=== PATIENT | male | born 1950 | race Caucasian/White ===

== ENCOUNTER 2018-02-02 05:52 | Day surgery (SDC) | payer MEDICARE, OTHER ==
[~2018-02-02 05:52] MED LIST: ALPRAZolam 0.25 MG TAB PO PRN; ALPRAZolam 0.5 MG TAB PO PRN; ASPIRIN 325 MG TAB PO STA; ATORVASTATIN 80 MG TAB PO STA; NITROGLYCERIN SL TABS 0.4 MG TAB SUBLINGUAL PRN; SODIUM CHLORIDE 0.9% 1,000 ML in EMPTY BAG 1 BAG IV ONE
[2018-02-02 06:40] VITALS: RESP 16
[2018-02-02] MEDS ORDERED: fentaNYL (PF) 50 MCG/ML 2 ML AMP ONE (06:47)
[2018-02-02] MEDS ORDERED: MIDAZOLAM 2 MG/2 ML VIAL ONE (06:47)
[2018-02-02] MEDS ORDERED: SODIUM CHLORIDE 0.9% 1,000 ML IV ONE (06:48)
[2018-02-02] MEDS: INSULIN ASPART 100 UNIT/ML 1 ML 10 ML VIAL SQ SCH ×4 (06:49→17:53)
[2018-02-02] MEDS: BENZOCAINE SPRAY 1 CAN TOPICAL ONE ×3 (06:58→07:17)
[2018-02-02 07:05] LABS: Glucose,Whole Blood 232 mg/dL (75-99)
[2018-02-02] MEDS ORDERED: fentaNYL (PF) 50 MCG/ML 2 ML AMP IV ONE (07:17)
[2018-02-02] MEDS ORDERED: MIDAZOLAM 2 MG/2 ML VIAL IVP ONE ×2 (07:18→07:21)
[2018-02-02] MEDS ORDERED: LIDOCAINE 1% INJ 10MG/ML (20 ML MDV) ONE (07:21)
[2018-02-02] MEDS ORDERED: IV FLUID CONTINUATION 725 ML IV ONE (07:38)
[2018-02-02] MEDS ORDERED: LIDOCAINE 1% INJ 10MG/ML (20 ML MDV) SQ ONE (08:00)
--- NOTE | 2018-02-02 08:13 | ECHOT ---
TRANSESOPHAGEAL ECHOCARDIOGRAM INDICATION: Evaluation of aortic valve. PROCEDURE: After explaining the procedure to the patient, its risks and the complications, blood pressure, heart rate, O2 saturation was monitored. The throat was sprayed with Cetacaine. He received 50 mcg intravenous fentanyl and 3 mg intravenous Versed. The probe was introduced into the esophagus without difficulty. Images were obtained. Following that, the probe was removed. There was no immediate complication. FINDINGS: Left atrial size is mildly dilated. Left ventricular size and systolic function normal. The mitral valve revealed mitral annulus calcification. The aortic valve is a tricuspid valve severely calcified. By planimetry, the valve area is ranging between 0.7 to 0.8 centimeters square. The tricuspid valve is normal. Descending thoracic aorta revealed mild atherosclerotic changes. No pericardial effusion was noted. Contrast bubble study revealed no shunting across the interatrial septum. Doppler pulse wave and color Doppler obtained revealed a mild to moderate mitral with mild tricuspid regurgitation with trace aortic regurgitation. CONCLUSION: 1. Mildly dilated left atrium. 2. Normal left ventricular size and systolic function. 3. Mitral annulus calcification with mild to moderate mitral regurgitation. 4. Severe aortic stenosis with aortic valve area of 0.7 to 0.8 centimeters square. 5. Mild tricuspid regurgitation. 6. No evidence of shunting across the interatrial septum. 7. No pericardial effusion. MMODL / IJN: [id number] /
[2018-02-02 08:24] LABS: O2 Sat Blood Gas 70.5 %
[2018-02-02 08:26] LABS: O2 Sat Blood Gas 68.5 %
[2018-02-02 08:28] LABS: O2 Sat Blood Gas 94.9 %
[2018-02-02] MEDS ORDERED: IOPAMIDOL-370 125ML BTL INJ ONE (08:28)
[2018-02-02] MEDS ORDERED: RX INFO: IV CONTRAST WAS GIVEN 1 EACH MISC MISCELLANE PRN (08:50)
[2018-02-02] MEDS ORDERED: SODIUM CHLORIDE 0.9% 1,000 ML IV SCH (09:00)
[2018-02-02] MEDS ORDERED: METOPROLOL TARTRATE 50 MG TAB PO SCH (09:00)
[2018-02-02] MEDS ORDERED: ASPIRIN 81 MG PO SCH (09:00)
[2018-02-02] MEDS ORDERED: ISOSORBIDE MONONITRATE ER 30 MG TAB.ER.24H PO SCH (09:00)
[2018-02-02] MEDS ORDERED: FAMOTIDINE 20 MG TAB PO SCH (09:00)
--- NOTE | 2018-02-02 09:37 | CC ---
CARDIAC CATHETERIZATION REPORT Mr. Duenas is a 67-year-old male with known history of hypertension, hyperlipidemia, diabetes mellitus, and a prior history of percutaneous revascularization who presented with symptoms of progressive chest discomfort and dyspnea on exertion. He has a known history of aortic stenosis that showed progression of gradient on his transthoracic echocardiogram. In view of that, recommendation was made regarding cardiac catheterization. The procedure, its risks and the complications were discussed with the patient who is in full understanding and agreement. PROCEDURE: Patient was brought to labor relations supervisor in a fasting semi-sedated state after receiving fentanyl and Benadryl and achieving moderate conscious sedated state. Using Xylocaine anesthesia in the Seldinger's technique, 6-Congolese sheath was introduced in the right femoral artery and an 8-Congolese sheath in the right femoral vein. Right heart catheterization performed using [place]-Adalberto catheter multiple pressure samples were obtained. Cardiac output by thermodilution was calculated. Following that selective right and left colon angiography performed 6-Congolese 4 bend right and left Nelson catheter. Multiple views of the coronary artery including hemiaxial views obtained. Following that, catheter and sheaths were removed. Hemostasis was obtained with deployment of an Angio-Seal in the right femoral artery and compression of the right femoral vein. FINDINGS: HEMODYNAMICS: Right atrial saturation 71%. Pulmonary artery saturation 69%. Femoral artery saturation 95%. Cardiac output by thermodilution 4.7 L/minute and by Javed 5.3 L/minute. Aortic valve area was calculated 0.9 centimeter square. Pulmonary artery systolic pressure of 24 with a diastolic of 6 and a mean of 10 mmHg. Pulmonary capillary wedge pressure A-wave of 9, V-wave of 6 with a mean of 6 mmHg. Right ventricular systolic pressure of 26 mmHg with an end-diastolic of 4 mmHg. Right atrium A-wave of 4, V-wave of 3 with a mean of 4 mmHg. The ventricular end-diastolic pressure of 16 to 20 mmHg. The gradient across the aortic valve was close to 40 mmHg. FLUOROSCOPY: There was severe calcification involving the coronary arteries as well as the aortic valve. LEFT MAIN: This is a large-sized vessel trifurcating left circumflex, left anterior descending artery and ramus intermedius. Left main coronary artery has no evidence of high-grade stenosis. LEFT ANTERIOR DESCENDING ARTERY: This is a large-sized vessel reaching to the apex with a wraparound apex segment. The mid segment of the LAD has intimal disease of 40% to 50%. The first diagonal branch, which is a large branch has an eccentric 99% stenosis. The vessel beyond that has no evidence of high-grade stenosis. RAMUS INTERMEDIUS: This is moderate-size vessel. The stented segment is patent and there is no evidence restenoses. The vessel has diffuse intimal disease. LEFT CIRCUMFLEX: This is a nondominant vessel, moderate in caliber giving rise to one obtuse marginal branch. The stented segment in the circumflex is patent. There is mild intimal disease with no evidence of high-grade stenosis. RIGHT CORONARY ARTERY: This is a large dominant vessel bifurcating in PDA and posterolateral segment and branches calcified. The right coronary artery ostium has a 50% to 70% stenosis. The mid segment of the vessel has diffuse intimal disease. The PDA takeoff has a lesion of about 60% to 70%. The rest of the vessel has no high-grade stenosis. LEFT VENTRICULOGRAM: Left ventriculogram was performed in 30-degree MCNALLY view and revealed normal left ventricular size and systolic function. Ejection fraction is 60%. There was no significant mitral regurgitation. CONCLUSION: 1. Calcified coronary artery and calcified aortic valve. 2. Significant stenosis in the first diagonal branch as well as the ostium of the right coronary artery. 3. Severe aortic stenosis. RECOMMENDATION: At this time, I would recommend to proceed with evaluation for possible aortic valve replacement, coronary artery bypass grafting. Those recommendation were discussed with the patient and his family and they are in full understanding and agreement. We will await the input of the surgical team. Duration of procedure 30 minutes. ALESSIO / MAYANKN: [id number] /
--- NOTE | 2018-02-02 11:47 | P.GSCN ---
History of Present Illness Consult date: 02/02/18 Reason for Consult: Aortic stenosis, coronary artery disease, surgical recommendations. Requesting physician: Óscar Staples History of present illness: This is a 67-year-old gentleman who follows with Dr. Padma Meza on an outpatient basis. He has a previous medical history of aortic stenosis, coronary artery disease with stents placement to the RCA, obtuse marginal, and ramus in 2005, hypertension, hyperlipidemia, obesity, prostate cancer status post prostatectomy in 2001, skin cancer 3 years ago, yfc-[id number] diabetes mellitus, and previous tobacco dependence, he quit smoking in 1974. He has been followed by Dr. Staples on an outpatient basis with serial echocardiograms for his aortic stenosis with progression of the gradient across the aortic valve. Recently he has had chest pain and shortness of breath. He was recommended to undergo heart catheterization and transesophageal echocardiogram which were completed this morning. His heart catheterization demonstrated mid LAD with interval disease of 40% to 50%, first diagonal branch with an eccentric 99% stenosis, 50-70% stenosis in the right coronary ostia, PDA with a lesion of 60-70%, patent stent in the ramus and circumflex. Transesophageal echocardiogram demonstrated a tricuspid aortic valve which is severely calcified with a valve area 0.7-0.8 cm by planimetry demonstrating severe aortic stenosis. Due to the above findings Dr. Fountain from cardiothoracic surgery was consulted for surgical recommendations. Review of Systems Review of systems was completed was negative except as noted. - Constitutional Reports fatigue - Cardiovascular Reports as per HPI, Reports chest pain, Reports dyspnea on exertion, Reports shortness of breath Past Medical History Past Medical History: Coronary Artery Disease (CAD), Cancer, Diabetes Mellitus, Hyperlipidemia, Hypertension, Myocardial Infarction (OR) Additional Past Medical History / Comment(s): HX KIDNEY STONES, HX OF PROSTATE AND SKIN CA, aortic stenosis Last Myocardial Infarction Date:: 2005 History of Any Multi-Drug Resistant Organisms: None Reported Past Surgical History: Heart Catheterization With Stent, Hernia Repair, Prostate Surgery Additional Past Surgical History / Comment(s): HEART STENT X5, LITHOTRIPSY Past Anesthesia/Blood Transfusion Reactions: No Reported Reaction Date of Last Stent Placement:: 2005 Past Psychological History: No Psychological Hx Reported Smoking Status: Former smoker Past Alcohol Use History: None Reported Past Drug Use History: None Reported - Past Family History Father Family Medical History: Cancer Additional Family Medical History / Comment(s): COLON, LUNG Sister(s) Family Medical History: Cancer Additional Family Medical History / Comment(s): PANCREAS, COLON, LIVER Brother(s) Family Medical History: Cancer Additional Family Medical History / Comment(s): COLON,LIVER Medications and Allergies Home Medications Medication Instructions Recorded Confirmed Type Aspirin 81 mg PO DAILY 02/11/15 02/02/18 History Atorvastatin [Lipitor] 20 mg PO HS 02/11/15 02/02/18 History Lisinopril [Prinivil] 20 mg PO HS 02/11/15 02/02/18 History Metoprolol Tartrate [Lopressor] 50 mg PO BID 02/11/15 02/02/18 History Niacin 500 mg PO HS 02/11/15 02/02/18 History Nitroglycerin Sl Tabs [Nitrostat] 0.4 mg PO DIRECTED PRN 02/11/15 02/02/18 History metFORMIN HCL 1,000 mg PO BID 02/11/15 02/02/18 History Isosorbide Mononitrate ER [Imdur] 30 mg PO DAILY 01/27/18 02/02/18 History Ranitidine HCl [Zantac] 300 mg PO DAILY 01/27/18 02/02/18 History glipiZIDE [Glucotrol] 5 mg PO AC-BRKFST 01/27/18 02/02/18 History glipiZIDE [Glucotrol] 10 mg PO AC-SUPPER 01/27/18 02/02/18 History Allergies Allergy/AdvReac Type Severity Reaction Status Date / Time No Known Allergies Allergy Verified 01/27/18 13:54 Surgical - Exam Vital Signs Temp Pulse Resp BP Pulse Ox 98.2 F 55 L 16 135/70 98 02/02/18 06:23 02/02/18 06:23 02/02/18 06:23 02/02/18 06:23 02/02/18 06:23 - General well developed, well nourished, no distress, obese - Eyes PERRL, normal ocular movement - ENT no hearing loss - Neck no masses, no bruits, trachea midline - Respiratory Lungs sounds clear bilaterally. Respirations even, nonlabored. Currently on room air with oxygen saturation 94%. No chest wall deformities. - Cardiovascular S1, S2 present. Regular rate and rhythm, sinus rhythm on telemetry. Positive systolic murmur heard. Palpable peripheral pulses bilaterally. No edema present. No calf pain or tenderness noted. No varicosities noted. - Abdomen Obese Abdomen: soft, non tender, bowel sounds, surgical scars - Genitourinary Deferred - Rectum Deferred - Integumentary no rash, no growths - Neurologic normal coordination, normal sensation - Psychiatric oriented to time, oriented to person, oriented to place, speech is normal, memory intact Results - Labs Abnormal Lab Results - Last 24 Hours (Table) 02/02/18 Range/Units 06:35 POC Glucose (mg/dL) 232 H (75-99) mg/dL - Imaging Additional studies: Cardiac catheterization films and transesophageal echocardiogram reviewed with Dr. Fountain and Dr. Staples. Assessment and Plan (1) Severe aortic stenosis Current Visit: Yes Status: Chronic Code(s): I35.0 - NONRHEUMATIC AORTIC ( VALVE) STENOSIS SNOMED Code(s): 65620667 (2) Coronary artery disease Current Visit: Yes Status: Chronic Code(s): I25.10 - ATHSCL HEART DISEASE OF [place] CORONARY ARTERY W/O ANG PCTRS SNOMED Code(s): 29305160 (3) History of heart artery stent Current Visit: Yes Status: Chronic Code(s): Z95.5 - PRESENCE OF CORONARY ANGIOPLASTY IMPLANT AND GRAFT SNOMED Code(s): 662034243 (4) Hypertension Current Visit: Yes Status: Chronic Code(s): I10 - ESSENTIAL (PRIMARY) HYPERTENSION SNOMED Code(s): 61779482 (5) Hyperlipidemia Current Visit: Yes Status: Chronic Code(s): E78.5 - HYPERLIPIDEMIA, UNSPECIFIED SNOMED Code(s): 97793621 (6) Obesity (BMI 30-39.9) Current Visit: Yes Status: Chronic Code(s): E66.9 - OBESITY, UNSPECIFIED SNOMED Code(s): 466433104 (7) History of prostate cancer Current Visit: Yes Status: Acute Code(s): Z85.46 - PERSONAL HISTORY OF MALIGNANT NEOPLASM OF PROSTATE SNOMED Code(s): 537025206 (8) Non-insulin dependent type 2 diabetes mellitus Current Visit: Yes Status: Chronic Code(s): E11.9 - TYPE 2 DIABETES MELLITUS WITHOUT COMPLICATIONS SNOMED Code(s): 58330991 (9) History of kidney stones Current Visit: No Status: Resolved Code(s): Z87.442 - PERSONAL HISTORY OF URINARY CALCULI SNOMED Code(s): 785103206 Plan: The patient was seen and examined on the observation unit with Dr. Fountain. Chart/diagnostics were reviewed. We offered patient the option of surgical aortic valve replacement and coronary artery bypass. Preoperative carotid ultrasound, chest x-ray, vein mapping, and pulmonary function test were ordered. Preoperative teaching was initiated. All questions were answered. Patient is to obtain dental clearance, then follow-up in the office with Dr. Fountain for more details planning and timing of surgery. The patient and his are in agreement with this plan and it was discussed with Dr. Staples. Please continue aspirin, statin, beta lamar. Thank you Dr. Staples for this consult. We look forward to working with you in the care of your patient. Time with Patient: Greater than 30
[2018-02-02 12:03] LABS: Glucose,Whole Blood 230 mg/dL (75-99)
[2018-02-02 15:47] VITALS: BMI 34.7
[2018-02-02 16:06] VITALS: BP 164/75; PULSE 77; TEMP 97.8
--- NOTE | 2018-02-02 17:00 | US ---
EXAMINATION TYPE: US carotid duplex BILAT DATE OF EXAM: 02/02/2018 COMPARISON: NONE CLINICAL HISTORY: 67-year-old male preop open heart. TECHNIQUE: Carotid duplex ultrasound examination. In direct Doppler criteria was utilized. FINDINGS: EXAM MEASUREMENTS: RIGHT: Peak Systolic Velocity (PSV) cm/sec ----- Right CCA: 71.6 ----- Right ICA: 75.5 ----- Right ECA: 79.4 ICA/CCA ratio: 1.1 RIGHT: End Diastole cm/sec ----- Right CCA: 16.8 ----- Right ICA: 20.7 ----- Right ECA: 0 LEFT: Peak Systolic Velocity (PSV) cm/sec ----- Left CCA: 59.9 ----- Left ICA: 80.7 ----- Left ECA: 86.0 ICA/CCA ratio: 1.3 LEFT: End Diastole cm/sec ----- Left CCA: 16.8 ----- Left ICA: 19.4 ----- Left ECA: 0 VERTEBRALS (direction of flow): Right Vertebral: Antegrade Left Vertebral: Antegrade Rhythm: Normal Planting Material Remover notes: Mild atherosclerotic changes bilaterally. Patient has large body habitus with short neck, imaging difficult IMPRESSION: No hemodynamically significant stenosis appreciated in either internal carotid artery. Criteria for Assigning % of Stenosis / Diameter reduction (Estimation based on the indirect measurements of the internal carotid artery velocities (ICA PSV). 1. Normal (no stenosis)=ICA PSV < 125 cm/s: ratio < 2.0: ICA EDV<40 cm/s. 2. Less than 50% stenosis=ICA PSV < 125 cm/s: ratio < 2.0: ICA EDV<40 cm/s. 3. 50 to 69% stenosis=ICA PSV of 125 to 230 cm/s: ration 2.0 ? 4.0: ICA EDV 40-100 cm/s. 4. Greater than 70% stenosis to near occlusion= ICA PSV > 230 cm/s: ratio > 4.0: ICA EDV > 100 cm/s. 5. Near occlusion= ICA PSV velocities may be low or undetectable: variable ratio and ICA EDV. 6. Total occlusion=unable to detect flow.
--- NOTE | 2018-02-02 17:12 | XR ---
EXAMINATION TYPE: XR chest 2V DATE OF EXAM: 02/02/2018 COMPARISON: NONE HISTORY: Preop open heart surgery TECHNIQUE: Frontal and lateral views of the chest are obtained. FINDINGS: Heart and mediastinum are within normal limits. Lungs are clear. Costophrenic angles are c lear. Thoracic aorta is atheromatous. There are chest leads. Bony thorax is intact. IMPRESSION: No active cardiopulmonary disease.
[2018-02-02] MEDS ORDERED: glipiZIDE 10 MG TAB PO SCH (17:30)
[2018-02-02] MEDS ORDERED: NIACIN TR 500 MG CAPSULE.ER PO SCH (21:00)
[2018-02-02] MEDS ORDERED: LISINOPRIL 20 MG TAB PO SCH (21:00)
[2018-02-02] MEDS ORDERED: ATORVASTATIN 20 MG TAB PO SCH (21:00)
[2018-02-03] MEDS ORDERED: glipiZIDE 5 MG TAB PO SCH (07:30)
--- NOTE | 2018-02-07 11:02 | P.VSCSTY ---
Greater Saphenous Vein Mapping This is bilateral lower extremity greater saphenous vein mapping. Date of service 02/02/2018 Vein quality and ultrasound appearance no intraluminal thrombus or wall changes are seen. Vein size groin right 5.3 x 6.1 groin left 6.6 x 9.2 High thigh right 3.5 x 5.0 high thigh left 4.0 x 5.1 Mid thigh right 3.8 x 4.2 mid thigh left 4.1 x 3.9 Above-knee right 3.7 x 5.2 above- knee left 3.7 x 4.0 Below knee right 4.5 x 4.9 below-knee left 3.2 x 4.2 Mid calf right 3.2 x 4.2 mid calf left 3.5 x 3.7 Ankle right 3.8 x 4.0 ankle left 3.7 x 3.6 Impression usable bilateral greater saphenous vein.
== END 2018-02-02 18:12 | disposition home or self-care (01) ==
LOC: CATHCVL 05:52 → 3OBS 08:47 → CATHCVL 18:12
PROVIDERS: ATTEND Internal Medicine Interventional Cardiology
DX: I25.10 Atherosclerotic heart disease of native coronary artery without angina pectoris (principal); I25.84 Coronary atherosclerosis due to calcified coronary lesion; I10 Essential (primary) hypertension; Z87.891 Personal history of nicotine dependence; I08.3 Combined rheumatic disorders of mitral, aortic and tricuspid valves; Z01.810 Encounter for preprocedural cardiovascular examination; I25.2 Old myocardial infarction; E78.2 Mixed hyperlipidemia; E11.9 Type 2 diabetes mellitus without complications; Z79.84 Long term (current) use of oral hypoglycemic drugs; E66.9 Obesity, unspecified; Z68.30 Body mass index [BMI] 30.0-30.9, adult; Z95.5 Presence of coronary angioplasty implant and graft; Z79.02 Long term (current) use of antithrombotics/antiplatelets; Z79.82 Long term (current) use of aspirin; Z79.899 Other long term (current) drug therapy; Z85.46 Personal history of malignant neoplasm of prostate; Z90.79 Acquired absence of other genital organ(s)
CPT/HCPCS: 94150; 93312; 93320; 93325; 93453; 85018; 82810; 71046; 93970; 93880; C1760; C1769 ×3; C1894 ×2; J2250; J2001; J3010; Q9967

== ENCOUNTER 2018-04-04 05:37 | Inpatient (IN) | payer MEDICARE, OTHER ==
[~2018-04-04 05:37] MED LIST changes: +ALBUMIN HUMAN 25% 50 ML IV ONE; +ALBUMIN HUMAN 5% 500 ML IVPB ONE; -ALPRAZolam 0.25 MG TAB PO PRN; -ALPRAZolam 0.5 MG TAB PO PRN; +ASPIRIN 325 MG TAB PO ONE; -ASPIRIN 325 MG TAB PO STA; +ATORVASTATIN 10 MG TAB PO ONE; -ATORVASTATIN 80 MG TAB PO STA; +CALCIUM CHLORIDE 100 MG/ML 10 ML SYRINGE IV ONE; +CHLORHEXIDINE GLUCONATE 15 ML CUP MUCOUS MEM ONE; +CLEVIDIPINE BUTYRATE 25 MG in EMPTY BAG 1 BAG IV ONE; +DEXTROSE 5% IN WATER 1,000 ML with POTASSIUM CHLORIDE 110 MEQ, MAGNESIUM SULFATE 16 MEQ... IV ONE; +DEXTROSE 5% IN WATER 1,000 ML with POTASSIUM CHLORIDE 25 MEQ, SODIUM CHLORIDE 2.5MEQ/ML... IRRIGATION ONE; +HEPARIN SODIUM 1,000 UN/ML (10ML VL) IV ONE; +HEPARIN SODIUM,PORCINE 5,000 UNIT in SODIUM CHLORIDE 0.9% 500 ML IV ONE; +INSULIN REGULAR 100 UNIT in SODIUM CHLORIDE 0.9% 100 ML IV ONE; +LACTATED RINGERS 1,000 ML IV ONE; +MAGNESIUM SULFATE MG 500 MG/ML VIAL IV ONE; +MANNITOL 25% 12.5 GM/50 ML VIAL IV ONE; +METOPROLOL TARTRATE 12.5 MG TAB PO ONE; -NITROGLYCERIN SL TABS 0.4 MG TAB SUBLINGUAL PRN; +NITROGLYCERIN-D5W PMX 25 MG/250 ML BTL IV ONE; +NITROGLYCERIN-D5W PMX 50 MG in DEXTROSE/WATER 1 250ML.BAG IV ONE; +NOREPINEPHRINE 4 MG in SODIUM CHLORIDE 0.9% 250 ML IV ONE; +PAPAVERINE 360 MG in SODIUM CHLORIDE 0.9% 90 ML IV ONE; +PHENYLEPHRINE 40 MG in SODIUM CHLORIDE 0.9% 250 ML IV ONE; +PHENYLEPHRINE-0.9% NACL SYG 1 MG/10 ML SYRINGE IV ONE; +PROPOFOL 1,000 MG/100 ML VIAL IV ONE; +PROTAMINE SULFATE 10 MG/ML 25 ML VIAL IV ONE; +PROTAMINE SULFATE 250 MG in EMPTY BAG 1 BAG IV ONE; +SODIUM BICARB 8.4% 50 ML SYR (1 MEQ/ML) IV ONE; +SODIUM CHLORIDE 0.9% 1,000 ML IV ONE; -SODIUM CHLORIDE 0.9% 1,000 ML in EMPTY BAG 1 BAG IV ONE; +TRANEXAMIC ACID 2,000 MG in SODIUM CHLORIDE 0.9% 180 ML IV ONE; +ceFAZolin 1,000 MG in SODIUM CHLORIDE 0.9% IRRIGATIO 1,000 ML IRRIGATION ONE; +ceFAZolin 2,000 MG in SODIUM CHLORIDE 0.9% 30 ML IVPB ONE
[2018-04-04] MEDS ORDERED: TRANEXAMIC ACID 2,000 MG in SODIUM CHLORIDE 0.9% 180 ML IV ONE (09:45)
[2018-04-04] MEDS ORDERED: INSULIN REGULAR 100 UNIT in SODIUM CHLORIDE 0.9% 100 ML IV ONE (12:00)
[2018-04-04] MEDS ORDERED: METOCLOPRAMIDE 5 MG/ML 2 ML VIAL IVP PRN (16:13)
[2018-04-04] MEDS ORDERED: NOREPINEPHRINE 4 MG in SODIUM CHLORIDE 0.9% 250 ML IV SCH (16:13)
[2018-04-04] MEDS ORDERED: Magnesium Replacement Protocol 1 EACH MISC MISCELLANE PRN (16:13)
[2018-04-04] MEDS ORDERED: MORPHINE SULFATE 2 MG/ML SYRINGE IVP PRN (16:13)
[2018-04-04] MEDS ORDERED: BENZOCAINE/MENTHOL LOZENG 1 EACH LOZENGE MUCOUS MEM PRN (16:13)
[2018-04-04] MEDS ORDERED: IPRATROPIUM-ALBUTEROL 3 ML NEB INHALATION PRN (16:13)
[2018-04-04] MEDS ORDERED: ALBUMIN HUMAN 5% 250 ML in EMPTY BAG 1 BAG IVPB PRN (16:13)
[2018-04-04] MEDS ORDERED: AMIODARONE 450 MG in DEXTROSE 5% IN WATER 250 ML IV PRN ×2 (16:13)
[2018-04-04] MEDS ORDERED: ONDANSETRON 4 MG/2 ML VIAL IVP PRN (16:13)
[2018-04-04] MEDS ORDERED: NITROGLYCERIN-D5W PMX 50 MG in DEXTROSE/WATER 1 250ML.BAG IV SCH (16:13)
[2018-04-04] MEDS ORDERED: DEXTROSE 5% IN WATER 100 ML with AMIODARONE 150 MG IV PRN (16:13)
[2018-04-04] MEDS ORDERED: Phosphorus Replacement Protoco 1 EACH MISC MISCELLANE PRN (16:13)
[2018-04-04] MEDS ORDERED: Potassium Replacement Protocol 1 EACH MISC MISCELLANE PRN (16:13)
[2018-04-04] MEDS ORDERED: CALCIUM CHLORIDE 1,000 MG in SODIUM CHLORIDE 0.9% 100 ML IV PRN (16:13)
--- NOTE | 2018-04-04 16:55 | OP ---
OPERATIVE REPORT DATE OF THE SURGERY: 04/04/2018. SURGEON: Dr. Ethan Fountain. BREWERY WORKER: Horace Bearden Nurse practitioner, and Asad HUDDLESTON. PREOPERATIVE DIAGNOSES: Double-vessel coronary artery disease, severe aortic valve stenosis, preserved systolic function, obesity, hypertension, diabetes, hyperlipidemia, status post remote stenting to circumflex system, chronic Plavix intake. POSTOPERATIVE DIAGNOSIS: Double-vessel coronary artery disease, severe aortic valve stenosis, preserved systolic function, obesity, hypertension, diabetes, hyperlipidemia, status post remote stenting to circumflex system, chronic Plavix intake.. PROCEDURE: 1. Aortic valve replacement using a 23 mm bovine bioprosthesis Inspiris. 2. Triple coronary artery bypass grafting using the left internal mammary artery to the left anterior descending artery, reverse saphenous vein graft from the aorta to the diagonal artery, reverse saphenous vein graft from the aorta to the posterior descending artery. 3. Intraoperative transesophageal echocardiogram and epiaortic scanning. INDICATIONS FOR SURGERY: The patient is a 67-year-old gentleman with the above diagnosis, who was referred for elective aortic valve replacement and coronary artery bypass grafting. The STS risk was discussed with him. He understood and agreed to proceed. PROCEDURE: Patient in supine position, the right internal jugular [place]-Adalberto catheter and right radial arterial line were placed. PA pressure was 50/20 and cardiac index was 2.6. Subsequently, he was brought to the operating room where general endotracheal anesthesia was induced uneventfully. He received 2 g of cefazolin intravenously. A Hernandez catheter was inserted. The chest, abdomen and both lower extremities were prepped and draped using ChloraPrep. Ioban was used to cover the skin. Transesophageal echocardiogram confirmed the preoperative finding of severe trileaflet aortic valve stenosis. It was calcific in nature. There was mild to moderate mitral valve regurgitation. Preserved systolic function. A midline sternotomy was performed and the bone was dense and profusely bleeding. I had to use some bone wax on the manubrial part on both sides at the end of the surgery to control that diffuse oozing. The left hemisternum was elevated and left internal mammary artery was harvested in a somewhat skeletonized fashion. The left pleura was intentionally opened in this process and was drained with a 28-Russian chest tube. I also opened the right pleura at the end of the case and drained it with another 28- Russian chest tube. The mammary artery was double clipped distally and transected, had an excellent pulsatile flow in it and was around 2 mm in diameter. In the same setting, the right greater saphenous vein was harvested endoscopically from groin to above the ankle level. All the branches were tied. The leg incisions were closed over a drain. The vein was prepared and appeared to be of good quality around 4 mm in diameter and thin-walled. Mediastinal fat was transected between 2 ties and epiaortic scanning revealed a protruding atheroma that was at the level of the crossing of the right pulmonary artery below where the proposed site of aortic clamping. The pericardium was opened in an inverted T-fashion and a pericardial cradle was created. Findings included the fatty heart, diffuse calcific coronary artery disease and a small short aorta. After systemic heparinization and placement of respective pledgeted pursestring , aortic cannulation with a 21-Russian soft flow cannula and venous cannulation with a dual stage cannula via the right atrial appendage was performed. Antegrade as well as retrograde cardioplegia catheter were placed. Cardiopulmonary bypass was initiated and patient temperature was allowed to drift down to 34 degrees Celsius. With the heart empty and beating growth at the target and appeared that the diagonal artery, the left anterior descending artery and the posterior descending artery would be the sites of bypass. There was diffuse calcific disease as mentioned above. The aorta was clamped and during clamping myocardial protection was achieved with initial dose of antegrade cold blood cardioplegia with adequate arrest at around 450 mL followed by another dose of around 400 mL of retrograde cold blood cardioplegia. All subsequent doses were given retrograde at 15 minutes intervals. The first part of the surgery was performed. The distal coronary bypass grafting part. The 1st distal anastomosis was between a good segment of vein and a 1.75 mm diagonal artery which had wall disease using Prolene 7-0 in continuous fashion. There was adequate flow in the vein which was cut to length and suspended. The second distal anastomosis was between another segment of vein and the mid aspect of the posterior descending artery, which was relatively healthy, using Prolene 7-0 in continuous fashion. The posterior descending artery was around 1.5 mm in diameter. The vein was cut to length and suspended. The third and last distal anastomosis was between the left internal mammary artery and the mid to distal aspect of the left anterior descending artery which was opened was around 1.75 mm in diameter thickened using Prolene 7-0 in continuous fashion. The mammary pedicle was affixed to the epicardium using 2 Prolene 6-0 suture. Attention was moved at this point at performing the aortic valve replacement part. The aorta was opened in a transverse fashion 1 cm above the sinotubular junction. Exploration revealed severe calcific trileaflet aortic valve stenosis. There was some calcification of the sinuses at the junction mainly anteriorly. The aortic valve leaflets were excised and the anulus debrided to a pliable tissue. Thorough irrigation performed. Both coronary ostia position were normal. I placed a total of 18 pledgeted Tycron 2-0 on the ventricular side all along the perimeter of the anulus. The anulus was sized to a 23 mm bovine Inspiris valve, which was selected. All the sutures were passed symmetrically into the valve cuff which seated nicely supraannularly. All the needles were cut and the suture tied using the cor knot device. Both coronary ostia were clear. Thorough irrigation performed. The aortotomy was closed in 2 layers using Prolene 4-0 with the 1st layer in a horizontal mattress pledgeted at the corner and the 2nd layer in an [id number] technique. At this point, rewarming was started as we punched out 2 buttons of the ascending aorta and the aortic wall was somewhat thickened. The 2 proximal anastomosis of the 2 vein grafts were fashioned using Prolene 6-0 in a continuous fashion. The patient was given lidocaine and magnesium before unclamping the aorta. He slowly regained spontaneous sinus rhythm. After a period of reperfusion, we were able to wean off the bypass without the need of any inotropic or vasopressor support. CO2 was flowing over the field as long as the aorta was opened. De-airing was satisfactory. There was no paravalvular leak. There was mild mitral valve regurgitation. The test dose of full dose protamine was given. Decannulation followed. Two atrial monopolar pacing wires and 1 bipolar ventricular pacing was placed. One geebmc-hhz-Ujefni substernal chest tube was placed. Pericardial fat was approximated over the RV and mediastinal fat was closed over the aorta covering the graft. After ensuring adequate hemostasis and hemodynamic and after correct sponge, instrument, and needle count, the sternum was closed using 5 tloggt-jy-hbexn pioneer cable after interposing fibrillar between the sternal edges. Thorough irrigation with cefazolin followed. The rest of the closure proceeded in layers. Skin glue was applied. The patient was transferred to the ICU in stable condition on low-dose nitroglycerin with a cardiac index of 2.3. PA pressure of 35/20, mean arterial pressure of 75 and normal sinus rhythm. ALESSIO / SUKHJINDER: [id number] / MTDD
[2018-04-04 17:03] LABS: Basophils % (A) 0 %; Eosinophils # (A) 0.1 k/uL (0-0.7); Eosinophils % (A) 1 %; HCT 23.5 % (39.0-53.0); Lymphocytes # (A) 1.1 k/uL (1.0-4.8); Lymphocytes % (A) 12 %; MCHC 34.6 g/dL (31.0-37.0); MCV 83.8 fL (80.0-100.0); Mean Platelet Volume 8.5; Monocytes # (A) 0.7 k/uL (0-1.0); Monocytes % (A) 7 %; Neutrophils # (A) 7.1 k/uL (1.3-7.7); Neutrophils % (A) 79 %; Platelet Count 106 k/uL (150-450)
[2018-04-04 17:13] LABS: HGB 8.1 gm/dL (13.0-17.5)
[2018-04-04 17:14] LABS: INR 1.4 (<1.2); Partial Thromboplastin Time 38.3 sec (22.0-30.0); Prothrombin Time 12.9 sec (9.0-12.0)
[2018-04-04 17:14] LABS: Glucose,Whole Blood 131 mg/dL (75-99)
[2018-04-04 17:15] LABS: Ionized Calcium 4.4 mg/dL (4.5-5.3)
--- NOTE | 2018-04-04 17:18 | XR ---
EXAMINATION TYPE: XR chest 1V portable DATE OF EXAM: 04/04/2018 COMPARISON: NONE HISTORY: Cardiac surgery TECHNIQUE: Single frontal view of the chest is obtained. FINDINGS: Endotracheal tube is 2.5 cm from the robi. There is right jugular catheter with tip in t he main pulmonary artery. There is nasogastric tube in good position. There is no gross heart failure . There is some infiltrate and atelectasis adjacent to the mediastinum on the left side. There is a r ight chest tube. There is a left chest tube. There is no sign of pneumothorax. Thoracic aorta is athe romatous. IMPRESSION: No heart failure. Left upper lobe infiltrate and atelectasis. No pneumothorax.
[2018-04-04 17:22] LABS: ALT 31 U/L (21-72); AST 54 U/L (17-59); Albumin 3.1 g/dL (3.5-5.0); Alkaline Phosphatase <20 U/L (38-126); Anion Gap 6 mmol/L; Blood Urea Nitrogen 7 mg/dL (9-20); Calcium 6.8 mg/dL (8.4-10.2); Carbon Dioxide 25 mmol/L (22-30); Chloride 107 mmol/L (98-107); Glucose 119 mg/dL (74-99); Magnesium 2.3 mg/dL (1.6-2.3); Potassium 4.1 mmol/L (3.5-5.1); Sodium 138 mmol/L (137-145); Total Bilirubin 1.3 mg/dL (0.2-1.3); Total Protein 4.8 g/dL (6.3-8.2)
[2018-04-04 17:23] LABS: ABG Base Excess -2.8 mmol/L; ABG HCO3 23 mmol/L (21-25); ABG Oxygen Saturation 94.7 % (94-97); ABG PCO2 45 mmHg (35-45); ABG PH 7.32 (7.35-7.45); ABG PO2 80 mmHg (83-108); ABG TCO2 25 mmol/L (19-24)
[2018-04-04] MEDS: ceFAZolin IN SWFI 2 GM/20 ML SYRINGE IVP SCH (17:36)
[2018-04-04] MEDS: IPRATROPIUM-ALBUTEROL 3 ML NEB INHALATION SCH ×3 (17:36→20:21)
[2018-04-04] MEDS: ACETAMINOPHEN IV (For NPO) 1,000 MG in EMPTY BAG 1 BAG IVPB SCH ×2 (17:36→23:22)
[2018-04-04] MEDS: LACTATED RINGERS 1,000 ML IV SCH (17:38)
[2018-04-04] MEDS: CLEVIDIPINE BUTYRATE 25 MG in EMPTY BAG 1 BAG IV SCH (17:38)
[2018-04-04 18:01] LABS: Glucose,Whole Blood 180 mg/dL (75-99)
[2018-04-04] MEDS: INSULIN REGULAR 100 UNIT in SODIUM CHLORIDE 0.9% 100 ML IV SCH (18:56)
[2018-04-04 18:57] LABS: Glucose,Whole Blood 198 mg/dL (75-99)
[2018-04-04 19:58] LABS: Glucose,Whole Blood 179 mg/dL (75-99)
[2018-04-04 19:59] LABS: Basophils % (A) 0 %; Eosinophils # (A) 0.1 k/uL (0-0.7); Eosinophils % (A) 0 %; HGB 7.8 gm/dL (13.0-17.5); Lymphocytes # (A) 0.9 k/uL (1.0-4.8); Lymphocytes % (A) 8 %; MCH 28.9 pg (25.0-35.0); MCHC 33.8 g/dL (31.0-37.0); MCV 85.6 fL (80.0-100.0); Mean Platelet Volume 9.3; Monocytes # (A) 0.9 k/uL (0-1.0); Monocytes % (A) 8 %; Neutrophils # (A) 9.4 k/uL (1.3-7.7); Neutrophils % (A) 83 %; Platelet Count 100 k/uL (150-450); RBC 2.69 m/uL (4.30-5.90); RDW 14.1 % (11.5-15.5); WBC 11.4 k/uL (3.8-10.6)
[2018-04-04] MEDS ORDERED: CALCIUM CHLORIDE 1,000 MG in SODIUM CHLORIDE 0.9% 100 ML IVPB STA (20:23)
[2018-04-04] MEDS: PROPOFOL 1,000 MG in EMPTY BAG 1 BAG IV SCH ×2 (20:45→23:13)
[2018-04-04] MEDS: MUPIROCIN 2% OINT 22 GM TUBE NASAL SCH (20:52)
[2018-04-04 21:10] LABS: Glucose,Whole Blood 203 mg/dL (75-99)
[2018-04-04 21:28] LABS: ABG Base Excess -9.1 mmol/L; ABG HCO3 18 mmol/L (21-25); ABG Oxygen Saturation 97.3 % (94-97); ABG PCO2 38 mmHg (35-45); ABG PH 7.28 (7.35-7.45); ABG PO2 96 mmHg (83-108); ABG TCO2 19 mmol/L (19-24)
[2018-04-04] MEDS ORDERED: MUPIROCIN 2% OINT 22 GM TUBE NASAL ONE (21:45)
[2018-04-04 21:57] LABS: Glucose,Whole Blood 210 mg/dL (75-99)
[2018-04-04 22:54] LABS: Glucose,Whole Blood 197 mg/dL (75-99)
[2018-04-04 23:28] LABS: Basophils % (A) 0 %; Eosinophils # (A) 0.1 k/uL (0-0.7); Eosinophils % (A) 1 %; HCT 20.8 % (39.0-53.0); HGB 7.1 gm/dL (13.0-17.5); Lymphocytes # (A) 0.8 k/uL (1.0-4.8); Lymphocytes % (A) 9 %; MCH 29.6 pg (25.0-35.0); MCHC 34.2 g/dL (31.0-37.0); MCV 86.4 fL (80.0-100.0); Mean Platelet Volume 8.6; Monocytes # (A) 0.7 k/uL (0-1.0); Monocytes % (A) 7 %; Neutrophils # (A) 7.7 k/uL (1.3-7.7); Neutrophils % (A) 82 %; RDW 14.4 % (11.5-15.5); WBC 9.4 k/uL (3.8-10.6)
[2018-04-04 23:49] LABS: Platelet Count 94 k/uL (150-450)
[2018-04-04] MEDS ORDERED: METOPROLOL TARTRATE 12.5 MG TAB PO STA (23:54)
[2018-04-04 23:59] LABS: Glucose,Whole Blood 183 mg/dL (75-99)
[2018-04-05] MEDS: HEPARIN SODIUM,PORCINE 5,000 UNIT/ML 1 ML VIAL SQ SCH ×3 (00:03→15:49)
[2018-04-05] MEDS: ceFAZolin IN SWFI 2 GM/20 ML SYRINGE IVP SCH ×2 (00:04→08:05)
[2018-04-05 01:01] LABS: Glucose,Whole Blood 173 mg/dL (75-99)
[2018-04-05 02:04] LABS: Glucose,Whole Blood 186 mg/dL (75-99)
[2018-04-05 02:58] LABS: Glucose,Whole Blood 144 mg/dL (75-99)
[2018-04-05 04:09] LABS: Glucose,Whole Blood 158 mg/dL (75-99)
[2018-04-05 04:24] LABS: Basophils % (A) 0 %; Eosinophils # (A) 0.1 k/uL (0-0.7); Eosinophils % (A) 1 %; Lymphocytes # (A) 1.2 k/uL (1.0-4.8); Lymphocytes % (A) 16 %; MCH 29.1 pg (25.0-35.0); MCHC 34.7 g/dL (31.0-37.0); MCV 83.9 fL (80.0-100.0); Monocytes # (A) 0.6 k/uL (0-1.0); Monocytes % (A) 8 %; Neutrophils # (A) 5.6 k/uL (1.3-7.7); Neutrophils % (A) 74 %; RBC 2.24 m/uL (4.30-5.90); RDW 14.5 % (11.5-15.5); WBC 7.6 k/uL (3.8-10.6)
[2018-04-05 04:35] LABS: INR 1.3 (<1.2); Partial Thromboplastin Time 29.7 sec (22.0-30.0); Prothrombin Time 12.3 sec (9.0-12.0)
[2018-04-05 04:36] LABS: HGB 6.5 gm/dL (13.0-17.5)
[2018-04-05 04:37] LABS: HCT 18.8 % (39.0-53.0); Platelet Count 88 k/uL (150-450)
[2018-04-05 04:46] LABS: Ionized Calcium 4.5 mg/dL (4.5-5.3)
[2018-04-05 04:55] LABS: ALT 37 U/L (21-72); AST 60 U/L (17-59); Alkaline Phosphatase 20 U/L (38-126); Anion Gap 10 mmol/L; Blood Urea Nitrogen 9 mg/dL (9-20); Calcium 7.6 mg/dL (8.4-10.2); Carbon Dioxide 22 mmol/L (22-30); Chloride 104 mmol/L (98-107); Glucose 136 mg/dL (74-99); Potassium 4.6 mmol/L (3.5-5.1); Sodium 136 mmol/L (137-145); Total Bilirubin 0.5 mg/dL (0.2-1.3); Total Protein 4.7 g/dL (6.3-8.2)
[2018-04-05 05:20] LABS: Glucose,Whole Blood 146 mg/dL (75-99)
[2018-04-05] MEDS ORDERED: FUROSEMIDE 10 MG/ML 2 ML VIAL IV ONE ×2 (05:29→10:41)
[2018-04-05] MEDS: ACETAMINOPHEN IV (For NPO) 1,000 MG in EMPTY BAG 1 BAG IVPB SCH ×3 (05:32→17:03)
[2018-04-05 06:04] LABS: Glucose,Whole Blood 146 mg/dL (75-99)
[2018-04-05 07:06] LABS: Glucose,Whole Blood 173 mg/dL (75-99)
[2018-04-05 08:06] LABS: Glucose,Whole Blood 167 mg/dL (75-99)
[2018-04-05] MEDS: PANTOPRAZOLE 40 MG/10 ML VIAL IVP SCH (08:06)
[2018-04-05] MEDS: ATORVASTATIN 40 MG TAB PO SCH (08:06)
[2018-04-05] MEDS: ASPIRIN 81 MG PO SCH (08:06)
[2018-04-05 08:08] LABS: ABG Base Excess -1.1 mmol/L; ABG HCO3 23 mmol/L (21-25); ABG Oxygen Saturation 96.4 % (94-97); ABG PCO2 32 mmHg (35-45); ABG PH 7.46 (7.35-7.45); ABG PO2 73 mmHg (83-108); ABG TCO2 24 mmol/L (19-24)
[2018-04-05] MEDS: IPRATROPIUM-ALBUTEROL 3 ML NEB INHALATION SCH ×4 (08:16→20:58)
[2018-04-05 08:53] LABS: Glucose,Whole Blood 166 mg/dL (75-99)
[2018-04-05] MEDS ORDERED: ASPIRIN 325 MG TAB PO SCH (09:00)
[2018-04-05] MEDS ORDERED: METOPROLOL TARTRATE 12.5 MG TAB PO STA (09:04)
[2018-04-05] MEDS: MUPIROCIN 2% OINT 22 GM TUBE NASAL SCH ×2 (09:07→22:11)
--- NOTE | 2018-04-05 09:12 | P.PN ---
Subjective Progress Note Date: 04/05/18 Principal diagnosis: Double vessel coronary artery disease, severe aortic valve stenosis, preserved systolic function. History of obesity, hypertension, hyperlipidemia on statin therapy, diabetes with preoperative hemoglobin A1c 7.4%, hyperlipidemia, coronary artery disease status post remote stenting to circumflex system, chronic Plavix intake, prostate cancer status post prostatectomy in 2001, skin cancer 3 years ago, previous tobacco dependence with preoperative FEV1 89% of predicted. POD #1 aortic valve replacement using a 23 mm bovine bioprosthesis in spite wrists. Triple coronary artery bypass grafting using the left internal mammary artery to the left anterior descending artery, reverse saphenous vein graft from the aorta to the diagonal artery, reverse saphenous vein graft from the aorta to the posterior descending artery. Intraoperative transesophageal echocardiogram and epi-aortic scanning. Patient is currently laying in bed in the intensive care unit. Remains sedated and intubated. Hemoglobin this morning 6.5, currently receiving 1 unit packed red blood cells. Currently hemodynamically stable. Objective - Vital Signs Vital signs: Vital Signs Temp 99.9 F H 04/05/18 07:10 Pulse 104 H 04/05/18 07:10 Resp 18 04/05/18 07:10 BP 120/56 04/05/18 06:40 Pulse Ox 96 04/05/18 07:10 Intake & Output 04/04/18 04/05/18 04/05/18 18:59 06:59 18:59 Intake Total 271 1915.828 20.537 Output Total 5298 1508 Balance -5027 407.828 20.537 Weight 109.6 kg Intake: IV 271 1847 ACETAMINOPHEN IV (For NPO 100 200 ) 1,000 mg In Empty Bag 1 bag @ 400 mls/hr IVPB Q6HR JOE Rx#:[id number] Albumin Human 5% 250 ml 250 In Empty Bag 1 bag @ 250 mls/hr IVPB Q1HR PRN Rx#: [id number] Calcium Chloride 1,000 mg 200 In Sodium Chloride 0.9% 100 ml @ 100 mls/hr IVPB ONCE STA Rx#:[id number] Lactated Ringers 1,000 ml 100 640 @ 50 mls/hr IV .Q20H JOE Rx#:[id number] ceFAZolin 2,000 mg In 30 Sodium Chloride 0.9% 30 ml @ Per Protocol IVPB ONCE ONE Rx#:[id number] co/ci 50 410 pressure bag 18 117 Intake, IV Titration 68.828 20.537 Amount Insulin Regular 100 unit 48.564 20.537 In Sodium Chloride 0.9% 100 ml @ Per Protocol IV .Q0M JOE Rx#:[id number] Propofol 1,000 mg In 20.264 Empty Bag 1 bag @ Titrate IV .Q0M JOE Rx#: [id number] Blood Product 0 Rc As-1 Unit 0 [id number] Output: Chest Tube Drainage 421 743 Chest Tube Left 115 198 Chest Tube Mediastinal 130 360 Chest Tube Right 176 185 Drainage 45 Right Calf 45 Urine 1877 720 Estimated Blood Loss 3000 Other: Voiding Method Indwelling Catheter Indwelling Catheter ABP, PAP, CO, CI - Last Documented Arterial Blood Pressure 123/57 Pulmonary Artery Pressure 27/17 Cardiac Output 6 Cardiac Index 208 - Constitutional General appearance: Present: cooperative, no acute distress, obese - Respiratory Details: Lungs sounds diminished bilaterally. Respirations even, nonlabored on mechanical ventilation. Current settings assist control mode, FiO2 50%, tidal volume 550, respiratory rate 16, PEEP 5. ABGs this morning 7.45/32/73/22/-1.1 on 50% FiO2. Mediastinal chest tube to continuous wall suction, 210 mL serosanguineous drainage overnight, 500 mL since surgery. Left pleural chest tube to continuous wall suction, 90 mL serosanguineous drainage overnight, 350 mL since surgery. Right pleural chest tube to continuous wall suction, 45 mL serosanguineous drainage overnight, 300 mL since surgery. No air leaks present. - Cardiovascular Details: S1, S2 present. Tachycardic but regular rate and rhythm, sinus tach on telemetry. Sternum stable. A/V epicardial pacemaker wires present, connected to generator, VVI mode with a backup rate 50 bpm. Palpable peripheral pulses bilaterally. No edema present. No calf pain or tenderness noted. Right internal jugular [place]/Cordis, right radial arterial line present. Last CO/CI 6.0/2.8 on no inotropes. Heart hugger, antiembolism stockings, SCDs present. - Gastrointestinal Gastrointestinal Comment(s): Abdomen soft, nontender, nondistended. Hypoactive bowel sounds present 4 quadrants. OG tube present to low intermittent suction. - Genitourinary Genitourinary Comment(s): Hernandez present draining clear, yellow urine. Output 45-60 mL/h overnight. - Integumentary Integumentary Comment(s): Skin is warm and dry with evidence of good perfusion. Anterior chest incision well approximated and covered with dry intact dressing. Right lower extremity EVH site well approximated, 45 mL serosanguineous drainage overnight. - Neurologic Neurologic: Present: CNII-XII intact - Psychiatric Psychiatric Comment(s): Sedated on mechanical ventilation with propofol. Patient does wake up and follows all commands. - Allied health notes Allied health notes reviewed: nursing - Labs CBC & Chem 7: 04/05/18 04:10 04/05/18 04:10 Labs: Abnormal Lab Results - Last 24 Hours (Table) 03/28/18 04/04/18 04/04/18 Range/Units 09:10 16:53 16:55 WBC (3.8-10.6) k/uL RBC 2.80 L (4.30-5.90) m/uL Hgb 8.1 L D (13.0-17.5) gm/dL Hct 23.5 L (39.0-53.0) % Plt Count 106 L (150-450) k/uL Neutrophils # (1.3-7.7) k/uL Lymphocytes # (1.0-4.8) k/uL PT (9.0-12.0) sec INR (<1.2) APTT (22.0-30.0) sec ABG pH (7.35-7.45) ABG pO2 (83-108) mmHg ABG HCO3 (21-25) mmol/L ABG Total CO2 (19-24) mmol/L ABG O2 Saturation (94-97) % Sodium (137-145) mmol/L BUN (9-20) mg/dL Creatinine (0.66-1.25) mg/dL Glucose (74-99) mg/dL POC Glucose (mg/dL) 131 H (75-99) mg/dL Calcium (8.4-10.2) mg/dL Ionized Calcium [place] (4.5-5.3) mg/dL AST (17-59) U/L Alkaline Phosphatase (38-126) U/L Total Protein (6.3-8.2) g/dL Albumin (3.5-5.0) g/dL Crossmatch See Detail 04/04/18 04/04/18 04/04/18 Range/Units 16:55 16:55 17:22 WBC (3.8-10.6) k/uL RBC (4.30-5.90) m/uL Hgb (13.0-17.5) gm/dL Hct (39.0-53.0) % Plt Count (150-450) k/uL Neutrophils # (1.3-7.7) k/uL Lymphocytes # (1.0-4.8) k/uL PT 12.9 H (9.0-12.0) sec INR 1.4 H (<1.2) APTT 38.3 H (22.0-30.0) sec ABG pH 7.32 L (7.35-7.45) ABG pO2 80 L (83-108) mmHg ABG HCO3 (21-25) mmol/L ABG Total CO2 25 H (19-24) mmol/L ABG O2 Saturation (94-97) % Sodium (137-145) mmol/L BUN 7 L (9-20) mg/dL Creatinine 0.58 L (0.66-1.25) mg/dL Glucose 119 H (74-99) mg/dL POC Glucose (mg/dL) (75-99) mg/dL Calcium 6.8 L (8.4-10.2) mg/dL Ionized Calcium [place] 4.4 L (4.5-5.3) mg/dL AST (17-59) U/L Alkaline Phosphatase <20 L (38-126) U/L Total Protein 4.8 L (6.3-8.2) g/dL Albumin 3.1 L (3.5-5.0) g/dL Crossmatch 04/04/18 04/04/18 04/04/18 Range/Units 17:51 18:55 19:50 WBC 11.4 H (3.8-10.6) k/uL RBC 2.69 L (4.30-5.90) m/uL Hgb 7.8 L (13.0-17.5) gm/dL Hct 23.0 L (39.0-53.0) % Plt Count 100 L (150-450) k/uL Neutrophils # 9.4 H (1.3-7.7) k/uL Lymphocytes # 0.9 L (1.0-4.8) k/uL PT (9.0-12.0) sec INR (<1.2) APTT (22.0-30.0) sec ABG pH (7.35-7.45) ABG pO2 (83-108) mmHg ABG HCO3 (21-25) mmol/L ABG Total CO2 (19-24) mmol/L ABG O2 Saturation (94-97) % Sodium (137-145) mmol/L BUN (9-20) mg/dL Creatinine (0.66-1.25) mg/dL Glucose (74-99) mg/dL POC Glucose (mg/dL) 180 H 198 H (75-99) mg/dL Calcium (8.4-10.2) mg/dL Ionized Calcium [place] (4.5-5.3) mg/dL AST (17-59) U/L Alkaline Phosphatase (38-126) U/L Total Protein (6.3-8.2) g/dL Albumin (3.5-5.0) g/dL Crossmatch 04/04/18 04/04/18 04/04/18 Range/Units 19:50 19:57 20:40 WBC (3.8-10.6) k/uL RBC 2.40 L (4.30-5.90) m/uL Hgb 7.1 L (13.0-17.5) gm/dL Hct 20.8 L (39.0-53.0) % Plt Count 94 L (150-450) k/uL Neutrophils # (1.3-7.7) k/uL Lymphocytes # 0.8 L (1.0-4.8) k/uL PT (9.0-12.0) sec INR (<1.2) APTT (22.0-30.0) sec ABG pH (7.35-7.45) ABG pO2 (83-108) mmHg ABG HCO3 (21-25) mmol/L ABG Total CO2 (19-24) mmol/L ABG O2 Saturation (94-97) % Sodium (137-145) mmol/L BUN (9-20) mg/dL Creatinine (0.66-1.25) mg/dL Glucose (74-99) mg/dL POC Glucose (mg/dL) 179 H (75-99) mg/dL Calcium (8.4-10.2) mg/dL Ionized Calcium [place] 4.3 L (4.5-5.3) mg/dL AST (17-59) U/L Alkaline Phosphatase (38-126) U/L Total Protein (6.3-8.2) g/dL Albumin (3.5-5.0) g/dL Crossmatch 04/04/18 04/04/18 04/04/18 Range/Units 21:00 21:26 21:56 WBC (3.8-10.6) k/uL RBC (4.30-5.90) m/uL Hgb (13.0-17.5) gm/dL Hct (39.0-53.0) % Plt Count (150-450) k/uL Neutrophils # (1.3-7.7) k/uL Lymphocytes # (1.0-4.8) k/uL PT (9.0-12.0) sec INR (<1.2) APTT (22.0-30.0) sec ABG pH 7.28 L (7.35-7.45) ABG pO2 (83-108) mmHg ABG HCO3 18 L (21-25) mmol/L ABG Total CO2 (19-24) mmol/L ABG O2 Saturation 97.3 H (94-97) % Sodium (137-145) mmol/L BUN (9-20) mg/dL Creatinine (0.66-1.25) mg/dL Glucose (74-99) mg/dL POC Glucose (mg/dL) 203 H 210 H (75-99) mg/dL Calcium (8.4-10.2) mg/dL Ionized Calcium [place] (4.5-5.3) mg/dL AST (17-59) U/L Alkaline Phosphatase (38-126) U/L Total Protein (6.3-8.2) g/dL Albumin (3.5-5.0) g/dL Crossmatch 04/04/18 04/04/18 04/05/18 Range/Units 22:52 23:58 01:00 WBC (3.8-10.6) k/uL RBC (4.30-5.90) m/uL Hgb (13.0-17.5) gm/dL Hct (39.0-53.0) % Plt Count (150-450) k/uL Neutrophils # (1.3-7.7) k/uL Lymphocytes # (1.0-4.8) k/uL PT (9.0-12.0) sec INR (<1.2) APTT (22.0-30.0) sec ABG pH (7.35-7.45) ABG pO2 (83-108) mmHg ABG HCO3 (21-25) mmol/L ABG Total CO2 (19-24) mmol/L ABG O2 Saturation (94-97) % Sodium (137-145) mmol/L BUN (9-20) mg/dL Creatinine (0.66-1.25) mg/dL Glucose (74-99) mg/dL POC Glucose (mg/dL) 197 H 183 H 173 H (75-99) mg/dL Calcium (8.4-10.2) mg/dL Ionized Calcium [place] (4.5-5.3) mg/dL AST (17-59) U/L Alkaline Phosphatase (38-126) U/L Total Protein (6.3-8.2) g/dL Albumin (3.5-5.0) g/dL Crossmatch 04/05/18 04/05/18 04/05/18 Range/Units 02:02 02:57 04:08 WBC (3.8-10.6) k/uL RBC (4.30-5.90) m/uL Hgb (13.0-17.5) gm/dL Hct (39.0-53.0) % Plt Count (150-450) k/uL Neutrophils # (1.3-7.7) k/uL Lymphocytes # (1.0-4.8) k/uL PT (9.0-12.0) sec INR (<1.2) APTT (22.0-30.0) sec ABG pH (7.35-7.45) ABG pO2 (83-108) mmHg ABG HCO3 (21-25) mmol/L ABG Total CO2 (19-24) mmol/L ABG O2 Saturation (94-97) % Sodium (137-145) mmol/L BUN (9-20) mg/dL Creatinine (0.66-1.25) mg/dL Glucose (74-99) mg/dL POC Glucose (mg/dL) 186 H 144 H 158 H (75-99) mg/dL Calcium (8.4-10.2) mg/dL Ionized Calcium [place] (4.5-5.3) mg/dL AST (17-59) U/L Alkaline Phosphatase (38-126) U/L Total Protein (6.3-8.2) g/dL Albumin (3.5-5.0) g/dL Crossmatch 04/05/18 04/05/18 04/05/18 Range/Units 04:10 04:10 04:10 WBC (3.8-10.6) k/uL RBC 2.24 L (4.30-5.90) m/uL Hgb 6.5 L* (13.0-17.5) gm/dL Hct 18.8 L* (39.0-53.0) % Plt Count 88 L (150-450) k/uL Neutrophils # (1.3-7.7) k/uL Lymphocytes # (1.0-4.8) k/uL PT 12.3 H (9.0-12.0) sec INR 1.3 H (<1.2) APTT (22.0-30.0) sec ABG pH (7.35-7.45) ABG pO2 (83-108) mmHg ABG HCO3 (21-25) mmol/L ABG Total CO2 (19-24) mmol/L ABG O2 Saturation (94-97) % Sodium 136 L (137-145) mmol/L BUN (9-20) mg/dL Creatinine 0.63 L (0.66-1.25) mg/dL Glucose 136 H (74-99) mg/dL POC Glucose (mg/dL) (75-99) mg/dL Calcium 7.6 L (8.4-10.2) mg/dL Ionized Calcium [place] (4.5-5.3) mg/dL AST 60 H (17-59) U/L Alkaline Phosphatase 20 L (38-126) U/L Total Protein 4.7 L (6.3-8.2) g/dL Albumin 3.0 L (3.5-5.0) g/dL Crossmatch 04/05/18 04/05/18 04/05/18 Range/Units 05:19 06:03 07:04 WBC (3.8-10.6) k/uL RBC (4.30-5.90) m/uL Hgb (13.0-17.5) gm/dL Hct (39.0-53.0) % Plt Count (150-450) k/uL Neutrophils # (1.3-7.7) k/uL Lymphocytes # (1.0-4.8) k/uL PT (9.0-12.0) sec INR (<1.2) APTT (22.0-30.0) sec ABG pH (7.35-7.45) ABG pO2 (83-108) mmHg ABG HCO3 (21-25) mmol/L ABG Total CO2 (19-24) mmol/L ABG O2 Saturation (94-97) % Sodium (137-145) mmol/L BUN (9-20) mg/dL Creatinine (0.66-1.25) mg/dL Glucose (74-99) mg/dL POC Glucose (mg/dL) 146 H 146 H 173 H (75-99) mg/dL Calcium (8.4-10.2) mg/dL Ionized Calcium [place] (4.5-5.3) mg/dL AST (17-59) U/L Alkaline Phosphatase (38-126) U/L Total Protein (6.3-8.2) g/dL Albumin (3.5-5.0) g/dL Crossmatch 04/05/18 Range/Units 08:04 WBC (3.8-10.6) k/uL RBC (4.30-5.90) m/uL Hgb (13.0-17.5) gm/dL Hct (39.0-53.0) % Plt Count (150-450) k/uL Neutrophils # (1.3-7.7) k/uL Lymphocytes # (1.0-4.8) k/uL PT (9.0-12.0) sec INR (<1.2) APTT (22.0-30.0) sec ABG pH (7.35-7.45) ABG pO2 (83-108) mmHg ABG HCO3 (21-25) mmol/L ABG Total CO2 (19-24) mmol/L ABG O2 Saturation (94-97) % Sodium (137-145) mmol/L BUN (9-20) mg/dL Creatinine (0.66-1.25) mg/dL Glucose (74-99) mg/dL POC Glucose (mg/dL) 167 H (75-99) mg/dL Calcium (8.4-10.2) mg/dL Ionized Calcium [place] (4.5-5.3) mg/dL AST (17-59) U/L Alkaline Phosphatase (38-126) U/L Total Protein (6.3-8.2) g/dL Albumin (3.5-5.0) g/dL Crossmatch - Imaging and Cardiology Chest x-ray: report reviewed, image reviewed Assessment and Plan (1) History of prostate cancer Current Visit: No Status: Resolved Code(s): Z85.46 - PERSONAL HISTORY OF MALIGNANT NEOPLASM OF PROSTATE SNOMED Code(s): 089356621 (2) Coronary artery disease Current Visit: Yes Status: Chronic Code(s): I25.10 - ATHSCL HEART DISEASE OF [place] CORONARY ARTERY W/O ANG PCTRS SNOMED Code(s): 28997841 (3) History of heart artery stent Current Visit: Yes Status: Chronic Code(s): Z95.5 - PRESENCE OF CORONARY ANGIOPLASTY IMPLANT AND GRAFT SNOMED Code(s): 525922843 (4) Hyperlipidemia Current Visit: Yes Status: Chronic Code(s): E78.5 - HYPERLIPIDEMIA, UNSPECIFIED SNOMED Code(s): 42289185 (5) Hypertension Current Visit: Yes Status: Chronic Code(s): I10 - ESSENTIAL (PRIMARY) HYPERTENSION SNOMED Code(s): 97446524 (6) Non-insulin dependent type 2 diabetes mellitus Current Visit: Yes Status: Chronic Code(s): E11.9 - TYPE 2 DIABETES MELLITUS WITHOUT COMPLICATIONS SNOMED Code(s): 32910566 (7) Obesity (BMI 30-39.9) Current Visit: Yes Status: Chronic Code(s): E66.9 - OBESITY, UNSPECIFIED SNOMED Code(s): 396650585 (8) Severe aortic stenosis Current Visit: Yes Status: Chronic Code(s): I35.0 - NONRHEUMATIC AORTIC ( VALVE) STENOSIS SNOMED Code(s): 29840539 Plan: 1. Continue aspirin, statin, Plavix, beta lamar. Will increase beta lamar therapy as tolerated. Discontinue nitro drip. 2. Wean from mechanical ventilation as tolerated. Dr. Urbina for ventilator management. Once extubated, encourage incentive spirometry use 10 times every hour. 3. Once extubated, increase activity as tolerated. PT/OT/cardiac rehab following. 4. Transfuse 1 unit packed red blood cells followed by 20 mg IV Lasix. 5. Bronchodilators per pulmonology. 6. Will monitor daily labs and x-rays. 7. GI prophylaxis with Protonix. DVT prophylaxis with subcu heparin, SCDs. 8. Pain management with current medication regimen. 9. Insulin management per primary care service. 10. Discontinue [place] after extubation. Connect Cordis to continue CVP monitoring. 11. More recommendations to follow. Time with Patient: Greater than 30
[2018-04-05 09:40] LABS: ABG Base Excess -2.2 mmol/L; ABG HCO3 22 mmol/L (21-25); ABG Oxygen Saturation 87.4 % (94-97); ABG PCO2 32 mmHg (35-45); ABG PH 7.45 (7.35-7.45); ABG TCO2 23 mmol/L (19-24)
[2018-04-05 09:52] LABS: ABG PO2 50 mmHg (83-108)
[2018-04-05 09:58] LABS: Glucose,Whole Blood 186 mg/dL (75-99)
--- NOTE | 2018-04-05 09:58 | XR ---
EXAMINATION TYPE: XR chest 1V portable DATE OF EXAM: 04/05/2018 COMPARISON: Prior chest x-ray 04/04/2018 HISTORY: Status post cardiac surgery, intubated TECHNIQUE: Single frontal view of the chest is obtained. FINDINGS: Patient is post median sternotomy and there are overlying cardiac leads, patient is rotate d. Endotracheal tube, NG tube, left chest tube, right chest tube, right jugular central venous sheath and coaxial [place]-Adalberto catheter and central venous sheath, median sternal drain are overlying appropr iate positions in the frontal view. Small right apical pneumothorax is present, no sizable left pneum othorax. Patchy basilar density present on the left. The heart remains enlarged. Patient is status po st aortic valve replacement. IMPRESSION: Left lower lobe atelectasis, there may be small effusion. Postop changes as described.
[2018-04-05] MEDS: CLEVIDIPINE BUTYRATE 25 MG in EMPTY BAG 1 BAG IV SCH ×4 (10:00→22:10)
[2018-04-05] MEDS: PROPOFOL 1,000 MG in EMPTY BAG 1 BAG IV SCH ×4 (10:30→22:53)
[2018-04-05] MEDS ORDERED: METOPROLOL TARTRATE 25 MG TAB PO STA (10:41)
[2018-04-05 10:52] LABS: Glucose,Whole Blood 169 mg/dL (75-99)
--- NOTE | 2018-04-05 11:05 | XR ---
EXAMINATION TYPE: XR chest 1V portable DATE OF EXAM: 04/05/2018 COMPARISON: 04/05/2018 INDICATION: Short of breath TECHNIQUE: Single frontal view of the chest is obtained. FINDINGS: The heart size is enlarged. The pulmonary vasculature is normal. Suspicious infiltrates are not identified. Some mild atelectasis may be present at the left base. Sternotomy wires are present from the patient's CABG. An endotracheal tube is present with the tip above the robi. Nasogastric tube transverses the thora x the tip in the left upper quadrant of the abdomen. Left-sided chest tube is present. No pneumothora x is evident. Right-sided chest tube is present. No right pneumothorax is evident. Mediastinal tube i s in the midline. [place]-Adalberto catheter is present with the tip in the main pulmonary artery region. Examination appears stable from comparison. IMPRESSION: 1. Multiple lines and catheters discussed above. 2. Suggestion of mild basilar atelectasis. 3. Continued follow-up is recommended
[2018-04-05 11:59] LABS: Glucose,Whole Blood 150 mg/dL (75-99)
[2018-04-05] MEDS ORDERED: CALCIUM CHLORIDE 1,000 MG in SODIUM CHLORIDE 0.9% 100 ML IVPB STA (12:06)
--- NOTE | 2018-04-05 12:33 | P.PN ---
Subjective Patient is still intubated. He failed the weaning process. PO2 low Pulse rate in the 90s, blood pressure 132/65 mmHg Breath sounds are reduced bilaterally but equal line heart sounds are soft Extremities warm Impression Status post aVR and coronary grafting still intubated Suggest continue ICU care or/postop care Continue atorvastatin Patient received IV Lasix Objective - Vital Signs Vital signs: Vital Signs Temp 99.9 F H 04/05/18 07:10 Pulse 102 H 04/05/18 12:00 Resp 16 04/05/18 12:00 BP 120/56 04/05/18 06:40 Pulse Ox 100 04/05/18 12:00 Intake & Output 04/04/18 04/05/18 04/05/18 18:59 06:59 18:59 Intake Total 271 1915.828 395.537 Output Total 5298 1508 525 Balance -5027 407.828 -129.463 Weight 109.6 kg Intake: IV 271 1847 375 ACETAMINOPHEN IV (For NPO 100 200 ) 1,000 mg In Empty Bag 1 bag @ 400 mls/hr IVPB Q6HR JOE Rx#:[id number] Albumin Human 5% 250 ml 250 In Empty Bag 1 bag @ 250 mls/hr IVPB Q1HR PRN Rx#: [id number] Calcium Chloride 1,000 mg 200 In Sodium Chloride 0.9% 100 ml @ 100 mls/hr IVPB ONCE STA Rx#:[id number] Lactated Ringers 1,000 ml 100 640 250 @ 20 mls/hr IV .Q24H JOE Rx#:[id number] ceFAZolin 2,000 mg In 30 Sodium Chloride 0.9% 30 ml @ Per Protocol IVPB ONCE ONE Rx#:[id number] co/ci 50 410 80 pressure bag 18 117 45 Intake, IV Titration 68.828 20.537 Amount Insulin Regular 100 unit 48.564 20.537 In Sodium Chloride 0.9% 100 ml @ Per Protocol IV .Q0M JOE Rx#:[id number] Propofol 1,000 mg In 20.264 Empty Bag 1 bag @ Titrate IV .Q0M [facility], [facility]–1983 Rx#: [id number] Blood Product 0 Rc As-1 Unit 0 [id number] Output: Chest Tube Drainage 421 743 90 Chest Tube Left 115 198 0 Chest Tube Mediastinal 130 360 80 Chest Tube Right 176 185 10 Drainage 45 35 Right Calf 45 35 Urine 1877 720 400 Estimated Blood Loss 3000 Other: Voiding Method Indwelling Catheter Indwelling Catheter Indwelling Catheter ABP, PAP, CO, CI - Last Documented Arterial Blood Pressure 132/65 Pulmonary Artery Pressure 26/17 Cardiac Output 7 Cardiac Index 3.3 - Labs CBC & Chem 7: 04/05/18 04:10 04/05/18 04:10 Labs: Abnormal Lab Results - Last 24 Hours (Table) 03/28/18 04/04/18 04/04/18 Range/Units 09:10 16:53 16:55 WBC (3.8-10.6) k/uL RBC 2.80 L (4.30-5.90) m/uL Hgb 8.1 L D (13.0-17.5) gm/dL Hct 23.5 L (39.0-53.0) % Plt Count 106 L (150-450) k/uL Neutrophils # (1.3-7.7) k/uL Lymphocytes # (1.0-4.8) k/uL PT (9.0-12.0) sec INR (<1.2) APTT (22.0-30.0) sec ABG pH (7.35-7.45) ABG pCO2 (35-45) mmHg ABG pO2 (83-108) mmHg ABG HCO3 (21-25) mmol/L ABG Total CO2 (19-24) mmol/L ABG O2 Saturation (94-97) % Sodium (137-145) mmol/L BUN (9-20) mg/dL Creatinine (0.66-1.25) mg/dL Glucose (74-99) mg/dL POC Glucose (mg/dL) 131 H (75-99) mg/dL Calcium (8.4-10.2) mg/dL Ionized Calcium [place] (4.5-5.3) mg/dL AST (17-59) U/L Alkaline Phosphatase (38-126) U/L Total Protein (6.3-8.2) g/dL Albumin (3.5-5.0) g/dL Crossmatch See Detail 04/04/18 04/04/18 04/04/18 Range/Units 16:55 16:55 17:22 WBC (3.8-10.6) k/uL RBC (4.30-5.90) m/uL Hgb (13.0-17.5) gm/dL Hct (39.0-53.0) % Plt Count (150-450) k/uL Neutrophils # (1.3-7.7) k/uL Lymphocytes # (1.0-4.8) k/uL PT 12.9 H (9.0-12.0) sec INR 1.4 H (<1.2) APTT 38.3 H (22.0-30.0) sec ABG pH 7.32 L (7.35-7.45) ABG pCO2 (35-45) mmHg ABG pO2 80 L (83-108) mmHg ABG HCO3 (21-25) mmol/L ABG Total CO2 25 H (19-24) mmol/L ABG O2 Saturation (94-97) % Sodium (137-145) mmol/L BUN 7 L (9-20) mg/dL Creatinine 0.58 L (0.66-1.25) mg/dL Glucose 119 H (74-99) mg/dL POC Glucose (mg/dL) (75-99) mg/dL Calcium 6.8 L (8.4-10.2) mg/dL Ionized Calcium [place] 4.4 L (4.5-5.3) mg/dL AST (17-59) U/L Alkaline Phosphatase <20 L (38-126) U/L Total Protein 4.8 L (6.3-8.2) g/dL Albumin 3.1 L (3.5-5.0) g/dL Crossmatch 04/04/18 04/04/18 04/04/18 Range/Units 17:51 18:55 19:50 WBC 11.4 H (3.8-10.6) k/uL RBC 2.69 L (4.30-5.90) m/uL Hgb 7.8 L (13.0-17.5) gm/dL Hct 23.0 L (39.0-53.0) % Plt Count 100 L (150-450) k/uL Neutrophils # 9.4 H (1.3-7.7) k/uL Lymphocytes # 0.9 L (1.0-4.8) k/uL PT (9.0-12.0) sec INR (<1.2) APTT (22.0-30.0) sec ABG pH (7.35-7.45) ABG pCO2 (35-45) mmHg ABG pO2 (83-108) mmHg ABG HCO3 (21-25) mmol/L ABG Total CO2 (19-24) mmol/L ABG O2 Saturation (94-97) % Sodium (137-145) mmol/L BUN (9-20) mg/dL Creatinine (0.66-1.25) mg/dL Glucose (74-99) mg/dL POC Glucose (mg/dL) 180 H 198 H (75-99) mg/dL Calcium (8.4-10.2) mg/dL Ionized Calcium [place] (4.5-5.3) mg/dL AST (17-59) U/L Alkaline Phosphatase (38-126) U/L Total Protein (6.3-8.2) g/dL Albumin (3.5-5.0) g/dL Crossmatch 04/04/18 04/04/18 04/04/18 Range/Units 19:50 19:57 20:40 WBC (3.8-10.6) k/uL RBC 2.40 L (4.30-5.90) m/uL Hgb 7.1 L (13.0-17.5) gm/dL Hct 20.8 L (39.0-53.0) % Plt Count 94 L (150-450) k/uL Neutrophils # (1.3-7.7) k/uL Lymphocytes # 0.8 L (1.0-4.8) k/uL PT (9.0-12.0) sec INR (<1.2) APTT (22.0-30.0) sec ABG pH (7.35-7.45) ABG pCO2 (35-45) mmHg ABG pO2 (83-108) mmHg ABG HCO3 (21-25) mmol/L ABG Total CO2 (19-24) mmol/L ABG O2 Saturation (94-97) % Sodium (137-145) mmol/L BUN (9-20) mg/dL Creatinine (0.66-1.25) mg/dL Glucose (74-99) mg/dL POC Glucose (mg/dL) 179 H (75-99) mg/dL Calcium (8.4-10.2) mg/dL Ionized Calcium [place] 4.3 L (4.5-5.3) mg/dL AST (17-59) U/L Alkaline Phosphatase (38-126) U/L Total Protein (6.3-8.2) g/dL Albumin (3.5-5.0) g/dL Crossmatch 04/04/18 04/04/18 04/04/18 Range/Units 21:00 21:26 21:56 WBC (3.8-10.6) k/uL RBC (4.30-5.90) m/uL Hgb (13.0-17.5) gm/dL Hct (39.0-53.0) % Plt Count (150-450) k/uL Neutrophils # (1.3-7.7) k/uL Lymphocytes # (1.0-4.8) k/uL PT (9.0-12.0) sec INR (<1.2) APTT (22.0-30.0) sec ABG pH 7.28 L (7.35-7.45) ABG pCO2 (35-45) mmHg ABG pO2 (83-108) mmHg ABG HCO3 18 L (21-25) mmol/L ABG Total CO2 (19-24) mmol/L ABG O2 Saturation 97.3 H (94-97) % Sodium (137-145) mmol/L BUN (9-20) mg/dL Creatinine (0.66-1.25) mg/dL Glucose (74-99) mg/dL POC Glucose (mg/dL) 203 H 210 H (75-99) mg/dL Calcium (8.4-10.2) mg/dL Ionized Calcium [place] (4.5-5.3) mg/dL AST (17-59) U/L Alkaline Phosphatase (38-126) U/L Total Protein (6.3-8.2) g/dL Albumin (3.5-5.0) g/dL Crossmatch 04/04/18 04/04/18 04/05/18 Range/Units 22:52 23:58 01:00 WBC (3.8-10.6) k/uL RBC (4.30-5.90) m/uL Hgb (13.0-17.5) gm/dL Hct (39.0-53.0) % Plt Count (150-450) k/uL Neutrophils # (1.3-7.7) k/uL Lymphocytes # (1.0-4.8) k/uL PT (9.0-12.0) sec INR (<1.2) APTT (22.0-30.0) sec ABG pH (7.35-7.45) ABG pCO2 (35-45) mmHg ABG pO2 (83-108) mmHg ABG HCO3 (21-25) mmol/L ABG Total CO2 (19-24) mmol/L ABG O2 Saturation (94-97) % Sodium (137-145) mmol/L BUN (9-20) mg/dL Creatinine (0.66-1.25) mg/dL Glucose (74-99) mg/dL POC Glucose (mg/dL) 197 H 183 H 173 H (75-99) mg/dL Calcium (8.4-10.2) mg/dL Ionized Calcium [place] (4.5-5.3) mg/dL AST (17-59) U/L Alkaline Phosphatase (38-126) U/L Total Protein (6.3-8.2) g/dL Albumin (3.5-5.0) g/dL Crossmatch 04/05/18 04/05/18 04/05/18 Range/Units 02:02 02:57 04:08 WBC (3.8-10.6) k/uL RBC (4.30-5.90) m/uL Hgb (13.0-17.5) gm/dL Hct (39.0-53.0) % Plt Count (150-450) k/uL Neutrophils # (1.3-7.7) k/uL Lymphocytes # (1.0-4.8) k/uL PT (9.0-12.0) sec INR (<1.2) APTT (22.0-30.0) sec ABG pH (7.35-7.45) ABG pCO2 (35-45) mmHg ABG pO2 (83-108) mmHg ABG HCO3 (21-25) mmol/L ABG Total CO2 (19-24) mmol/L ABG O2 Saturation (94-97) % Sodium (137-145) mmol/L BUN (9-20) mg/dL Creatinine (0.66-1.25) mg/dL Glucose (74-99) mg/dL POC Glucose (mg/dL) 186 H 144 H 158 H (75-99) mg/dL Calcium (8.4-10.2) mg/dL Ionized Calcium [place] (4.5-5.3) mg/dL AST (17-59) U/L Alkaline Phosphatase (38-126) U/L Total Protein (6.3-8.2) g/dL Albumin (3.5-5.0) g/dL Crossmatch 04/05/18 04/05/18 04/05/18 Range/Units 04:10 04:10 04:10 WBC (3.8-10.6) k/uL RBC 2.24 L (4.30-5.90) m/uL Hgb 6.5 L* (13.0-17.5) gm/dL Hct 18.8 L* (39.0-53.0) % Plt Count 88 L (150-450) k/uL Neutrophils # (1.3-7.7) k/uL Lymphocytes # (1.0-4.8) k/uL PT 12.3 H (9.0-12.0) sec INR 1.3 H (<1.2) APTT (22.0-30.0) sec ABG pH (7.35-7.45) ABG pCO2 (35-45) mmHg ABG pO2 (83-108) mmHg ABG HCO3 (21-25) mmol/L ABG Total CO2 (19-24) mmol/L ABG O2 Saturation (94-97) % Sodium 136 L (137-145) mmol/L BUN (9-20) mg/dL Creatinine 0.63 L (0.66-1.25) mg/dL Glucose 136 H (74-99) mg/dL POC Glucose (mg/dL) (75-99) mg/dL Calcium 7.6 L (8.4-10.2) mg/dL Ionized Calcium [place] (4.5-5.3) mg/dL AST 60 H (17-59) U/L Alkaline Phosphatase 20 L (38-126) U/L Total Protein 4.7 L (6.3-8.2) g/dL Albumin 3.0 L (3.5-5.0) g/dL Crossmatch 04/05/18 04/05/18 04/05/18 Range/Units 05:19 06:03 07:04 WBC (3.8-10.6) k/uL RBC (4.30-5.90) m/uL Hgb (13.0-17.5) gm/dL Hct (39.0-53.0) % Plt Count (150-450) k/uL Neutrophils # (1.3-7.7) k/uL Lymphocytes # (1.0-4.8) k/uL PT (9.0-12.0) sec INR (<1.2) APTT (22.0-30.0) sec ABG pH (7.35-7.45) ABG pCO2 (35-45) mmHg ABG pO2 (83-108) mmHg ABG HCO3 (21-25) mmol/L ABG Total CO2 (19-24) mmol/L ABG O2 Saturation (94-97) % Sodium (137-145) mmol/L BUN (9-20) mg/dL Creatinine (0.66-1.25) mg/dL Glucose (74-99) mg/dL POC Glucose (mg/dL) 146 H 146 H 173 H (75-99) mg/dL Calcium (8.4-10.2) mg/dL Ionized Calcium [place] (4.5-5.3) mg/dL AST (17-59) U/L Alkaline Phosphatase (38-126) U/L Total Protein (6.3-8.2) g/dL Albumin (3.5-5.0) g/dL Crossmatch 04/05/18 04/05/18 04/05/18 Range/Units 08:04 08:05 08:51 WBC (3.8-10.6) k/uL RBC (4.30-5.90) m/uL Hgb (13.0-17.5) gm/dL Hct (39.0-53.0) % Plt Count (150-450) k/uL Neutrophils # (1.3-7.7) k/uL Lymphocytes # (1.0-4.8) k/uL PT (9.0-12.0) sec INR (<1.2) APTT (22.0-30.0) sec ABG pH 7.46 H (7.35-7.45) ABG pCO2 32 L (35-45) mmHg ABG pO2 73 L (83-108) mmHg ABG HCO3 (21-25) mmol/L ABG Total CO2 (19-24) mmol/L ABG O2 Saturation (94-97) % Sodium (137-145) mmol/L BUN (9-20) mg/dL Creatinine (0.66-1.25) mg/dL Glucose (74-99) mg/dL POC Glucose (mg/dL) 167 H 166 H (75-99) mg/dL Calcium (8.4-10.2) mg/dL Ionized Calcium [place] (4.5-5.3) mg/dL AST (17-59) U/L Alkaline Phosphatase (38-126) U/L Total Protein (6.3-8.2) g/dL Albumin (3.5-5.0) g/dL Crossmatch 04/05/18 04/05/18 04/05/18 Range/Units 09:37 09:57 10:49 WBC (3.8-10.6) k/uL RBC (4.30-5.90) m/uL Hgb (13.0-17.5) gm/dL Hct (39.0-53.0) % Plt Count (150-450) k/uL Neutrophils # (1.3-7.7) k/uL Lymphocytes # (1.0-4.8) k/uL PT (9.0-12.0) sec INR (<1.2) APTT (22.0-30.0) sec ABG pH (7.35-7.45) ABG pCO2 32 L (35-45) mmHg ABG pO2 50 L* (83-108) mmHg ABG HCO3 (21-25) mmol/L ABG Total CO2 (19-24) mmol/L ABG O2 Saturation 87.4 L (94-97) % Sodium (137-145) mmol/L BUN (9-20) mg/dL Creatinine (0.66-1.25) mg/dL Glucose (74-99) mg/dL POC Glucose (mg/dL) 186 H 169 H (75-99) mg/dL Calcium (8.4-10.2) mg/dL Ionized Calcium [place] (4.5-5.3) mg/dL AST (17-59) U/L Alkaline Phosphatase (38-126) U/L Total Protein (6.3-8.2) g/dL Albumin (3.5-5.0) g/dL Crossmatch 04/05/18 Range/Units 11:55 WBC (3.8-10.6) k/uL RBC (4.30-5.90) m/uL Hgb (13.0-17.5) gm/dL Hct (39.0-53.0) % Plt Count (150-450) k/uL Neutrophils # (1.3-7.7) k/uL Lymphocytes # (1.0-4.8) k/uL PT (9.0-12.0) sec INR (<1.2) APTT (22.0-30.0) sec ABG pH (7.35-7.45) ABG pCO2 (35-45) mmHg ABG pO2 (83-108) mmHg ABG HCO3 (21-25) mmol/L ABG Total CO2 (19-24) mmol/L ABG O2 Saturation (94-97) % Sodium (137-145) mmol/L BUN (9-20) mg/dL Creatinine (0.66-1.25) mg/dL Glucose (74-99) mg/dL POC Glucose (mg/dL) 150 H (75-99) mg/dL Calcium (8.4-10.2) mg/dL Ionized Calcium [place] (4.5-5.3) mg/dL AST (17-59) U/L Alkaline Phosphatase (38-126) U/L Total Protein (6.3-8.2) g/dL Albumin (3.5-5.0) g/dL Crossmatch
--- NOTE | 2018-04-05 12:54 | P.CNPUL ---
History of Present Illness Consult date: 04/05/18 Requesting physician: Ethan Fountain Reason for consult: other (Status post CABG and aortic valve replacement.) Chief complaint: Status post CABG and aortic valve replacement History of present illness: This is a 67-year-old white male, see him today on consultation, patient is postoperative day #1, aortic valve replacement using a 23 mm bovine bioprosthesis, triple coronary artery bypass grafting using AKHTAR to LAD, reverse saphenous vein graft from aorta to the diagonal artery and reverse saphenous vein graft from aorta to posterior descending. Postoperatively, patient was on mechanical ventilation, and I was asked to see him on consultation. 3 hours after his surgery, patient failed the weaning trial, he was noted to have relative hypoxemia, and low pH consistent with metabolic acidosis. Hence a shunt was kept on mechanical ventilation, and early this morning another attempt was made, patient failed mostly because of his low pO2 around 50 on pressure support of 8 and CPAP. Hence the patient was placed back on mechanical ventilation again with assist control mode, tidal volume of 600, assist control rate of 16, and FiO2 up to 80% with PEEP of 8. Repeat ABG is pending. Chest x-ray showed mild interstitial edema. Patient was given Lasix. Patient had a low hemoglobin earlier today of 6.5, he has received a unit of packed RBCs early this morning. Review of Systems ROS unobtainable: due to endotracheal tube Past Medical History Past Medical History: Coronary Artery Disease (CAD), Cancer, Diabetes Mellitus, Hyperlipidemia, Hypertension, Myocardial Infarction (NE) Additional Past Medical History / Comment(s): HX KIDNEY STONES, HX OF PROSTATE AND SKIN CA, had chemo prior to prostatectomy 2000,aortic stenosis Last Myocardial Infarction Date:: 2005 History of Any Multi-Drug Resistant Organisms: None Reported Past Surgical History: Heart Catheterization With Stent, Hernia Repair, Prostate Surgery Additional Past Surgical History / Comment(s): HEART STENT X5, LITHOTRIPSY and sx for kidney stone retrieval Past Anesthesia/Blood Transfusion Reactions: No Reported Reaction Date of Last Stent Placement:: 2005 Smoking Status: Former smoker - Past Family History Father Family Medical History: Cancer Additional Family Medical History / Comment(s): COLON, LUNG Sister(s) Family Medical History: Cancer Additional Family Medical History / Comment(s): PANCREAS, COLON, LIVER Brother(s) Family Medical History: Cancer Additional Family Medical History / Comment(s): COLON,LIVER Medications and Allergies Home Medications Medication Instructions Recorded Confirmed Type Aspirin 81 mg PO DAILY 02/11/15 04/04/18 History Atorvastatin [Lipitor] 20 mg PO HS 02/11/15 04/04/18 History Lisinopril [Prinivil] 20 mg PO HS 02/11/15 04/04/18 History Metoprolol Tartrate [Lopressor] 50 mg PO BID 02/11/15 04/04/18 History Nitroglycerin Sl Tabs [Nitrostat] 0.4 mg PO Q5M PRN 02/11/15 04/04/18 History metFORMIN HCL 1,000 mg PO BID 02/11/15 04/04/18 History Isosorbide Mononitrate ER [Imdur] 30 mg PO QAM 01/27/18 04/04/18 History glipiZIDE [Glucotrol] 10 mg PO BID 01/27/18 04/04/18 History Clopidogrel [Plavix] 75 mg PO DAILY 03/13/18 04/04/18 History Allergies Allergy/AdvReac Type Severity Reaction Status Date / Time No Known Allergies Allergy Verified 04/04/18 16:37 Physical Exam Vitals: Vital Signs Temp Pulse Resp BP Pulse Ox 04/05/18 12:00 102 H 16 100 04/05/18 11:43 97 04/05/18 11:30 97 16 98 04/05/18 11:18 98 04/05/18 11:00 103 H 20 93 L 04/05/18 10:30 109 H 24 92 L 04/05/18 10:00 117 H 26 H 89 L 04/05/18 09:30 115 H 29 H 91 L 04/05/18 09:00 103 H 21 93 L 04/05/18 08:36 103 H 04/05/18 08:30 101 H 16 96 04/05/18 08:21 105 H 04/05/18 08:00 101 H 20 97 04/05/18 07:30 105 H 16 96 04/05/18 07:10 99.9 F H 104 H 18 96 04/05/18 07:00 108 H 20 96 04/05/18 06:45 110 H 19 96 04/05/18 06:40 99.9 F H 111 H 21 120/56 96 09/19/18 06:30 99.9 F H 109 H 20 108/53 96 0919/18 06:20 99.9 F H 107 H 18 95 091918 06:10 103 H 21 96 18 06:00 104 H 19 96 0919/18 05:45 105 H 21 96 19/18 05:30 105 H 23 98 0919/18 05:15 104 H 21 98 0918 05:00 110 H 19 96 18 04:45 94 20 97 0918 04:30 108 H 18 97 18 04:15 108 H 20 97 18 04:00 107 H 21 98 18 03:45 105 H 17 98 18 03:30 106 H 20 97 18 03:15 110 H 18 97 18 03:00 110 H 20 97 18 02:45 112 H 22 98 18 02:30 112 H 19 97 18 02:15 110 H 21 98 18 02:00 108 H 23 97 18 01:45 111 H 18 97 18 01:30 111 H 19 97 18 01:15 113 H 21 98 18 01:00 112 H 20 97 18 00:45 113 H 21 98 18 00:30 114 H 18 97 18 00:15 115 H 22 98 18 00:00 115 H 22 98 18 23:45 114 H 21 98 18 23:30 114 H 21 98 18 23:15 117 H 17 99 18 23:02 116 H 19 100 18/18 23:00 116 H 20 99 1818 22:45 115 H 20 99 18 22:30 118 H 19 99 18 22:15 118 H 20 98 1818 22:00 114 H 23 96 18 21:45 106 H 26 H 97 18/18 21:30 115 H 28 H 97 18 21:15 114 H 26 H 96 18 21:00 103 H 26 H 97 04/04/18 20:45 103 H 21 98 04/04/18 20:30 101 H 20 98 04/04/18 20:23 100 22 04/04/18 20:15 102 H 21 99 04/04/18 20:14 103 H 25 H 04/04/18 20:00 103 H 21 99 04/04/18 19:45 103 H 21 98 04/04/18 19:30 102 H 23 96 04/04/18 19:15 106 H 21 97 04/04/18 19:00 110 H 25 H 94 L 04/04/18 18:45 114 H 19 95 04/04/18 18:30 112 H 18 95 04/04/18 18:15 110 H 19 95 04/04/18 18:00 107 H 19 95 04/04/18 17:45 110 H 20 95 04/04/18 17:30 107 H 20 97 04/04/18 17:15 105 H 19 99 04/04/18 17:00 97 15 100 04/04/18 16:45 98 15 100 04/04/18 16:13 98 Intake and Output 04/04/18 04/05/18 04/05/18 22:59 06:59 14:59 Intake Total 0991.535 6334.770 395.537 Output Total 5951 855 525 Balance -4874.942 252.770 -129.463 Intake: IV 1054 1061 375 ACETAMINOPHEN IV (For NPO 100 200 ) 1,000 mg In Empty Bag 1 bag @ 400 mls/hr IVPB Q6HR JOE Rx#:[id number] Albumin Human 5% 250 ml 250 In Empty Bag 1 bag @ 250 mls/hr IVPB Q1HR PRN Rx#: [id number] Calcium Chloride 1,000 mg 200 In Sodium Chloride 0.9% 100 ml @ 100 mls/hr IVPB ONCE STA Rx#:[id number] Lactated Ringers 1,000 ml 290 450 250 @ 20 mls/hr IV .Q24H JOE Rx#:[id number] ceFAZolin 2,000 mg In 30 Sodium Chloride 0.9% 30 ml @ Per Protocol IVPB ONCE ONE Rx#:[id number] co/ci 160 300 80 pressure bag 54 81 45 Intake, IV Titration 22.058 46.770 20.537 Amount Insulin Regular 100 unit 21.298 27.266 20.537 In Sodium Chloride 0.9% 100 ml @ Per Protocol IV .Q0M JOE Rx#:[id number] Propofol 1,000 mg In 0.76 19.504 Empty Bag 1 bag @ Titrate IV .Q0M [facility] Rx#: [id number] Blood Product 0 Rc As-1 Unit 0 [id number] Output: Chest Tube Drainage 809 355 90 Chest Tube Left 223 90 0 Chest Tube Mediastinal 270 220 80 Chest Tube Right 316 45 10 Drainage 45 35 Right Calf 45 35 Urine 2142 455 400 Estimated Blood Loss 3000 Other: Voiding Method Indwelling Catheter Indwelling Catheter Indwelling Catheter Weight 109.6 kg ABP, PAP, CO, CI - Last 8 Hours Arterial Blood Pressure 132/65 Arterial Blood Pressure 115/56 Arterial Blood Pressure 111/53 Arterial Blood Pressure 122/47 Arterial Blood Pressure 148/48 Arterial Blood Pressure 138/59 Arterial Blood Pressure 136/60 Arterial Blood Pressure 136/62 Arterial Blood Pressure 138/62 Arterial Blood Pressure 123/58 Arterial Blood Pressure 123/57 Arterial Blood Pressure 128/58 Arterial Blood Pressure 115/55 Arterial Blood Pressure 108/51 Arterial Blood Pressure 111/50 Arterial Blood Pressure 113/50 Arterial Blood Pressure 114/51 Arterial Blood Pressure 113/52 Arterial Blood Pressure 106/53 Arterial Blood Pressure 96/52 Arterial Blood Pressure 119/58 Arterial Blood Pressure 64/29 Pulmonary Artery Pressure 26/17 Pulmonary Artery Pressure 25/15 Pulmonary Artery Pressure 25/15 Pulmonary Artery Pressure 26/15 Pulmonary Artery Pressure 27/17 Pulmonary Artery Pressure 28/16 Pulmonary Artery Pressure 26/15 Pulmonary Artery Pressure 26/15 Pulmonary Artery Pressure 29/17 Pulmonary Artery Pressure 28/17 Pulmonary Artery Pressure 27/17 Pulmonary Artery Pressure 28/17 Pulmonary Artery Pressure 25/15 Pulmonary Artery Pressure 25/15 Pulmonary Artery Pressure 25/15 Pulmonary Artery Pressure 28/18 Cardiac Output 7 Cardiac Output 7 Cardiac Output 7 Cardiac Output 7 Cardiac Output 6.7 Cardiac Output 6.7 Cardiac Output 6.7 Cardiac Output 6.7 Cardiac Output 6.7 Cardiac Output 6.7 Cardiac Output 6 Cardiac Output 6 Cardiac Output 6.1 Cardiac Output 6.1 Cardiac Output 6.1 Cardiac Output 5.1 Cardiac Index 3.3 Cardiac Index 3.2 Cardiac Index 208 Cardiac Index 2.9 Cardiac Index 2.4 Physical Exam: Revealed a 67-year-old white male, obese, on mechanical ventilation, endotracheal tube and orogastric tube are intact. Head: Atraumatic, normocephalic. HEENT: Short obese neck is noted. [Neck is supple.] [No neck masses.] [No thyromegaly.] [No JVD.] Moist mucous membranes, no icterus. Right internal jugular cordis is noted. Chest: [Managed breath sounds and crackles at the bases.] [Chest tube to continuous wall suction, 350 ML's since surgery, right pleural chest tube to continuous wall suction 300 ML's since surgery and no air leaks. Cardiac Exam: [Normal S1 and S2, no S3 gallop, no murmur.] AV epicardial pacemaker wire is noted. Connected to generator VVI mode. Backup rate of 50 bpm. Abdomen: [Obese, Soft, nontender, no megaly, no rebound, no guarding, normal bowel sounds.] Extremities: [No clubbing, 1+ bipedal edema, no cyanosis.] Neurological Exam: Arousable, follows instructions, seems to be appropriate while off propofol. Lymphatics: No lymphadenopathy. I creatinine: Could not be assessed. Results - Laboratory Findings CBC and BMP: 04/05/18 04:10 04/05/18 04:10 ABG ABG pH 7.45 (7.35-7.45) 04/05/18 09:37 ABG pCO2 32 mmHg (35-45) L 04/05/18 09:37 ABG pO2 50 mmHg (83-108) L* 04/05/18 09:37 ABG O2 Saturation 87.4 % (94-97) L 04/05/18 09:37 PT/INR, D-dimer PT 12.3 sec (9.0-12.0) H 04/05/18 04:10 INR 1.3 (<1.2) H 04/05/18 04:10 Abnormal lab findings: Abnormal Labs 03/28/18 04/04/18 04/04/18 09:10 16:53 16:55 WBC RBC 2.80 L Hgb 8.1 L D Hct 23.5 L Plt Count 106 L Neutrophils # Lymphocytes # PT INR APTT ABG pH ABG pCO2 ABG pO2 ABG HCO3 ABG Total CO2 ABG O2 Saturation Sodium BUN Creatinine Glucose POC Glucose (mg/dL) 131 H Calcium Ionized Calcium [place] AST Alkaline Phosphatase Total Protein Albumin Crossmatch See Detail 04/04/18 04/04/18 04/04/18 16:55 16:55 17:22 WBC RBC Hgb Hct Plt Count Neutrophils # Lymphocytes # PT 12.9 H INR 1.4 H APTT 38.3 H ABG pH 7.32 L ABG pCO2 ABG pO2 80 L ABG HCO3 ABG Total CO2 25 H ABG O2 Saturation Sodium BUN 7 L Creatinine 0.58 L Glucose 119 H POC Glucose (mg/dL) Calcium 6.8 L Ionized Calcium [place] 4.4 L AST Alkaline Phosphatase <20 L Total Protein 4.8 L Albumin 3.1 L Crossmatch 04/04/18 04/04/18 04/04/18 17:51 18:55 19:50 WBC 11.4 H RBC 2.69 L Hgb 7.8 L Hct 23.0 L Plt Count 100 L Neutrophils # 9.4 H Lymphocytes # 0.9 L PT INR APTT ABG pH ABG pCO2 ABG pO2 ABG HCO3 ABG Total CO2 ABG O2 Saturation Sodium BUN Creatinine Glucose POC Glucose (mg/dL) 180 H 198 H Calcium Ionized Calcium [place] AST Alkaline Phosphatase Total Protein Albumin Crossmatch 04/04/18 04/04/18 04/04/18 19:50 19:57 20:40 WBC RBC 2.40 L Hgb 7.1 L Hct 20.8 L Plt Count 94 L Neutrophils # Lymphocytes # 0.8 L PT INR APTT ABG pH ABG pCO2 ABG pO2 ABG HCO3 ABG Total CO2 ABG O2 Saturation Sodium BUN Creatinine Glucose POC Glucose (mg/dL) 179 H Calcium Ionized Calcium [place] 4.3 L AST Alkaline Phosphatase Total Protein Albumin Crossmatch 04/04/18 04/04/18 04/04/18 21:00 21:26 21:56 WBC RBC Hgb Hct Plt Count Neutrophils # Lymphocytes # PT INR APTT ABG pH 7.28 L ABG pCO2 ABG pO2 ABG HCO3 18 L ABG Total CO2 ABG O2 Saturation 97.3 H Sodium BUN Creatinine Glucose POC Glucose (mg/dL) 203 H 210 H Calcium Ionized Calcium [place] AST Alkaline Phosphatase Total Protein Albumin Crossmatch 04/04/18 04/04/18 04/05/18 22:52 23:58 01:00 WBC RBC Hgb Hct Plt Count Neutrophils # Lymphocytes # PT INR APTT ABG pH ABG pCO2 ABG pO2 ABG HCO3 ABG Total CO2 ABG O2 Saturation Sodium BUN Creatinine Glucose POC Glucose (mg/dL) 197 H 183 H 173 H Calcium Ionized Calcium [place] AST Alkaline Phosphatase Total Protein Albumin Crossmatch 04/05/18 04/05/18 04/05/18 02:02 02:57 04:08 WBC RBC Hgb Hct Plt Count Neutrophils # Lymphocytes # PT INR APTT ABG pH ABG pCO2 ABG pO2 ABG HCO3 ABG Total CO2 ABG O2 Saturation Sodium BUN Creatinine Glucose POC Glucose (mg/dL) 186 H 144 H 158 H Calcium Ionized Calcium [place] AST Alkaline Phosphatase Total Protein Albumin Crossmatch 04/05/18 04/05/18 04/05/18 04:10 04:10 04:10 WBC RBC 2.24 L Hgb 6.5 L* Hct 18.8 L* Plt Count 88 L Neutrophils # Lymphocytes # PT 12.3 H INR 1.3 H APTT ABG pH ABG pCO2 ABG pO2 ABG HCO3 ABG Total CO2 ABG O2 Saturation Sodium 136 L BUN Creatinine 0.63 L Glucose 136 H POC Glucose (mg/dL) Calcium 7.6 L Ionized Calcium [place] AST 60 H Alkaline Phosphatase 20 L Total Protein 4.7 L Albumin 3.0 L Crossmatch 04/05/18 04/05/18 04/05/18 05:19 06:03 07:04 WBC RBC Hgb Hct Plt Count Neutrophils # Lymphocytes # PT INR APTT ABG pH ABG pCO2 ABG pO2 ABG HCO3 ABG Total CO2 ABG O2 Saturation Sodium BUN Creatinine Glucose POC Glucose (mg/dL) 146 H 146 H 173 H Calcium Ionized Calcium [place] AST Alkaline Phosphatase Total Protein Albumin Crossmatch 04/05/18 04/05/18 04/05/18 08:04 08:05 08:51 WBC RBC Hgb Hct Plt Count Neutrophils # Lymphocytes # PT INR APTT ABG pH 7.46 H ABG pCO2 32 L ABG pO2 73 L ABG HCO3 ABG Total CO2 ABG O2 Saturation Sodium BUN Creatinine Glucose POC Glucose (mg/dL) 167 H 166 H Calcium Ionized Calcium [place] AST Alkaline Phosphatase Total Protein Albumin Crossmatch 04/05/18 04/05/18 04/05/18 09:37 09:57 10:49 WBC RBC Hgb Hct Plt Count Neutrophils # Lymphocytes # PT INR APTT ABG pH ABG pCO2 32 L ABG pO2 50 L* ABG HCO3 ABG Total CO2 ABG O2 Saturation 87.4 L Sodium BUN Creatinine Glucose POC Glucose (mg/dL) 186 H 169 H Calcium Ionized Calcium [place] AST Alkaline Phosphatase Total Protein Albumin Crossmatch 04/05/18 11:55 WBC RBC Hgb Hct Plt Count Neutrophils # Lymphocytes # PT INR APTT ABG pH ABG pCO2 ABG pO2 ABG HCO3 ABG Total CO2 ABG O2 Saturation Sodium BUN Creatinine Glucose POC Glucose (mg/dL) 150 H Calcium Ionized Calcium [place] AST Alkaline Phosphatase Total Protein Albumin Crossmatch - Diagnostic Findings Chest x-ray: image reviewed (Chest x-ray is suggestive of mild basilar atelectasis, mostly at the left base. minimal interstitial changes noted bilaterally.) Assessment and Plan Assessment: Impression: 1 status post CABG and aortic valve replacement, postoperative day #1. 2 postoperative hypoxic respiratory failure, unexpected, likely secondary to mild interstitial edema, possibility of TRALI, is in the differential, could not be entirely ruled out at this point. Preop PFT was relatively normal. There was no evidence of obstructive or restrictive lung disease on preoperative spirometry. 3 multiple comorbidities including type 2 diabetes, hypertension, previous NE, hyperlipidemia and morbid obesity. Recommendation: Continue on mechanical ventilation, gentle diuresis, may consider a trial of steroids, definitely not ready for weaning at this point. Failed weaning trial twice already since his surgery. Discussed his condition with the surgeon on the case, we will continue to follow. Continue the meantime GI and DVT prophylaxis, continue hemodynamic and the nutritional support. Will follow. Critical care time is over 30 minutes. Time with Patient: Greater than 30
[2018-04-05 13:21] LABS: Glucose,Whole Blood 131 mg/dL (75-99)
--- NOTE | 2018-04-05 13:54 | P.CONS ---
History of Present Illness - Reason for Consult Consult date: 04/05/18 Diabetes Requesting physician: Ethan Fountain - Chief Complaint chest pain - History of Present Illness Patient is a 67-year-old male past medical history of hypertension, coronary artery disease status post stent 5, severe aortic stenosis, dyslipidemia, and diabetes mellitus type 2 controlled on oral medications with preoperative hemoglobin A1c of 7.4 who presented for triple-vessel coronary artery bypass grafting and aortic valve replacement. Patient underwent procedure on 04/04 without any immediate postoperative complications. He remained intubated through the morning of 04/05. Patient seen and examined at bedside. He remains intubated. He is awake and following commands. He expresses that he has chest pain and feels uncomfortable. All information obtained from patient's bedside nurse, and thorough medical record review including preoperative testing completed in January 2018. Review of Systems unable to obtain secondary to intubation ROS unobtainable: due to endotracheal tube Past Medical History Past Medical History: Coronary Artery Disease (CAD), Cancer, Diabetes Mellitus, Hyperlipidemia, Hypertension, Myocardial Infarction (DE) Additional Past Medical History / Comment(s): HX KIDNEY STONES, HX OF PROSTATE AND SKIN CA, had chemo prior to prostatectomy 2000,aortic stenosis Last Myocardial Infarction Date:: 2005 History of Any Multi-Drug Resistant Organisms: None Reported Past Surgical History: Heart Catheterization With Stent, Hernia Repair, Prostate Surgery Additional Past Surgical History / Comment(s): HEART STENT X5, LITHOTRIPSY and sx for kidney stone retrieval Past Anesthesia/Blood Transfusion Reactions: No Reported Reaction Date of Last Stent Placement:: 2005 Smoking Status: Former smoker - Past Family History Father Family Medical History: Cancer Additional Family Medical History / Comment(s): COLON, LUNG Sister(s) Family Medical History: Cancer Additional Family Medical History / Comment(s): PANCREAS, COLON, LIVER Brother(s) Family Medical History: Cancer Additional Family Medical History / Comment(s): COLON,LIVER Medications and Allergies Home Medications Medication Instructions Recorded Confirmed Type Aspirin 81 mg PO DAILY 02/11/15 04/04/18 History Atorvastatin [Lipitor] 20 mg PO HS 02/11/15 04/04/18 History Lisinopril [Prinivil] 20 mg PO HS 02/11/15 04/04/18 History Metoprolol Tartrate [Lopressor] 50 mg PO BID 02/11/15 04/04/18 History Nitroglycerin Sl Tabs [Nitrostat] 0.4 mg PO Q5M PRN 02/11/15 04/04/18 History metFORMIN HCL 1,000 mg PO BID 02/11/15 04/04/18 History Isosorbide Mononitrate ER [Imdur] 30 mg PO QAM 01/27/18 04/04/18 History glipiZIDE [Glucotrol] 10 mg PO BID 01/27/18 04/04/18 History Clopidogrel [Plavix] 75 mg PO DAILY 03/13/18 04/04/18 History Allergies Allergy/AdvReac Type Severity Reaction Status Date / Time No Known Allergies Allergy Verified 04/04/18 16:37 Physical Exam Osteopathic Statement: *. No significant issues noted on an osteopathic structural exam other than those noted in the History and Physical/Consult. Vitals: Vital Signs Temp Pulse Resp BP Pulse Ox 04/05/18 12:00 102 H 16 100 04/05/18 11:43 97 04/05/18 11:30 97 16 98 04/05/18 11:18 98 04/05/18 11:00 103 H 20 93 L 04/05/18 10:30 109 H 24 92 L 04/05/18 10:00 117 H 26 H 89 L 04/05/18 09:30 115 H 29 H 91 L 04/05/18 09:00 103 H 21 93 L 04/05/18 08:36 103 H 04/05/18 08:30 101 H 16 96 04/05/18 08:21 105 H 04/05/18 08:00 101 H 20 97 04/05/18 07:30 105 H 16 96 04/05/18 07:10 99.9 F H 104 H 18 96 04/05/18 07:00 108 H 20 96 04/05/18 06:45 110 H 19 96 04/05/18 06:40 99.9 F H 111 H 21 120/56 96 04/05/18 06:30 99.9 F H 109 H 20 108/53 96 04/05/18 06:20 99.9 F H 107 H 18 95 04/05/18 06:10 103 H 21 96 04/05/18 06:00 104 H 19 96 04/05/18 05:45 105 H 21 96 09/19/18 05:30 105 H 23 98 09/19/18 05:15 104 H 21 98 09/19/18 05:00 110 H 19 96 0919/18 04:45 94 20 97 0919/18 04:30 108 H 18 97 0919/18 04:15 108 H 20 97 0919/18 04:00 107 H 21 98 09/19/18 03:45 105 H 17 98 0919/18 03:30 106 H 20 97 0919/18 03:15 110 H 18 97 0919/18 03:00 110 H 20 97 0919/18 02:45 112 H 22 98 0919/18 02:30 112 H 19 97 0919/18 02:15 110 H 21 98 0918 02:00 108 H 23 97 18 01:45 111 H 18 97 1918 01:30 111 H 19 97 1918 01:15 113 H 21 98 1918 01:00 112 H 20 97 1918 00:45 113 H 21 98 091918 00:30 114 H 18 97 091918 00:15 115 H 22 98 0919/18 00:00 115 H 22 98 18/18 23:45 114 H 21 98 18/18 23:30 114 H 21 98 1818 23:15 117 H 17 99 04/04/18 23:02 116 H 19 100 1818 23:00 116 H 20 99 18/18 22:45 115 H 20 99 1818 22:30 118 H 19 99 1818 22:15 118 H 20 98 0918/18 22:00 114 H 23 96 18/18 21:45 106 H 26 H 97 0918/18 21:30 115 H 28 H 97 18/18 21:15 114 H 26 H 96 18/18 21:00 103 H 26 H 97 18/18 20:45 103 H 21 98 0918/18 20:30 101 H 20 98 0918/18 20:23 100 22 0918/18 20:15 102 H 21 99 0918/18 20:14 103 H 25 H 0918/18 20:00 103 H 21 99 0918/18 19:45 103 H 21 98 04/04/18 19:30 102 H 23 96 04/04/18 19:15 106 H 21 97 04/04/18 19:00 110 H 25 H 94 L 04/04/18 18:45 114 H 19 95 04/04/18 18:30 112 H 18 95 04/04/18 18:15 110 H 19 95 04/04/18 18:00 107 H 19 95 04/04/18 17:45 110 H 20 95 04/04/18 17:30 107 H 20 97 04/04/18 17:15 105 H 19 99 04/04/18 17:00 97 15 100 04/04/18 16:45 98 15 100 04/04/18 16:13 98 Intake and Output 04/04/18 04/05/18 04/05/18 22:59 06:59 14:59 Intake Total 5596.277 7290.770 395.537 Output Total 5951 855 525 Balance -4874.942 252.770 -129.463 Intake: IV 1054 1061 375 ACETAMINOPHEN IV (For NPO 100 200 ) 1,000 mg In Empty Bag 1 bag @ 400 mls/hr IVPB Q6HR [facility] Rx#:[id number] Albumin Human 5% 250 ml 250 In Empty Bag 1 bag @ 250 mls/hr IVPB Q1HR PRN Rx#: [id number] Calcium Chloride 1,000 mg 200 In Sodium Chloride 0.9% 100 ml @ 100 mls/hr IVPB ONCE STA Rx#:[id number] Lactated Ringers 1,000 ml 290 450 250 @ 20 mls/hr IV .Q24H [facility] Rx#:[id number] ceFAZolin 2,000 mg In 30 Sodium Chloride 0.9% 30 ml @ Per Protocol IVPB ONCE ONE Rx#:[id number] co/ci 160 300 80 pressure bag 54 81 45 Intake, IV Titration 22.058 46.770 20.537 Amount Insulin Regular 100 unit 21.298 27.266 20.537 In Sodium Chloride 0.9% 100 ml @ Per Protocol IV .Q0M [facility] Rx#:[id number] Propofol 1,000 mg In 0.76 19.504 Empty Bag 1 bag @ Titrate IV .Q0M [facility] Rx#: [id number] Blood Product 0 Rc As-1 Unit 0 [id number] Output: Chest Tube Drainage 809 355 90 Chest Tube Left 223 90 0 Chest Tube Mediastinal 270 220 80 Chest Tube Right 316 45 10 Drainage 45 35 Right Calf 45 35 Urine 2142 455 400 Estimated Blood Loss 3000 Other: Voiding Method Indwelling Catheter Indwelling Catheter Indwelling Catheter Weight 109.6 kg ABP, PAP, CO, CI - Last 8 Hours Arterial Blood Pressure 132/65 Arterial Blood Pressure 115/56 Arterial Blood Pressure 111/53 Arterial Blood Pressure 122/47 Arterial Blood Pressure 148/48 Arterial Blood Pressure 138/59 Arterial Blood Pressure 136/60 Arterial Blood Pressure 136/62 Arterial Blood Pressure 138/62 Arterial Blood Pressure 123/58 Arterial Blood Pressure 123/57 Arterial Blood Pressure 128/58 Arterial Blood Pressure 115/55 Arterial Blood Pressure 108/51 Arterial Blood Pressure 111/50 Arterial Blood Pressure 113/50 Arterial Blood Pressure 114/51 Arterial Blood Pressure 113/52 Arterial Blood Pressure 106/53 Arterial Blood Pressure 96/52 Pulmonary Artery Pressure 26/17 Pulmonary Artery Pressure 25/15 Pulmonary Artery Pressure 25/15 Pulmonary Artery Pressure 26/15 Pulmonary Artery Pressure 27/17 Pulmonary Artery Pressure 28/16 Pulmonary Artery Pressure 26/15 Pulmonary Artery Pressure 26/15 Pulmonary Artery Pressure 29/17 Pulmonary Artery Pressure 28/17 Pulmonary Artery Pressure 27/17 Pulmonary Artery Pressure 28/17 Pulmonary Artery Pressure 25/15 Pulmonary Artery Pressure 25/15 Pulmonary Artery Pressure 25/15 Cardiac Output 7 Cardiac Output 7 Cardiac Output 7 Cardiac Output 7 Cardiac Output 6.7 Cardiac Output 6.7 Cardiac Output 6.7 Cardiac Output 6.7 Cardiac Output 6.7 Cardiac Output 6.7 Cardiac Output 6 Cardiac Output 6 Cardiac Output 6.1 Cardiac Output 6.1 Cardiac Output 6.1 Cardiac Index 3.3 Cardiac Index 3.2 Cardiac Index 208 Cardiac Index 2.9 General: Moderate distress secondary to pain, appears at stated age, obese Derm: no unusual rashes/lesions no unusual ecchymoses, warm, dry, Right LE with dressing in place. Head: atraumatic, normocephalic, symmetric Eyes: EOMI, no lid lag, anicteric sclera ENT: Nose and ears atraumatic, Trachea midline Neck: No thyromegaly, no cervical lymphadenopathy, trachea midline, supple Mouth: no lip lesion, mucus membranes moist Cardiovascular: S1S2 reg, no murmur, positive radial pulse bilateral, no edema, capillary refill less than 2 seconds, chest tube and medistinal chest tube in place Lungs: course bs b/l, no rhonchi, no rales , no accessory muscle use Abdominal: soft, nontender to palpation, no guarding, no appreciable organomegaly, normal bowel sounds Ext: no gross muscle atrophy, muscle strength 5 out of 5 in all 4 extremities grossly, no contractures, Neuro: CN II-XI grossly intact, light touch intact all 4 extremities, finger to nose within normal limits, Psych: Alert, oriented, appropriate affect Results CBC & Chem 7: 04/05/18 04:10 04/05/18 04:10 Labs: Abnormal Lab Results - Last 24 Hours (Table) 03/28/18 04/04/18 04/04/18 Range/Units 09:10 16:53 16:55 WBC (3.8-10.6) k/uL RBC 2.80 L (4.30-5.90) m/uL Hgb 8.1 L D (13.0-17.5) gm/dL Hct 23.5 L (39.0-53.0) % Plt Count 106 L (150-450) k/uL Neutrophils # (1.3-7.7) k/uL Lymphocytes # (1.0-4.8) k/uL PT (9.0-12.0) sec INR (<1.2) APTT (22.0-30.0) sec ABG pH (7.35-7.45) ABG pCO2 (35-45) mmHg ABG pO2 (83-108) mmHg ABG HCO3 (21-25) mmol/L ABG Total CO2 (19-24) mmol/L ABG O2 Saturation (94-97) % Sodium (137-145) mmol/L BUN (9-20) mg/dL Creatinine (0.66-1.25) mg/dL Glucose (74-99) mg/dL POC Glucose (mg/dL) 131 H (75-99) mg/dL Calcium (8.4-10.2) mg/dL Ionized Calcium [place] (4.5-5.3) mg/dL AST (17-59) U/L Alkaline Phosphatase (38-126) U/L Total Protein (6.3-8.2) g/dL Albumin (3.5-5.0) g/dL Crossmatch See Detail 04/04/18 04/04/18 04/04/18 Range/Units 16:55 16:55 17:22 WBC (3.8-10.6) k/uL RBC (4.30-5.90) m/uL Hgb (13.0-17.5) gm/dL Hct (39.0-53.0) % Plt Count (150-450) k/uL Neutrophils # (1.3-7.7) k/uL Lymphocytes # (1.0-4.8) k/uL PT 12.9 H (9.0-12.0) sec INR 1.4 H (<1.2) APTT 38.3 H (22.0-30.0) sec ABG pH 7.32 L (7.35-7.45) ABG pCO2 (35-45) mmHg ABG pO2 80 L (83-108) mmHg ABG HCO3 (21-25) mmol/L ABG Total CO2 25 H (19-24) mmol/L ABG O2 Saturation (94-97) % Sodium (137-145) mmol/L BUN 7 L (9-20) mg/dL Creatinine 0.58 L (0.66-1.25) mg/dL Glucose 119 H (74-99) mg/dL POC Glucose (mg/dL) (75-99) mg/dL Calcium 6.8 L (8.4-10.2) mg/dL Ionized Calcium [place] 4.4 L (4.5-5.3) mg/dL AST (17-59) U/L Alkaline Phosphatase <20 L (38-126) U/L Total Protein 4.8 L (6.3-8.2) g/dL Albumin 3.1 L (3.5-5.0) g/dL Crossmatch 04/04/18 04/04/18 04/04/18 Range/Units 17:51 18:55 19:50 WBC 11.4 H (3.8-10.6) k/uL RBC 2.69 L (4.30-5.90) m/uL Hgb 7.8 L (13.0-17.5) gm/dL Hct 23.0 L (39.0-53.0) % Plt Count 100 L (150-450) k/uL Neutrophils # 9.4 H (1.3-7.7) k/uL Lymphocytes # 0.9 L (1.0-4.8) k/uL PT (9.0-12.0) sec INR (<1.2) APTT (22.0-30.0) sec ABG pH (7.35-7.45) ABG pCO2 (35-45) mmHg ABG pO2 (83-108) mmHg ABG HCO3 (21-25) mmol/L ABG Total CO2 (19-24) mmol/L ABG O2 Saturation (94-97) % Sodium (137-145) mmol/L BUN (9-20) mg/dL Creatinine (0.66-1.25) mg/dL Glucose (74-99) mg/dL POC Glucose (mg/dL) 180 H 198 H (75-99) mg/dL Calcium (8.4-10.2) mg/dL Ionized Calcium [place] (4.5-5.3) mg/dL AST (17-59) U/L Alkaline Phosphatase (38-126) U/L Total Protein (6.3-8.2) g/dL Albumin (3.5-5.0) g/dL Crossmatch 04/04/18 04/04/18 04/04/18 Range/Units 19:50 19:57 20:40 WBC (3.8-10.6) k/uL RBC 2.40 L (4.30-5.90) m/uL Hgb 7.1 L (13.0-17.5) gm/dL Hct 20.8 L (39.0-53.0) % Plt Count 94 L (150-450) k/uL Neutrophils # (1.3-7.7) k/uL Lymphocytes # 0.8 L (1.0-4.8) k/uL PT (9.0-12.0) sec INR (<1.2) APTT (22.0-30.0) sec ABG pH (7.35-7.45) ABG pCO2 (35-45) mmHg ABG pO2 (83-108) mmHg ABG HCO3 (21-25) mmol/L ABG Total CO2 (19-24) mmol/L ABG O2 Saturation (94-97) % Sodium (137-145) mmol/L BUN (9-20) mg/dL Creatinine (0.66-1.25) mg/dL Glucose (74-99) mg/dL POC Glucose (mg/dL) 179 H (75-99) mg/dL Calcium (8.4-10.2) mg/dL Ionized Calcium [place] 4.3 L (4.5-5.3) mg/dL AST (17-59) U/L Alkaline Phosphatase (38-126) U/L Total Protein (6.3-8.2) g/dL Albumin (3.5-5.0) g/dL Crossmatch 04/04/18 04/04/18 04/04/18 Range/Units 21:00 21:26 21:56 WBC (3.8-10.6) k/uL RBC (4.30-5.90) m/uL Hgb (13.0-17.5) gm/dL Hct (39.0-53.0) % Plt Count (150-450) k/uL Neutrophils # (1.3-7.7) k/uL Lymphocytes # (1.0-4.8) k/uL PT (9.0-12.0) sec INR (<1.2) APTT (22.0-30.0) sec ABG pH 7.28 L (7.35-7.45) ABG pCO2 (35-45) mmHg ABG pO2 (83-108) mmHg ABG HCO3 18 L (21-25) mmol/L ABG Total CO2 (19-24) mmol/L ABG O2 Saturation 97.3 H (94-97) % Sodium (137-145) mmol/L BUN (9-20) mg/dL Creatinine (0.66-1.25) mg/dL Glucose (74-99) mg/dL POC Glucose (mg/dL) 203 H 210 H (75-99) mg/dL Calcium (8.4-10.2) mg/dL Ionized Calcium [place] (4.5-5.3) mg/dL AST (17-59) U/L Alkaline Phosphatase (38-126) U/L Total Protein (6.3-8.2) g/dL Albumin (3.5-5.0) g/dL Crossmatch 04/04/18 04/04/18 04/05/18 Range/Units 22:52 23:58 01:00 WBC (3.8-10.6) k/uL RBC (4.30-5.90) m/uL Hgb (13.0-17.5) gm/dL Hct (39.0-53.0) % Plt Count (150-450) k/uL Neutrophils # (1.3-7.7) k/uL Lymphocytes # (1.0-4.8) k/uL PT (9.0-12.0) sec INR (<1.2) APTT (22.0-30.0) sec ABG pH (7.35-7.45) ABG pCO2 (35-45) mmHg ABG pO2 (83-108) mmHg ABG HCO3 (21-25) mmol/L ABG Total CO2 (19-24) mmol/L ABG O2 Saturation (94-97) % Sodium (137-145) mmol/L BUN (9-20) mg/dL Creatinine (0.66-1.25) mg/dL Glucose (74-99) mg/dL POC Glucose (mg/dL) 197 H 183 H 173 H (75-99) mg/dL Calcium (8.4-10.2) mg/dL Ionized Calcium [place] (4.5-5.3) mg/dL AST (17-59) U/L Alkaline Phosphatase (38-126) U/L Total Protein (6.3-8.2) g/dL Albumin (3.5-5.0) g/dL Crossmatch 04/05/18 04/05/18 04/05/18 Range/Units 02:02 02:57 04:08 WBC (3.8-10.6) k/uL RBC (4.30-5.90) m/uL Hgb (13.0-17.5) gm/dL Hct (39.0-53.0) % Plt Count (150-450) k/uL Neutrophils # (1.3-7.7) k/uL Lymphocytes # (1.0-4.8) k/uL PT (9.0-12.0) sec INR (<1.2) APTT (22.0-30.0) sec ABG pH (7.35-7.45) ABG pCO2 (35-45) mmHg ABG pO2 (83-108) mmHg ABG HCO3 (21-25) mmol/L ABG Total CO2 (19-24) mmol/L ABG O2 Saturation (94-97) % Sodium (137-145) mmol/L BUN (9-20) mg/dL Creatinine (0.66-1.25) mg/dL Glucose (74-99) mg/dL POC Glucose (mg/dL) 186 H 144 H 158 H (75-99) mg/dL Calcium (8.4-10.2) mg/dL Ionized Calcium [place] (4.5-5.3) mg/dL AST (17-59) U/L Alkaline Phosphatase (38-126) U/L Total Protein (6.3-8.2) g/dL Albumin (3.5-5.0) g/dL Crossmatch 04/05/18 04/05/18 04/05/18 Range/Units 04:10 04:10 04:10 WBC (3.8-10.6) k/uL RBC 2.24 L (4.30-5.90) m/uL Hgb 6.5 L* (13.0-17.5) gm/dL Hct 18.8 L* (39.0-53.0) % Plt Count 88 L (150-450) k/uL Neutrophils # (1.3-7.7) k/uL Lymphocytes # (1.0-4.8) k/uL PT 12.3 H (9.0-12.0) sec INR 1.3 H (<1.2) APTT (22.0-30.0) sec ABG pH (7.35-7.45) ABG pCO2 (35-45) mmHg ABG pO2 (83-108) mmHg ABG HCO3 (21-25) mmol/L ABG Total CO2 (19-24) mmol/L ABG O2 Saturation (94-97) % Sodium 136 L (137-145) mmol/L BUN (9-20) mg/dL Creatinine 0.63 L (0.66-1.25) mg/dL Glucose 136 H (74-99) mg/dL POC Glucose (mg/dL) (75-99) mg/dL Calcium 7.6 L (8.4-10.2) mg/dL Ionized Calcium [place] (4.5-5.3) mg/dL AST 60 H (17-59) U/L Alkaline Phosphatase 20 L (38-126) U/L Total Protein 4.7 L (6.3-8.2) g/dL Albumin 3.0 L (3.5-5.0) g/dL Crossmatch 04/05/18 04/05/18 04/05/18 Range/Units 05:19 06:03 07:04 WBC (3.8-10.6) k/uL RBC (4.30-5.90) m/uL Hgb (13.0-17.5) gm/dL Hct (39.0-53.0) % Plt Count (150-450) k/uL Neutrophils # (1.3-7.7) k/uL Lymphocytes # (1.0-4.8) k/uL PT (9.0-12.0) sec INR (<1.2) APTT (22.0-30.0) sec ABG pH (7.35-7.45) ABG pCO2 (35-45) mmHg ABG pO2 (83-108) mmHg ABG HCO3 (21-25) mmol/L ABG Total CO2 (19-24) mmol/L ABG O2 Saturation (94-97) % Sodium (137-145) mmol/L BUN (9-20) mg/dL Creatinine (0.66-1.25) mg/dL Glucose (74-99) mg/dL POC Glucose (mg/dL) 146 H 146 H 173 H (75-99) mg/dL Calcium (8.4-10.2) mg/dL Ionized Calcium [place] (4.5-5.3) mg/dL AST (17-59) U/L Alkaline Phosphatase (38-126) U/L Total Protein (6.3-8.2) g/dL Albumin (3.5-5.0) g/dL Crossmatch 04/05/18 04/05/18 04/05/18 Range/Units 08:04 08:05 08:51 WBC (3.8-10.6) k/uL RBC (4.30-5.90) m/uL Hgb (13.0-17.5) gm/dL Hct (39.0-53.0) % Plt Count (150-450) k/uL Neutrophils # (1.3-7.7) k/uL Lymphocytes # (1.0-4.8) k/uL PT (9.0-12.0) sec INR (<1.2) APTT (22.0-30.0) sec ABG pH 7.46 H (7.35-7.45) ABG pCO2 32 L (35-45) mmHg ABG pO2 73 L (83-108) mmHg ABG HCO3 (21-25) mmol/L ABG Total CO2 (19-24) mmol/L ABG O2 Saturation (94-97) % Sodium (137-145) mmol/L BUN (9-20) mg/dL Creatinine (0.66-1.25) mg/dL Glucose (74-99) mg/dL POC Glucose (mg/dL) 167 H 166 H (75-99) mg/dL Calcium (8.4-10.2) mg/dL Ionized Calcium [place] (4.5-5.3) mg/dL AST (17-59) U/L Alkaline Phosphatase (38-126) U/L Total Protein (6.3-8.2) g/dL Albumin (3.5-5.0) g/dL Crossmatch 04/05/18 04/05/18 04/05/18 Range/Units 09:37 09:57 10:49 WBC (3.8-10.6) k/uL RBC (4.30-5.90) m/uL Hgb (13.0-17.5) gm/dL Hct (39.0-53.0) % Plt Count (150-450) k/uL Neutrophils # (1.3-7.7) k/uL Lymphocytes # (1.0-4.8) k/uL PT (9.0-12.0) sec INR (<1.2) APTT (22.0-30.0) sec ABG pH (7.35-7.45) ABG pCO2 32 L (35-45) mmHg ABG pO2 50 L* (83-108) mmHg ABG HCO3 (21-25) mmol/L ABG Total CO2 (19-24) mmol/L ABG O2 Saturation 87.4 L (94-97) % Sodium (137-145) mmol/L BUN (9-20) mg/dL Creatinine (0.66-1.25) mg/dL Glucose (74-99) mg/dL POC Glucose (mg/dL) 186 H 169 H (75-99) mg/dL Calcium (8.4-10.2) mg/dL Ionized Calcium [place] (4.5-5.3) mg/dL AST (17-59) U/L Alkaline Phosphatase (38-126) U/L Total Protein (6.3-8.2) g/dL Albumin (3.5-5.0) g/dL Crossmatch 04/05/18 Range/Units 11:55 WBC (3.8-10.6) k/uL RBC (4.30-5.90) m/uL Hgb (13.0-17.5) gm/dL Hct (39.0-53.0) % Plt Count (150-450) k/uL Neutrophils # (1.3-7.7) k/uL Lymphocytes # (1.0-4.8) k/uL PT (9.0-12.0) sec INR (<1.2) APTT (22.0-30.0) sec ABG pH (7.35-7.45) ABG pCO2 (35-45) mmHg ABG pO2 (83-108) mmHg ABG HCO3 (21-25) mmol/L ABG Total CO2 (19-24) mmol/L ABG O2 Saturation (94-97) % Sodium (137-145) mmol/L BUN (9-20) mg/dL Creatinine (0.66-1.25) mg/dL Glucose (74-99) mg/dL POC Glucose (mg/dL) 150 H (75-99) mg/dL Calcium (8.4-10.2) mg/dL Ionized Calcium [place] (4.5-5.3) mg/dL AST (17-59) U/L Alkaline Phosphatase (38-126) U/L Total Protein (6.3-8.2) g/dL Albumin (3.5-5.0) g/dL Crossmatch Chest x-ray: report reviewed, image reviewed Assessment and Plan Assessment: Coronary artery disease with severe aortic stenosis - Status post triple bypass with aortic valve replacement -Management per primary team Diabetes mellitus type 2 [id number] -Preop A1c 7.4 -Hold metformin and glipizide -On insulin drip, plan to transition to sliding scale insulin in a.m. if able to be extubated Acute blood loss anemia with thrombocytopenia, anticipated outcome of surgery -1 unit of packed red blood cells -Repeat CBC in a.m. Morbid obesity with BMI 37.8 -Outpatient structured weight loss Hypertension -controlled -Metoprolol per cardiothoracic Dyslipidemia -Lipitor Thank you for allowing us to participate in the care of this patient. Do not hesitate to contact us with questions. Someone can be reached from the [facility] hospitalist group at all hours of the day at [phone], for in daytime hours from 7 AM to 7 PM patient is on the blue team [phone].
[2018-04-05 14:02] LABS: Glucose,Whole Blood 129 mg/dL (75-99)
[2018-04-05 15:21] LABS: Glucose,Whole Blood 132 mg/dL (75-99)
[2018-04-05] MEDS: CLOPIDOGREL 75 MG TAB PO SCH (15:41)
[2018-04-05] MEDS: LACTATED RINGERS 1,000 ML IV SCH (15:49)
[2018-04-05] MEDS ORDERED: METOPROLOL TARTRATE 12.5 MG TAB PO SCH (15:51)
[2018-04-05] MEDS ORDERED: HYDROcodone/APAP 5-325MG 1 EACH TAB PO PRN (15:51)
[2018-04-05] MEDS ORDERED: BISACODYL 10 MG SUPP RECTAL PRN (15:52)
[2018-04-05] MEDS ORDERED: MAGNESIUM HYDROXIDE 2,400 MG/10 ML CUP PO PRN (15:52)
[2018-04-05] MEDS: methylPREDNISolone SOD SUCCI 40 MG/ML 1 ML VIAL IV SCH (15:53)
[2018-04-05 16:11] LABS: Glucose,Whole Blood 137 mg/dL (75-99)
[2018-04-05] MEDS: INSULIN REGULAR 100 UNIT in SODIUM CHLORIDE 0.9% 100 ML IV SCH (16:28)
[2018-04-05 17:13] LABS: Glucose,Whole Blood 145 mg/dL (75-99)
[2018-04-05 17:56] LABS: Glucose,Whole Blood 153 mg/dL (75-99)
[2018-04-05 19:09] LABS: Glucose,Whole Blood 156 mg/dL (75-99)
[2018-04-05] MEDS ORDERED: METOPROLOL TARTRATE 25 MG TAB PO SCH (21:00)
[2018-04-05 21:11] LABS: Glucose,Whole Blood 156 mg/dL (75-99)
[2018-04-05] MEDS: SENNOSIDES-DOCUSATE SODIUM 1 EACH TAB PO SCH (22:11)
[2018-04-05] MEDS: METOPROLOL TARTRATE 50 MG TAB PO SCH (22:11)
[2018-04-05 22:23] LABS: Glucose,Whole Blood 159 mg/dL (75-99)
[2018-04-05 23:01] LABS: Glucose,Whole Blood 152 mg/dL (75-99)
[2018-04-06] MEDS: CLEVIDIPINE BUTYRATE 25 MG in EMPTY BAG 1 BAG IV SCH ×3 (00:21→07:50)
[2018-04-06] MEDS: HEPARIN SODIUM,PORCINE 5,000 UNIT/ML 1 ML VIAL SQ SCH ×3 (00:21→16:33)
[2018-04-06] MEDS: methylPREDNISolone SOD SUCCI 40 MG/ML 1 ML VIAL IV SCH ×3 (00:21→16:33)
[2018-04-06 00:28] LABS: Glucose,Whole Blood 151 mg/dL (75-99)
[2018-04-06 01:27] LABS: Glucose,Whole Blood 39 mg/dL (75-99)
[2018-04-06 01:27] LABS: Glucose,Whole Blood 149 mg/dL (75-99)
[2018-04-06] MEDS: PROPOFOL 1,000 MG in EMPTY BAG 1 BAG IV SCH ×7 (02:31→23:09)
[2018-04-06 03:09] LABS: Glucose,Whole Blood 129 mg/dL (75-99)
[2018-04-06] MEDS: INSULIN REGULAR 100 UNIT in SODIUM CHLORIDE 0.9% 100 ML IV SCH ×3 (03:09→23:06)
[2018-04-06 04:07] LABS: Glucose,Whole Blood 158 mg/dL (75-99)
[2018-04-06 05:01] LABS: Glucose,Whole Blood 144 mg/dL (75-99)
[2018-04-06 05:30] LABS: Basophils % (A) 0 %; Eosinophils # (A) 0.1 k/uL (0-0.7); Eosinophils % (A) 1 %; HCT 20.9 % (39.0-53.0); HGB 7.7 gm/dL (13.0-17.5); Lymphocytes # (A) 1.5 k/uL (1.0-4.8); Lymphocytes % (A) 11 %; MCH 31.4 pg (25.0-35.0); MCHC 37.1 g/dL (31.0-37.0); MCV 84.5 fL (80.0-100.0); Mean Platelet Volume 8.5; Monocytes # (A) 0.6 k/uL (0-1.0); Monocytes % (A) 4 %; Neutrophils # (A) 11.6 k/uL (1.3-7.7); Neutrophils % (A) 84 %; Poikilocytosis Slight; RBC 2.47 m/uL (4.30-5.90); RDW 14.8 % (11.5-15.5); WBC 13.9 k/uL (3.8-10.6)
[2018-04-06 05:33] LABS: Platelet Count 90 k/uL (150-450)
[2018-04-06 06:13] LABS: Glucose,Whole Blood 136 mg/dL (75-99)
[2018-04-06 06:14] LABS: Ionized Calcium 4.9 mg/dL (4.5-5.3)
[2018-04-06 06:23] LABS: Albumin 2.8 g/dL (3.5-5.0); Anion Gap 8 mmol/L; Calcium 8.2 mg/dL (8.4-10.2); Carbon Dioxide 24 mmol/L (22-30); Chloride 105 mmol/L (98-107); Glucose 130 mg/dL (74-99); Sodium 137 mmol/L (137-145); Total Bilirubin 0.8 mg/dL (0.2-1.3)
[2018-04-06 06:29] LABS: Blood Urea Nitrogen 10 mg/dL (9-20); Phosphorus 1.9 mg/dL (2.5-4.5); Potassium 4.2 mmol/L (3.5-5.1)
[2018-04-06 06:30] LABS: ALT 42 U/L (21-72); AST 63 U/L (17-59); Alkaline Phosphatase 31 U/L (38-126); Magnesium 2.1 mg/dL (1.6-2.3)
[2018-04-06 06:59] LABS: Glucose,Whole Blood 130 mg/dL (75-99)
[2018-04-06 07:28] LABS: ABG Base Excess 3.1 mmol/L; ABG HCO3 26 mmol/L (21-25); ABG Oxygen Saturation 95.4 % (94-97); ABG PCO2 35 mmHg (35-45); ABG PH 7.49 (7.35-7.45); ABG PO2 70 mmHg (83-108); ABG TCO2 28 mmol/L (19-24)
[2018-04-06] MEDS: IPRATROPIUM-ALBUTEROL 3 ML NEB INHALATION SCH ×4 (07:49→20:18)
[2018-04-06] MEDS: SODIUM PHOSPHATE 10 MMOL in SODIUM CHLORIDE 0.9% 250 ML IVPB SCH ×2 (08:01→10:09)
[2018-04-06 08:02] LABS: Glucose,Whole Blood 120 mg/dL (75-99)
[2018-04-06 08:02] LABS: Glucose,Whole Blood 116 mg/dL (75-99)
--- NOTE | 2018-04-06 08:16 | P.PN ---
Subjective Progress Note Date: 04/06/18 Principal diagnosis: Double vessel coronary artery disease, severe aortic valve stenosis, preserved systolic function. History of obesity, hypertension, hyperlipidemia on statin therapy, diabetes with preoperative hemoglobin A1c 7.4%, hyperlipidemia, coronary artery disease status post remote stenting to circumflex system, chronic Plavix intake, prostate cancer status post prostatectomy in 2001, skin cancer 3 years ago, previous tobacco dependence with preoperative FEV1 89% of predicted. POD #2 aortic valve replacement using a 23 mm bovine bioprosthesis in spite wrists. Triple coronary artery bypass grafting using the left internal mammary artery to the left anterior descending artery, reverse saphenous vein graft from the aorta to the diagonal artery, reverse saphenous vein graft from the aorta to the posterior descending artery. Intraoperative transesophageal echocardiogram and epi-aortic scanning. Acute hypoxic respiratory failure, prolonged mechanical ventilation, an unexpected outcome. Acute blood loss anemia, an expected outcome related to hemodilution and bypass pump. Patient is currently laying in bed in the intensive care unit. Remains sedated and intubated. Weaning trial attempted yesterday with decrease in pO2 to 50 mmHg, patient placed back on sedation and full vent support. IV steroids initiated per pulmonology. Patient's hemoglobin this morning 7.7 after transfusion of 1 unit of packed cells yesterday. Remains heavily sedated with propofol secondary to increased agitation and dyssynchrony with the vent. Objective - Vital Signs Vital signs: Vital Signs Temp 99.9 F H 04/05/18 08:00 Pulse 87 04/06/18 07:50 Resp 19 04/06/18 07:50 BP 138/62 04/05/18 08:00 Pulse Ox 93 L 04/06/18 07:00 Intake & Output 04/05/18 04/06/18 04/06/18 18:59 06:59 18:59 Intake Total 7466.358 1224.969 43 Output Total 1335 1742 95 Balance 2.952 -358.031 -52 Weight 110.9 kg Intake: IV 839 649 43 Calcium Chloride 1,000 mg 100 In Sodium Chloride 0.9% 100 ml @ 100 mls/hr IVPB ONCE STA Rx#:[id number] Lactated Ringers 1,000 ml 520 480 40 @ 20 mls/hr IV .Q24H [facility] Rx#:[id number] co/ci 120 80 pressure bag 99 89 3 Intake, IV Titration 188.952 694.969 Amount Clevidipine Butyrate 25 46.133 171.734 mg In Empty Bag 1 bag @ 1 MG/HR 2 mls/hr IV .Q24H [facility] Rx#:[id number] Insulin Regular 100 unit 52.436 151.297 In Sodium Chloride 0.9% 100 ml @ Per Protocol IV .Q0M [facility] Rx#:[id number] Propofol 1,000 mg In 90.383 371.938 Empty Bag 1 bag @ Titrate IV .Q0M [facility] Rx#: [id number] Blood Product 310 Rc As-1 Unit 310 [id number] Other 40 Output: Chest Tube Drainage 150 100 Chest Tube Left 20 50 Chest Tube Mediastinal 120 40 Chest Tube Right 10 10 Gastric Drainage 400 Drainage 35 40 Right Calf 35 40 Urine 1150 1012 95 Oral Regurgitation 190 Other: Voiding Method Indwelling Catheter Indwelling Catheter ABP, PAP, CO, CI - Last Documented Arterial Blood Pressure 144/59 Pulmonary Artery Pressure 33/15 Cardiac Output 8.7 Cardiac Index 4.1 - Constitutional General appearance: Present: no acute distress, obese - Respiratory Details: Lungs sounds diminished bilaterally. Respirations even, nonlabored on mechanical ventilation. Current settings assist control mode, FiO2 70%, tidal volume 600, respiratory rate 16, PEEP 8. ABGs this morning 7.49/35/70/26/3.1 on 70% FiO2. Mediastinal chest tube to continuous wall suction, 10 mL serosanguineous drainage overnight, 200 mL in the last 24 hours. Left pleural chest tube to continuous wall suction, 30 mL serosanguineous drainage overnight , 70 mL in the last 24 hours. Right pleural chest tube to continuous wall suction, 10 mL serosanguineous drainage overnight, 50 mL the last 24 hours. No air leaks present. - Cardiovascular Details: S1, S2 present. Regular rate and rhythm, sinus rhythm on telemetry. Sternum stable. A/V epicardial pacemaker wires present, connected to generator, VVI mode with a backup rate 50 bpm. Palpable peripheral pulses bilaterally. No edema present. No calf pain or tenderness noted. Right internal jugular Matheson/ Cordis, right radial arterial line present. Last CO/CI 9.2/4.3 on no inotropes. Heart hugger, antiembolism stockings, SCDs present. - Gastrointestinal Gastrointestinal Comment(s): Abdomen soft, nontender, nondistended. Hypoactive bowel sounds present 4 quadrants. OG tube present to low intermittent suction, 400 mL output overnight. - Genitourinary Genitourinary Comment(s): Hernandez present draining clear, yellow urine. Output 35-195 mL/h overnight, 775 mL last 8 hours. - Integumentary Integumentary Comment(s): Skin is warm and dry with evidence of good perfusion. Anterior chest incision well approximated and covered with dry intact dressing. Right lower extremity EVH site well approximated, 40 mL serosanguineous drainage overnight. - Neurologic Neurologic: Present: CNII-XII intact - Psychiatric Psychiatric Comment(s): Sedated with propofol mechanical ventilation. Patient does wake up and follows commands but does panic off sedation. - Allied health notes Allied health notes reviewed: nursing - Labs CBC & Chem 7: 04/06/18 05:00 04/06/18 05:00 Labs: Abnormal Lab Results - Last 24 Hours (Table) 03/28/18 04/05/18 04/05/18 Range/Units 09:10 08:04 08:05 WBC (3.8-10.6) k/uL RBC (4.30-5.90) m/uL Hgb (13.0-17.5) gm/dL Hct (39.0-53.0) % MCHC (31.0-37.0) g/dL Plt Count (150-450) k/uL Neutrophils # (1.3-7.7) k/uL ABG pH 7.46 H (7.35-7.45) ABG pCO2 32 L (35-45) mmHg ABG pO2 73 L (83-108) mmHg ABG HCO3 (21-25) mmol/L ABG Total CO2 (19-24) mmol/L ABG O2 Saturation (94-97) % Creatinine (0.66-1.25) mg/dL Glucose (74-99) mg/dL POC Glucose (mg/dL) 167 H (75-99) mg/dL Calcium (8.4-10.2) mg/dL Phosphorus (2.5-4.5) mg/dL AST (17-59) U/L Alkaline Phosphatase (38-126) U/L Total Protein (6.3-8.2) g/dL Albumin (3.5-5.0) g/dL Crossmatch See Detail 04/05/18 04/05/18 04/05/18 Range/Units 08:51 09:37 09:57 WBC (3.8-10.6) k/uL RBC (4.30-5.90) m/uL Hgb (13.0-17.5) gm/dL Hct (39.0-53.0) % MCHC (31.0-37.0) g/dL Plt Count (150-450) k/uL Neutrophils # (1.3-7.7) k/uL ABG pH (7.35-7.45) ABG pCO2 32 L (35-45) mmHg ABG pO2 50 L* (83-108) mmHg ABG HCO3 (21-25) mmol/L ABG Total CO2 (19-24) mmol/L ABG O2 Saturation 87.4 L (94-97) % Creatinine (0.66-1.25) mg/dL Glucose (74-99) mg/dL POC Glucose (mg/dL) 166 H 186 H (75-99) mg/dL Calcium (8.4-10.2) mg/dL Phosphorus (2.5-4.5) mg/dL AST (17-59) U/L Alkaline Phosphatase (38-126) U/L Total Protein (6.3-8.2) g/dL Albumin (3.5-5.0) g/dL Crossmatch 04/05/18 04/05/18 04/05/18 Range/Units 10:49 11:55 13:20 WBC (3.8-10.6) k/uL RBC (4.30-5.90) m/uL Hgb (13.0-17.5) gm/dL Hct (39.0-53.0) % MCHC (31.0-37.0) g/dL Plt Count (150-450) k/uL Neutrophils # (1.3-7.7) k/uL ABG pH (7.35-7.45) ABG pCO2 (35-45) mmHg ABG pO2 (83-108) mmHg ABG HCO3 (21-25) mmol/L ABG Total CO2 (19-24) mmol/L ABG O2 Saturation (94-97) % Creatinine (0.66-1.25) mg/dL Glucose (74-99) mg/dL POC Glucose (mg/dL) 169 H 150 H 131 H (75-99) mg/dL Calcium (8.4-10.2) mg/dL Phosphorus (2.5-4.5) mg/dL AST (17-59) U/L Alkaline Phosphatase (38-126) U/L Total Protein (6.3-8.2) g/dL Albumin (3.5-5.0) g/dL Crossmatch 04/05/18 04/05/18 04/05/18 Range/Units 14:01 15:18 16:10 WBC (3.8-10.6) k/uL RBC (4.30-5.90) m/uL Hgb (13.0-17.5) gm/dL Hct (39.0-53.0) % MCHC (31.0-37.0) g/dL Plt Count (150-450) k/uL Neutrophils # (1.3-7.7) k/uL ABG pH (7.35-7.45) ABG pCO2 (35-45) mmHg ABG pO2 (83-108) mmHg ABG HCO3 (21-25) mmol/L ABG Total CO2 (19-24) mmol/L ABG O2 Saturation (94-97) % Creatinine (0.66-1.25) mg/dL Glucose (74-99) mg/dL POC Glucose (mg/dL) 129 H 132 H 137 H (75-99) mg/dL Calcium (8.4-10.2) mg/dL Phosphorus (2.5-4.5) mg/dL AST (17-59) U/L Alkaline Phosphatase (38-126) U/L Total Protein (6.3-8.2) g/dL Albumin (3.5-5.0) g/dL Crossmatch 04/05/18 04/05/18 04/05/18 Range/Units 17:07 17:53 19:07 WBC (3.8-10.6) k/uL RBC (4.30-5.90) m/uL Hgb (13.0-17.5) gm/dL Hct (39.0-53.0) % MCHC (31.0-37.0) g/dL Plt Count (150-450) k/uL Neutrophils # (1.3-7.7) k/uL ABG pH (7.35-7.45) ABG pCO2 (35-45) mmHg ABG pO2 (83-108) mmHg ABG HCO3 (21-25) mmol/L ABG Total CO2 (19-24) mmol/L ABG O2 Saturation (94-97) % Creatinine (0.66-1.25) mg/dL Glucose (74-99) mg/dL POC Glucose (mg/dL) 145 H 153 H 156 H (75-99) mg/dL Calcium (8.4-10.2) mg/dL Phosphorus (2.5-4.5) mg/dL AST (17-59) U/L Alkaline Phosphatase (38-126) U/L Total Protein (6.3-8.2) g/dL Albumin (3.5-5.0) g/dL Crossmatch 04/05/18 04/05/18 04/05/18 Range/Units 21:10 22:22 22:59 WBC (3.8-10.6) k/uL RBC (4.30-5.90) m/uL Hgb (13.0-17.5) gm/dL Hct (39.0-53.0) % MCHC (31.0-37.0) g/dL Plt Count (150-450) k/uL Neutrophils # (1.3-7.7) k/uL ABG pH (7.35-7.45) ABG pCO2 (35-45) mmHg ABG pO2 (83-108) mmHg ABG HCO3 (21-25) mmol/L ABG Total CO2 (19-24) mmol/L ABG O2 Saturation (94-97) % Creatinine (0.66-1.25) mg/dL Glucose (74-99) mg/dL POC Glucose (mg/dL) 156 H 159 H 152 H (75-99) mg/dL Calcium (8.4-10.2) mg/dL Phosphorus (2.5-4.5) mg/dL AST (17-59) U/L Alkaline Phosphatase (38-126) U/L Total Protein (6.3-8.2) g/dL Albumin (3.5-5.0) g/dL Crossmatch 04/06/18 04/06/18 04/06/18 Range/Units 00:25 01:22 01:24 WBC (3.8-10.6) k/uL RBC (4.30-5.90) m/uL Hgb (13.0-17.5) gm/dL Hct (39.0-53.0) % MCHC (31.0-37.0) g/dL Plt Count (150-450) k/uL Neutrophils # (1.3-7.7) k/uL ABG pH (7.35-7.45) ABG pCO2 (35-45) mmHg ABG pO2 (83-108) mmHg ABG HCO3 (21-25) mmol/L ABG Total CO2 (19-24) mmol/L ABG O2 Saturation (94-97) % Creatinine (0.66-1.25) mg/dL Glucose (74-99) mg/dL POC Glucose (mg/dL) 151 H 39 L 149 H (75-99) mg/dL Calcium (8.4-10.2) mg/dL Phosphorus (2.5-4.5) mg/dL AST (17-59) U/L Alkaline Phosphatase (38-126) U/L Total Protein (6.3-8.2) g/dL Albumin (3.5-5.0) g/dL Crossmatch 04/06/18 04/06/18 04/06/18 Range/Units 03:07 04:05 04:58 WBC (3.8-10.6) k/uL RBC (4.30-5.90) m/uL Hgb (13.0-17.5) gm/dL Hct (39.0-53.0) % MCHC (31.0-37.0) g/dL Plt Count (150-450) k/uL Neutrophils # (1.3-7.7) k/uL ABG pH (7.35-7.45) ABG pCO2 (35-45) mmHg ABG pO2 (83-108) mmHg ABG HCO3 (21-25) mmol/L ABG Total CO2 (19-24) mmol/L ABG O2 Saturation (94-97) % Creatinine (0.66-1.25) mg/dL Glucose (74-99) mg/dL POC Glucose (mg/dL) 129 H 158 H 144 H (75-99) mg/dL Calcium (8.4-10.2) mg/dL Phosphorus (2.5-4.5) mg/dL AST (17-59) U/L Alkaline Phosphatase (38-126) U/L Total Protein (6.3-8.2) g/dL Albumin (3.5-5.0) g/dL Crossmatch 04/06/18 04/06/18 04/06/18 Range/Units 05:00 05:00 06:12 WBC 13.9 H (3.8-10.6) k/uL RBC 2.47 L (4.30-5.90) m/uL Hgb 7.7 L (13.0-17.5) gm/dL Hct 20.9 L (39.0-53.0) % MCHC 37.1 H (31.0-37.0) g/dL Plt Count 90 L (150-450) k/uL Neutrophils # 11.6 H (1.3-7.7) k/uL ABG pH (7.35-7.45) ABG pCO2 (35-45) mmHg ABG pO2 (83-108) mmHg ABG HCO3 (21-25) mmol/L ABG Total CO2 (19-24) mmol/L ABG O2 Saturation (94-97) % Creatinine 0.59 L (0.66-1.25) mg/dL Glucose 130 H (74-99) mg/dL POC Glucose (mg/dL) 136 H (75-99) mg/dL Calcium 8.2 L (8.4-10.2) mg/dL Phosphorus 1.9 L (2.5-4.5) mg/dL AST 63 H (17-59) U/L Alkaline Phosphatase 31 L (38-126) U/L Total Protein 5.0 L (6.3-8.2) g/dL Albumin 2.8 L (3.5-5.0) g/dL Crossmatch 04/06/18 04/06/18 04/06/18 Range/Units 06:58 07:20 07:59 WBC (3.8-10.6) k/uL RBC (4.30-5.90) m/uL Hgb (13.0-17.5) gm/dL Hct (39.0-53.0) % MCHC (31.0-37.0) g/dL Plt Count (150-450) k/uL Neutrophils # (1.3-7.7) k/uL ABG pH 7.49 H (7.35-7.45) ABG pCO2 (35-45) mmHg ABG pO2 70 L (83-108) mmHg ABG HCO3 26 H (21-25) mmol/L ABG Total CO2 28 H (19-24) mmol/L ABG O2 Saturation (94-97) % Creatinine (0.66-1.25) mg/dL Glucose (74-99) mg/dL POC Glucose (mg/dL) 130 H 116 H (75-99) mg/dL Calcium (8.4-10.2) mg/dL Phosphorus (2.5-4.5) mg/dL AST (17-59) U/L Alkaline Phosphatase (38-126) U/L Total Protein (6.3-8.2) g/dL Albumin (3.5-5.0) g/dL Crossmatch 04/06/18 Range/Units 08:01 WBC (3.8-10.6) k/uL RBC (4.30-5.90) m/uL Hgb (13.0-17.5) gm/dL Hct (39.0-53.0) % MCHC (31.0-37.0) g/dL Plt Count (150-450) k/uL Neutrophils # (1.3-7.7) k/uL ABG pH (7.35-7.45) ABG pCO2 (35-45) mmHg ABG pO2 (83-108) mmHg ABG HCO3 (21-25) mmol/L ABG Total CO2 (19-24) mmol/L ABG O2 Saturation (94-97) % Creatinine (0.66-1.25) mg/dL Glucose (74-99) mg/dL POC Glucose (mg/dL) 120 H (75-99) mg/dL Calcium (8.4-10.2) mg/dL Phosphorus (2.5-4.5) mg/dL AST (17-59) U/L Alkaline Phosphatase (38-126) U/L Total Protein (6.3-8.2) g/dL Albumin (3.5-5.0) g/dL Crossmatch - Imaging and Cardiology Chest x-ray: image reviewed Assessment and Plan (1) History of prostate cancer Current Visit: No Status: Resolved Code(s): Z85.46 - PERSONAL HISTORY OF MALIGNANT NEOPLASM OF PROSTATE SNOMED Code(s): 212079897 (2) Coronary artery disease Current Visit: Yes Status: Chronic Code(s): I25.10 - ATHSCL HEART DISEASE OF [place] CORONARY ARTERY W/O ANG PCTRS SNOMED Code(s): 87305935 (3) History of heart artery stent Current Visit: Yes Status: Chronic Code(s): Z95.5 - PRESENCE OF CORONARY ANGIOPLASTY IMPLANT AND GRAFT SNOMED Code(s): 949778163 (4) Hyperlipidemia Current Visit: Yes Status: Chronic Code(s): E78.5 - HYPERLIPIDEMIA, UNSPECIFIED SNOMED Code(s): 98833416 (5) Hypertension Current Visit: Yes Status: Chronic Code(s): I10 - ESSENTIAL (PRIMARY) HYPERTENSION SNOMED Code(s): 59087234 (6) Non-insulin dependent type 2 diabetes mellitus Current Visit: Yes Status: Chronic Code(s): E11.9 - TYPE 2 DIABETES MELLITUS WITHOUT COMPLICATIONS SNOMED Code(s): 63692109 (7) Obesity (BMI 30-39.9) Current Visit: Yes Status: Chronic Code(s): E66.9 - OBESITY, UNSPECIFIED SNOMED Code(s): 750260578 (8) Severe aortic stenosis Current Visit: Yes Status: Chronic Code(s): I35.0 - NONRHEUMATIC AORTIC ( VALVE) STENOSIS SNOMED Code(s): 04009782 Plan: 1. Continue aspirin, statin, Plavix, beta lamar. Will increase beta lamar therapy as tolerated. Will add ELIANA-I. Wean cleveprex. 2. Wean from mechanical ventilation as tolerated. Dr. Urbina for ventilator management. Once extubated, encourage incentive spirometry use 10 times every hour. 3. Once extubated, increase activity as tolerated. PT/OT/cardiac rehab following. 4. Will give 40 mg IV Lasix today. 5. Bronchodilators, steroids per pulmonology. 6. Will monitor daily labs and x-rays. No further transfusions at this point. 7. GI prophylaxis with Protonix. DVT prophylaxis with subcu heparin, SCDs. 8. Pain management with current medication regimen. 9. Insulin management per primary care service. 10. Discontinue Matheson after extubation. Connect Cordis to continue CVP monitoring. 11. Will discontinue mediastinal and right pleural chest tubes. 12. If no plans for extubation will start tube feeding for nutrition. 13. More recommendations to follow. Time with Patient: Greater than 30
[2018-04-06] MEDS: ASPIRIN 81 MG PO SCH (08:17)
[2018-04-06] MEDS: ATORVASTATIN 40 MG TAB PO SCH (08:17)
[2018-04-06] MEDS: CLOPIDOGREL 75 MG TAB PO SCH (08:17)
[2018-04-06] MEDS: METOPROLOL TARTRATE 50 MG TAB PO SCH ×2 (08:17→23:10)
[2018-04-06] MEDS: PANTOPRAZOLE 40 MG/10 ML VIAL IVP SCH (08:17)
[2018-04-06] MEDS ORDERED: FUROSEMIDE 10 MG/ML 4 ML VIAL IV STA (08:17)
[2018-04-06] MEDS: MUPIROCIN 2% OINT 22 GM TUBE NASAL SCH ×2 (08:18→23:11)
--- NOTE | 2018-04-06 08:34 | XR ---
EXAMINATION TYPE: XR chest 1V portable DATE OF EXAM: 04/06/2018 COMPARISON: 04/05/2018 HISTORY: SOB, Follow Up FINDINGS: Indwelling tubes and catheters are unchanged. No change in bibasilar opacities. Stable appearance of the cardio-mediastinal structures at this time. IMPRESSION: 1. Stable portable chest. Clinical correlation and follow up until resolution is recommended.
[2018-04-06 10:12] LABS: Glucose,Whole Blood 132 mg/dL (75-99)
[2018-04-06] MEDS ORDERED: RX INFO: IV CONTRAST WAS GIVEN 1 EACH MISC MISCELLANE PRN (10:32)
[2018-04-06 11:15] LABS: Glucose,Whole Blood 118 mg/dL (75-99)
[2018-04-06] MEDS: LACTATED RINGERS 1,000 ML IV SCH (11:41)
[2018-04-06] MEDS: LISINOPRIL 10 MG TAB PO SCH (11:43)
[2018-04-06 12:13] LABS: Glucose,Whole Blood 110 mg/dL (75-99)
--- NOTE | 2018-04-06 13:13 | CT ---
EXAMINATION TYPE: CT angio chest DATE OF EXAM: 04/06/2018 COMPARISON: None HISTORY: Post op hypoxia. CT DLP: 534.6 mGycm CONTRAST: CT chest with contrast and 3D reconstruction with MIP imaging is performed with IV Contrast, patient injected with 100 mL of Isovue 370. Contrast-enhanced CT of the chest was performed through the course of the pulmonary arteries with princess g and mediastinal window settings submitted. 3D reconstruction with MIP imaging was also performed. PULMONARY ARTERIES: The pulmonary arteries and their major tributaries are patent. I do not see honey dence for sizable filling defect to suggest pulmonary embolic process. LUNGS: Basilar atelectasis and pleural effusions noted. Underlying infiltrate difficult to exclude. MEDIASTINUM: Thoracic aorta is of normal caliber,however, evaluation is limited given timing of the contrast bolus. If there is concern for thoracic aortic pathology consider KARRIE. Correlate clinicall y . The heart is enlarged. No evidence for mediastinal mass. No mediastinal lymph nodes greater anuradha n 1cm. HILAR STRUCTURES: No evidence for mass. No hilar lymph nodes greater than 1 cm. UPPER ABDOMEN: No significant abnormality is seen. NG tube is seen coursing into the stomach. Endotracheal tube is appropriately positioned. IMPRESSION: 1. No evidence for Pulmonary embolism at this time.
[2018-04-06 14:01] LABS: Glucose,Whole Blood 110 mg/dL (75-99)
--- NOTE | 2018-04-06 14:25 | P.PN ---
Subjective Progress Note Date: 04/06/18 Principal diagnosis: Status post CABG and aortic valve replacement, postoperative day #2 This is a 67-year-old white male, see him today on consultation, patient is postoperative day #1, aortic valve replacement using a 23 mm bovine bioprosthesis, triple coronary artery bypass grafting using AKHTAR to LAD, reverse saphenous vein graft from aorta to the diagonal artery and reverse saphenous vein graft from aorta to posterior descending. Postoperatively, patient was on mechanical ventilation, and I was asked to see him on consultation. 3 hours after his surgery, patient failed the weaning trial, he was noted to have relative hypoxemia, and low pH consistent with metabolic acidosis. Hence a shunt was kept on mechanical ventilation, and early this morning another attempt was made, patient failed mostly because of his low pO2 around 50 on pressure support of 8 and CPAP. Hence the patient was placed back on mechanical ventilation again with assist control mode, tidal volume of 600, assist control rate of 16, and FiO2 up to 80% with PEEP of 8. Repeat ABG is pending. Chest x-ray showed mild interstitial edema. Patient was given Lasix. Patient had a low hemoglobin earlier today of 6.5, he has received a unit of packed RBCs early this morning. Reevaluated today on 04/06/2018, his postoperative day #2, aortic valve replacement and triple coronary artery bypass grafting. Patient developed significant drop in his pO2 yesterday on CPAP, and his pO2 was 50 on the blood gases this was on FiO2 of 50%. Hence I felt that the patient could not be weaned and extubated. Placed back on assist control mode of mechanical ventilation, placed back on a PEEP of 8 and today he is on a PEEP of 10. Continues to have significant desaturations and a CT of the chest was done today , there was no evidence of pulmonary embolism but there was definitely significant bibasilar atelectasis. Hence I increased his PEEP up to 10, and the patient remains marginal his ABG still reflecting a pO2 of 70 on 70%, hence I felt not quite ready for weaning today. Again the CT of the chest was done to rule out pulmonary embolism and it was negative. The chest x-ray clearly shows atelectasis, but do not explain the profound hypoxemia noted on the ABG. Patient is on propofol, and on a lower dose of propofol he seems to be very appropriate, follows simple instructions. ABG this morning showed pO2 of 70 pCO2 of 35 pH of 7.49. WBC count is 13.9 hemoglobin is 7.7. is at bedside , and she was updated on his condition. Objective - Vital Signs Vital signs: Vital Signs Temp 99.9 F H 04/06/18 13:00 Pulse 84 04/06/18 14:00 Resp 16 04/06/18 14:00 BP 138/62 04/05/18 08:00 Pulse Ox 96 04/06/18 14:00 Intake & Output 04/05/18 04/06/18 04/06/18 18:59 06:59 18:59 Intake Total 1117.495 9504.969 1019.874 Output Total 1335 1742 1645 Balance 2.952 -358.031 -625.126 Weight 110.9 kg 110.9 kg Intake: IV 839 649 339 Calcium Chloride 1,000 mg 100 In Sodium Chloride 0.9% 100 ml @ 100 mls/hr IVPB ONCE [facility] Rx#:[id number] Lactated Ringers 1,000 ml 520 480 280 @ 20 mls/hr IV .Q24H [facility] Rx#:[id number] co/ci 120 80 20 pressure bag 99 89 39 Intake, IV Titration 188.952 694.969 590.874 Amount Clevidipine Butyrate 25 46.133 171.734 79.667 mg In Empty Bag 1 bag @ 1 MG/HR 2 mls/hr IV .Q24H [facility] Rx#:[id number] Insulin Regular 100 unit 52.436 151.297 61.207 In Sodium Chloride 0.9% 100 ml @ Per Protocol IV .Q0M [facility] Rx#:[id number] Propofol 1,000 mg In 90.383 371.938 200.000 Empty Bag 1 bag @ Titrate IV .Q0M [facility] Rx#: [id number] Sodium Phosphate 10 mmol 250 In Sodium Chloride 0.9% 250 ml @ 125 mls/hr IVPB Q2H [facility] Rx#:[id number] Tube Feeding 90 Blood Product 310 Rc As-1 Unit 310 [id number] Other 40 Output: Chest Tube Drainage 150 100 70 Chest Tube Left 20 50 30 Chest Tube Mediastinal 120 40 10 Chest Tube Right 10 10 30 Gastric Drainage 400 Drainage 35 40 0 Right Calf 35 40 0 Urine 1150 1012 1575 Oral Regurgitation 190 Other: Voiding Method Indwelling Catheter Indwelling Catheter Indwelling Catheter ABP, PAP, CO, CI - Last Documented Arterial Blood Pressure 124/51 Pulmonary Artery Pressure 37/20 Cardiac Output 9.2 Cardiac Index 4.3 - Exam Physical Exam: 67-year-old white male on mechanical ventilation. In no distress. Head: Relatively unremarkable. HEENT:[Neck is supple.] [No neck masses.] [No thyromegaly.] [No JVD.] PERRLA, EOMI, moist mucous membranes, right jugular cordis remains in place. Chest: [Diminished breath sounds at the bases, no crackles or rhonchi or wheezes ] Cardiac Exam: [Normal S1 and S2, no S3 gallop, no murmur.] Abdomen: [Soft, nontender, no megaly, no rebound, no guarding, normal bowel sounds.] Extremities: [1+ bipedal edema, no cyanosis. Neurological Exam: Sedated, on propofol, but follows instructions appropriately. Lymphatics: No lymph nodes were palpable. - Labs CBC & Chem 7: 04/06/18 05:00 04/06/18 05:00 Labs: Abnormal Lab Results - Last 24 Hours (Table) 03/28/18 04/05/18 04/05/18 Range/Units 09:10 15:18 16:10 WBC (3.8-10.6) k/uL RBC (4.30-5.90) m/uL Hgb (13.0-17.5) gm/dL Hct (39.0-53.0) % MCHC (31.0-37.0) g/dL Plt Count (150-450) k/uL Neutrophils # (1.3-7.7) k/uL ABG pH (7.35-7.45) ABG pO2 (83-108) mmHg ABG HCO3 (21-25) mmol/L ABG Total CO2 (19-24) mmol/L Creatinine (0.66-1.25) mg/dL Glucose (74-99) mg/dL POC Glucose (mg/dL) 132 H 137 H (75-99) mg/dL Calcium (8.4-10.2) mg/dL Phosphorus (2.5-4.5) mg/dL AST (17-59) U/L Alkaline Phosphatase (38-126) U/L Total Protein (6.3-8.2) g/dL Albumin (3.5-5.0) g/dL Crossmatch See Detail 04/05/18 04/05/18 04/05/18 Range/Units 17:07 17:53 19:07 WBC (3.8-10.6) k/uL RBC (4.30-5.90) m/uL Hgb (13.0-17.5) gm/dL Hct (39.0-53.0) % MCHC (31.0-37.0) g/dL Plt Count (150-450) k/uL Neutrophils # (1.3-7.7) k/uL ABG pH (7.35-7.45) ABG pO2 (83-108) mmHg ABG HCO3 (21-25) mmol/L ABG Total CO2 (19-24) mmol/L Creatinine (0.66-1.25) mg/dL Glucose (74-99) mg/dL POC Glucose (mg/dL) 145 H 153 H 156 H (75-99) mg/dL Calcium (8.4-10.2) mg/dL Phosphorus (2.5-4.5) mg/dL AST (17-59) U/L Alkaline Phosphatase (38-126) U/L Total Protein (6.3-8.2) g/dL Albumin (3.5-5.0) g/dL Crossmatch 04/05/18 04/05/18 04/05/18 Range/Units 21:10 22:22 22:59 WBC (3.8-10.6) k/uL RBC (4.30-5.90) m/uL Hgb (13.0-17.5) gm/dL Hct (39.0-53.0) % MCHC (31.0-37.0) g/dL Plt Count (150-450) k/uL Neutrophils # (1.3-7.7) k/uL ABG pH (7.35-7.45) ABG pO2 (83-108) mmHg ABG HCO3 (21-25) mmol/L ABG Total CO2 (19-24) mmol/L Creatinine (0.66-1.25) mg/dL Glucose (74-99) mg/dL POC Glucose (mg/dL) 156 H 159 H 152 H (75-99) mg/dL Calcium (8.4-10.2) mg/dL Phosphorus (2.5-4.5) mg/dL AST (17-59) U/L Alkaline Phosphatase (38-126) U/L Total Protein (6.3-8.2) g/dL Albumin (3.5-5.0) g/dL Crossmatch 04/06/18 04/06/18 04/06/18 Range/Units 00:25 01:22 01:24 WBC (3.8-10.6) k/uL RBC (4.30-5.90) m/uL Hgb (13.0-17.5) gm/dL Hct (39.0-53.0) % MCHC (31.0-37.0) g/dL Plt Count (150-450) k/uL Neutrophils # (1.3-7.7) k/uL ABG pH (7.35-7.45) ABG pO2 (83-108) mmHg ABG HCO3 (21-25) mmol/L ABG Total CO2 (19-24) mmol/L Creatinine (0.66-1.25) mg/dL Glucose (74-99) mg/dL POC Glucose (mg/dL) 151 H 39 L 149 H (75-99) mg/dL Calcium (8.4-10.2) mg/dL Phosphorus (2.5-4.5) mg/dL AST (17-59) U/L Alkaline Phosphatase (38-126) U/L Total Protein (6.3-8.2) g/dL Albumin (3.5-5.0) g/dL Crossmatch 04/06/18 04/06/18 04/06/18 Range/Units 03:07 04:05 04:58 WBC (3.8-10.6) k/uL RBC (4.30-5.90) m/uL Hgb (13.0-17.5) gm/dL Hct (39.0-53.0) % MCHC (31.0-37.0) g/dL Plt Count (150-450) k/uL Neutrophils # (1.3-7.7) k/uL ABG pH (7.35-7.45) ABG pO2 (83-108) mmHg ABG HCO3 (21-25) mmol/L ABG Total CO2 (19-24) mmol/L Creatinine (0.66-1.25) mg/dL Glucose (74-99) mg/dL POC Glucose (mg/dL) 129 H 158 H 144 H (75-99) mg/dL Calcium (8.4-10.2) mg/dL Phosphorus (2.5-4.5) mg/dL AST (17-59) U/L Alkaline Phosphatase (38-126) U/L Total Protein (6.3-8.2) g/dL Albumin (3.5-5.0) g/dL Crossmatch 04/06/18 04/06/18 04/06/18 Range/Units 05:00 05:00 06:12 WBC 13.9 H (3.8-10.6) k/uL RBC 2.47 L (4.30-5.90) m/uL Hgb 7.7 L (13.0-17.5) gm/dL Hct 20.9 L (39.0-53.0) % MCHC 37.1 H (31.0-37.0) g/dL Plt Count 90 L (150-450) k/uL Neutrophils # 11.6 H (1.3-7.7) k/uL ABG pH (7.35-7.45) ABG pO2 (83-108) mmHg ABG HCO3 (21-25) mmol/L ABG Total CO2 (19-24) mmol/L Creatinine 0.59 L (0.66-1.25) mg/dL Glucose 130 H (74-99) mg/dL POC Glucose (mg/dL) 136 H (75-99) mg/dL Calcium 8.2 L (8.4-10.2) mg/dL Phosphorus 1.9 L (2.5-4.5) mg/dL AST 63 H (17-59) U/L Alkaline Phosphatase 31 L (38-126) U/L Total Protein 5.0 L (6.3-8.2) g/dL Albumin 2.8 L (3.5-5.0) g/dL Crossmatch 04/06/18 04/06/18 04/06/18 Range/Units 06:58 07:20 07:59 WBC (3.8-10.6) k/uL RBC (4.30-5.90) m/uL Hgb (13.0-17.5) gm/dL Hct (39.0-53.0) % MCHC (31.0-37.0) g/dL Plt Count (150-450) k/uL Neutrophils # (1.3-7.7) k/uL ABG pH 7.49 H (7.35-7.45) ABG pO2 70 L (83-108) mmHg ABG HCO3 26 H (21-25) mmol/L ABG Total CO2 28 H (19-24) mmol/L Creatinine (0.66-1.25) mg/dL Glucose (74-99) mg/dL POC Glucose (mg/dL) 130 H 116 H (75-99) mg/dL Calcium (8.4-10.2) mg/dL Phosphorus (2.5-4.5) mg/dL AST (17-59) U/L Alkaline Phosphatase (38-126) U/L Total Protein (6.3-8.2) g/dL Albumin (3.5-5.0) g/dL Crossmatch 04/06/18 04/06/18 04/06/18 Range/Units 08:01 10:08 11:13 WBC (3.8-10.6) k/uL RBC (4.30-5.90) m/uL Hgb (13.0-17.5) gm/dL Hct (39.0-53.0) % MCHC (31.0-37.0) g/dL Plt Count (150-450) k/uL Neutrophils # (1.3-7.7) k/uL ABG pH (7.35-7.45) ABG pO2 (83-108) mmHg ABG HCO3 (21-25) mmol/L ABG Total CO2 (19-24) mmol/L Creatinine (0.66-1.25) mg/dL Glucose (74-99) mg/dL POC Glucose (mg/dL) 120 H 132 H 118 H (75-99) mg/dL Calcium (8.4-10.2) mg/dL Phosphorus (2.5-4.5) mg/dL AST (17-59) U/L Alkaline Phosphatase (38-126) U/L Total Protein (6.3-8.2) g/dL Albumin (3.5-5.0) g/dL Crossmatch 04/06/18 04/06/18 Range/Units 12:10 13:59 WBC (3.8-10.6) k/uL RBC (4.30-5.90) m/uL Hgb (13.0-17.5) gm/dL Hct (39.0-53.0) % MCHC (31.0-37.0) g/dL Plt Count (150-450) k/uL Neutrophils # (1.3-7.7) k/uL ABG pH (7.35-7.45) ABG pO2 (83-108) mmHg ABG HCO3 (21-25) mmol/L ABG Total CO2 (19-24) mmol/L Creatinine (0.66-1.25) mg/dL Glucose (74-99) mg/dL POC Glucose (mg/dL) 110 H 110 H (75-99) mg/dL Calcium (8.4-10.2) mg/dL Phosphorus (2.5-4.5) mg/dL AST (17-59) U/L Alkaline Phosphatase (38-126) U/L Total Protein (6.3-8.2) g/dL Albumin (3.5-5.0) g/dL Crossmatch Assessment and Plan Assessment: Impression: Postoperative day #2, status post CABG and aortic valve replacement Postoperative hypoxic respiratory failure mostly secondary to atelectasis, possibility of TRALI is considered, but felt to be less likely. Negative CT angiogram of the chest noted today. Multiple comorbidities including morbid obesity previous CA hypertension type 2 diabetes. Recommendation: Will continue mechanical ventilation, increase PEEP to 10, decrease FiO2 to 50%, continue to monitor closely in the ICU, discussed his condition with all different physicians on the case, and with his family at bedside. Arrange for CT licha Godwin of the chest which came back negative, and that is reassuring, continue GI and DVT prophylaxis, continue hemodynamic and nutritional support. Critical care time is 40 minutes. Time with Patient: Greater than 30
[2018-04-06 14:49] LABS: Glucose,Whole Blood 116 mg/dL (75-99)
[2018-04-06 16:32] LABS: Glucose,Whole Blood 166 mg/dL (75-99)
--- NOTE | 2018-04-06 16:45 | P.PN ---
Subjective Progress Note Date: 04/06/18 (delayed charting patient seen at 0800) Principal diagnosis: chest pain Patient is a 67-year-old male past medical history of hypertension, coronary artery disease status post stent 5, severe aortic stenosis, dyslipidemia, and diabetes mellitus type 2 controlled on oral medications with preoperative hemoglobin A1c of 7.4 who presented for triple-vessel coronary artery bypass grafting and aortic valve replacement. Patient underwent procedure on 04/04 without any immediate postoperative complications. He developed anemia postop and required an additional unit of pRBC. He had prolonged mechanical ventilation and was vented through the morning of 04/06/18. Patient required increased FiO2 overnight. Patient seen and examined at bedside. Still vented. Shakes head no to pain/ difficulty breathing. Nursing at bedside no acute events. Objective - Vital Signs Vital signs: Vital Signs Temp 99.9 F H 04/06/18 13:00 Pulse 84 04/06/18 14:00 Resp 16 04/06/18 14:00 BP 138/62 04/05/18 08:00 Pulse Ox 96 04/06/18 14:00 Intake & Output 04/05/18 04/06/18 04/06/18 18:59 06:59 18:59 Intake Total 1625.675 6688.969 1139.998 Output Total 1335 1742 1645 Balance 2.952 -358.031 -505.002 Weight 110.9 kg 110.9 kg Intake: IV 839 649 339 Calcium Chloride 1,000 mg 100 In Sodium Chloride 0.9% 100 ml @ 100 mls/hr IVPB ONCE STA Rx#:[id number] Lactated Ringers 1,000 ml 520 480 280 @ 20 mls/hr IV .Q24H [facility] Rx#:[id number] co/ci 120 80 20 pressure bag 99 89 39 Intake, IV Titration 188.952 694.969 710.998 Amount Clevidipine Butyrate 25 46.133 171.734 79.667 mg In Empty Bag 1 bag @ 1 MG/HR 2 mls/hr IV .Q24H [facility] Rx#:[id number] Insulin Regular 100 unit 52.436 151.297 81.331 In Sodium Chloride 0.9% 100 ml @ Per Protocol IV .Q0M [facility] Rx#:[id number] Propofol 1,000 mg In 90.383 371.938 300.000 Empty Bag 1 bag @ Titrate IV .Q0M [facility] Rx#: [id number] Sodium Phosphate 10 mmol 250 In Sodium Chloride 0.9% 250 ml @ 125 mls/hr IVPB Q2H [facility] Rx#:[id number] Tube Feeding 90 Blood Product 310 Rc As-1 Unit 310 [id number] Other 40 Output: Chest Tube Drainage 150 100 70 Chest Tube Left 20 50 30 Chest Tube Mediastinal 120 40 10 Chest Tube Right 10 10 30 Gastric Drainage 400 Drainage 35 40 0 Right Calf 35 40 0 Urine 1150 1012 1575 Oral Regurgitation 190 Other: Voiding Method Indwelling Catheter Indwelling Catheter Indwelling Catheter ABP, PAP, CO, CI - Last Documented Arterial Blood Pressure 124/51 Pulmonary Artery Pressure 37/20 Cardiac Output 9.2 Cardiac Index 4.3 - Exam General: non toxic, mild distress, appears at stated age, obese Derm: warm, dry Head: atraumatic, normocephalic, symmetric Eyes: EOMI, no lid lag, anicteric sclera Mouth: no lip lesion, ET tube in place Cardiovascular: S1S2 reg, no murmur, positive posterior tibial pulse bilateral, mediastinal tube and chest tubes in place Lungs: Coarse breath sounds bilateral, no rhonchi, no rales , no accessory muscle use, on vent Abdominal: soft, nontender to palpation, no guarding, no appreciable organomegaly Ext: no gross muscle atrophy, anasarca, no contractures Neuro: CN II-XI grossly intact, no focal neuro deficits Psych: Alert, oriented, anxious but appropriate - Labs CBC & Chem 7: 04/06/18 05:00 04/06/18 05:00 Labs: Abnormal Lab Results - Last 24 Hours (Table) 03/28/18 04/05/18 04/05/18 Range/Units 09:10 17:07 17:53 WBC (3.8-10.6) k/uL RBC (4.30-5.90) m/uL Hgb (13.0-17.5) gm/dL Hct (39.0-53.0) % MCHC (31.0-37.0) g/dL Plt Count (150-450) k/uL Neutrophils # (1.3-7.7) k/uL ABG pH (7.35-7.45) ABG pO2 (83-108) mmHg ABG HCO3 (21-25) mmol/L ABG Total CO2 (19-24) mmol/L Creatinine (0.66-1.25) mg/dL Glucose (74-99) mg/dL POC Glucose (mg/dL) 145 H 153 H (75-99) mg/dL Calcium (8.4-10.2) mg/dL Phosphorus (2.5-4.5) mg/dL AST (17-59) U/L Alkaline Phosphatase (38-126) U/L Total Protein (6.3-8.2) g/dL Albumin (3.5-5.0) g/dL Crossmatch See Detail 04/05/18 04/05/18 04/05/18 Range/Units 19:07 21:10 22:22 WBC (3.8-10.6) k/uL RBC (4.30-5.90) m/uL Hgb (13.0-17.5) gm/dL Hct (39.0-53.0) % MCHC (31.0-37.0) g/dL Plt Count (150-450) k/uL Neutrophils # (1.3-7.7) k/uL ABG pH (7.35-7.45) ABG pO2 (83-108) mmHg ABG HCO3 (21-25) mmol/L ABG Total CO2 (19-24) mmol/L Creatinine (0.66-1.25) mg/dL Glucose (74-99) mg/dL POC Glucose (mg/dL) 156 H 156 H 159 H (75-99) mg/dL Calcium (8.4-10.2) mg/dL Phosphorus (2.5-4.5) mg/dL AST (17-59) U/L Alkaline Phosphatase (38-126) U/L Total Protein (6.3-8.2) g/dL Albumin (3.5-5.0) g/dL Crossmatch 04/05/18 04/06/18 04/06/18 Range/Units 22:59 00:25 01:22 WBC (3.8-10.6) k/uL RBC (4.30-5.90) m/uL Hgb (13.0-17.5) gm/dL Hct (39.0-53.0) % MCHC (31.0-37.0) g/dL Plt Count (150-450) k/uL Neutrophils # (1.3-7.7) k/uL ABG pH (7.35-7.45) ABG pO2 (83-108) mmHg ABG HCO3 (21-25) mmol/L ABG Total CO2 (19-24) mmol/L Creatinine (0.66-1.25) mg/dL Glucose (74-99) mg/dL POC Glucose (mg/dL) 152 H 151 H 39 L (75-99) mg/dL Calcium (8.4-10.2) mg/dL Phosphorus (2.5-4.5) mg/dL AST (17-59) U/L Alkaline Phosphatase (38-126) U/L Total Protein (6.3-8.2) g/dL Albumin (3.5-5.0) g/dL Crossmatch 04/06/18 04/06/18 04/06/18 Range/Units 01:24 03:07 04:05 WBC (3.8-10.6) k/uL RBC (4.30-5.90) m/uL Hgb (13.0-17.5) gm/dL Hct (39.0-53.0) % MCHC (31.0-37.0) g/dL Plt Count (150-450) k/uL Neutrophils # (1.3-7.7) k/uL ABG pH (7.35-7.45) ABG pO2 (83-108) mmHg ABG HCO3 (21-25) mmol/L ABG Total CO2 (19-24) mmol/L Creatinine (0.66-1.25) mg/dL Glucose (74-99) mg/dL POC Glucose (mg/dL) 149 H 129 H 158 H (75-99) mg/dL Calcium (8.4-10.2) mg/dL Phosphorus (2.5-4.5) mg/dL AST (17-59) U/L Alkaline Phosphatase (38-126) U/L Total Protein (6.3-8.2) g/dL Albumin (3.5-5.0) g/dL Crossmatch 04/06/18 04/06/18 04/06/18 Range/Units 04:58 05:00 05:00 WBC 13.9 H (3.8-10.6) k/uL RBC 2.47 L (4.30-5.90) m/uL Hgb 7.7 L (13.0-17.5) gm/dL Hct 20.9 L (39.0-53.0) % MCHC 37.1 H (31.0-37.0) g/dL Plt Count 90 L (150-450) k/uL Neutrophils # 11.6 H (1.3-7.7) k/uL ABG pH (7.35-7.45) ABG pO2 (83-108) mmHg ABG HCO3 (21-25) mmol/L ABG Total CO2 (19-24) mmol/L Creatinine 0.59 L (0.66-1.25) mg/dL Glucose 130 H (74-99) mg/dL POC Glucose (mg/dL) 144 H (75-99) mg/dL Calcium 8.2 L (8.4-10.2) mg/dL Phosphorus 1.9 L (2.5-4.5) mg/dL AST 63 H (17-59) U/L Alkaline Phosphatase 31 L (38-126) U/L Total Protein 5.0 L (6.3-8.2) g/dL Albumin 2.8 L (3.5-5.0) g/dL Crossmatch 04/06/18 04/06/18 04/06/18 Range/Units 06:12 06:58 07:20 WBC (3.8-10.6) k/uL RBC (4.30-5.90) m/uL Hgb (13.0-17.5) gm/dL Hct (39.0-53.0) % MCHC (31.0-37.0) g/dL Plt Count (150-450) k/uL Neutrophils # (1.3-7.7) k/uL ABG pH 7.49 H (7.35-7.45) ABG pO2 70 L (83-108) mmHg ABG HCO3 26 H (21-25) mmol/L ABG Total CO2 28 H (19-24) mmol/L Creatinine (0.66-1.25) mg/dL Glucose (74-99) mg/dL POC Glucose (mg/dL) 136 H 130 H (75-99) mg/dL Calcium (8.4-10.2) mg/dL Phosphorus (2.5-4.5) mg/dL AST (17-59) U/L Alkaline Phosphatase (38-126) U/L Total Protein (6.3-8.2) g/dL Albumin (3.5-5.0) g/dL Crossmatch 04/06/18 04/06/18 04/06/18 Range/Units 07:59 08:01 10:08 WBC (3.8-10.6) k/uL RBC (4.30-5.90) m/uL Hgb (13.0-17.5) gm/dL Hct (39.0-53.0) % MCHC (31.0-37.0) g/dL Plt Count (150-450) k/uL Neutrophils # (1.3-7.7) k/uL ABG pH (7.35-7.45) ABG pO2 (83-108) mmHg ABG HCO3 (21-25) mmol/L ABG Total CO2 (19-24) mmol/L Creatinine (0.66-1.25) mg/dL Glucose (74-99) mg/dL POC Glucose (mg/dL) 116 H 120 H 132 H (75-99) mg/dL Calcium (8.4-10.2) mg/dL Phosphorus (2.5-4.5) mg/dL AST (17-59) U/L Alkaline Phosphatase (38-126) U/L Total Protein (6.3-8.2) g/dL Albumin (3.5-5.0) g/dL Crossmatch 04/06/18 04/06/18 04/06/18 Range/Units 11:13 12:10 13:59 WBC (3.8-10.6) k/uL RBC (4.30-5.90) m/uL Hgb (13.0-17.5) gm/dL Hct (39.0-53.0) % MCHC (31.0-37.0) g/dL Plt Count (150-450) k/uL Neutrophils # (1.3-7.7) k/uL ABG pH (7.35-7.45) ABG pO2 (83-108) mmHg ABG HCO3 (21-25) mmol/L ABG Total CO2 (19-24) mmol/L Creatinine (0.66-1.25) mg/dL Glucose (74-99) mg/dL POC Glucose (mg/dL) 118 H 110 H 110 H (75-99) mg/dL Calcium (8.4-10.2) mg/dL Phosphorus (2.5-4.5) mg/dL AST (17-59) U/L Alkaline Phosphatase (38-126) U/L Total Protein (6.3-8.2) g/dL Albumin (3.5-5.0) g/dL Crossmatch 04/06/18 Range/Units 14:46 WBC (3.8-10.6) k/uL RBC (4.30-5.90) m/uL Hgb (13.0-17.5) gm/dL Hct (39.0-53.0) % MCHC (31.0-37.0) g/dL Plt Count (150-450) k/uL Neutrophils # (1.3-7.7) k/uL ABG pH (7.35-7.45) ABG pO2 (83-108) mmHg ABG HCO3 (21-25) mmol/L ABG Total CO2 (19-24) mmol/L Creatinine (0.66-1.25) mg/dL Glucose (74-99) mg/dL POC Glucose (mg/dL) 116 H (75-99) mg/dL Calcium (8.4-10.2) mg/dL Phosphorus (2.5-4.5) mg/dL AST (17-59) U/L Alkaline Phosphatase (38-126) U/L Total Protein (6.3-8.2) g/dL Albumin (3.5-5.0) g/dL Crossmatch Assessment and Plan Assessment: Coronary artery disease with severe aortic stenosis - Status post triple bypass with aortic valve replacement -Management per primary team Acute hypoxic respiratory failure -Management per pulmonary team -Lasix ordered -On Solu-Medrol -CTA negative for PE Diabetes mellitus type 2 [id number] -Preop A1c 7.4 -Hold metformin and glipizide -On insulin drip, plan to transition to sliding scale insulin once extubated Acute blood loss anemia with thrombocytopenia, anticipated outcome of surgery - status post one unit of packed red blood cells 04/05 -Repeat CBC in a.m. Obesity with BMI 37.8 -Outpatient structured weight loss Hypertension -controlled -Metoprolol per cardiothoracic Dyslipidemia -Lipitor Hypophosphatemia -Replace per protocol -Repeat in a.m. DVT prophylaxis: Heparin Discussed with: Patient, nursing, Trini [employer] A total of 35 minutes was spent on the care of this complex patient more than 50 % of the time was spent in counseling and care coordination.
[2018-04-06 17:14] LABS: Glucose,Whole Blood 140 mg/dL (75-99)
[2018-04-06 18:08] LABS: Glucose,Whole Blood 135 mg/dL (75-99)
[2018-04-06 19:05] LABS: Glucose,Whole Blood 117 mg/dL (75-99)
[2018-04-06 19:56] LABS: Glucose,Whole Blood 132 mg/dL (75-99)
[2018-04-06 21:14] LABS: Glucose,Whole Blood 127 mg/dL (75-99)
[2018-04-06 22:22] LABS: Glucose,Whole Blood 123 mg/dL (75-99)
[2018-04-06 23:09] LABS: Glucose,Whole Blood 134 mg/dL (75-99)
[2018-04-06] MEDS: SENNOSIDES-DOCUSATE SODIUM 1 EACH TAB PO SCH (23:10)
[2018-04-07 00:10] LABS: Glucose,Whole Blood 116 mg/dL (75-99)
[2018-04-07] MEDS: HEPARIN SODIUM,PORCINE 5,000 UNIT/ML 1 ML VIAL SQ SCH ×2 (00:21→08:02)
[2018-04-07] MEDS: methylPREDNISolone SOD SUCCI 40 MG/ML 1 ML VIAL IV SCH ×3 (00:21→16:38)
[2018-04-07 01:03] LABS: Glucose,Whole Blood 107 mg/dL (75-99)
[2018-04-07 02:06] LABS: Glucose,Whole Blood 135 mg/dL (75-99)
[2018-04-07 03:03] LABS: Glucose,Whole Blood 142 mg/dL (75-99)
[2018-04-07 04:05] LABS: Glucose,Whole Blood 147 mg/dL (75-99)
[2018-04-07] MEDS: PROPOFOL 1,000 MG in EMPTY BAG 1 BAG IV SCH (04:19)
[2018-04-07 04:25] LABS: Basophils % (A) 0 %; Eosinophils # (A) 0.1 k/uL (0-0.7); Eosinophils % (A) 1 %; Lymphocytes % (A) 12 %; MCH 29.3 pg (25.0-35.0); MCHC 34.2 g/dL (31.0-37.0); MCV 85.8 fL (80.0-100.0); Mean Platelet Volume 8.8; Monocytes # (A) 0.4 k/uL (0-1.0); Monocytes % (A) 5 %; Neutrophils # (A) 7.1 k/uL (1.3-7.7); Neutrophils % (A) 81 %; Poikilocytosis Slight; RBC 2.04 m/uL (4.30-5.90); RDW 15.3 % (11.5-15.5); WBC 8.7 k/uL (3.8-10.6)
[2018-04-07 04:37] LABS: ALT 38 U/L (21-72); AST 52 U/L (17-59); Albumin 2.6 g/dL (3.5-5.0); Alkaline Phosphatase 25 U/L (38-126); Anion Gap 5 mmol/L; Blood Urea Nitrogen 22 mg/dL (9-20); Calcium 8.1 mg/dL (8.4-10.2); Carbon Dioxide 27 mmol/L (22-30); Chloride 105 mmol/L (98-107); Glucose 120 mg/dL (74-99); Magnesium 2.4 mg/dL (1.6-2.3); Sodium 137 mmol/L (137-145); Total Bilirubin 0.6 mg/dL (0.2-1.3); Total Protein 4.8 g/dL (6.3-8.2)
[2018-04-07 04:43] LABS: HCT 17.5 % (39.0-53.0); Platelet Count 63 k/uL (150-450)
[2018-04-07 05:15] LABS: Glucose,Whole Blood 116 mg/dL (75-99)
[2018-04-07 06:12] LABS: Glucose,Whole Blood 129 mg/dL (75-99)
[2018-04-07 07:55] LABS: Glucose,Whole Blood 102 mg/dL (75-99)
--- NOTE | 2018-04-07 07:58 | XR ---
EXAMINATION TYPE: XR chest 1V portable DATE OF EXAM: 04/07/2018 COMPARISON: Prior chest x-ray 04/06/2018 HISTORY: Intubated TECHNIQUE: Single frontal view of the chest is obtained. FINDINGS: Endotracheal tube and NG tube, right jugular central venous sheath and coaxial [place]to c atheter are overlying appropriate positions. Patient is post median sternotomy and rotated. Left ches t tube shows a similar appearance. There are overlying cardiac leads. No sizable pneumothorax or pleu ral effusion is evident. Heart size felt to be stable and may be accentuated appearance due to rotati on, there is cardiomegaly. Right-sided chest tube has been removed. Bandlike area of increased attenu ation in the left upper lobe is again noted. Patchy retrocardiac density persists. Perihilar patchy d ensity also present in the right lower lobe. IMPRESSION: Interval right-sided chest tube removal. Bilateral atelectasis.
[2018-04-07] MEDS: ATORVASTATIN 40 MG TAB PO SCH (08:01)
[2018-04-07] MEDS: METOPROLOL TARTRATE 50 MG TAB PO SCH ×2 (08:01→21:36)
[2018-04-07] MEDS: PANTOPRAZOLE 40 MG/10 ML VIAL IVP SCH (08:01)
[2018-04-07] MEDS: ASPIRIN 81 MG PO SCH (08:01)
[2018-04-07] MEDS: MUPIROCIN 2% OINT 22 GM TUBE NASAL SCH ×2 (08:02→21:36)
[2018-04-07] MEDS: HYDROcodone/APAP 5-325MG 1 EACH TAB PO PRN ×2 (08:13→21:35)
[2018-04-07 08:29] LABS: ABG Base Excess 3.7 mmol/L; ABG HCO3 27 mmol/L (21-25); ABG Oxygen Saturation 98.7 % (94-97); ABG PCO2 36 mmHg (35-45); ABG PH 7.49 (7.35-7.45); ABG PO2 98 mmHg (83-108); ABG TCO2 28 mmol/L (19-24)
[2018-04-07] MEDS: IPRATROPIUM-ALBUTEROL 3 ML NEB INHALATION SCH ×4 (08:32→20:22)
[2018-04-07 08:56] LABS: Glucose,Whole Blood 202 mg/dL (75-99)
[2018-04-07] MEDS: INSULIN REGULAR 100 UNIT in SODIUM CHLORIDE 0.9% 100 ML IV SCH ×2 (08:56→20:45)
[2018-04-07] MEDS ORDERED: DEXMEDETOMIDINE/0.9% NACL(PMX) 400 MCG in EMPTY BAG 1 BAG IV SCH (09:15)
--- NOTE | 2018-04-07 10:00 | P.PN ---
Subjective Progress Note Date: 04/07/18 Principal diagnosis: Double vessel coronary artery disease, severe aortic valve stenosis, preserved systolic function. History of obesity, hypertension, hyperlipidemia on statin therapy, diabetes with preoperative hemoglobin A1c 7.4%, hyperlipidemia, coronary artery disease status post remote stenting to circumflex system, chronic Plavix intake, prostate cancer status post prostatectomy in 2001, skin cancer 3 years ago, previous tobacco dependence with preoperative FEV1 89% of predicted. POD #3 aortic valve replacement using a 23 mm bovine bioprosthesis in spite wrists. Triple coronary artery bypass grafting using the left internal mammary artery to the left anterior descending artery, reverse saphenous vein graft from the aorta to the diagonal artery, reverse saphenous vein graft from the aorta to the posterior descending artery. Intraoperative transesophageal echocardiogram and epi-aortic scanning. Acute hypoxic respiratory failure, prolonged mechanical ventilation, an unexpected outcome. Acute blood loss anemia, an expected outcome related to hemodilution and bypass pump. Patient is currently laying in bed in the intensive care unit. Remains sedated and intubated. ABG is better with PEEP at 10. Patient's hemoglobin this morning 6.0, platelet count 63. Right and mediastinal chest tubes were discontinued yesterday. Tube feeding was initiated. Objective - Vital Signs Vital signs: Vital Signs Temp 98.6 F 04/07/18 08:00 Pulse 62 04/07/18 08:50 Resp 16 04/07/18 08:30 BP 138/62 04/05/18 08:00 Pulse Ox 98 04/07/18 08:30 Intake & Output 04/06/18 04/07/18 04/07/18 18:59 06:59 18:59 Intake Total 6334.316 4422.714 118.703 Output Total 2009 726 175 Balance -646.104 691.714 -56.297 Weight 110.9 kg 109.9 kg Intake: IV 463 349 49 Lactated Ringers 1,000 ml 360 240 40 @ 20 mls/hr IV .Q24H [facility] Rx#:[id number] co/ci 40 70 pressure bag 63 39 9 Intake, IV Titration 720.896 398.714 29.703 Amount Clevidipine Butyrate 25 79.667 mg In Empty Bag 1 bag @ 1 MG/HR 2 mls/hr IV .Q24H [facility] Rx#:[id number] Insulin Regular 100 unit 91.229 122.866 29.703 In Sodium Chloride 0.9% 100 ml @ Per Protocol IV .Q0M [facility] Rx#:[id number] Propofol 1,000 mg In 300.000 275.848 Empty Bag 1 bag @ Titrate IV .Q0M [facility] Rx#: [id number] Sodium Phosphate 10 mmol 250 In Sodium Chloride 0.9% 250 ml @ 125 mls/hr IVPB Q2H [facility] Rx#:[id number] Tube Feeding 150 520 40 Other 30 150 Output: Chest Tube Drainage 120 40 30 Chest Tube Left 80 40 30 Chest Tube Mediastinal 10 Chest Tube Right 30 Drainage 20 0 20 Right Calf 20 0 20 Urine 1870 686 125 Other: Voiding Method Indwelling Catheter Indwelling Catheter Indwelling Catheter ABP, PAP, CO, CI - Last Documented Arterial Blood Pressure 119/45 Pulmonary Artery Pressure 34/16 Cardiac Output 6.6 Cardiac Index 3.1 - Constitutional General appearance: Present: cooperative, no acute distress, obese - Respiratory Details: Lungs sounds diminished bilaterally. Respirations even, nonlabored on mechanical ventilation. Current settings assist control mode, FiO2 50%, tidal volume 600, respiratory rate 16, PEEP 10. ABGs this morning 7.49/36/98/27/3.7 on 50% FiO2. 9.0 ET tube present, 23 at the lip. Left pleural chest tube to continuous wall suction, 40 mL serosanguineous drainage overnight, 150 mL in the last 24 hours. No air leaks present. - Cardiovascular Details: S1, S2 present. Regular rate and rhythm, sinus rhythm on telemetry. Sternum stable. A/V epicardial pacemaker wires present, connected to generator, VVI mode with a backup rate 50 bpm. Palpable peripheral pulses bilaterally. Trace generalized edema present. No calf pain or tenderness noted. Right internal jugular [place]/Cordis, right radial arterial line present. Last CO/CI 7.1/3.3 on no inotropes. Heart hugger, antiembolism stockings, SCDs present. - Gastrointestinal Gastrointestinal Comment(s): Abdomen soft, nontender, nondistended. Active bowel sounds present 4 quadrants. OG tube present, tube feeding infusing at 40 mL per hour which is goal, minimal residual per nursing. - Genitourinary Genitourinary Comment(s): Hernandez present draining clear, yellow urine. Output average 35 mL/h overnight. - Integumentary Integumentary Comment(s): Skin is warm and dry with evidence of good perfusion. Anterior chest incision well approximated and covered with dry intact dressing. Right lower extremity EVH site well approximated, minimal serosanguineous drainage overnight. - Neurologic Neurologic: Present: CNII-XII intact - Musculoskeletal Musculoskeletal: Present: strength equal bilaterally - Psychiatric Psychiatric Comment(s): Sedated on mechanical ventilation, does open eyes and follows commands. - Allied health notes Allied health notes reviewed: nursing - Labs CBC & Chem 7: 04/07/18 04:12 04/07/18 04:12 Labs: Abnormal Lab Results - Last 24 Hours (Table) 04/06/18 04/06/18 04/06/18 Range/Units 10:08 11:13 12:10 RBC (4.30-5.90) m/uL Hgb (13.0-17.5) gm/dL Hct (39.0-53.0) % Plt Count (150-450) k/uL ABG pH (7.35-7.45) ABG HCO3 (21-25) mmol/L ABG Total CO2 (19-24) mmol/L ABG O2 Saturation (94-97) % BUN (9-20) mg/dL Creatinine (0.66-1.25) mg/dL Glucose (74-99) mg/dL POC Glucose (mg/dL) 132 H 118 H 110 H (75-99) mg/dL Calcium (8.4-10.2) mg/dL Magnesium (1.6-2.3) mg/dL Alkaline Phosphatase (38-126) U/L Total Protein (6.3-8.2) g/dL Albumin (3.5-5.0) g/dL Crossmatch 04/06/18 04/06/18 04/06/18 Range/Units 13:59 14:46 16:29 RBC (4.30-5.90) m/uL Hgb (13.0-17.5) gm/dL Hct (39.0-53.0) % Plt Count (150-450) k/uL ABG pH (7.35-7.45) ABG HCO3 (21-25) mmol/L ABG Total CO2 (19-24) mmol/L ABG O2 Saturation (94-97) % BUN (9-20) mg/dL Creatinine (0.66-1.25) mg/dL Glucose (74-99) mg/dL POC Glucose (mg/dL) 110 H 116 H 166 H (75-99) mg/dL Calcium (8.4-10.2) mg/dL Magnesium (1.6-2.3) mg/dL Alkaline Phosphatase (38-126) U/L Total Protein (6.3-8.2) g/dL Albumin (3.5-5.0) g/dL Crossmatch 04/06/18 04/06/18 04/06/18 Range/Units 17:12 18:05 19:01 RBC (4.30-5.90) m/uL Hgb (13.0-17.5) gm/dL Hct (39.0-53.0) % Plt Count (150-450) k/uL ABG pH (7.35-7.45) ABG HCO3 (21-25) mmol/L ABG Total CO2 (19-24) mmol/L ABG O2 Saturation (94-97) % BUN (9-20) mg/dL Creatinine (0.66-1.25) mg/dL Glucose (74-99) mg/dL POC Glucose (mg/dL) 140 H 135 H 117 H (75-99) mg/dL Calcium (8.4-10.2) mg/dL Magnesium (1.6-2.3) mg/dL Alkaline Phosphatase (38-126) U/L Total Protein (6.3-8.2) g/dL Albumin (3.5-5.0) g/dL Crossmatch 04/06/18 04/06/18 04/06/18 Range/Units 19:54 21:13 22:20 RBC (4.30-5.90) m/uL Hgb (13.0-17.5) gm/dL Hct (39.0-53.0) % Plt Count (150-450) k/uL ABG pH (7.35-7.45) ABG HCO3 (21-25) mmol/L ABG Total CO2 (19-24) mmol/L ABG O2 Saturation (94-97) % BUN (9-20) mg/dL Creatinine (0.66-1.25) mg/dL Glucose (74-99) mg/dL POC Glucose (mg/dL) 132 H 127 H 123 H (75-99) mg/dL Calcium (8.4-10.2) mg/dL Magnesium (1.6-2.3) mg/dL Alkaline Phosphatase (38-126) U/L Total Protein (6.3-8.2) g/dL Albumin (3.5-5.0) g/dL Crossmatch 04/06/18 04/07/18 04/07/18 Range/Units 23:04 00:07 01:01 RBC (4.30-5.90) m/uL Hgb (13.0-17.5) gm/dL Hct (39.0-53.0) % Plt Count (150-450) k/uL ABG pH (7.35-7.45) ABG HCO3 (21-25) mmol/L ABG Total CO2 (19-24) mmol/L ABG O2 Saturation (94-97) % BUN (9-20) mg/dL Creatinine (0.66-1.25) mg/dL Glucose (74-99) mg/dL POC Glucose (mg/dL) 134 H 116 H 107 H (75-99) mg/dL Calcium (8.4-10.2) mg/dL Magnesium (1.6-2.3) mg/dL Alkaline Phosphatase (38-126) U/L Total Protein (6.3-8.2) g/dL Albumin (3.5-5.0) g/dL Crossmatch 04/07/18 04/07/18 04/07/18 Range/Units 01:57 03:00 04:03 RBC (4.30-5.90) m/uL Hgb (13.0-17.5) gm/dL Hct (39.0-53.0) % Plt Count (150-450) k/uL ABG pH (7.35-7.45) ABG HCO3 (21-25) mmol/L ABG Total CO2 (19-24) mmol/L ABG O2 Saturation (94-97) % BUN (9-20) mg/dL Creatinine (0.66-1.25) mg/dL Glucose (74-99) mg/dL POC Glucose (mg/dL) 135 H 142 H 147 H (75-99) mg/dL Calcium (8.4-10.2) mg/dL Magnesium (1.6-2.3) mg/dL Alkaline Phosphatase (38-126) U/L Total Protein (6.3-8.2) g/dL Albumin (3.5-5.0) g/dL Crossmatch 04/07/18 04/07/18 04/07/18 Range/Units 04:12 04:12 05:14 RBC 2.04 L (4.30-5.90) m/uL Hgb 6.0 L* D (13.0-17.5) gm/dL Hct 17.5 L* (39.0-53.0) % Plt Count 63 L (150-450) k/uL ABG pH (7.35-7.45) ABG HCO3 (21-25) mmol/L ABG Total CO2 (19-24) mmol/L ABG O2 Saturation (94-97) % BUN 22 H (9-20) mg/dL Creatinine 0.65 L (0.66-1.25) mg/dL Glucose 120 H (74-99) mg/dL POC Glucose (mg/dL) 116 H (75-99) mg/dL Calcium 8.1 L (8.4-10.2) mg/dL Magnesium 2.4 H (1.6-2.3) mg/dL Alkaline Phosphatase 25 L (38-126) U/L Total Protein 4.8 L (6.3-8.2) g/dL Albumin 2.6 L (3.5-5.0) g/dL Crossmatch 04/07/18 04/07/18 04/07/18 Range/Units 06:11 07:25 07:53 RBC (4.30-5.90) m/uL Hgb (13.0-17.5) gm/dL Hct (39.0-53.0) % Plt Count (150-450) k/uL ABG pH (7.35-7.45) ABG HCO3 (21-25) mmol/L ABG Total CO2 (19-24) mmol/L ABG O2 Saturation (94-97) % BUN (9-20) mg/dL Creatinine (0.66-1.25) mg/dL Glucose (74-99) mg/dL POC Glucose (mg/dL) 129 H 102 H (75-99) mg/dL Calcium (8.4-10.2) mg/dL Magnesium (1.6-2.3) mg/dL Alkaline Phosphatase (38-126) U/L Total Protein (6.3-8.2) g/dL Albumin (3.5-5.0) g/dL Crossmatch See Detail 04/07/18 04/07/18 Range/Units 08:24 08:54 RBC (4.30-5.90) m/uL Hgb (13.0-17.5) gm/dL Hct (39.0-53.0) % Plt Count (150-450) k/uL ABG pH 7.49 H (7.35-7.45) ABG HCO3 27 H (21-25) mmol/L ABG Total CO2 28 H (19-24) mmol/L ABG O2 Saturation 98.7 H (94-97) % BUN (9-20) mg/dL Creatinine (0.66-1.25) mg/dL Glucose (74-99) mg/dL POC Glucose (mg/dL) 202 H (75-99) mg/dL Calcium (8.4-10.2) mg/dL Magnesium (1.6-2.3) mg/dL Alkaline Phosphatase (38-126) U/L Total Protein (6.3-8.2) g/dL Albumin (3.5-5.0) g/dL Crossmatch - Imaging and Cardiology Chest x-ray: report reviewed, image reviewed Assessment and Plan (1) History of prostate cancer Current Visit: No Status: Resolved Code(s): Z85.46 - PERSONAL HISTORY OF MALIGNANT NEOPLASM OF PROSTATE SNOMED Code(s): 877070261 (2) Coronary artery disease Current Visit: Yes Status: Chronic Code(s): I25.10 - ATHSCL HEART DISEASE OF [place] CORONARY ARTERY W/O ANG PCTRS SNOMED Code(s): 57970377 (3) History of heart artery stent Current Visit: Yes Status: Chronic Code(s): Z95.5 - PRESENCE OF CORONARY ANGIOPLASTY IMPLANT AND GRAFT SNOMED Code(s): 438938953 (4) Hyperlipidemia Current Visit: Yes Status: Chronic Code(s): E78.5 - HYPERLIPIDEMIA, UNSPECIFIED SNOMED Code(s): 09937279 (5) Hypertension Current Visit: Yes Status: Chronic Code(s): I10 - ESSENTIAL (PRIMARY) HYPERTENSION SNOMED Code(s): 01495497 (6) Non-insulin dependent type 2 diabetes mellitus Current Visit: Yes Status: Chronic Code(s): E11.9 - TYPE 2 DIABETES MELLITUS WITHOUT COMPLICATIONS SNOMED Code(s): 15202964 (7) Obesity (BMI 30-39.9) Current Visit: Yes Status: Chronic Code(s): E66.9 - OBESITY, UNSPECIFIED SNOMED Code(s): 259514197 (8) Severe aortic stenosis Current Visit: Yes Status: Chronic Code(s): I35.0 - NONRHEUMATIC AORTIC ( VALVE) STENOSIS SNOMED Code(s): 99569580 Plan: 1. Continue low-dose aspirin, statin, Plavix, ELIANA inhibitor, beta lamar. Will increase beta lamar therapy as tolerated. 2. Wean from mechanical ventilation as tolerated. Dr. Urbina for ventilator management. Once extubated, encourage incentive spirometry use 10 times every hour. Weaning trial to be attempted today. 3. Once extubated, increase activity as tolerated. PT/OT/cardiac rehab following. 4. Bronchodilators, steroids per pulmonology. 5. Will monitor daily labs and x-rays. Will transfuse 1 unit packed red blood cells today. 6. Subcu heparin discontinued, Arixtra started. HIT panel sent. 7. GI prophylaxis with Protonix. DVT prophylaxis with Arixtra, SCDs. 8. Pain management with current medication regimen. 9. Insulin management per primary care service. 10. Discontinue [place]. Connect Cordis to continue CVP monitoring. 11. Will discontinue left pleural chest tubes. 12. More recommendations to follow. Time with Patient: Greater than 30
[2018-04-07] MEDS ORDERED: BENZOCAINE SPRAY 1 CAN MUCOUS MEM PRN (10:05)
[2018-04-07 10:10] LABS: Glucose,Whole Blood 178 mg/dL (75-99)
[2018-04-07] MEDS: CLOPIDOGREL 75 MG TAB PO SCH (10:11)
[2018-04-07 10:27] LABS: ABG Base Excess 2.6 mmol/L; ABG HCO3 26 mmol/L (21-25); ABG Oxygen Saturation 98.5 % (94-97); ABG PCO2 34 mmHg (35-45); ABG PH 7.49 (7.35-7.45); ABG PO2 96 mmHg (83-108); ABG TCO2 27 mmol/L (19-24)
[2018-04-07 11:02] LABS: Glucose,Whole Blood 147 mg/dL (75-99)
[2018-04-07] MEDS ORDERED: ARTIFICIAL TEARS-HYPROMELLOSE DROPS 15 ML BTL BOTH EYES PRN (11:10)
[2018-04-07 12:09] LABS: Glucose,Whole Blood 104 mg/dL (75-99)
[2018-04-07] MEDS: FONDAPARINUX 2.5 MG/0.5 ML SYRINGE SQ SCH (13:08)
[2018-04-07] MEDS: LACTATED RINGERS 1,000 ML IV SCH (13:08)
[2018-04-07 13:09] LABS: Glucose,Whole Blood 89 mg/dL (75-99)
--- NOTE | 2018-04-07 13:09 | P.PN ---
Subjective Progress Note Date: 04/07/18 Principal diagnosis: Status post CABG and aortic valve replacement, postoperative day #3 This is a 67-year-old white male, see him today on consultation, patient is postoperative day #1, aortic valve replacement using a 23 mm bovine bioprosthesis, triple coronary artery bypass grafting using AKHTAR to LAD, reverse saphenous vein graft from aorta to the diagonal artery and reverse saphenous vein graft from aorta to posterior descending. Postoperatively, patient was on mechanical ventilation, and I was asked to see him on consultation. 3 hours after his surgery, patient failed the weaning trial, he was noted to have relative hypoxemia, and low pH consistent with metabolic acidosis. Hence a shunt was kept on mechanical ventilation, and early this morning another attempt was made, patient failed mostly because of his low pO2 around 50 on pressure support of 8 and CPAP. Hence the patient was placed back on mechanical ventilation again with assist control mode, tidal volume of 600, assist control rate of 16, and FiO2 up to 80% with PEEP of 8. Repeat ABG is pending. Chest x-ray showed mild interstitial edema. Patient was given Lasix. Patient had a low hemoglobin earlier today of 6.5, he has received a unit of packed RBCs early this morning. Reevaluated today on 04/06/2018, his postoperative day #2, aortic valve replacement and triple coronary artery bypass grafting. Patient developed significant drop in his pO2 yesterday on CPAP, and his pO2 was 50 on the blood gases this was on FiO2 of 50%. Hence I felt that the patient could not be weaned and extubated. Placed back on assist control mode of mechanical ventilation, placed back on a PEEP of 8 and today he is on a PEEP of 10. Continues to have significant desaturations and a CT of the chest was done today , there was no evidence of pulmonary embolism but there was definitely significant bibasilar atelectasis. Hence I increased his PEEP up to 10, and the patient remains marginal his ABG still reflecting a pO2 of 70 on 70%, hence I felt not quite ready for weaning today. Again the CT of the chest was done to rule out pulmonary embolism and it was negative. The chest x-ray clearly shows atelectasis, but do not explain the profound hypoxemia noted on the ABG. Patient is on propofol, and on a lower dose of propofol he seems to be very appropriate, follows simple instructions. ABG this morning showed pO2 of 70 pCO2 of 35 pH of 7.49. WBC count is 13.9 hemoglobin is 7.7. is at bedside , and she was updated on his condition. Reevaluated today on 04/07/2018, postoperative day #3, status post aortic valve replacement and triple coronary artery disease bypass surgery. Patient remains on mechanical ventilation, his ventilator settings were reviewed, patient was noted to have decent ABG, and he was all along on a PEEP of 10, FiO2 of 50%, ABG showed a pO2 of 96 pCO2 of 34 pH of 7.49. Patient was awakened , propofol was discontinued, patient was closely monitored, placed on pressure support and CPAP, kept him on a PEEP of 6. Pressure support was 8, patient did quite well, follow-up ABG was excellent. Hence proceeded to extubating the patient. I was at bedside all along during the whole process. Chest x-ray was reviewed all labs were reviewed, hemoglobin is 6.0, receiving another unit of packed RBCs today. His metabolic profile was noted to be normal, renal profile is normal. Objective - Vital Signs Vital signs: Vital Signs Temp 98.8 F 04/07/18 10:00 Pulse 67 04/07/18 11:40 Resp 18 04/07/18 11:40 BP 138/62 04/05/18 08:00 Pulse Ox 97 04/07/18 11:40 Intake & Output 04/06/18 04/07/18 04/07/18 18:59 06:59 18:59 Intake Total 7015.792 7591.714 368.095 Output Total 2009 726 290 Balance -646.104 691.714 78.095 Weight 110.9 kg 109.9 kg 109.9 kg Intake: IV 463 349 144 Lactated Ringers 1,000 ml 360 240 100 @ 20 mls/hr IV .Q24H [facility] Rx#:[id number] co/ci 40 70 20 pressure bag 63 39 24 Intake, IV Titration 720.896 398.714 74.095 Amount Clevidipine Butyrate 25 79.667 mg In Empty Bag 1 bag @ 1 MG/HR 2 mls/hr IV .Q24H [facility] Rx#:[id number] Dexmedetomidine/0.9% NaCl 12.680 (Pmx) 400 mcg In Empty Bag 1 bag @ Titrate IV . Q0M [facility] Rx#:[id number] Insulin Regular 100 unit 91.229 122.866 61.415 In Sodium Chloride 0.9% 100 ml @ Per Protocol IV .Q0M [facility] Rx#:[id number] Propofol 1,000 mg In 300.000 275.848 Empty Bag 1 bag @ Titrate IV .Q0M [facility] Rx#: [id number] Sodium Phosphate 10 mmol 250 In Sodium Chloride 0.9% 250 ml @ 125 mls/hr IVPB Q2H [facility] Rx#:[id number] Tube Feeding 150 520 120 Blood Product 0 Rc As-1 Unit 0 [id number] Other 30 150 30 Output: Chest Tube Drainage 120 40 40 Chest Tube Left 80 40 40 Chest Tube Mediastinal 10 Chest Tube Right 30 Drainage 20 0 20 Right Calf 20 0 20 Urine 1870 686 230 Other: Voiding Method Indwelling Catheter Indwelling Catheter Indwelling Catheter ABP, PAP, CO, CI - Last Documented Arterial Blood Pressure 122/56 Pulmonary Artery Pressure 38/19 Cardiac Output 6.6 Cardiac Index 3.1 - Exam Physical Exam: 67-year-old white male on mechanical ventilation. Arousable while on propofol, followed all simple instructions off propofol. Head: Atraumatic, normocephalic HEENT:[ Large obese neck, Neck is supple.] [No neck masses.] [No thyromegaly.] [ No JVD.] right jugular cordis remains in place. Chest: [Equal breath sound bilaterally, no rhonchi and no wheezes. Symmetrical chest expansion. No chest wall tenderness Cardiac Exam: [Distant S1 and S2, no S3 gallop, no murmur.] Abdomen: [Obese, Soft, nontender, no megaly, no rebound, no guarding, ] Extremities: [1+ bipedal edema, no cyanosis. No clubbing. Neurological Exam: No gross focal neurologic deficit seems to be alert oriented 3 and followed simple instructions while off propofol. Lymphatics: No lymph nodes were palpable. - Labs CBC & Chem 7: 04/07/18 04:12 04/07/18 04:12 Labs: Abnormal Lab Results - Last 24 Hours (Table) 04/06/18 04/06/18 04/06/18 Range/Units 13:59 14:46 16:29 RBC (4.30-5.90) m/uL Hgb (13.0-17.5) gm/dL Hct (39.0-53.0) % Plt Count (150-450) k/uL ABG pH (7.35-7.45) ABG pCO2 (35-45) mmHg ABG HCO3 (21-25) mmol/L ABG Total CO2 (19-24) mmol/L ABG O2 Saturation (94-97) % BUN (9-20) mg/dL Creatinine (0.66-1.25) mg/dL Glucose (74-99) mg/dL POC Glucose (mg/dL) 110 H 116 H 166 H (75-99) mg/dL Calcium (8.4-10.2) mg/dL Magnesium (1.6-2.3) mg/dL Alkaline Phosphatase (38-126) U/L Total Protein (6.3-8.2) g/dL Albumin (3.5-5.0) g/dL Crossmatch 04/06/18 04/06/18 04/06/18 Range/Units 17:12 18:05 19:01 RBC (4.30-5.90) m/uL Hgb (13.0-17.5) gm/dL Hct (39.0-53.0) % Plt Count (150-450) k/uL ABG pH (7.35-7.45) ABG pCO2 (35-45) mmHg ABG HCO3 (21-25) mmol/L ABG Total CO2 (19-24) mmol/L ABG O2 Saturation (94-97) % BUN (9-20) mg/dL Creatinine (0.66-1.25) mg/dL Glucose (74-99) mg/dL POC Glucose (mg/dL) 140 H 135 H 117 H (75-99) mg/dL Calcium (8.4-10.2) mg/dL Magnesium (1.6-2.3) mg/dL Alkaline Phosphatase (38-126) U/L Total Protein (6.3-8.2) g/dL Albumin (3.5-5.0) g/dL Crossmatch 04/06/18 04/06/18 04/06/18 Range/Units 19:54 21:13 22:20 RBC (4.30-5.90) m/uL Hgb (13.0-17.5) gm/dL Hct (39.0-53.0) % Plt Count (150-450) k/uL ABG pH (7.35-7.45) ABG pCO2 (35-45) mmHg ABG HCO3 (21-25) mmol/L ABG Total CO2 (19-24) mmol/L ABG O2 Saturation (94-97) % BUN (9-20) mg/dL Creatinine (0.66-1.25) mg/dL Glucose (74-99) mg/dL POC Glucose (mg/dL) 132 H 127 H 123 H (75-99) mg/dL Calcium (8.4-10.2) mg/dL Magnesium (1.6-2.3) mg/dL Alkaline Phosphatase (38-126) U/L Total Protein (6.3-8.2) g/dL Albumin (3.5-5.0) g/dL Crossmatch 04/06/18 04/07/18 04/07/18 Range/Units 23:04 00:07 01:01 RBC (4.30-5.90) m/uL Hgb (13.0-17.5) gm/dL Hct (39.0-53.0) % Plt Count (150-450) k/uL ABG pH (7.35-7.45) ABG pCO2 (35-45) mmHg ABG HCO3 (21-25) mmol/L ABG Total CO2 (19-24) mmol/L ABG O2 Saturation (94-97) % BUN (9-20) mg/dL Creatinine (0.66-1.25) mg/dL Glucose (74-99) mg/dL POC Glucose (mg/dL) 134 H 116 H 107 H (75-99) mg/dL Calcium (8.4-10.2) mg/dL Magnesium (1.6-2.3) mg/dL Alkaline Phosphatase (38-126) U/L Total Protein (6.3-8.2) g/dL Albumin (3.5-5.0) g/dL Crossmatch 04/07/18 04/07/18 04/07/18 Range/Units 01:57 03:00 04:03 RBC (4.30-5.90) m/uL Hgb (13.0-17.5) gm/dL Hct (39.0-53.0) % Plt Count (150-450) k/uL ABG pH (7.35-7.45) ABG pCO2 (35-45) mmHg ABG HCO3 (21-25) mmol/L ABG Total CO2 (19-24) mmol/L ABG O2 Saturation (94-97) % BUN (9-20) mg/dL Creatinine (0.66-1.25) mg/dL Glucose (74-99) mg/dL POC Glucose (mg/dL) 135 H 142 H 147 H (75-99) mg/dL Calcium (8.4-10.2) mg/dL Magnesium (1.6-2.3) mg/dL Alkaline Phosphatase (38-126) U/L Total Protein (6.3-8.2) g/dL Albumin (3.5-5.0) g/dL Crossmatch 04/07/18 04/07/18 04/07/18 Range/Units 04:12 04:12 05:14 RBC 2.04 L (4.30-5.90) m/uL Hgb 6.0 L* D (13.0-17.5) gm/dL Hct 17.5 L* (39.0-53.0) % Plt Count 63 L (150-450) k/uL ABG pH (7.35-7.45) ABG pCO2 (35-45) mmHg ABG HCO3 (21-25) mmol/L ABG Total CO2 (19-24) mmol/L ABG O2 Saturation (94-97) % BUN 22 H (9-20) mg/dL Creatinine 0.65 L (0.66-1.25) mg/dL Glucose 120 H (74-99) mg/dL POC Glucose (mg/dL) 116 H (75-99) mg/dL Calcium 8.1 L (8.4-10.2) mg/dL Magnesium 2.4 H (1.6-2.3) mg/dL Alkaline Phosphatase 25 L (38-126) U/L Total Protein 4.8 L (6.3-8.2) g/dL Albumin 2.6 L (3.5-5.0) g/dL Crossmatch 04/07/18 04/07/18 04/07/18 Range/Units 06:11 07:25 07:53 RBC (4.30-5.90) m/uL Hgb (13.0-17.5) gm/dL Hct (39.0-53.0) % Plt Count (150-450) k/uL ABG pH (7.35-7.45) ABG pCO2 (35-45) mmHg ABG HCO3 (21-25) mmol/L ABG Total CO2 (19-24) mmol/L ABG O2 Saturation (94-97) % BUN (9-20) mg/dL Creatinine (0.66-1.25) mg/dL Glucose (74-99) mg/dL POC Glucose (mg/dL) 129 H 102 H (75-99) mg/dL Calcium (8.4-10.2) mg/dL Magnesium (1.6-2.3) mg/dL Alkaline Phosphatase (38-126) U/L Total Protein (6.3-8.2) g/dL Albumin (3.5-5.0) g/dL Crossmatch See Detail 04/07/18 04/07/18 04/07/18 Range/Units 08:24 08:54 10:08 RBC (4.30-5.90) m/uL Hgb (13.0-17.5) gm/dL Hct (39.0-53.0) % Plt Count (150-450) k/uL ABG pH 7.49 H (7.35-7.45) ABG pCO2 (35-45) mmHg ABG HCO3 27 H (21-25) mmol/L ABG Total CO2 28 H (19-24) mmol/L ABG O2 Saturation 98.7 H (94-97) % BUN (9-20) mg/dL Creatinine (0.66-1.25) mg/dL Glucose (74-99) mg/dL POC Glucose (mg/dL) 202 H 178 H (75-99) mg/dL Calcium (8.4-10.2) mg/dL Magnesium (1.6-2.3) mg/dL Alkaline Phosphatase (38-126) U/L Total Protein (6.3-8.2) g/dL Albumin (3.5-5.0) g/dL Crossmatch 04/07/18 04/07/18 04/07/18 Range/Units 10:25 11:00 12:08 RBC (4.30-5.90) m/uL Hgb (13.0-17.5) gm/dL Hct (39.0-53.0) % Plt Count (150-450) k/uL ABG pH 7.49 H (7.35-7.45) ABG pCO2 34 L (35-45) mmHg ABG HCO3 26 H (21-25) mmol/L ABG Total CO2 27 H (19-24) mmol/L ABG O2 Saturation 98.5 H (94-97) % BUN (9-20) mg/dL Creatinine (0.66-1.25) mg/dL Glucose (74-99) mg/dL POC Glucose (mg/dL) 147 H 104 H (75-99) mg/dL Calcium (8.4-10.2) mg/dL Magnesium (1.6-2.3) mg/dL Alkaline Phosphatase (38-126) U/L Total Protein (6.3-8.2) g/dL Albumin (3.5-5.0) g/dL Crossmatch Assessment and Plan Assessment: Impression: Postoperative day #3, status post aortic valve replacement and CABG. Postoperative hypoxic respiratory failure mostly secondary to atelectasis, Negative CT angiogram of the chest yesterday. No evidence of pulmonary embolism. Multiple comorbidities including morbid obesity previous ME hypertension type 2 diabetes. Recommendation: Continue present supportive care measures, patient was taken off propofol, given a trial of pressure support and CPAP while I am at bedside, his pressure support used was 8. He was noted to have good tidal volumes, good respiratory rate, no desaturation during the process, ABG on that mode of mechanical ventilation was excellent, hence I proceeded to extubating the patient, discussed his condition with at bedside. Patient was extubated to BiPAP, and his BiPAP settings will be 12 and 4 at 50% FiO2. Prognosis remains guarded, we will encourage incentive spirometry, early ambulation, deep coughing and deep breathing. Continue bronchodilators. Critical care time is 35 minutes. Time with Patient: Greater than 30
[2018-04-07] MEDS: LISINOPRIL 10 MG TAB PO SCH (13:16)
--- NOTE | 2018-04-07 13:37 | PN ---
PROGRESS NOTE This patient is status post aortic valve replacement, coronary artery bypass surgery. The patient was extubated this morning. He is comfortable. Denies any chest pain. Denies any shortness of breath. The patient is afebrile and blood pressure is 138/62 mmHg. First and second heart sounds are heard. Lungs examination revealed bilateral diminished air entry. Blood gases shows a pH of 7.49, pCO2 of 39. The patient's hemoglobin is 6.0, creatinine is 0.65. ASSESSMENT AND PLAN: Status post aortic valve replacement. Patient is extubated and no acute respiratory distress is noted. Continue the current medications. MMODL / IJN: [id number] /
[2018-04-07] MEDS ORDERED: LISINOPRIL 10 MG TAB PO ONE (13:45)
[2018-04-07 14:05] LABS: Glucose,Whole Blood 139 mg/dL (75-99)
[2018-04-07 16:01] LABS: Glucose,Whole Blood 86 mg/dL (75-99)
[2018-04-07 16:37] LABS: MCHC 33.9 g/dL (31.0-37.0); MCV 85.6 fL (80.0-100.0); Mean Platelet Volume 10.7; Poikilocytosis Slight; RBC 2.57 m/uL (4.30-5.90); RDW 15.4 % (11.5-15.5); WBC 14.1 k/uL (3.8-10.6)
[2018-04-07 16:41] LABS: HGB 7.5 gm/dL (13.0-17.5); Platelet Count 84 k/uL (150-450)
[2018-04-07 18:19] LABS: Glucose,Whole Blood 237 mg/dL (75-99)
--- NOTE | 2018-04-07 18:48 | P.PN ---
Subjective Progress Note Date: 04/07/18 (delayed charting patient seen at 0900) Principal diagnosis: chest pain Patient is a 67-year-old male past medical history of hypertension, coronary artery disease status post stent 5, severe aortic stenosis, dyslipidemia, and diabetes mellitus type 2 controlled on oral medications with preoperative hemoglobin A1c of 7.4 who presented for triple-vessel coronary artery bypass grafting and aortic valve replacement. Patient underwent procedure on 04/04 without any immediate postoperative complications. He developed anemia postop and required an additional unit of pRBC. He had prolonged mechanical ventilation and was vented through the morning of 04/06/18. Patient required increased FiO2 overnight. His platelets have continued to decrease, heparin is no hold and HIT AB ordered. Patient seen and examined at bedside. Still on vent. No acute events overnight. Still on insulin gtt. Patinet indicated no chest pain, uncomfotable form ET tube. Objective - Vital Signs Vital signs: Vital Signs Temp 98.4 F 04/07/18 16:00 Pulse 101 H 04/07/18 18:00 Resp 25 H 04/07/18 18:00 BP 138/62 04/05/18 08:00 Pulse Ox 91 L 04/07/18 18:00 Intake & Output 04/06/18 04/07/18 04/07/18 18:59 06:59 18:59 Intake Total 4397.494 5849.714 973.951 Output Total 2009 726 750 Balance -646.104 691.714 223.951 Weight 110.9 kg 109.9 kg 109.9 kg Intake: IV 463 349 305 Lactated Ringers 1,000 ml 360 240 240 @ 20 mls/hr IV .Q24H [facility] Rx#:[id number] co/ci 40 70 20 pressure bag 63 39 45 Intake, IV Titration 720.896 398.714 108.951 Amount Clevidipine Butyrate 25 79.667 mg In Empty Bag 1 bag @ 1 MG/HR 2 mls/hr IV .Q24H [facility] Rx#:[id number] Dexmedetomidine/0.9% NaCl 12.680 (Pmx) 400 mcg In Empty Bag 1 bag @ Titrate IV . Q0M [facility] Rx#:[id number] Insulin Regular 100 unit 91.229 122.866 96.271 In Sodium Chloride 0.9% 100 ml @ Per Protocol IV .Q0M [facility] Rx#:[id number] Propofol 1,000 mg In 300.000 275.848 Empty Bag 1 bag @ Titrate IV .Q0M [facility] Rx#: [id number] Sodium Phosphate 10 mmol 250 In Sodium Chloride 0.9% 250 ml @ 125 mls/hr IVPB Q2H [facility] Rx#:[id number] Oral 100 Tube Feeding 150 520 120 Blood Product 310 Rc As-1 Unit 310 [id number] Other 30 150 30 Output: Chest Tube Drainage 120 40 60 Chest Tube Left 80 40 60 Chest Tube Mediastinal 10 Chest Tube Right 30 Drainage 20 0 35 Right Calf 20 0 35 Urine 1870 686 655 Other: Voiding Method Indwelling Catheter Indwelling Catheter Indwelling Catheter ABP, PAP, CO, CI - Last Documented Arterial Blood Pressure 116/57 Pulmonary Artery Pressure 38/19 Cardiac Output 6.6 Cardiac Index 3.1 - Exam General: non toxic, no distress distress, appears at stated age, obese Derm: warm, dry Head: atraumatic, normocephalic, symmetric Eyes: EOMI, no lid lag, anicteric sclera Mouth: no lip lesion, ET tube in place Cardiovascular: S1S2 reg, no murmur, positive posterior tibial pulse bilateral, left chest tube in place Lungs: Coarse breath sounds bilateral, no rhonchi, no rales , no accessory muscle use, on vent Abdominal: soft, nontender to palpation, no guarding, no appreciable organomegaly Ext: no gross muscle atrophy, 2+ edema, no contractures Neuro: CN II-XI grossly intact, no focal neuro deficits Psych: Alert, oriented, anxious but appropriate - Labs CBC & Chem 7: 04/07/18 16:30 04/07/18 04:12 Labs: Abnormal Lab Results - Last 24 Hours (Table) 04/06/18 04/06/18 04/06/18 Range/Units 19:01 19:54 21:13 WBC (3.8-10.6) k/uL RBC (4.30-5.90) m/uL Hgb (13.0-17.5) gm/dL Hct (39.0-53.0) % Plt Count (150-450) k/uL ABG pH (7.35-7.45) ABG pCO2 (35-45) mmHg ABG HCO3 (21-25) mmol/L ABG Total CO2 (19-24) mmol/L ABG O2 Saturation (94-97) % BUN (9-20) mg/dL Creatinine (0.66-1.25) mg/dL Glucose (74-99) mg/dL POC Glucose (mg/dL) 117 H 132 H 127 H (75-99) mg/dL Calcium (8.4-10.2) mg/dL Magnesium (1.6-2.3) mg/dL Alkaline Phosphatase (38-126) U/L Total Protein (6.3-8.2) g/dL Albumin (3.5-5.0) g/dL Crossmatch 04/06/18 04/06/18 04/07/18 Range/Units 22:20 23:04 00:07 WBC (3.8-10.6) k/uL RBC (4.30-5.90) m/uL Hgb (13.0-17.5) gm/dL Hct (39.0-53.0) % Plt Count (150-450) k/uL ABG pH (7.35-7.45) ABG pCO2 (35-45) mmHg ABG HCO3 (21-25) mmol/L ABG Total CO2 (19-24) mmol/L ABG O2 Saturation (94-97) % BUN (9-20) mg/dL Creatinine (0.66-1.25) mg/dL Glucose (74-99) mg/dL POC Glucose (mg/dL) 123 H 134 H 116 H (75-99) mg/dL Calcium (8.4-10.2) mg/dL Magnesium (1.6-2.3) mg/dL Alkaline Phosphatase (38-126) U/L Total Protein (6.3-8.2) g/dL Albumin (3.5-5.0) g/dL Crossmatch 04/07/18 04/07/18 04/07/18 Range/Units 01:01 01:57 03:00 WBC (3.8-10.6) k/uL RBC (4.30-5.90) m/uL Hgb (13.0-17.5) gm/dL Hct (39.0-53.0) % Plt Count (150-450) k/uL ABG pH (7.35-7.45) ABG pCO2 (35-45) mmHg ABG HCO3 (21-25) mmol/L ABG Total CO2 (19-24) mmol/L ABG O2 Saturation (94-97) % BUN (9-20) mg/dL Creatinine (0.66-1.25) mg/dL Glucose (74-99) mg/dL POC Glucose (mg/dL) 107 H 135 H 142 H (75-99) mg/dL Calcium (8.4-10.2) mg/dL Magnesium (1.6-2.3) mg/dL Alkaline Phosphatase (38-126) U/L Total Protein (6.3-8.2) g/dL Albumin (3.5-5.0) g/dL Crossmatch 04/07/18 04/07/18 04/07/18 Range/Units 04:03 04:12 04:12 WBC (3.8-10.6) k/uL RBC 2.04 L (4.30-5.90) m/uL Hgb 6.0 L* D (13.0-17.5) gm/dL Hct 17.5 L* (39.0-53.0) % Plt Count 63 L (150-450) k/uL ABG pH (7.35-7.45) ABG pCO2 (35-45) mmHg ABG HCO3 (21-25) mmol/L ABG Total CO2 (19-24) mmol/L ABG O2 Saturation (94-97) % BUN 22 H (9-20) mg/dL Creatinine 0.65 L (0.66-1.25) mg/dL Glucose 120 H (74-99) mg/dL POC Glucose (mg/dL) 147 H (75-99) mg/dL Calcium 8.1 L (8.4-10.2) mg/dL Magnesium 2.4 H (1.6-2.3) mg/dL Alkaline Phosphatase 25 L (38-126) U/L Total Protein 4.8 L (6.3-8.2) g/dL Albumin 2.6 L (3.5-5.0) g/dL Crossmatch 04/07/18 04/07/18 04/07/18 Range/Units 05:14 06:11 07:25 WBC (3.8-10.6) k/uL RBC (4.30-5.90) m/uL Hgb (13.0-17.5) gm/dL Hct (39.0-53.0) % Plt Count (150-450) k/uL ABG pH (7.35-7.45) ABG pCO2 (35-45) mmHg ABG HCO3 (21-25) mmol/L ABG Total CO2 (19-24) mmol/L ABG O2 Saturation (94-97) % BUN (9-20) mg/dL Creatinine (0.66-1.25) mg/dL Glucose (74-99) mg/dL POC Glucose (mg/dL) 116 H 129 H (75-99) mg/dL Calcium (8.4-10.2) mg/dL Magnesium (1.6-2.3) mg/dL Alkaline Phosphatase (38-126) U/L Total Protein (6.3-8.2) g/dL Albumin (3.5-5.0) g/dL Crossmatch See Detail 04/07/18 04/07/18 04/07/18 Range/Units 07:53 08:24 08:54 WBC (3.8-10.6) k/uL RBC (4.30-5.90) m/uL Hgb (13.0-17.5) gm/dL Hct (39.0-53.0) % Plt Count (150-450) k/uL ABG pH 7.49 H (7.35-7.45) ABG pCO2 (35-45) mmHg ABG HCO3 27 H (21-25) mmol/L ABG Total CO2 28 H (19-24) mmol/L ABG O2 Saturation 98.7 H (94-97) % BUN (9-20) mg/dL Creatinine (0.66-1.25) mg/dL Glucose (74-99) mg/dL POC Glucose (mg/dL) 102 H 202 H (75-99) mg/dL Calcium (8.4-10.2) mg/dL Magnesium (1.6-2.3) mg/dL Alkaline Phosphatase (38-126) U/L Total Protein (6.3-8.2) g/dL Albumin (3.5-5.0) g/dL Crossmatch 04/07/18 04/07/18 04/07/18 Range/Units 10:08 10:25 11:00 WBC (3.8-10.6) k/uL RBC (4.30-5.90) m/uL Hgb (13.0-17.5) gm/dL Hct (39.0-53.0) % Plt Count (150-450) k/uL ABG pH 7.49 H (7.35-7.45) ABG pCO2 34 L (35-45) mmHg ABG HCO3 26 H (21-25) mmol/L ABG Total CO2 27 H (19-24) mmol/L ABG O2 Saturation 98.5 H (94-97) % BUN (9-20) mg/dL Creatinine (0.66-1.25) mg/dL Glucose (74-99) mg/dL POC Glucose (mg/dL) 178 H 147 H (75-99) mg/dL Calcium (8.4-10.2) mg/dL Magnesium (1.6-2.3) mg/dL Alkaline Phosphatase (38-126) U/L Total Protein (6.3-8.2) g/dL Albumin (3.5-5.0) g/dL Crossmatch 04/07/18 04/07/18 04/07/18 Range/Units 12:08 14:03 16:30 WBC 14.1 H (3.8-10.6) k/uL RBC 2.57 L (4.30-5.90) m/uL Hgb 7.5 L D (13.0-17.5) gm/dL Hct 22.0 L (39.0-53.0) % Plt Count 84 L (150-450) k/uL ABG pH (7.35-7.45) ABG pCO2 (35-45) mmHg ABG HCO3 (21-25) mmol/L ABG Total CO2 (19-24) mmol/L ABG O2 Saturation (94-97) % BUN (9-20) mg/dL Creatinine (0.66-1.25) mg/dL Glucose (74-99) mg/dL POC Glucose (mg/dL) 104 H 139 H (75-99) mg/dL Calcium (8.4-10.2) mg/dL Magnesium (1.6-2.3) mg/dL Alkaline Phosphatase (38-126) U/L Total Protein (6.3-8.2) g/dL Albumin (3.5-5.0) g/dL Crossmatch 04/07/18 Range/Units 18:17 WBC (3.8-10.6) k/uL RBC (4.30-5.90) m/uL Hgb (13.0-17.5) gm/dL Hct (39.0-53.0) % Plt Count (150-450) k/uL ABG pH (7.35-7.45) ABG pCO2 (35-45) mmHg ABG HCO3 (21-25) mmol/L ABG Total CO2 (19-24) mmol/L ABG O2 Saturation (94-97) % BUN (9-20) mg/dL Creatinine (0.66-1.25) mg/dL Glucose (74-99) mg/dL POC Glucose (mg/dL) 237 H (75-99) mg/dL Calcium (8.4-10.2) mg/dL Magnesium (1.6-2.3) mg/dL Alkaline Phosphatase (38-126) U/L Total Protein (6.3-8.2) g/dL Albumin (3.5-5.0) g/dL Crossmatch Assessment and Plan Assessment: Acute blood loss anemia with thrombocytopenia, anticipated outcome of surgery - status post one unit of packed red blood cells 04/05, another ordered today - platelts fell by over 1/2, D/W Trini Marinelli NP will off heparin, arixtra, HIT panel. -Repeat CBC in a.m. Acute hypoxic respiratory failure -Management per pulmonary team -Lasix given 04/06 -On Solu-Medrol -CTA negative for PE Diabetes mellitus type 2 [id number] -Preop A1c 7.4 -Hold metformin and glipizide -On insulin drip, plan to transition to sliding scale insulin once extubated Coronary artery disease with severe aortic stenosis - Status post triple bypass with aortic valve replacement -Management per primary team - left CT in place Obesity with BMI 37.8 -Outpatient structured weight loss Hypertension -controlled -Metoprolol per cardiothoracic Dyslipidemia -Lipitor Hypophosphatemia -Replace per protocol -Repeat in a.m. DVT prophylaxis: Arixtra Discussed with: Patient, nursing, Trini bridges DIETITIAN CONSULTANT A total of 35 minutes was spent on the care of this complex patient more than 50 % of the time was spent in counseling and care coordination.
[2018-04-07 19:09] LABS: Glucose,Whole Blood 261 mg/dL (75-99)
[2018-04-07 20:08] LABS: Glucose,Whole Blood 155 mg/dL (75-99)
[2018-04-07] MEDS: SENNOSIDES-DOCUSATE SODIUM 1 EACH TAB PO SCH (21:12)
[2018-04-07 22:08] LABS: Glucose,Whole Blood 72 mg/dL (75-99)
[2018-04-07 22:55] LABS: Glucose,Whole Blood 100 mg/dL (75-99)
[2018-04-07 23:59] LABS: Glucose,Whole Blood 148 mg/dL (75-99)
[2018-04-08] MEDS: methylPREDNISolone SOD SUCCI 40 MG/ML 1 ML VIAL IV SCH ×2 (00:06→08:18)
[2018-04-08 01:10] LABS: Glucose,Whole Blood 122 mg/dL (75-99)
[2018-04-08 02:23] LABS: Glucose,Whole Blood 77 mg/dL (75-99)
[2018-04-08 04:12] LABS: Glucose,Whole Blood 148 mg/dL (75-99)
[2018-04-08 04:29] LABS: Basophils % (A) 0 %; Eosinophils % (A) 0 %; HCT 22.4 % (39.0-53.0); HGB 7.3 gm/dL (13.0-17.5); Hypochromasia Slight; Lymphocytes # (A) 1.9 k/uL (1.0-4.8); Lymphocytes % (A) 13 %; MCH 29.2 pg (25.0-35.0); MCHC 32.6 g/dL (31.0-37.0); MCV 89.4 fL (80.0-100.0); Mean Platelet Volume 9.1; Monocytes # (A) 1.2 k/uL (0-1.0); Monocytes % (A) 8 %; Neutrophils # (A) 11.4 k/uL (1.3-7.7); Neutrophils % (A) 77 %; Platelet Count 109 k/uL (150-450); Poikilocytosis Slight; RBC 2.51 m/uL (4.30-5.90); RDW 15.9 % (11.5-15.5); WBC 14.9 k/uL (3.8-10.6)
[2018-04-08 04:44] LABS: ALT 46 U/L (21-72); AST 39 U/L (17-59); Albumin 2.9 g/dL (3.5-5.0); Alkaline Phosphatase 51 U/L (38-126); Anion Gap 7 mmol/L; Blood Urea Nitrogen 28 mg/dL (9-20); Calcium 8.3 mg/dL (8.4-10.2); Carbon Dioxide 25 mmol/L (22-30); Chloride 106 mmol/L (98-107); Glucose 145 mg/dL (74-99); Magnesium 2.4 mg/dL (1.6-2.3); Phosphorus 3.2 mg/dL (2.5-4.5); Potassium 4.4 mmol/L (3.5-5.1); Sodium 138 mmol/L (137-145); Total Bilirubin 0.7 mg/dL (0.2-1.3); Total Protein 5.2 g/dL (6.3-8.2)
[2018-04-08 05:12] LABS: Glucose,Whole Blood 128 mg/dL (75-99)
[2018-04-08 06:04] LABS: Glucose,Whole Blood 97 mg/dL (75-99)
[2018-04-08 06:54] LABS: Glucose,Whole Blood 121 mg/dL (75-99)
--- NOTE | 2018-04-08 06:55 | XR ---
EXAMINATION TYPE: XR chest 1V portable DATE OF EXAM: 04/08/2018 HISTORY: Tube placement. REFERENCE: Previous study dated 04/07/2018. FINDINGS: There has been a midline sternotomy. The patient has been extubated. The patient's NG tube is been removed. Galt-Adalberto catheter has been re moved. A right internal jugular sheath remains in place. The patient's left pleural drain has been re moved. The heart is enlarged. There is minimal left basilar airspace disease. There is a small left effusion . IMPRESSION: 1. MILD LEFT BASILAR AIRSPACE DISEASE. 2. SMALL LEFT EFFUSION.
[2018-04-08] MEDS: IPRATROPIUM-ALBUTEROL 3 ML NEB INHALATION SCH ×4 (07:15→20:20)
[2018-04-08 08:12] LABS: Glucose,Whole Blood 214 mg/dL (75-99)
[2018-04-08] MEDS: CLOPIDOGREL 75 MG TAB PO SCH (08:18)
[2018-04-08] MEDS: FONDAPARINUX 2.5 MG/0.5 ML SYRINGE SQ SCH (08:19)
[2018-04-08] MEDS: METOPROLOL TARTRATE 50 MG TAB PO SCH ×2 (08:19→20:28)
[2018-04-08] MEDS: ATORVASTATIN 40 MG TAB PO SCH (08:19)
[2018-04-08] MEDS: PANTOPRAZOLE 40 MG TABLET PO SCH (08:19)
[2018-04-08] MEDS: ASPIRIN 81 MG PO SCH (08:19)
[2018-04-08] MEDS: INSULIN DETEMIR 100 UNIT/ML 10 ML VIAL SQ SCH (08:48)
[2018-04-08 09:00] LABS: Glucose,Whole Blood 227 mg/dL (75-99)
--- NOTE | 2018-04-08 11:01 | P.PN ---
Subjective Progress Note Date: 04/08/18 Principal diagnosis: Double vessel coronary artery disease, severe aortic valve stenosis, preserved systolic function. History of obesity, hypertension, hyperlipidemia on Lipitor at home, diabetes with preoperative hemoglobin A1c 7.4%, coronary artery disease status post history of remote stenting to circumflex system, chronic Plavix intake, prostate cancer status post prostatectomy in 2001, skin cancer 3 years ago, previous tobacco dependence with preoperative FEV1 89% of predicted. POD #4 aortic valve replacement using a 23 mm bovine bioprosthesis in spite wrists. Triple coronary artery bypass grafting using the left internal mammary artery to the left anterior descending coronary artery, a reverse greater saphenous vein graft from the aorta to the diagonal coronary artery, a reverse greater saphenous vein graft from the aorta to the posterior descending coronary artery. Intraoperative transesophageal echocardiogram and epi-aortic scanning. Acute hypoxic respiratory failure, prolonged mechanical ventilation, an unexpected outcome. Acute blood loss anemia, an expected outcome of surgery related to hemodilution and bypass pump. The patient is currently sitting up to the bedside chair. He is in no acute distress. Currently rates his pain on the pain scale 2 out of 10. Denies any complaints of shortness of breath. He is alert and oriented 3. He is achieving 3599-8117 mL on his incentive spirometry. Currently on 3 L nasal cannula with oxygen saturations 95%. Objective - Vital Signs Vital signs: Vital Signs Temp 98.5 F 04/08/18 08:00 Pulse 92 04/08/18 09:00 Resp 17 04/08/18 09:00 BP 138/62 04/05/18 08:00 Pulse Ox 95 04/08/18 09:00 Intake & Output 04/07/18 04/08/18 04/08/18 18:59 06:59 18:59 Intake Total 973.951 399.874 46 Output Total 750 860 105 Balance 223.951 -460.126 -59 Weight 109.9 kg 107.6 kg Intake: IV 305 299 46 Lactated Ringers 1,000 ml 240 260 40 @ 20 mls/hr IV .Q24H [facility] Rx#:[id number] co/ci 20 pressure bag 45 39 6 Intake, IV Titration 108.951 100.874 0 Amount Dexmedetomidine/0.9% NaCl 12.680 (Pmx) 400 mcg In Empty Bag 1 bag @ Titrate IV . Q0M [facility] Rx#:[id number] Insulin Regular 100 unit 96.271 100.874 0 In Sodium Chloride 0.9% 100 ml @ Per Protocol IV .Q0M [facility] Rx#:[id number] Oral 100 Tube Feeding 120 Blood Product 310 Rc As-1 Unit 310 [id number] Other 30 Output: Chest Tube Drainage 60 Chest Tube Left 60 Drainage 35 Right Calf 35 Urine 655 860 105 Other: Voiding Method Indwelling Catheter Indwelling Catheter Indwelling Catheter ABP, PAP, CO, CI - Last Documented Arterial Blood Pressure 162/56 Pulmonary Artery Pressure 38/19 Cardiac Output 6.6 Cardiac Index 3.1 - Constitutional General appearance: Present: cooperative, no acute distress, obese - Respiratory Details: Lungs sounds essentially clear throughout, diminished to his bilateral bases. Respirations are symmetrical and nonlabored. Oxygen saturation is 95% on 3 L nasal cannula. He is achieving 5967-7748 mL on his incentive spirometry. - Cardiovascular Details: Regular rhythm and rate. S1-S2 present, negative for S3, gallop or murmur. Sternum is stable. Bedside telemetry showing normal sinus rhythm heart rate 75. Atrial and ventricular epicardial pacemaker wires in place and grounded. Knee-high PAMELA hose and sequential compression devices in place to his bilateral lower extremities. Right IJ cordis in place with continuous CVP monitoring. Current CVP pressures 6 mmHg. Right radial arterial line in place and functioning. No edema present. - Gastrointestinal Gastrointestinal Comment(s): Abdomen is soft, nontender and nondistended. Active bowel sounds all 4 abdominal quadrants. Tolerating oral intake. Passing flatus. - Genitourinary Genitourinary Comment(s): Hernandez catheter for accurate I&O. Draining clear yellow urine. 385 mL output in the last 8 hours. - Integumentary Integumentary Comment(s): Skin is warm and dry. No clubbing or cyanosis present. Midline sternal incision clean and dry and approximated. No drainage or redness present. Right lower extremity EVH site clean and dry and approximated. No drainage or redness present. - Neurologic Neurologic Comment(s): No focal deficits. Neurologic: Present: CNII-XII intact - Musculoskeletal Musculoskeletal: Present: gait normal, generalized weakness, strength equal bilaterally - Psychiatric Psychiatric: Present: A&O x's 3, appropriate affect, intact judgment & insight - Allied health notes Allied health notes reviewed: nursing - Labs CBC & Chem 7: 04/08/18 04:20 04/08/18 04:20 Labs: Abnormal Lab Results - Last 24 Hours (Table) 04/07/18 04/07/18 04/07/18 Range/Units 07:25 11:00 12:08 WBC (3.8-10.6) k/uL RBC (4.30-5.90) m/uL Hgb (13.0-17.5) gm/dL Hct (39.0-53.0) % RDW (11.5-15.5) % Plt Count (150-450) k/uL Neutrophils # (1.3-7.7) k/uL Monocytes # (0-1.0) k/uL BUN (9-20) mg/dL Glucose (74-99) mg/dL POC Glucose (mg/dL) 147 H 104 H (75-99) mg/dL Calcium (8.4-10.2) mg/dL Magnesium (1.6-2.3) mg/dL Total Protein (6.3-8.2) g/dL Albumin (3.5-5.0) g/dL Crossmatch See Detail 04/07/18 04/07/18 04/07/18 Range/Units 14:03 16:30 18:17 WBC 14.1 H (3.8-10.6) k/uL RBC 2.57 L (4.30-5.90) m/uL Hgb 7.5 L D (13.0-17.5) gm/dL Hct 22.0 L (39.0-53.0) % RDW (11.5-15.5) % Plt Count 84 L (150-450) k/uL Neutrophils # (1.3-7.7) k/uL Monocytes # (0-1.0) k/uL BUN (9-20) mg/dL Glucose (74-99) mg/dL POC Glucose (mg/dL) 139 H 237 H (75-99) mg/dL Calcium (8.4-10.2) mg/dL Magnesium (1.6-2.3) mg/dL Total Protein (6.3-8.2) g/dL Albumin (3.5-5.0) g/dL Crossmatch 04/07/18 04/07/18 04/07/18 Range/Units 19:08 20:07 22:06 WBC (3.8-10.6) k/uL RBC (4.30-5.90) m/uL Hgb (13.0-17.5) gm/dL Hct (39.0-53.0) % RDW (11.5-15.5) % Plt Count (150-450) k/uL Neutrophils # (1.3-7.7) k/uL Monocytes # (0-1.0) k/uL BUN (9-20) mg/dL Glucose (74-99) mg/dL POC Glucose (mg/dL) 261 H 155 H 72 L (75-99) mg/dL Calcium (8.4-10.2) mg/dL Magnesium (1.6-2.3) mg/dL Total Protein (6.3-8.2) g/dL Albumin (3.5-5.0) g/dL Crossmatch 04/07/18 04/07/18 04/08/18 Range/Units 22:54 23:57 01:08 WBC (3.8-10.6) k/uL RBC (4.30-5.90) m/uL Hgb (13.0-17.5) gm/dL Hct (39.0-53.0) % RDW (11.5-15.5) % Plt Count (150-450) k/uL Neutrophils # (1.3-7.7) k/uL Monocytes # (0-1.0) k/uL BUN (9-20) mg/dL Glucose (74-99) mg/dL POC Glucose (mg/dL) 100 H 148 H 122 H (75-99) mg/dL Calcium (8.4-10.2) mg/dL Magnesium (1.6-2.3) mg/dL Total Protein (6.3-8.2) g/dL Albumin (3.5-5.0) g/dL Crossmatch 04/08/18 04/08/18 04/08/18 Range/Units 04:10 04:20 04:20 WBC 14.9 H (3.8-10.6) k/uL RBC 2.51 L (4.30-5.90) m/uL Hgb 7.3 L (13.0-17.5) gm/dL Hct 22.4 L (39.0-53.0) % RDW 15.9 H (11.5-15.5) % Plt Count 109 L (150-450) k/uL Neutrophils # 11.4 H (1.3-7.7) k/uL Monocytes # 1.2 H (0-1.0) k/uL BUN 28 H (9-20) mg/dL Glucose 145 H (74-99) mg/dL POC Glucose (mg/dL) 148 H (75-99) mg/dL Calcium 8.3 L (8.4-10.2) mg/dL Magnesium 2.4 H (1.6-2.3) mg/dL Total Protein 5.2 L (6.3-8.2) g/dL Albumin 2.9 L (3.5-5.0) g/dL Crossmatch 04/08/18 04/08/18 04/08/18 Range/Units 05:10 06:53 08:11 WBC (3.8-10.6) k/uL RBC (4.30-5.90) m/uL Hgb (13.0-17.5) gm/dL Hct (39.0-53.0) % RDW (11.5-15.5) % Plt Count (150-450) k/uL Neutrophils # (1.3-7.7) k/uL Monocytes # (0-1.0) k/uL BUN (9-20) mg/dL Glucose (74-99) mg/dL POC Glucose (mg/dL) 128 H 121 H 214 H (75-99) mg/dL Calcium (8.4-10.2) mg/dL Magnesium (1.6-2.3) mg/dL Total Protein (6.3-8.2) g/dL Albumin (3.5-5.0) g/dL Crossmatch 04/08/18 Range/Units 08:59 WBC (3.8-10.6) k/uL RBC (4.30-5.90) m/uL Hgb (13.0-17.5) gm/dL Hct (39.0-53.0) % RDW (11.5-15.5) % Plt Count (150-450) k/uL Neutrophils # (1.3-7.7) k/uL Monocytes # (0-1.0) k/uL BUN (9-20) mg/dL Glucose (74-99) mg/dL POC Glucose (mg/dL) 227 H (75-99) mg/dL Calcium (8.4-10.2) mg/dL Magnesium (1.6-2.3) mg/dL Total Protein (6.3-8.2) g/dL Albumin (3.5-5.0) g/dL Crossmatch - Imaging and Cardiology Chest x-ray: report reviewed, image reviewed Assessment and Plan (1) Coronary artery disease Current Visit: Yes Status: Chronic Code(s): I25.10 - ATHSCL HEART DISEASE OF [place] CORONARY ARTERY W/O ANG PCTRS SNOMED Code(s): 55928738 (2) History of heart artery stent Current Visit: Yes Status: Chronic Code(s): Z95.5 - PRESENCE OF CORONARY ANGIOPLASTY IMPLANT AND GRAFT SNOMED Code(s): 416254509 (3) Hyperlipidemia Current Visit: Yes Status: Chronic Code(s): E78.5 - HYPERLIPIDEMIA, UNSPECIFIED SNOMED Code(s): 47508188 (4) Hypertension Current Visit: Yes Status: Chronic Code(s): I10 - ESSENTIAL (PRIMARY) HYPERTENSION SNOMED Code(s): 03672952 (5) Non-insulin dependent type 2 diabetes mellitus Current Visit: Yes Status: Chronic Code(s): E11.9 - TYPE 2 DIABETES MELLITUS WITHOUT COMPLICATIONS SNOMED Code(s): 48356006 (6) Obesity (BMI 30-39.9) Current Visit: Yes Status: Chronic Code(s): E66.9 - OBESITY, UNSPECIFIED SNOMED Code(s): 182052721 (7) Severe aortic stenosis Current Visit: Yes Status: Chronic Code(s): I35.0 - NONRHEUMATIC AORTIC ( VALVE) STENOSIS SNOMED Code(s): 25674997 (8) History of prostate cancer Current Visit: No Status: Resolved Code(s): Z85.46 - PERSONAL HISTORY OF MALIGNANT NEOPLASM OF PROSTATE SNOMED Code(s): 235548005 Plan: 1. Continue low-dose aspirin, statin, Plavix, ELIANA inhibitor and beta lamar. Will increase beta lamar therapy as tolerated. 2. Wean wean oxygen as tolerated. Encourage use of his incentive spirometry every hour while awake. 3. Increase activity as tolerated. PT/OT/cardiac rehab following. 4. Bronchodilators, steroids per pulmonology. 5. Will monitor daily labs and x-rays. 6. Continue Arixtra subcu. HIT panel results pending. 7. GI prophylaxis with Protonix. DVT prophylaxis with Arixtra, SCDs. 8. Pain management with current medication regimen. 9. Insulin management per primary care service. 10. Discontinue Cordis and right radial arterial line. 11. Discontinue Hernandez catheter. 12. Increase lisinopril to 20 mg by mouth daily at noon. 13. We will transfer the patient to [address] [place] [address] when there is a bed available. 14. Discharge planning in place. 15. More recommendations to follow based on patient's clinical course. Time with Patient: Greater than 30
--- NOTE | 2018-04-08 11:30 | P.PN ---
Subjective Progress Note Date: 04/08/18 This 67-year-old gentleman is status post bypass surgery and also aortic valve replacement with tissue valve. Patient is feeling much better. His is sitting up in the chair. Doesn't appear to be in acute distress. Maintaining sinus rhythm. Patient is being transferred to telemetry unit. Objective - Vital Signs Vital signs: Vital Signs Temp 98.5 F 04/08/18 08:00 Pulse 92 04/08/18 09:00 Resp 17 04/08/18 09:00 BP 138/62 04/05/18 08:00 Pulse Ox 95 04/08/18 09:00 Intake & Output 04/07/18 04/08/18 04/08/18 18:59 06:59 18:59 Intake Total 973.951 399.874 46 Output Total 750 860 105 Balance 223.951 -460.126 -59 Weight 109.9 kg 107.6 kg Intake: IV 305 299 46 Lactated Ringers 1,000 ml 240 260 40 @ 20 mls/hr IV .Q24H JOE Rx#:[id number] co/ci 20 pressure bag 45 39 6 Intake, IV Titration 108.951 100.874 0 Amount Dexmedetomidine/0.9% NaCl 12.680 (Pmx) 400 mcg In Empty Bag 1 bag @ Titrate IV . Q0M JOE Rx#:[id number] Insulin Regular 100 unit 96.271 100.874 0 In Sodium Chloride 0.9% 100 ml @ Per Protocol IV .Q0M JOE Rx#:[id number] Oral 100 Tube Feeding 120 Blood Product 310 Rc As-1 Unit 310 [id number] Other 30 Output: Chest Tube Drainage 60 Chest Tube Left 60 Drainage 35 Right Calf 35 Urine 655 860 105 Other: Voiding Method Indwelling Catheter Indwelling Catheter Indwelling Catheter ABP, PAP, CO, CI - Last Documented Arterial Blood Pressure 162/56 Pulmonary Artery Pressure 38/19 Cardiac Output 6.6 Cardiac Index 3.1 - Exam GENERAL EXAM: Patient is alert and oriented and doesn't appear to be in any acute distress HEENT: Normocephalic. Normal reaction of pupils, equal size, normal range of extraocular motion. NECK: No masses, no nuchal rigidity. CHEST: No chest wall deformity. LUNGS: Equal air entry with no crackles or wheeze. HEART: S1 and S2 normal with no audible mumurs or gallops. Regular rhythm ABDOMEN: No hepatosplenomegaly, normal bowel sounds, no guarding or rigidity. SKIN: No rashes CENTRAL NERVOUS SYSTEM: No focal deficits. EXTREMITIES: No cyanosis, clubbing or edema. - Labs CBC & Chem 7: 04/08/18 04:20 04/08/18 04:20 Labs: Abnormal Lab Results - Last 24 Hours (Table) 04/07/18 04/07/18 04/07/18 Range/Units 07:25 12:08 14:03 WBC (3.8-10.6) k/uL RBC (4.30-5.90) m/uL Hgb (13.0-17.5) gm/dL Hct (39.0-53.0) % RDW (11.5-15.5) % Plt Count (150-450) k/uL Neutrophils # (1.3-7.7) k/uL Monocytes # (0-1.0) k/uL BUN (9-20) mg/dL Glucose (74-99) mg/dL POC Glucose (mg/dL) 104 H 139 H (75-99) mg/dL Calcium (8.4-10.2) mg/dL Magnesium (1.6-2.3) mg/dL Total Protein (6.3-8.2) g/dL Albumin (3.5-5.0) g/dL Crossmatch See Detail 04/07/18 04/07/18 04/07/18 Range/Units 16:30 18:17 19:08 WBC 14.1 H (3.8-10.6) k/uL RBC 2.57 L (4.30-5.90) m/uL Hgb 7.5 L D (13.0-17.5) gm/dL Hct 22.0 L (39.0-53.0) % RDW (11.5-15.5) % Plt Count 84 L (150-450) k/uL Neutrophils # (1.3-7.7) k/uL Monocytes # (0-1.0) k/uL BUN (9-20) mg/dL Glucose (74-99) mg/dL POC Glucose (mg/dL) 237 H 261 H (75-99) mg/dL Calcium (8.4-10.2) mg/dL Magnesium (1.6-2.3) mg/dL Total Protein (6.3-8.2) g/dL Albumin (3.5-5.0) g/dL Crossmatch 04/07/18 04/07/18 04/07/18 Range/Units 20:07 22:06 22:54 WBC (3.8-10.6) k/uL RBC (4.30-5.90) m/uL Hgb (13.0-17.5) gm/dL Hct (39.0-53.0) % RDW (11.5-15.5) % Plt Count (150-450) k/uL Neutrophils # (1.3-7.7) k/uL Monocytes # (0-1.0) k/uL BUN (9-20) mg/dL Glucose (74-99) mg/dL POC Glucose (mg/dL) 155 H 72 L 100 H (75-99) mg/dL Calcium (8.4-10.2) mg/dL Magnesium (1.6-2.3) mg/dL Total Protein (6.3-8.2) g/dL Albumin (3.5-5.0) g/dL Crossmatch 04/07/18 04/08/18 04/08/18 Range/Units 23:57 01:08 04:10 WBC (3.8-10.6) k/uL RBC (4.30-5.90) m/uL Hgb (13.0-17.5) gm/dL Hct (39.0-53.0) % RDW (11.5-15.5) % Plt Count (150-450) k/uL Neutrophils # (1.3-7.7) k/uL Monocytes # (0-1.0) k/uL BUN (9-20) mg/dL Glucose (74-99) mg/dL POC Glucose (mg/dL) 148 H 122 H 148 H (75-99) mg/dL Calcium (8.4-10.2) mg/dL Magnesium (1.6-2.3) mg/dL Total Protein (6.3-8.2) g/dL Albumin (3.5-5.0) g/dL Crossmatch 04/08/18 04/08/18 04/08/18 Range/Units 04:20 04:20 05:10 WBC 14.9 H (3.8-10.6) k/uL RBC 2.51 L (4.30-5.90) m/uL Hgb 7.3 L (13.0-17.5) gm/dL Hct 22.4 L (39.0-53.0) % RDW 15.9 H (11.5-15.5) % Plt Count 109 L (150-450) k/uL Neutrophils # 11.4 H (1.3-7.7) k/uL Monocytes # 1.2 H (0-1.0) k/uL BUN 28 H (9-20) mg/dL Glucose 145 H (74-99) mg/dL POC Glucose (mg/dL) 128 H (75-99) mg/dL Calcium 8.3 L (8.4-10.2) mg/dL Magnesium 2.4 H (1.6-2.3) mg/dL Total Protein 5.2 L (6.3-8.2) g/dL Albumin 2.9 L (3.5-5.0) g/dL Crossmatch 04/08/18 04/08/18 04/08/18 Range/Units 06:53 08:11 08:59 WBC (3.8-10.6) k/uL RBC (4.30-5.90) m/uL Hgb (13.0-17.5) gm/dL Hct (39.0-53.0) % RDW (11.5-15.5) % Plt Count (150-450) k/uL Neutrophils # (1.3-7.7) k/uL Monocytes # (0-1.0) k/uL BUN (9-20) mg/dL Glucose (74-99) mg/dL POC Glucose (mg/dL) 121 H 214 H 227 H (75-99) mg/dL Calcium (8.4-10.2) mg/dL Magnesium (1.6-2.3) mg/dL Total Protein (6.3-8.2) g/dL Albumin (3.5-5.0) g/dL Crossmatch Assessment and Plan (1) Coronary artery disease Current Visit: Yes Status: Chronic Code(s): I25.10 - ATHSCL HEART DISEASE OF [place] CORONARY ARTERY W/O ANG PCTRS SNOMED Code(s): 82682600 (2) History of heart artery stent Current Visit: Yes Status: Chronic Code(s): Z95.5 - PRESENCE OF CORONARY ANGIOPLASTY IMPLANT AND GRAFT SNOMED Code(s): 453603523 (3) Hyperlipidemia Current Visit: Yes Status: Chronic Code(s): E78.5 - HYPERLIPIDEMIA, UNSPECIFIED SNOMED Code(s): 48045963 (4) Hypertension Current Visit: Yes Status: Chronic Code(s): I10 - ESSENTIAL (PRIMARY) HYPERTENSION SNOMED Code(s): 79018769 (5) Non-insulin dependent type 2 diabetes mellitus Current Visit: Yes Status: Chronic Code(s): E11.9 - TYPE 2 DIABETES MELLITUS WITHOUT COMPLICATIONS SNOMED Code(s): 18595511 Plan: Patient is clinically stable. Progressing fairly well. Being transferred to telemetry unit
--- NOTE | 2018-04-08 11:51 | P.PN ---
Subjective Progress Note Date: 04/08/18 Principal diagnosis: Status post CABG and aortic valve replacement, postoperative day #4 This is a 67-year-old white male, see him today on consultation, patient is postoperative day #1, aortic valve replacement using a 23 mm bovine bioprosthesis, triple coronary artery bypass grafting using AKHTAR to LAD, reverse saphenous vein graft from aorta to the diagonal artery and reverse saphenous vein graft from aorta to posterior descending. Postoperatively, patient was on mechanical ventilation, and I was asked to see him on consultation. 3 hours after his surgery, patient failed the weaning trial, he was noted to have relative hypoxemia, and low pH consistent with metabolic acidosis. Hence a shunt was kept on mechanical ventilation, and early this morning another attempt was made, patient failed mostly because of his low pO2 around 50 on pressure support of 8 and CPAP. Hence the patient was placed back on mechanical ventilation again with assist control mode, tidal volume of 600, assist control rate of 16, and FiO2 up to 80% with PEEP of 8. Repeat ABG is pending. Chest x-ray showed mild interstitial edema. Patient was given Lasix. Patient had a low hemoglobin earlier today of 6.5, he has received a unit of packed RBCs early this morning. Reevaluated today on 04/06/2018, his postoperative day #2, aortic valve replacement and triple coronary artery bypass grafting. Patient developed significant drop in his pO2 yesterday on CPAP, and his pO2 was 50 on the blood gases this was on FiO2 of 50%. Hence I felt that the patient could not be weaned and extubated. Placed back on assist control mode of mechanical ventilation, placed back on a PEEP of 8 and today he is on a PEEP of 10. Continues to have significant desaturations and a CT of the chest was done today , there was no evidence of pulmonary embolism but there was definitely significant bibasilar atelectasis. Hence I increased his PEEP up to 10, and the patient remains marginal his ABG still reflecting a pO2 of 70 on 70%, hence I felt not quite ready for weaning today. Again the CT of the chest was done to rule out pulmonary embolism and it was negative. The chest x-ray clearly shows atelectasis, but do not explain the profound hypoxemia noted on the ABG. Patient is on propofol, and on a lower dose of propofol he seems to be very appropriate, follows simple instructions. ABG this morning showed pO2 of 70 pCO2 of 35 pH of 7.49. WBC count is 13.9 hemoglobin is 7.7. is at bedside , and she was updated on his condition. Reevaluated today on 04/07/2018, postoperative day #3, status post aortic valve replacement and triple coronary artery disease bypass surgery. Patient remains on mechanical ventilation, his ventilator settings were reviewed, patient was noted to have decent ABG, and he was all along on a PEEP of 10, FiO2 of 50%, ABG showed a pO2 of 96 pCO2 of 34 pH of 7.49. Patient was awakened , propofol was discontinued, patient was closely monitored, placed on pressure support and CPAP, kept him on a PEEP of 6. Pressure support was 8, patient did quite well, follow-up ABG was excellent. Hence proceeded to extubating the patient. I was at bedside all along during the whole process. Chest x-ray was reviewed all labs were reviewed, hemoglobin is 6.0, receiving another unit of packed RBCs today. His metabolic profile was noted to be normal, renal profile is normal. Reevaluated today on 04/08/2018, patient is status post aortic valve replacement and triple coronary artery disease bypass surgery, postoperative day #4. Patient was extubated yesterday uneventfully, however considering his overall condition, I had to extubate him to BiPAP initially, and now he is on few liters nasal cannula. Patient did not use BiPAP in the last 24 hours, he seems to be very comfortable, and in no form of distress. Chest x-ray showed minimal left basilar atelectasis, and small tiny left pleural effusion. Clinically the patient is doing great, no cough no wheezing no shortness of breath. And we are considering transferring him from the ICU to a monitor bed on selective today. Objective - Vital Signs Vital signs: Vital Signs Temp 98.5 F 04/08/18 08:00 Pulse 92 04/08/18 09:00 Resp 17 04/08/18 09:00 BP 138/62 04/05/18 08:00 Pulse Ox 95 04/08/18 09:00 Intake & Output 04/07/18 04/08/18 04/08/18 18:59 06:59 18:59 Intake Total 973.951 399.874 46 Output Total 750 860 105 Balance 223.951 -460.126 -59 Weight 109.9 kg 107.6 kg Intake: IV 305 299 46 Lactated Ringers 1,000 ml 240 260 40 @ 20 mls/hr IV .Q24H [facility]E Rx#:[id number] co/ci 20 pressure bag 45 39 6 Intake, IV Titration 108.951 100.874 0 Amount Dexmedetomidine/0.9% NaCl 12.680 (Pmx) 400 mcg In Empty Bag 1 bag @ Titrate IV . Q0M JOE Rx#:[id number] Insulin Regular 100 unit 96.271 100.874 0 In Sodium Chloride 0.9% 100 ml @ Per Protocol IV .Q0M JOE Rx#:[id number] Oral 100 Tube Feeding 120 Blood Product 310 Rc As-1 Unit 310 [id number] Other 30 Output: Chest Tube Drainage 60 Chest Tube Left 60 Drainage 35 Right Calf 35 Urine 655 860 105 Other: Voiding Method Indwelling Catheter Indwelling Catheter Indwelling Catheter ABP, PAP, CO, CI - Last Documented Arterial Blood Pressure 162/56 Pulmonary Artery Pressure 38/19 Cardiac Output 6.6 Cardiac Index 3.1 - Exam Physical Exam: 67-year-old white male on 3 L nasal cannula, in no distress. Head: Atraumatic, normocephalic HEENT:[ Large obese neck, Neck is supple.] [No neck masses.] [No thyromegaly.] [ No JVD.] right jugular cordis remains in place. Chest: [Equal breath sound bilaterally, no rhonchi and no wheezes. Symmetrical chest expansion. No chest wall tenderness. Doing excellent with incentive spirometry over 1700. Cardiac Exam:Regular rhythm and rate. S1-S2 present, negative for S3, gallop or murmur. Sternum is stable. Bedside telemetry showing normal sinus rhythm heart rate 75. Atrial and ventricular epicardial pacemaker wires in place and grounded. Knee-high Regular rhythm and rate. S1-S2 present, negative for S3, gallop or murmur. Sternum is stable. Bedside telemetry showing normal sinus rhythm heart rate 75. Atrial and ventricular epicardial pacemaker wires in place and grounded. Knee-high PAMELA hose and sequential compression devices in place to his bilateral lower extremities. Right IJ cordis in place with continuous CVP monitoring. Current CVP pressures 6 mmHg. Right radial arterial line in place and functioning. No edema present. . Right IJ cordis in place with continuous CVP monitoring. Current CVP pressures 6 mmHg. Right radial arterial line in place and functioning. No edema present. Abdomen: [Obese, Soft, nontender, no megaly, no rebound, no guarding, ] Extremities: [1+ bipedal edema, no cyanosis. No clubbing. Neurological Exam: No gross focal neurologic alert oriented 3. Lymphatics: No lymph nodes were palpable. Psychiatric: Normal mood affect and mental status examination. - Labs CBC & Chem 7: 04/08/18 04:20 04/08/18 04:20 Labs: Abnormal Lab Results - Last 24 Hours (Table) 04/07/18 04/07/18 04/07/18 Range/Units 07:25 12:08 14:03 WBC (3.8-10.6) k/uL RBC (4.30-5.90) m/uL Hgb (13.0-17.5) gm/dL Hct (39.0-53.0) % RDW (11.5-15.5) % Plt Count (150-450) k/uL Neutrophils # (1.3-7.7) k/uL Monocytes # (0-1.0) k/uL BUN (9-20) mg/dL Glucose (74-99) mg/dL POC Glucose (mg/dL) 104 H 139 H (75-99) mg/dL Calcium (8.4-10.2) mg/dL Magnesium (1.6-2.3) mg/dL Total Protein (6.3-8.2) g/dL Albumin (3.5-5.0) g/dL Crossmatch See Detail 04/07/18 04/07/18 04/07/18 Range/Units 16:30 18:17 19:08 WBC 14.1 H (3.8-10.6) k/uL RBC 2.57 L (4.30-5.90) m/uL Hgb 7.5 L D (13.0-17.5) gm/dL Hct 22.0 L (39.0-53.0) % RDW (11.5-15.5) % Plt Count 84 L (150-450) k/uL Neutrophils # (1.3-7.7) k/uL Monocytes # (0-1.0) k/uL BUN (9-20) mg/dL Glucose (74-99) mg/dL POC Glucose (mg/dL) 237 H 261 H (75-99) mg/dL Calcium (8.4-10.2) mg/dL Magnesium (1.6-2.3) mg/dL Total Protein (6.3-8.2) g/dL Albumin (3.5-5.0) g/dL Crossmatch 04/07/18 04/07/18 04/07/18 Range/Units 20:07 22:06 22:54 WBC (3.8-10.6) k/uL RBC (4.30-5.90) m/uL Hgb (13.0-17.5) gm/dL Hct (39.0-53.0) % RDW (11.5-15.5) % Plt Count (150-450) k/uL Neutrophils # (1.3-7.7) k/uL Monocytes # (0-1.0) k/uL BUN (9-20) mg/dL Glucose (74-99) mg/dL POC Glucose (mg/dL) 155 H 72 L 100 H (75-99) mg/dL Calcium (8.4-10.2) mg/dL Magnesium (1.6-2.3) mg/dL Total Protein (6.3-8.2) g/dL Albumin (3.5-5.0) g/dL Crossmatch 04/07/18 04/08/18 04/08/18 Range/Units 23:57 01:08 04:10 WBC (3.8-10.6) k/uL RBC (4.30-5.90) m/uL Hgb (13.0-17.5) gm/dL Hct (39.0-53.0) % RDW (11.5-15.5) % Plt Count (150-450) k/uL Neutrophils # (1.3-7.7) k/uL Monocytes # (0-1.0) k/uL BUN (9-20) mg/dL Glucose (74-99) mg/dL POC Glucose (mg/dL) 148 H 122 H 148 H (75-99) mg/dL Calcium (8.4-10.2) mg/dL Magnesium (1.6-2.3) mg/dL Total Protein (6.3-8.2) g/dL Albumin (3.5-5.0) g/dL Crossmatch 04/08/18 04/08/18 04/08/18 Range/Units 04:20 04:20 05:10 WBC 14.9 H (3.8-10.6) k/uL RBC 2.51 L (4.30-5.90) m/uL Hgb 7.3 L (13.0-17.5) gm/dL Hct 22.4 L (39.0-53.0) % RDW 15.9 H (11.5-15.5) % Plt Count 109 L (150-450) k/uL Neutrophils # 11.4 H (1.3-7.7) k/uL Monocytes # 1.2 H (0-1.0) k/uL BUN 28 H (9-20) mg/dL Glucose 145 H (74-99) mg/dL POC Glucose (mg/dL) 128 H (75-99) mg/dL Calcium 8.3 L (8.4-10.2) mg/dL Magnesium 2.4 H (1.6-2.3) mg/dL Total Protein 5.2 L (6.3-8.2) g/dL Albumin 2.9 L (3.5-5.0) g/dL Crossmatch 04/08/18 04/08/18 04/08/18 Range/Units 06:53 08:11 08:59 WBC (3.8-10.6) k/uL RBC (4.30-5.90) m/uL Hgb (13.0-17.5) gm/dL Hct (39.0-53.0) % RDW (11.5-15.5) % Plt Count (150-450) k/uL Neutrophils # (1.3-7.7) k/uL Monocytes # (0-1.0) k/uL BUN (9-20) mg/dL Glucose (74-99) mg/dL POC Glucose (mg/dL) 121 H 214 H 227 H (75-99) mg/dL Calcium (8.4-10.2) mg/dL Magnesium (1.6-2.3) mg/dL Total Protein (6.3-8.2) g/dL Albumin (3.5-5.0) g/dL Crossmatch Assessment and Plan Assessment: Impression: Postoperative day #4, status post aortic valve replacement and CABG. Postoperative hypoxic respiratory failure mostly secondary to atelectasis, unexpected. Negative CT angiogram of the chest yesterday. No evidence of pulmonary embolism. Multiple comorbidities including morbid obesity previous ME hypertension type 2 diabetes. Recommendation: Patient was extubated on 04/07/2018, his post extubation course has been uneventful, we'll continue nasal cannula at 3 L, continue incentive spirometry, likely transfer out of the ICU today. Time with Patient: Less than 30
[2018-04-08 12:26] LABS: Glucose,Whole Blood 190 mg/dL (75-99)
[2018-04-08] MEDS: methylPREDNISolone 4 MG TAB TAPER PO SCH (13:10)
[2018-04-08] MEDS: INSULIN ASPART 100 UNIT/ML 1 ML 10 ML VIAL SQ SCH ×3 (13:13→21:28)
[2018-04-08] MEDS: LISINOPRIL 20 MG TAB PO SCH (13:14)
--- NOTE | 2018-04-08 14:21 | P.PN ---
Subjective Progress Note Date: 04/08/18 Principal diagnosis: chest pain Patient is a 67-year-old male past medical history of hypertension, coronary artery disease status post stent 5, severe aortic stenosis, dyslipidemia, and diabetes mellitus type 2 controlled on oral medications with preoperative hemoglobin A1c of 7.4 who presented for triple-vessel coronary artery bypass grafting and aortic valve replacement. Patient underwent procedure on 04/04 without any immediate postoperative complications. He developed anemia postop and required an additional unit of pRBC. He had prolonged mechanical ventilation and was vented through the morning of 04/06/18. Patient required increased FiO2 overnight. His platelets have continued to decrease, heparin is no hold and HIT AB ordered. Successfully extubated on 04/07 Patient seen and examined at bedside. Sitting up in chair. Chest pain well controlled, no nausea, no SOB, feeling fatigued. Objective - Vital Signs Vital signs: Vital Signs Temp 98.2 F 04/08/18 12:00 Pulse 77 04/08/18 13:00 Resp 24 04/08/18 13:00 BP 129/63 04/08/18 13:00 Pulse Ox 95 04/08/18 13:00 Intake & Output 04/07/18 04/08/18 04/08/18 18:59 06:59 18:59 Intake Total 973.951 399.874 46 Output Total 750 860 205 Balance 223.951 -460.126 -159 Weight 109.9 kg 107.6 kg Intake: IV 305 299 46 Lactated Ringers 1,000 ml 240 260 40 @ 20 mls/hr IV .Q24H JOE Rx#:[id number] co/ci 20 pressure bag 45 39 6 Intake, IV Titration 108.951 100.874 0 Amount Dexmedetomidine/0.9% NaCl 12.680 (Pmx) 400 mcg In Empty Bag 1 bag @ Titrate IV . Q0M JOE Rx#:[id number] Insulin Regular 100 unit 96.271 100.874 0 In Sodium Chloride 0.9% 100 ml @ Per Protocol IV .Q0M JOE Rx#:[id number] Oral 100 Tube Feeding 120 Blood Product 310 Rc As-1 Unit 310 [id number] Other 30 Output: Chest Tube Drainage 60 Chest Tube Left 60 Drainage 35 Right Calf 35 Urine 655 860 205 Other: Voiding Method Indwelling Catheter Indwelling Catheter Indwelling Catheter ABP, PAP, CO, CI - Last Documented Arterial Blood Pressure 162/56 Pulmonary Artery Pressure 38/19 Cardiac Output 6.6 Cardiac Index 3.1 - Exam General: non toxic, no distress distress, appears at stated age, obese Derm: warm, dry Head: atraumatic, normocephalic, symmetric Eyes: EOMI, no lid lag, anicteric sclera Mouth: no lip lesion, mucus membranes moist. Cardiovascular: S1S2 reg, no murmur, positive posterior tibial pulse bilateral, left chest tube in place Lungs: Decreased breath sounds bilateral, no rhonchi, no rales , no accessory muscle use, on vent Abdominal: soft, nontender to palpation, no guarding, no appreciable organomegaly Ext: no gross muscle atrophy, 2+ edema, no contractures Neuro: CN II-XI grossly intact, no focal neuro deficits Psych: Alert, oriented, anxious but appropriate - Labs CBC & Chem 7: 04/08/18 04:20 04/08/18 04:20 Labs: Abnormal Lab Results - Last 24 Hours (Table) 04/07/18 04/07/18 04/07/18 Range/Units 14:03 16:30 18:17 WBC 14.1 H (3.8-10.6) k/uL RBC 2.57 L (4.30-5.90) m/uL Hgb 7.5 L D (13.0-17.5) gm/dL Hct 22.0 L (39.0-53.0) % RDW (11.5-15.5) % Plt Count 84 L (150-450) k/uL Neutrophils # (1.3-7.7) k/uL Monocytes # (0-1.0) k/uL BUN (9-20) mg/dL Glucose (74-99) mg/dL POC Glucose (mg/dL) 139 H 237 H (75-99) mg/dL Calcium (8.4-10.2) mg/dL Magnesium (1.6-2.3) mg/dL Total Protein (6.3-8.2) g/dL Albumin (3.5-5.0) g/dL 04/07/18 04/07/18 04/07/18 Range/Units 19:08 20:07 22:06 WBC (3.8-10.6) k/uL RBC (4.30-5.90) m/uL Hgb (13.0-17.5) gm/dL Hct (39.0-53.0) % RDW (11.5-15.5) % Plt Count (150-450) k/uL Neutrophils # (1.3-7.7) k/uL Monocytes # (0-1.0) k/uL BUN (9-20) mg/dL Glucose (74-99) mg/dL POC Glucose (mg/dL) 261 H 155 H 72 L (75-99) mg/dL Calcium (8.4-10.2) mg/dL Magnesium (1.6-2.3) mg/dL Total Protein (6.3-8.2) g/dL Albumin (3.5-5.0) g/dL 04/07/18 04/07/18 04/08/18 Range/Units 22:54 23:57 01:08 WBC (3.8-10.6) k/uL RBC (4.30-5.90) m/uL Hgb (13.0-17.5) gm/dL Hct (39.0-53.0) % RDW (11.5-15.5) % Plt Count (150-450) k/uL Neutrophils # (1.3-7.7) k/uL Monocytes # (0-1.0) k/uL BUN (9-20) mg/dL Glucose (74-99) mg/dL POC Glucose (mg/dL) 100 H 148 H 122 H (75-99) mg/dL Calcium (8.4-10.2) mg/dL Magnesium (1.6-2.3) mg/dL Total Protein (6.3-8.2) g/dL Albumin (3.5-5.0) g/dL 04/08/18 04/08/18 04/08/18 Range/Units 04:10 04:20 04:20 WBC 14.9 H (3.8-10.6) k/uL RBC 2.51 L (4.30-5.90) m/uL Hgb 7.3 L (13.0-17.5) gm/dL Hct 22.4 L (39.0-53.0) % RDW 15.9 H (11.5-15.5) % Plt Count 109 L (150-450) k/uL Neutrophils # 11.4 H (1.3-7.7) k/uL Monocytes # 1.2 H (0-1.0) k/uL BUN 28 H (9-20) mg/dL Glucose 145 H (74-99) mg/dL POC Glucose (mg/dL) 148 H (75-99) mg/dL Calcium 8.3 L (8.4-10.2) mg/dL Magnesium 2.4 H (1.6-2.3) mg/dL Total Protein 5.2 L (6.3-8.2) g/dL Albumin 2.9 L (3.5-5.0) g/dL 04/08/18 04/08/18 04/08/18 Range/Units 05:10 06:53 08:11 WBC (3.8-10.6) k/uL RBC (4.30-5.90) m/uL Hgb (13.0-17.5) gm/dL Hct (39.0-53.0) % RDW (11.5-15.5) % Plt Count (150-450) k/uL Neutrophils # (1.3-7.7) k/uL Monocytes # (0-1.0) k/uL BUN (9-20) mg/dL Glucose (74-99) mg/dL POC Glucose (mg/dL) 128 H 121 H 214 H (75-99) mg/dL Calcium (8.4-10.2) mg/dL Magnesium (1.6-2.3) mg/dL Total Protein (6.3-8.2) g/dL Albumin (3.5-5.0) g/dL 04/08/18 04/08/18 Range/Units 08:59 12:24 WBC (3.8-10.6) k/uL RBC (4.30-5.90) m/uL Hgb (13.0-17.5) gm/dL Hct (39.0-53.0) % RDW (11.5-15.5) % Plt Count (150-450) k/uL Neutrophils # (1.3-7.7) k/uL Monocytes # (0-1.0) k/uL BUN (9-20) mg/dL Glucose (74-99) mg/dL POC Glucose (mg/dL) 227 H 190 H (75-99) mg/dL Calcium (8.4-10.2) mg/dL Magnesium (1.6-2.3) mg/dL Total Protein (6.3-8.2) g/dL Albumin (3.5-5.0) g/dL Assessment and Plan Assessment: Acute blood loss anemia with thrombocytopenia, anticipated outcome of surgery - status post one unit of packed red blood cells 04/05 and one 04/07 - min Shetty ab - Repeat CBC in a.m. Diabetes mellitus type 2 [id number] -Preop A1c 7.4 -Hold metformin and glipizide - Patient with several low blood sugars throughout the night. We'll transition off of insulin drip. Levemir 20 units now and then sliding scale. -Will check 2 hour postprandial and determine need for fixed dose in addition to sliding scale. Obesity with BMI 37.8 -Outpatient structured weight loss Coronary artery disease with severe aortic stenosis - Status post triple bypass with aortic valve replacement -Management per primary team - left CT in place Hypertension -controlled -Metoprolol per cardiothoracic Dyslipidemia -Lipitor Hypophosphatemia -Replace per protocol -Repeat in a.m. Acute hypoxic respiratory failure, improved DVT prophylaxis: Sena Discussed with: Patient, nursing, Trini bridges [employer] A total of 35 minutes was spent on the care of this complex patient more than 50 % of the time was spent in counseling and care coordination.
[2018-04-08 14:57] LABS: Glucose,Whole Blood 262 mg/dL (75-99)
[2018-04-08 16:49] LABS: Glucose,Whole Blood 265 mg/dL (75-99)
[2018-04-08 18:25] LABS: Glucose,Whole Blood 242 mg/dL (75-99)
[2018-04-08] MEDS ORDERED: INSULIN ASPART 100 UNIT/ML 1 ML 10 ML VIAL SQ ONE (18:25)
[2018-04-08] MEDS ORDERED: diphenhydrAMINE 50 MG/ML 1 ML VIAL IVP STA (18:34)
[2018-04-08] MEDS ORDERED: methylPREDNISolone SOD SUCCI 125 MG/2 ML VIAL IV STA (18:35)
--- NOTE | 2018-04-08 19:01 | XR ---
EXAMINATION TYPE: XR chest 1V portable DATE OF EXAM: 04/08/2018 CLINICAL HISTORY: Difficulty breathing progress study. TECHNIQUE: Single AP portable upright view of the chest is obtained. COMPARISON: Chest x-ray from one day earlier FINDINGS: Interval removal of a right IJ central line. Small left pleural effusion is suspected. No pneumothorax. No focal consolidation. Postsurgical gonzáles es of the mediastinum are stable. Osseous structures remain intact. IMPRESSION: 1. Persistent small left pleural effusion. 2. No significant interval findings.
[2018-04-08] MEDS ORDERED: FAMOTIDINE 20 MG/2 ML VIAL IV STA (19:02)
[2018-04-08] MEDS: HYDROcodone/APAP 5-325MG 1 EACH TAB PO PRN (19:49)
[2018-04-08] MEDS: SENNOSIDES-DOCUSATE SODIUM 1 EACH TAB PO SCH (20:25)
[2018-04-08 20:33] LABS: Glucose,Whole Blood 197 mg/dL (75-99)
[2018-04-08] MEDS ORDERED: MORPHINE SULFATE 4 MG/ML SYRINGE IVP STA (20:51)
[2018-04-09 02:08] LABS: Glucose,Whole Blood 211 mg/dL (75-99)
[2018-04-09] MEDS: INSULIN ASPART 100 UNIT/ML 1 ML 10 ML VIAL SQ SCH ×8 (02:11→21:03)
[2018-04-09 06:19] LABS: Glucose,Whole Blood 167 mg/dL (75-99)
--- NOTE | 2018-04-09 06:46 | XR ---
EXAMINATION TYPE: XR chest 2V DATE OF EXAM: 04/09/2018 HISTORY: Postoperative cardiac surgery. REFERENCE: Previous study dated 04/08/2018. FINDINGS: There has been a midline sternotomy. The heart is enlarged. There is improved aeration at the left lung base. I suspect a small left effus ion. IMPRESSION: 1. CARDIOMEGALY. 2. SMALL LEFT EFFUSION.
[2018-04-09] MEDS: PANTOPRAZOLE 40 MG TABLET PO SCH (06:48)
[2018-04-09 07:21] LABS: ALT 54 U/L (21-72); AST 47 U/L (17-59); Albumin 3.4 g/dL (3.5-5.0); Alkaline Phosphatase 55 U/L (38-126); Anion Gap 10 mmol/L; Blood Urea Nitrogen 26 mg/dL (9-20); Calcium 8.6 mg/dL (8.4-10.2); Carbon Dioxide 26 mmol/L (22-30); Chloride 105 mmol/L (98-107); Glucose 140 mg/dL (74-99); Magnesium 2.5 mg/dL (1.6-2.3); Potassium 4.8 mmol/L (3.5-5.1); Sodium 141 mmol/L (137-145); Total Bilirubin 0.9 mg/dL (0.2-1.3)
[2018-04-09 07:23] LABS: Basophils % (A) 0 %; Eosinophils # (A) 0.1 k/uL (0-0.7); Eosinophils % (A) 1 %; HCT 23.4 % (39.0-53.0); HGB 7.7 gm/dL (13.0-17.5); Hypochromasia Slight; Lymphocytes # (A) 1.8 k/uL (1.0-4.8); Lymphocytes % (A) 15 %; MCH 29.3 pg (25.0-35.0); MCV 88.6 fL (80.0-100.0); Mean Platelet Volume 7.8; Monocytes # (A) 0.9 k/uL (0-1.0); Monocytes % (A) 7 %; Neutrophils # (A) 8.9 k/uL (1.3-7.7); Neutrophils % (A) 75 %; Poikilocytosis Slight; RBC 2.64 m/uL (4.30-5.90); RDW 15.8 % (11.5-15.5); WBC 11.9 k/uL (3.8-10.6)
[2018-04-09 07:24] LABS: Platelet Count 179 k/uL (150-450)
[2018-04-09] MEDS: IPRATROPIUM-ALBUTEROL 3 ML NEB INHALATION SCH ×4 (07:44→19:50)
[2018-04-09] MEDS: METOPROLOL TARTRATE 50 MG TAB PO SCH ×2 (07:45→21:03)
[2018-04-09] MEDS: CLOPIDOGREL 75 MG TAB PO SCH (07:45)
[2018-04-09] MEDS: ATORVASTATIN 40 MG TAB PO SCH (07:46)
[2018-04-09] MEDS: ASPIRIN 81 MG PO SCH (07:46)
[2018-04-09] MEDS: FONDAPARINUX 2.5 MG/0.5 ML SYRINGE SQ SCH (07:46)
[2018-04-09] MEDS: methylPREDNISolone 4 MG TAB TAPER PO SCH (07:47)
[2018-04-09] MEDS: INSULIN DETEMIR 100 UNIT/ML 10 ML VIAL SQ SCH (07:52)
[2018-04-09] MEDS ORDERED: POLYETHYLENE GLYCOL 3350 17 GM POWD.PACK PO STA (09:47)
--- NOTE | 2018-04-09 10:27 | P.PN ---
Subjective Progress Note Date: 04/09/18 This 67-year-old gentleman is status post bypass surgery and also aortic valve replacement with tissue valve. Patient is feeling much better. His is sitting up in the chair. Doesn't appear to be in acute distress. Maintaining sinus rhythm. Patient is being transferred to telemetry unit. 04/09/2018. The patient is seen and evaluated on the telemetry unit. He remains in normal sinus mechanism. Denies any chest discomfort, shortness of breath or palpitations. He is hemodynamically stable and afebrile. Hemoglobin is stable at 77 this morning. Objective - Vital Signs Vital signs: Vital Signs Temp 96.2 F L 04/09/18 07:57 Pulse 81 04/09/18 07:58 Resp 20 04/09/18 07:57 BP 124/60 04/09/18 07:57 Pulse Ox 98 04/09/18 07:57 Intake & Output 04/08/18 04/09/18 04/09/18 18:59 06:59 18:59 Intake Total 46 150 Output Total 205 Balance -159 150 Weight 107.5 kg Intake: IV 46 Lactated Ringers 1,000 ml 40 @ 20 mls/hr IV .Q24H JOE Rx#:[id number] pressure bag 6 Intake, IV Titration 0 Amount Insulin Regular 100 unit 0 In Sodium Chloride 0.9% 100 ml @ Per Protocol IV .Q0M JOE Rx#:[id number] Oral 150 Output: Urine 205 Other: Voiding Method Indwelling Catheter Urinal # Voids 1 ABP, PAP, CO, CI - Last Documented Arterial Blood Pressure 162/56 Pulmonary Artery Pressure 38/19 Cardiac Output 6.6 Cardiac Index 3.1 - Exam GENERAL EXAM: Patient is alert and oriented and doesn't appear to be in any acute distress HEENT: Normocephalic. Normal reaction of pupils, equal size, normal range of extraocular motion. NECK: No masses, no nuchal rigidity. CHEST: No chest wall deformity. LUNGS: Equal air entry with no crackles or wheeze. HEART: S1 and S2 normal with no audible mumurs or gallops. Regular rhythm ABDOMEN: No hepatosplenomegaly, normal bowel sounds, no guarding or rigidity. SKIN: No rashes CENTRAL NERVOUS SYSTEM: No focal deficits. EXTREMITIES: No cyanosis, clubbing or edema. - Labs CBC & Chem 7: 04/09/18 05:54 04/09/18 05:54 Labs: Abnormal Lab Results - Last 24 Hours (Table) 04/08/18 04/08/18 04/08/18 Range/Units 12:24 14:54 16:30 WBC (3.8-10.6) k/uL RBC (4.30-5.90) m/uL Hgb (13.0-17.5) gm/dL Hct (39.0-53.0) % RDW (11.5-15.5) % Neutrophils # (1.3-7.7) k/uL BUN (9-20) mg/dL Glucose (74-99) mg/dL POC Glucose (mg/dL) 190 H 262 H 265 H (75-99) mg/dL Magnesium (1.6-2.3) mg/dL Total Protein (6.3-8.2) g/dL Albumin (3.5-5.0) g/dL 04/08/18 04/08/18 04/09/18 Range/Units 18:21 20:32 01:53 WBC (3.8-10.6) k/uL RBC (4.30-5.90) m/uL Hgb (13.0-17.5) gm/dL Hct (39.0-53.0) % RDW (11.5-15.5) % Neutrophils # (1.3-7.7) k/uL BUN (9-20) mg/dL Glucose (74-99) mg/dL POC Glucose (mg/dL) 242 H 197 H 211 H (75-99) mg/dL Magnesium (1.6-2.3) mg/dL Total Protein (6.3-8.2) g/dL Albumin (3.5-5.0) g/dL 04/09/18 04/09/18 04/09/18 Range/Units 05:54 05:54 06:18 WBC 11.9 H (3.8-10.6) k/uL RBC 2.64 L (4.30-5.90) m/uL Hgb 7.7 L (13.0-17.5) gm/dL Hct 23.4 L (39.0-53.0) % RDW 15.8 H (11.5-15.5) % Neutrophils # 8.9 H (1.3-7.7) k/uL BUN 26 H (9-20) mg/dL Glucose 140 H (74-99) mg/dL POC Glucose (mg/dL) 167 H (75-99) mg/dL Magnesium 2.5 H (1.6-2.3) mg/dL Total Protein 6.0 L (6.3-8.2) g/dL Albumin 3.4 L (3.5-5.0) g/dL Assessment and Plan Assessment: CAD with severe ALS, status post CABG 3 with aortic valve replacement Hyperlipidemia Hypertension Hyperlipidemia Diabetes type 2 Acute blood loss anemia Plan: Continue with current medication regimen. No changes today. The patient is progressing well. Continue with telemetry monitoring. Strict I&O and daily weights. We will continue to follow him closely.
--- NOTE | 2018-04-09 10:45 | P.PN ---
Subjective Progress Note Date: 04/09/18 Principal diagnosis: Double vessel coronary artery disease, severe aortic valve stenosis, preserved systolic function. History of obesity, hypertension, hyperlipidemia on Lipitor at home, diabetes with preoperative hemoglobin A1c 7.4%, coronary artery disease status post history of remote stenting to circumflex system, chronic Plavix intake, prostate cancer status post prostatectomy in 2001, skin cancer 3 years ago, previous tobacco dependence with preoperative FEV1 89% of predicted. POD #5 aortic valve replacement using a 23 mm bovine bioprosthesis in spite wrists. Triple coronary artery bypass grafting using the left internal mammary artery to the left anterior descending coronary artery, a reverse greater saphenous vein graft from the aorta to the diagonal coronary artery, a reverse greater saphenous vein graft from the aorta to the posterior descending coronary artery. Intraoperative transesophageal echocardiogram and epi-aortic scanning. Acute hypoxic respiratory failure, prolonged mechanical ventilation, an unexpected outcome. Acute blood loss anemia, an expected outcome of surgery related to hemodilution and bypass pump. The patient is currently sitting up to the bedside chair. He is in no acute distress. He was transferred to [address] [place] [address] yesterday at 1450 p.m. Denies any complaints of pain or shortness of breath. He is alert and oriented 3. He is achieving 2000 mL on his incentive spirometry. Currently on 3 L nasal cannula with oxygen saturations 96%. Objective - Vital Signs Vital signs: Vital Signs Temp 96.2 F L 04/09/18 07:57 Pulse 81 04/09/18 07:58 Resp 20 04/09/18 07:57 BP 124/60 04/09/18 07:57 Pulse Ox 98 04/09/18 07:57 Intake & Output 04/08/18 04/09/18 04/09/18 18:59 06:59 18:59 Intake Total 46 150 Output Total 205 Balance -159 150 Weight 107.5 kg Intake: IV 46 Lactated Ringers 1,000 ml 40 @ 20 mls/hr IV .Q24H JOE Rx#:[id number] pressure bag 6 Intake, IV Titration 0 Amount Insulin Regular 100 unit 0 In Sodium Chloride 0.9% 100 ml @ Per Protocol IV .Q0M JOE Rx#:[id number] Oral 150 Output: Urine 205 Other: Voiding Method Indwelling Catheter Urinal # Voids 1 ABP, PAP, CO, CI - Last Documented Arterial Blood Pressure 162/56 Pulmonary Artery Pressure 38/19 Cardiac Output 6.6 Cardiac Index 3.1 - Constitutional General appearance: Present: cooperative, morbidly obese, no acute distress - Respiratory Details: Lungs sounds essentially clear throughout, diminished to his bilateral bases. Respirations are symmetrical and nonlabored. Oxygen saturation are 96% on 3 L nasal cannula. He is achieving 2000 mL on his incentive spirometry. - Cardiovascular Details: Regular rhythm and rate. S1 and S2 present, negative for S3, gallop or murmur. Sternum is stable. Remote telemetry showing normal sinus rhythm heart rate 83. Atrial and ventricular epicardial pacemaker wires in place and rounded. Knee-high PAMELA hose and sequential compression devices are in place to his bilateral lower extremities. No edema present. - Gastrointestinal Gastrointestinal Comment(s): Abdomen is soft, nontender and nondistended. Active bowel sounds all 4 abdominal quadrants. Tolerating oral intake. Passing flatus. No bowel movement since surgery. - Genitourinary Genitourinary Comment(s): Voiding clear yellow urine. - Integumentary Integumentary Comment(s): Skin is warm and dry. No clubbing or cyanosis present. Midline sternal incision clean dry and approximated. No drainage or redness present. Right lower extremity EVH site clean dry and approximated. No drainage or redness present. Right thigh ecchymosis soft palpate, and nontender. No rash or abnormal pigmentation present. - Neurologic Neurologic Comment(s): No focal deficits. Neurologic: Present: CNII-XII intact - Musculoskeletal Musculoskeletal: Present: gait normal, strength equal bilaterally - Psychiatric Psychiatric: Present: A&O x's 3, appropriate affect, intact judgment & insight - Allied health notes Allied health notes reviewed: nursing - Labs CBC & Chem 7: 04/09/18 05:54 04/09/18 05:54 Labs: Abnormal Lab Results - Last 24 Hours (Table) 04/08/18 04/08/18 04/08/18 Range/Units 12:24 14:54 16:30 WBC (3.8-10.6) k/uL RBC (4.30-5.90) m/uL Hgb (13.0-17.5) gm/dL Hct (39.0-53.0) % RDW (11.5-15.5) % Neutrophils # (1.3-7.7) k/uL BUN (9-20) mg/dL Glucose (74-99) mg/dL POC Glucose (mg/dL) 190 H 262 H 265 H (75-99) mg/dL Magnesium (1.6-2.3) mg/dL Total Protein (6.3-8.2) g/dL Albumin (3.5-5.0) g/dL 04/08/18 04/08/18 04/09/18 Range/Units 18:21 20:32 01:53 WBC (3.8-10.6) k/uL RBC (4.30-5.90) m/uL Hgb (13.0-17.5) gm/dL Hct (39.0-53.0) % RDW (11.5-15.5) % Neutrophils # (1.3-7.7) k/uL BUN (9-20) mg/dL Glucose (74-99) mg/dL POC Glucose (mg/dL) 242 H 197 H 211 H (75-99) mg/dL Magnesium (1.6-2.3) mg/dL Total Protein (6.3-8.2) g/dL Albumin (3.5-5.0) g/dL 04/09/18 04/09/18 04/09/18 Range/Units 05:54 05:54 06:18 WBC 11.9 H (3.8-10.6) k/uL RBC 2.64 L (4.30-5.90) m/uL Hgb 7.7 L (13.0-17.5) gm/dL Hct 23.4 L (39.0-53.0) % RDW 15.8 H (11.5-15.5) % Neutrophils # 8.9 H (1.3-7.7) k/uL BUN 26 H (9-20) mg/dL Glucose 140 H (74-99) mg/dL POC Glucose (mg/dL) 167 H (75-99) mg/dL Magnesium 2.5 H (1.6-2.3) mg/dL Total Protein 6.0 L (6.3-8.2) g/dL Albumin 3.4 L (3.5-5.0) g/dL - Imaging and Cardiology Chest x-ray: report reviewed, image reviewed Assessment and Plan (1) Coronary artery disease Current Visit: Yes Status: Chronic Code(s): I25.10 - ATHSCL HEART DISEASE OF [place] CORONARY ARTERY W/O ANG PCTRS SNOMED Code(s): 73660000 (2) History of heart artery stent Current Visit: Yes Status: Chronic Code(s): Z95.5 - PRESENCE OF CORONARY ANGIOPLASTY IMPLANT AND GRAFT SNOMED Code(s): 485992103 (3) Hyperlipidemia Current Visit: Yes Status: Chronic Code(s): E78.5 - HYPERLIPIDEMIA, UNSPECIFIED SNOMED Code(s): 01235481 (4) Hypertension Current Visit: Yes Status: Chronic Code(s): I10 - ESSENTIAL (PRIMARY) HYPERTENSION SNOMED Code(s): 06493008 (5) Non-insulin dependent type 2 diabetes mellitus Current Visit: Yes Status: Chronic Code(s): E11.9 - TYPE 2 DIABETES MELLITUS WITHOUT COMPLICATIONS SNOMED Code(s): 55468877 (6) Obesity (BMI 30-39.9) Current Visit: Yes Status: Chronic Code(s): E66.9 - OBESITY, UNSPECIFIED SNOMED Code(s): 640464789 (7) Severe aortic stenosis Current Visit: Yes Status: Chronic Code(s): I35.0 - NONRHEUMATIC AORTIC ( VALVE) STENOSIS SNOMED Code(s): 08335191 (8) History of prostate cancer Current Visit: No Status: Resolved Code(s): Z85.46 - PERSONAL HISTORY OF MALIGNANT NEOPLASM OF PROSTATE SNOMED Code(s): 165967547 Plan: 1. Continue low-dose aspirin, statin, Plavix, ELIANA inhibitor and beta lamar. Will increase beta lamar therapy as tolerated. 2. Wean wean oxygen as tolerated. Encourage use of his incentive spirometry every hour while awake. 3. Increase activity as tolerated. PT/OT/cardiac rehab following. 4. Bronchodilators, steroids per pulmonology. 5. Will monitor daily labs and x-rays. 6. Continue Arixtra subcu. HIT panel results pending. 7. GI prophylaxis with Protonix. DVT prophylaxis with Arixtra, SCDs. 8. Pain management with current medication regimen. 9. Insulin management per primary care service. 10. Discharge planning in place. 11. More recommendations to follow based on patient's clinical course. Time with Patient: Greater than 30
--- NOTE | 2018-04-09 11:13 | P.PN ---
Subjective Progress Note Date: 04/09/18 Principal diagnosis: Status post CABG and aortic valve replacement, postoperative day #5 This is a 67-year-old white male, see him today on consultation, patient is postoperative day #1, aortic valve replacement using a 23 mm bovine bioprosthesis, triple coronary artery bypass grafting using AKHTAR to LAD, reverse saphenous vein graft from aorta to the diagonal artery and reverse saphenous vein graft from aorta to posterior descending. Postoperatively, patient was on mechanical ventilation, and I was asked to see him on consultation. 3 hours after his surgery, patient failed the weaning trial, he was noted to have relative hypoxemia, and low pH consistent with metabolic acidosis. Hence a shunt was kept on mechanical ventilation, and early this morning another attempt was made, patient failed mostly because of his low pO2 around 50 on pressure support of 8 and CPAP. Hence the patient was placed back on mechanical ventilation again with assist control mode, tidal volume of 600, assist control rate of 16, and FiO2 up to 80% with PEEP of 8. Repeat ABG is pending. Chest x-ray showed mild interstitial edema. Patient was given Lasix. Patient had a low hemoglobin earlier today of 6.5, he has received a unit of packed RBCs early this morning. Reevaluated today on 04/06/2018, his postoperative day #2, aortic valve replacement and triple coronary artery bypass grafting. Patient developed significant drop in his pO2 yesterday on CPAP, and his pO2 was 50 on the blood gases this was on FiO2 of 50%. Hence I felt that the patient could not be weaned and extubated. Placed back on assist control mode of mechanical ventilation, placed back on a PEEP of 8 and today he is on a PEEP of 10. Continues to have significant desaturations and a CT of the chest was done today , there was no evidence of pulmonary embolism but there was definitely significant bibasilar atelectasis. Hence I increased his PEEP up to 10, and the patient remains marginal his ABG still reflecting a pO2 of 70 on 70%, hence I felt not quite ready for weaning today. Again the CT of the chest was done to rule out pulmonary embolism and it was negative. The chest x-ray clearly shows atelectasis, but do not explain the profound hypoxemia noted on the ABG. Patient is on propofol, and on a lower dose of propofol he seems to be very appropriate, follows simple instructions. ABG this morning showed pO2 of 70 pCO2 of 35 pH of 7.49. WBC count is 13.9 hemoglobin is 7.7. is at bedside , and she was updated on his condition. Reevaluated today on 04/07/2018, postoperative day #3, status post aortic valve replacement and triple coronary artery disease bypass surgery. Patient remains on mechanical ventilation, his ventilator settings were reviewed, patient was noted to have decent ABG, and he was all along on a PEEP of 10, FiO2 of 50%, ABG showed a pO2 of 96 pCO2 of 34 pH of 7.49. Patient was awakened , propofol was discontinued, patient was closely monitored, placed on pressure support and CPAP, kept him on a PEEP of 6. Pressure support was 8, patient did quite well, follow-up ABG was excellent. Hence proceeded to extubating the patient. I was at bedside all along during the whole process. Chest x-ray was reviewed all labs were reviewed, hemoglobin is 6.0, receiving another unit of packed RBCs today. His metabolic profile was noted to be normal, renal profile is normal. Reevaluated today on 04/08/2018, patient is status post aortic valve replacement and triple coronary artery disease bypass surgery, postoperative day #4. Patient was extubated yesterday uneventfully, however considering his overall condition, I had to extubate him to BiPAP initially, and now he is on few liters nasal cannula. Patient did not use BiPAP in the last 24 hours, he seems to be very comfortable, and in no form of distress. Chest x-ray showed minimal left basilar atelectasis, and small tiny left pleural effusion. Clinically the patient is doing great, no cough no wheezing no shortness of breath. And we are considering transferring him from the ICU to a monitor bed on selective today. Seen today on 04/09/2018, patient is postoperative day #5. Patient is on selective, monitor bed, doing well, presently on few liters nasal cannula. Has BiPAP at bedside, but he is not using it. Chest x-ray showed minimal atelectasis, and small tiny left pleural effusion, expected. Labs were reviewed relatively normal basic metabolic profile is normal CBC hemoglobin is 7.7 Objective - Vital Signs Vital signs: Vital Signs Temp 96.2 F L 04/09/18 07:57 Pulse 81 04/09/18 07:58 Resp 20 04/09/18 07:57 BP 124/60 04/09/18 07:57 Pulse Ox 98 04/09/18 07:57 Intake & Output 04/08/18 04/09/18 04/09/18 18:59 06:59 18:59 Intake Total 46 150 Output Total 205 Balance -159 150 Weight 107.5 kg Intake: IV 46 Lactated Ringers 1,000 ml 40 @ 20 mls/hr IV .Q24H JOE Rx#:[id number] pressure bag 6 Intake, IV Titration 0 Amount Insulin Regular 100 unit 0 In Sodium Chloride 0.9% 100 ml @ Per Protocol IV .Q0M JOE Rx#:[id number] Oral 150 Output: Urine 205 Other: Voiding Method Indwelling Catheter Urinal # Voids 1 ABP, PAP, CO, CI - Last Documented Arterial Blood Pressure 162/56 Pulmonary Artery Pressure 38/19 Cardiac Output 6.6 Cardiac Index 3.1 - Exam Physical Exam: 67-year-old in no distress, on few liters nasal cannula. Head: Unremarkable. HEENT:[ Large obese neck, Neck is supple.] No thyromegaly, no JVD.] Chest: [Good breath sound bilaterally no crackles or rhonchi or wheezes. Cardiac Exam:Regular rhythm and rate. S1-S2 present, negative for S3, gallop or murmur. Sternum is stable. Bedside telemetry showing normal sinus rhythm heart rate 75. Atrial and ventricular epicardial pacemaker wires in place and grounded. Knee-high Regular rhythm and rate. S1-S2 present, negative for S3, gallop or murmur. Sternum is stable. Abdomen: [Obese, Soft, nontender, no megaly, no rebound, no guarding, ] Extremities: [Trace of bipedal edema, no cyanosis. Neurological Exam: No focal deficit, intact. Lymphatics: No lymph nodes were palpable. Psychiatric: Unremarkable. Normal mental status - Labs CBC & Chem 7: 04/09/18 05:54 04/09/18 05:54 Labs: Abnormal Lab Results - Last 24 Hours (Table) 04/08/18 04/08/18 04/08/18 Range/Units 12:24 14:54 16:30 WBC (3.8-10.6) k/uL RBC (4.30-5.90) m/uL Hgb (13.0-17.5) gm/dL Hct (39.0-53.0) % RDW (11.5-15.5) % Neutrophils # (1.3-7.7) k/uL BUN (9-20) mg/dL Glucose (74-99) mg/dL POC Glucose (mg/dL) 190 H 262 H 265 H (75-99) mg/dL Magnesium (1.6-2.3) mg/dL Total Protein (6.3-8.2) g/dL Albumin (3.5-5.0) g/dL 04/08/18 04/08/18 04/09/18 Range/Units 18:21 20:32 01:53 WBC (3.8-10.6) k/uL RBC (4.30-5.90) m/uL Hgb (13.0-17.5) gm/dL Hct (39.0-53.0) % RDW (11.5-15.5) % Neutrophils # (1.3-7.7) k/uL BUN (9-20) mg/dL Glucose (74-99) mg/dL POC Glucose (mg/dL) 242 H 197 H 211 H (75-99) mg/dL Magnesium (1.6-2.3) mg/dL Total Protein (6.3-8.2) g/dL Albumin (3.5-5.0) g/dL 04/09/18 04/09/18 04/09/18 Range/Units 05:54 05:54 06:18 WBC 11.9 H (3.8-10.6) k/uL RBC 2.64 L (4.30-5.90) m/uL Hgb 7.7 L (13.0-17.5) gm/dL Hct 23.4 L (39.0-53.0) % RDW 15.8 H (11.5-15.5) % Neutrophils # 8.9 H (1.3-7.7) k/uL BUN 26 H (9-20) mg/dL Glucose 140 H (74-99) mg/dL POC Glucose (mg/dL) 167 H (75-99) mg/dL Magnesium 2.5 H (1.6-2.3) mg/dL Total Protein 6.0 L (6.3-8.2) g/dL Albumin 3.4 L (3.5-5.0) g/dL Assessment and Plan Assessment: Impression: Postoperative day #5, status post aortic valve replacement and CABG. Postoperative hypoxic respiratory failure requiring an extra day of mechanical ventilation, mostly secondary to postoperative atelectasis, unexpected Multiple comorbidities including morbid obesity previous [place] hypertension type 2 diabetes. Recommendation: Patient was extubated on 04/07/2018, continues to tolerate extubation, presently on a monitor bed on , chest x-ray was reviewed labs were reviewed, patient is doing well with incentive spirometry, he is ambulating, probable discharge planning in the next 24-48 hours. Time with Patient: Less than 30
[2018-04-09 11:55] LABS: Glucose,Whole Blood 185 mg/dL (75-99)
[2018-04-09] MEDS: FUROSEMIDE 10 MG/ML 4 ML VIAL IV SCH (12:01)
[2018-04-09] MEDS: LISINOPRIL 20 MG TAB PO SCH (12:01)
--- NOTE | 2018-04-09 13:08 | P.PN ---
Subjective Progress Note Date: 04/09/18 (Delayed charting patient seen at 0830) Principal diagnosis: chest pain Patient is a 67-year-old male past medical history of hypertension, coronary artery disease status post stent 5, severe aortic stenosis, dyslipidemia, and diabetes mellitus type 2 controlled on oral medications with preoperative hemoglobin A1c of 7.4 who presented for triple-vessel coronary artery bypass grafting and aortic valve replacement. Patient underwent procedure on 04/04 without any immediate postoperative complications. He developed anemia postop and required an additional unit of pRBC. He had prolonged mechanical ventilation and was vented through the morning of 04/06/18. Patient required increased FiO2 overnight. His platelets have continued to decrease, heparin is no hold and HIT AB ordered. Successfully extubated on . Alllergic rxn on 04/08 given solumedrol, benadryl, and pepcid. Patient seen and examined at bedside. Sitting up in chair. Doing well today. No SOB, pain controlled, no nausea, no BM still. Objective - Vital Signs Vital signs: Vital Signs Temp 96.4 F L 04/09/18 12:00 Pulse 76 04/09/18 12:00 Resp 20 04/09/18 12:00 BP 132/64 04/09/18 12:00 Pulse Ox 95 04/09/18 12:00 Intake & Output 04/08/18 04/09/18 04/09/18 18:59 06:59 18:59 Intake Total 46 150 Output Total 205 Balance -159 150 Weight 107.5 kg 107.5 kg Intake: IV 46 Lactated Ringers 1,000 ml 40 @ 20 mls/hr IV .Q24H JOE Rx#:[id number] pressure bag 6 Intake, IV Titration 0 Amount Insulin Regular 100 unit 0 In Sodium Chloride 0.9% 100 ml @ Per Protocol IV .Q0M JOE Rx#:[id number] Oral 150 Output: Urine 205 Other: Voiding Method Indwelling Catheter Urinal # Voids 1 ABP, PAP, CO, CI - Last Documented Arterial Blood Pressure 162/56 Pulmonary Artery Pressure 38/19 Cardiac Output 6.6 Cardiac Index 3.1 - Exam General: non toxic, no distress distress, appears at stated age, obese Derm: warm, dry Head: atraumatic, normocephalic, symmetric Eyes: EOMI, no lid lag, anicteric sclera Mouth: no lip lesion, mucus membranes moist. Cardiovascular: S1S2 reg, no murmur, positive posterior tibial pulse bilateral Lungs:CTA bilateral, no rhonchi, no rales , no accessory muscle use, on vent Abdominal: soft, nontender to palpation, no guarding, no appreciable organomegaly Ext: no gross muscle atrophy, 1+ edema, no contractures Neuro: CN II-XI grossly intact, no focal neuro deficits Psych: Alert, oriented, anxious but appropriate - Labs CBC & Chem 7: 04/09/18 05:54 04/09/18 05:54 Labs: Abnormal Lab Results - Last 24 Hours (Table) 04/08/18 04/08/18 04/08/18 Range/Units 14:54 16:30 18:21 WBC (3.8-10.6) k/uL RBC (4.30-5.90) m/uL Hgb (13.0-17.5) gm/dL Hct (39.0-53.0) % RDW (11.5-15.5) % Neutrophils # (1.3-7.7) k/uL BUN (9-20) mg/dL Glucose (74-99) mg/dL POC Glucose (mg/dL) 262 H 265 H 242 H (75-99) mg/dL Magnesium (1.6-2.3) mg/dL Total Protein (6.3-8.2) g/dL Albumin (3.5-5.0) g/dL 04/08/18 04/09/18 04/09/18 Range/Units 20:32 01:53 05:54 WBC 11.9 H (3.8-10.6) k/uL RBC 2.64 L (4.30-5.90) m/uL Hgb 7.7 L (13.0-17.5) gm/dL Hct 23.4 L (39.0-53.0) % RDW 15.8 H (11.5-15.5) % Neutrophils # 8.9 H (1.3-7.7) k/uL BUN (9-20) mg/dL Glucose (74-99) mg/dL POC Glucose (mg/dL) 197 H 211 H (75-99) mg/dL Magnesium (1.6-2.3) mg/dL Total Protein (6.3-8.2) g/dL Albumin (3.5-5.0) g/dL 04/09/18 04/09/18 04/09/18 Range/Units 05:54 06:18 11:49 WBC (3.8-10.6) k/uL RBC (4.30-5.90) m/uL Hgb (13.0-17.5) gm/dL Hct (39.0-53.0) % RDW (11.5-15.5) % Neutrophils # (1.3-7.7) k/uL BUN 26 H (9-20) mg/dL Glucose 140 H (74-99) mg/dL POC Glucose (mg/dL) 167 H 185 H (75-99) mg/dL Magnesium 2.5 H (1.6-2.3) mg/dL Total Protein 6.0 L (6.3-8.2) g/dL Albumin 3.4 L (3.5-5.0) g/dL Assessment and Plan Assessment: Acute blood loss anemia anticipated outcome of surgery - status post one unit of packed red blood cells 04/05 and one 04/07 - improving start oal iron therapy X 30 days - Repeat CBC in a.m. Diabetes mellitus type 2 [id number] -Preop A1c 7.4, may need insulin for home if requirements due not decrease, anticipate decrease with transition to oral steroids. -Hold metformin and glipizide - Levemir 20 units, sliding scale + fixed dose - consult DM educator Obesity with BMI 37.8 -Outpatient structured weight loss Coronary artery disease with severe aortic stenosis - Status post triple bypass with aortic valve replacement -Management per primary team Hypertension -controlled -Metoprolol per cardiothoracic Dyslipidemia -Lipitor Hypophosphatemia, resolved Acute hypoxic respiratory failure, improved thrombocytopenia, resolved DVT prophylaxis: [place] Discussed with: Patient, nursing A total of 35 minutes was spent on the care of this complex patient more than 50 % of the time was spent in counseling and care coordination.
[2018-04-09 16:57] LABS: Glucose,Whole Blood 205 mg/dL (75-99)
[2018-04-09] MEDS ORDERED: INSULIN ASPART 100 UNIT/ML 1 ML 10 ML VIAL SQ ONE (17:01)
[2018-04-09] MEDS: FERROUS SULFATE 325 MG TAB PO SCH (17:08)
[2018-04-09 21:00] VITALS: RESP 20
[2018-04-09] MEDS: SENNOSIDES-DOCUSATE SODIUM 1 EACH TAB PO SCH (21:03)
[2018-04-09 21:06] LABS: Glucose,Whole Blood 187 mg/dL (75-99)
[2018-04-10 04:01] LABS: Glucose,Whole Blood 92 mg/dL (75-99)
[2018-04-10] MEDS: INSULIN ASPART 100 UNIT/ML 1 ML 10 ML VIAL SQ SCH ×4 (04:07→12:35)
[2018-04-10 06:25] LABS: Glucose,Whole Blood 105 mg/dL (75-99)
[2018-04-10 06:30] LABS: Anisocytosis Slight; Basophils # (A) 0.1 k/uL (0-0.2); Basophils % (A) 1 %; Eosinophils # (A) 0.2 k/uL (0-0.7); Eosinophils % (A) 1 %; HGB 7.6 gm/dL (13.0-17.5); Hypochromasia Slight; Lymphocytes # (A) 3.7 k/uL (1.0-4.8); Lymphocytes % (A) 23 %; MCH 29.3 pg (25.0-35.0); MCHC 33.2 g/dL (31.0-37.0); MCV 88.1 fL (80.0-100.0); Mean Platelet Volume 7.9; Monocytes # (A) 1.5 k/uL (0-1.0); Monocytes % (A) 9 %; Neutrophils # (A) 10.2 k/uL (1.3-7.7); Neutrophils % (A) 63 %; Platelet Count 193 k/uL (150-450); Poikilocytosis Slight; RBC 2.61 m/uL (4.30-5.90); WBC 16.2 k/uL (3.8-10.6)
[2018-04-10] MEDS: FERROUS SULFATE 325 MG TAB PO SCH (06:57)
[2018-04-10] MEDS: PANTOPRAZOLE 40 MG TABLET PO SCH (06:57)
[2018-04-10] MEDS: IPRATROPIUM-ALBUTEROL 3 ML NEB INHALATION SCH ×2 (07:55→14:10)
--- NOTE | 2018-04-10 08:08 | P.PN ---
Subjective Progress Note Date: 04/10/18 Principal diagnosis: chest pain Patient is a 67-year-old male past medical history of hypertension, coronary artery disease status post stent 5, severe aortic stenosis, dyslipidemia, and diabetes mellitus type 2 controlled on oral medications with preoperative hemoglobin A1c of 7.4 who presented for triple-vessel coronary artery bypass grafting and aortic valve replacement. Patient underwent procedure on 04/04 without any immediate postoperative complications. He developed anemia postop and required an additional unit of pRBC. He had prolonged mechanical ventilation and was vented through the morning of 04/06/18. Patient required increased FiO2 overnight. His platelets have continued to decrease, heparin is no hold and HIT AB ordered. Successfully extubated on . Alllergic rxn on 04/08 given solumedrol, benadryl, and pepcid. Has been requiring inslunin for blood sugar control. Patient seen and examined at bedside. No chest pain, shortness, nausea, or vomiting. Had a bowel movement yesterday. A long discussion about his sugars. He has required insulin here in the hospital however he is nervous and adverse to taking it at home. We will restart him on his home medications. He will check his blood sugars 3 times daily for the next [address] Meza's if they are maintained greater than 200. Objective - Vital Signs Vital signs: Vital Signs Temp 97.9 F 04/10/18 00:00 Pulse 80 04/10/18 04:00 Resp 20 04/10/18 04:00 BP 115/56 04/10/18 04:00 Pulse Ox 96 04/10/18 04:00 Intake & Output 04/09/18 04/10/18 04/10/18 18:59 06:59 18:59 Intake Total 550 480 Output Total 800 Balance 550 -320 Weight 107.5 kg 107.1 kg Intake: Oral 550 480 Output: Urine 800 Other: Voiding Method Urinal # Voids 1 1 ABP, PAP, CO, CI - Last Documented Arterial Blood Pressure 162/56 Pulmonary Artery Pressure 38/19 Cardiac Output 6.6 Cardiac Index 3.1 - Exam General: non toxic, no distress distress, appears at stated age, obese Derm: warm, dry Head: atraumatic, normocephalic, symmetric Eyes: EOMI, no lid lag, anicteric sclera Mouth: no lip lesion, mucus membranes moist. Cardiovascular: S1S2 reg, no murmur, positive posterior tibial pulse bilateral Lungs:CTA bilateral, no rhonchi, no rales , no accessory muscle use, on vent Abdominal: soft, nontender to palpation, no guarding, no appreciable organomegaly Ext: no gross muscle atrophy, trace edema, no contractures Neuro: CN II-XI grossly intact, no focal neuro deficits Psych: Alert, oriented, anxious but appropriate - Labs CBC & Chem 7: 04/10/18 05:46 04/10/18 05:46 Labs: Abnormal Lab Results - Last 24 Hours (Table) 04/07/18 04/09/18 04/09/18 Range/Units 07:25 11:49 16:46 WBC (3.8-10.6) k/uL RBC (4.30-5.90) m/uL Hgb (13.0-17.5) gm/dL Hct (39.0-53.0) % RDW (11.5-15.5) % Neutrophils # (1.3-7.7) k/uL Monocytes # (0-1.0) k/uL POC Glucose (mg/dL) 185 H 205 H (75-99) mg/dL Crossmatch See Detail 04/09/18 04/10/18 04/10/18 Range/Units 20:46 05:46 06:05 WBC 16.2 H (3.8-10.6) k/uL RBC 2.61 L (4.30-5.90) m/uL Hgb 7.6 L (13.0-17.5) gm/dL Hct 23.0 L (39.0-53.0) % RDW 17.0 H (11.5-15.5) % Neutrophils # 10.2 H (1.3-7.7) k/uL Monocytes # 1.5 H (0-1.0) k/uL POC Glucose (mg/dL) 187 H 105 H (75-99) mg/dL Crossmatch Assessment and Plan Assessment: Acute blood loss anemia anticipated outcome of surgery - status post one unit of packed red blood cells 04/05 and one 04/07 - improving start oal iron therapy X 30 days Diabetes mellitus type 2 [id number] -Preop A1c 7.4, Patient does not want to take insulin at home - resume metformin and glipizide. Check blood sugars TID at [facility] is > [address] Meza Obesity with BMI 37.8 -Outpatient structured weight loss Coronary artery disease with severe aortic stenosis - Status post triple bypass with aortic valve replacement -Management per primary team Hypertension -controlled -Metoprolol per cardiothoracic Dyslipidemia -Lipitor Hypophosphatemia, resolved Acute hypoxic respiratory failure, improved thrombocytopenia, resolved DVT prophylaxis: Sena Discussed with: Patient, nursing, Horace Bearden A total of 25 minutes was spent on the care of this complex patient more than 50 % of the time was spent in counseling and care coordination.
[2018-04-10] MEDS: ASPIRIN 81 MG PO SCH (08:27)
[2018-04-10] MEDS: CLOPIDOGREL 75 MG TAB PO SCH (08:27)
[2018-04-10] MEDS: ATORVASTATIN 40 MG TAB PO SCH (08:27)
[2018-04-10] MEDS: FONDAPARINUX 2.5 MG/0.5 ML SYRINGE SQ SCH (08:27)
[2018-04-10] MEDS: methylPREDNISolone 4 MG TAB TAPER PO SCH (08:28)
[2018-04-10] MEDS: METOPROLOL TARTRATE 50 MG TAB PO SCH (08:29)
[2018-04-10 08:39] LABS: ALT 98 U/L (21-72); AST 78 U/L (17-59); Alkaline Phosphatase 51 U/L (38-126); Anion Gap 6 mmol/L; Blood Urea Nitrogen 28 mg/dL (9-20); Calcium 8.3 mg/dL (8.4-10.2); Carbon Dioxide 26 mmol/L (22-30); Chloride 108 mmol/L (98-107); Glucose 98 mg/dL (74-99); Sodium 140 mmol/L (137-145); Total Protein 5.6 g/dL (6.3-8.2)
[2018-04-10] MEDS ORDERED: glipiZIDE 10 MG TAB PO SCH (09:00)
[2018-04-10] MEDS: FUROSEMIDE 10 MG/ML 4 ML VIAL IV SCH (09:28)
[2018-04-10 11:00] VITALS: BMI 36.9
[2018-04-10 11:11] VITALS: TEMP 97.9
--- NOTE | 2018-04-10 11:17 | XR ---
EXAMINATION TYPE: XR chest 1V portable DATE OF EXAM: 04/10/2018 COMPARISON: Prior chest x-ray 04/09/2018 HISTORY: Postop cardiac surgery TECHNIQUE: Single frontal view of the chest is obtained. FINDINGS: Patient is post median sternotomy. Heart size is stable and enlarged. No evident airspace disease, pneumothorax. Pulmonary vascularity and yonathan are stable. There is blunting of the right cost ophrenic angle. There are overlying cardiac leads. IMPRESSION: Findings are similar to prior exam. Difficult to exclude small effusion or basilar atele ctasis. Postop changes.
--- NOTE | 2018-04-10 11:28 | P.PN ---
Subjective Progress Note Date: 04/10/18 Principal diagnosis: Status post CABG and aortic valve replacement This 67-year-old gentleman is status post bypass surgery and also aortic valve replacement with tissue valve. Patient is feeling much better. Lying down in bed at the time of our examination, waiting for his pacer wires to be discontinued. He continues to be in a normal sinus rhythm and is anticipating discharge home today. Objective - Vital Signs Vital signs: Vital Signs Temp 97.9 F 04/10/18 11:10 Pulse 64 04/10/18 11:10 Resp 20 04/10/18 11:10 BP 114/57 04/10/18 11:10 Pulse Ox 92 L 04/10/18 11:10 Intake & Output 04/09/18 04/10/18 04/10/18 18:59 06:59 18:59 Intake Total 550 480 240 Output Total 800 0 Balance 550 -320 240 Weight 107.5 kg 107.1 kg 107.1 kg Intake: Oral 550 480 240 Output: Urine 800 0 Other: Voiding Method Urinal Toilet Urinal # Voids 1 1 ABP, PAP, CO, CI - Last Documented Arterial Blood Pressure 162/56 Pulmonary Artery Pressure 38/19 Cardiac Output 6.6 Cardiac Index 3.1 - Exam GENERAL EXAM: Patient is alert and oriented and doesn't appear to be in any acute distress HEENT: Normocephalic. Normal reaction of pupils, equal size, normal range of extraocular motion. NECK: No masses, no nuchal rigidity. CHEST: No chest wall deformity. LUNGS: Equal air entry with no crackles or wheeze. HEART: S1 and S2 normal with no audible mumurs or gallops. Regular rhythm ABDOMEN: No hepatosplenomegaly, normal bowel sounds, no guarding or rigidity. SKIN: No rashes CENTRAL NERVOUS SYSTEM: No focal deficits. EXTREMITIES: No cyanosis, clubbing or edema. - Labs CBC & Chem 7: 04/10/18 05:46 04/10/18 05:46 Labs: Abnormal Lab Results - Last 24 Hours (Table) 04/07/18 04/09/18 04/09/18 Range/Units 07:25 11:49 16:46 WBC (3.8-10.6) k/uL RBC (4.30-5.90) m/uL Hgb (13.0-17.5) gm/dL Hct (39.0-53.0) % RDW (11.5-15.5) % Neutrophils # (1.3-7.7) k/uL Monocytes # (0-1.0) k/uL Chloride (98-107) mmol/L BUN (9-20) mg/dL POC Glucose (mg/dL) 185 H 205 H (75-99) mg/dL Calcium (8.4-10.2) mg/dL AST (17-59) U/L ALT (21-72) U/L Total Protein (6.3-8.2) g/dL Albumin (3.5-5.0) g/dL Crossmatch See Detail 04/09/18 04/10/18 04/10/18 Range/Units 20:46 05:46 05:46 WBC 16.2 H (3.8-10.6) k/uL RBC 2.61 L (4.30-5.90) m/uL Hgb 7.6 L (13.0-17.5) gm/dL Hct 23.0 L (39.0-53.0) % RDW 17.0 H (11.5-15.5) % Neutrophils # 10.2 H (1.3-7.7) k/uL Monocytes # 1.5 H (0-1.0) k/uL Chloride 108 H (98-107) mmol/L BUN 28 H (9-20) mg/dL POC Glucose (mg/dL) 187 H (75-99) mg/dL Calcium 8.3 L (8.4-10.2) mg/dL AST 78 H (17-59) U/L ALT 98 H (21-72) U/L Total Protein 5.6 L (6.3-8.2) g/dL Albumin 3.0 L (3.5-5.0) g/dL Crossmatch 04/10/18 Range/Units 06:05 WBC (3.8-10.6) k/uL RBC (4.30-5.90) m/uL Hgb (13.0-17.5) gm/dL Hct (39.0-53.0) % RDW (11.5-15.5) % Neutrophils # (1.3-7.7) k/uL Monocytes # (0-1.0) k/uL Chloride (98-107) mmol/L BUN (9-20) mg/dL POC Glucose (mg/dL) 105 H (75-99) mg/dL Calcium (8.4-10.2) mg/dL AST (17-59) U/L ALT (21-72) U/L Total Protein (6.3-8.2) g/dL Albumin (3.5-5.0) g/dL Crossmatch Assessment and Plan Plan: Assessment and plan #1 status post coronary bypass grafting surgery with aortic valve replacement #2 hypertension #3 hyperlipidemia #4 diabetes Plan From cardiology's perspective, we will recommend to continue on current medications. He is anticipating possible discharge home today. Follow-up appointment will be made in the office 2 weeks post discharge. DNP note has been reviewed, I agree with a documented findings and plan of care. Patient was seen and examined.
--- NOTE | 2018-04-10 11:33 | P.PN ---
Subjective Progress Note Date: 04/10/18 Principal diagnosis: Double vessel coronary artery disease, severe aortic valve stenosis, preserved systolic function. History of obesity, hypertension, hyperlipidemia on Lipitor at home, diabetes with preoperative hemoglobin A1c 7.4%, coronary artery disease status post history of remote stenting to circumflex system, chronic Plavix intake, prostate cancer status post prostatectomy in 2001, skin cancer 3 years ago, previous tobacco dependence with preoperative FEV1 89% of predicted. POD #6 aortic valve replacement using a 23 mm bovine bioprosthesis in spite wrists. Triple coronary artery bypass grafting using the left internal mammary artery to the left anterior descending coronary artery, a reverse greater saphenous vein graft from the aorta to the diagonal coronary artery, a reverse greater saphenous vein graft from the aorta to the posterior descending coronary artery. Intraoperative transesophageal echocardiogram and epi-aortic scanning. Acute hypoxic respiratory failure, prolonged mechanical ventilation, an unexpected outcome. Acute blood loss anemia, an expected outcome of surgery related to hemodilution and bypass pump. The patient is currently sitting up to the bedside chair. He is in no acute distress. Currently he denies any complaints of pain or shortness of breath. He is alert and oriented 3. Reports that he has ambulated the length of 6 [address] hallway 3 times yesterday and once already this morning. Room air oxygen saturation is 96%. Achieving 2250 mL on his incentive spirometry. Objective - Vital Signs Vital signs: Vital Signs Temp 98 F 04/10/18 08:15 Pulse 88 04/10/18 09:59 Resp 20 04/10/18 08:15 BP 164/72 04/10/18 09:59 Pulse Ox 97 04/10/18 09:59 Intake & Output 04/09/18 04/10/18 04/10/18 18:59 06:59 18:59 Intake Total 550 480 240 Output Total 800 0 Balance 550 -320 240 Weight 107.5 kg 107.1 kg Intake: Oral 550 480 240 Output: Urine 800 0 Other: Voiding Method Urinal Toilet Urinal # Voids 1 1 ABP, PAP, CO, CI - Last Documented Arterial Blood Pressure 162/56 Pulmonary Artery Pressure 38/19 Cardiac Output 6.6 Cardiac Index 3.1 - Constitutional General appearance: Present: cooperative, morbidly obese, no acute distress - Respiratory Details: Lungs sounds are essentially clear throughout, diminished to his bilateral bases. Respirations are symmetrical and nonlabored. Oxygen saturation are 96% on room air. He is achieving 2250 mL on his incentive spirometry. - Cardiovascular Details: Regular rhythm and rate. S1 and S2 present, negative for S3, gallop or murmur. Sternum is stable. Remote telemetry showing normal sinus rhythm heart rate 75. +1 edema to his bilateral feet. Atrial and ventricular epicardial pacemaker wires in place and grounded. Knee-high PAMELA hose and sequential compression devices in place to his bilateral lower extremities. Heart hugger is in place and he is demonstrating appropriate use. - Gastrointestinal Gastrointestinal Comment(s): Abdomen is soft, nontender and nondistended. Active bowel sounds all 4 abdominal quadrants. Tolerating oral intake. Bowel movement yesterday 2017. - Genitourinary Genitourinary Comment(s): Voiding clear yellow urine. - Integumentary Integumentary Comment(s): Skin is warm and dry. No clubbing or cyanosis present. Midline sternal incision clean dry and approximated. No drainage or redness present. Right lower extremity EVH site clean dry and approximated. No drainage or redness present. Right thigh ecchymotic area soft palpate and nontender. No rash or abnormal pigmentation present. - Neurologic Neurologic Comment(s): No focal deficits. Neurologic: Present: CNII-XII intact - Musculoskeletal Musculoskeletal: Present: gait normal, strength equal bilaterally - Psychiatric Psychiatric: Present: A&O x's 3, appropriate affect, intact judgment & insight - Allied health notes Allied health notes reviewed: nursing - Labs CBC & Chem 7: 04/10/18 05:46 04/10/18 05:46 Labs: Abnormal Lab Results - Last 24 Hours (Table) 04/07/18 04/09/18 04/09/18 Range/Units 07:25 11:49 16:46 WBC (3.8-10.6) k/uL RBC (4.30-5.90) m/uL Hgb (13.0-17.5) gm/dL Hct (39.0-53.0) % RDW (11.5-15.5) % Neutrophils # (1.3-7.7) k/uL Monocytes # (0-1.0) k/uL Chloride (98-107) mmol/L BUN (9-20) mg/dL POC Glucose (mg/dL) 185 H 205 H (75-99) mg/dL Calcium (8.4-10.2) mg/dL AST (17-59) U/L ALT (21-72) U/L Total Protein (6.3-8.2) g/dL Albumin (3.5-5.0) g/dL Crossmatch See Detail 04/09/18 04/10/18 04/10/18 Range/Units 20:46 05:46 05:46 WBC 16.2 H (3.8-10.6) k/uL RBC 2.61 L (4.30-5.90) m/uL Hgb 7.6 L (13.0-17.5) gm/dL Hct 23.0 L (39.0-53.0) % RDW 17.0 H (11.5-15.5) % Neutrophils # 10.2 H (1.3-7.7) k/uL Monocytes # 1.5 H (0-1.0) k/uL Chloride 108 H (98-107) mmol/L BUN 28 H (9-20) mg/dL POC Glucose (mg/dL) 187 H (75-99) mg/dL Calcium 8.3 L (8.4-10.2) mg/dL AST 78 H (17-59) U/L ALT 98 H (21-72) U/L Total Protein 5.6 L (6.3-8.2) g/dL Albumin 3.0 L (3.5-5.0) g/dL Crossmatch 04/10/18 Range/Units 06:05 WBC (3.8-10.6) k/uL RBC (4.30-5.90) m/uL Hgb (13.0-17.5) gm/dL Hct (39.0-53.0) % RDW (11.5-15.5) % Neutrophils # (1.3-7.7) k/uL Monocytes # (0-1.0) k/uL Chloride (98-107) mmol/L BUN (9-20) mg/dL POC Glucose (mg/dL) 105 H (75-99) mg/dL Calcium (8.4-10.2) mg/dL AST (17-59) U/L ALT (21-72) U/L Total Protein (6.3-8.2) g/dL Albumin (3.5-5.0) g/dL Crossmatch - Imaging and Cardiology Chest x-ray: image reviewed Assessment and Plan (1) Coronary artery disease Current Visit: Yes Status: Chronic Code(s): I25.10 - ATHSCL HEART DISEASE OF [place] CORONARY ARTERY W/O ANG PCTRS SNOMED Code(s): 65518068 (2) History of heart artery stent Current Visit: Yes Status: Chronic Code(s): Z95.5 - PRESENCE OF CORONARY ANGIOPLASTY IMPLANT AND GRAFT SNOMED Code(s): 247203518 (3) Hyperlipidemia Current Visit: Yes Status: Chronic Code(s): E78.5 - HYPERLIPIDEMIA, UNSPECIFIED SNOMED Code(s): 88295959 (4) Hypertension Current Visit: Yes Status: Chronic Code(s): I10 - ESSENTIAL (PRIMARY) HYPERTENSION SNOMED Code(s): 98991695 (5) Non-insulin dependent type 2 diabetes mellitus Current Visit: Yes Status: Chronic Code(s): E11.9 - TYPE 2 DIABETES MELLITUS WITHOUT COMPLICATIONS SNOMED Code(s): 62355151 (6) Obesity (BMI 30-39.9) Current Visit: Yes Status: Chronic Code(s): E66.9 - OBESITY, UNSPECIFIED SNOMED Code(s): 351534152 (7) Severe aortic stenosis Current Visit: Yes Status: Chronic Code(s): I35.0 - NONRHEUMATIC AORTIC ( VALVE) STENOSIS SNOMED Code(s): 89044659 (8) History of prostate cancer Current Visit: No Status: Resolved Code(s): Z85.46 - PERSONAL HISTORY OF MALIGNANT NEOPLASM OF PROSTATE SNOMED Code(s): 659551718 Plan: 1. Continue low-dose aspirin, statin, Plavix, ELIANA inhibitor and beta lamar. Will increase beta lamar therapy as tolerated. 2. Encourage use of his incentive spirometry every hour while awake. 3. Increase activity as tolerated. PT/OT/cardiac rehab following. 4. Bronchodilators, steroids per pulmonology. 5. Will monitor labs and x-rays. 6. Continue Arixtra subcu. HIT panel results pending. 7. GI prophylaxis with Protonix. DVT prophylaxis with Arixtra, SCDs. 8. Pain management with current medication regimen. 9. Insulin management per primary care service. 10. Discharge planning in place. Discharge instructions have been reviewed with the patient, questions answered to the best my ability. 11. Lasix 40 mg IV today, he will be discharged home with Lasix 40 mg by mouth daily 7 days. 12. More recommendations to follow based on patient's clinical course. Time with Patient: Greater than 30
[2018-04-10 11:45] LABS: Glucose,Whole Blood 196 mg/dL (75-99)
--- NOTE | 2018-04-10 12:19 | P.DS ---
Providers Date of admission: 04/04/18 05:37 Expected date of discharge: 04/10/18 Attending physician: Ethan Fountain Consults: 04/04/18 16:13 Consult Physician Routine Consulting Provider: Sarahi Seth Consult Reason/Comments: medical management Do you want consulting provider notified?: Yes Consult Physician Routine Consulting Provider: Karina Urbina Consult Reason/Comments: Supervisor Denture Department Consult: post cardiac surgery Do you want consulting provider notified?: Yes Consult Physician Routine Consulting Provider: Óscar Staples Consult Reason/Comments: Consumer Electronic Retail Specialist Consult: post cardiac surgery Do you want consulting provider notified?: Yes Primary care physician: Padma Meza MD - Discharge Diagnosis(es) (1) Coronary artery disease Current Visit: Yes Status: Chronic (2) History of heart artery stent Current Visit: Yes Status: Chronic (3) Hyperlipidemia Current Visit: Yes Status: Chronic (4) Hypertension Current Visit: Yes Status: Chronic (5) Non-insulin dependent type 2 diabetes mellitus Current Visit: Yes Status: Chronic (6) Obesity (BMI 30-39.9) Current Visit: Yes Status: Chronic (7) Severe aortic stenosis Current Visit: Yes Status: Chronic (8) History of prostate cancer Current Visit: No Status: Resolved Hospital Course: FINAL DIAGNOSIS: 1. Coronary artery disease with history of stenting to his RCA, obtuse marginal and ramus coronary arteries 2. Severe aortic stenosis with preserved systolic function 3. Obesity 4. Hypertension 5. Hyperlipidemia 6. Diabetes mellitus type 2 with a preoperative hemoglobin A1c of 7.4% 7. History of prostate cancer status post prostatectomy in 2001 8. History of skin cancer 3 years ago 9. Previous tobacco dependence with a preoperative FEV1 of 89% predicted 10. Postoperative acute hypoxic respiratory failure, prolonged mechanical ventilation and unexpected outcome of surgery 11. Acute blood loss anemia, an unexpected outcome of surgery related to hemodilution and cardiopulmonary bypass PRINCIPAL PROCEDURE: 1. Aortic valve replacement using a #23 mm bovine bioprosthetic Inpiris valve. 2. Triple vessel coronary artery bypass grafting using the left internal mammary artery to left anterior descending coronary artery, a reverse greater saphenous vein graft from the aorta to the diagonal coronary artery, a reverse greater saphenous vein graft from the aorta to the posterior descending coronary artery. 3. Intraoperative transesophageal echocardiogram and epi-aortic scanning. HISTORY OF PRESENT ILLNESS: This is a 67-year-old gentleman who is followed by Dr. Meza on an outpatient basis. His past medical history significant for coronary artery disease with previous stent placement to his right coronary artery, obtuse marginal coronary artery and ramus coronary artery and 2006, severe aortic stenosis, hypertension, hyperlipidemia, obesity, prostate cancer status post prostatectomy in 2001, skin cancer 3 years ago, diabetes mellitus type 2 [id number], and previous tobacco dependence which he quit in 1974. The patient has a known history of severe aortic stenosis which has been followed closely by Dr. Staples with serial echocardiograms. On his most recent 2-D echocardiogram which showed progression of his gradient across his aortic valve. The patient is also had complaints of progressive shortness of breath. For further evaluation the patient underwent a cardiac catheterization and transesophageal echocardiogram. The cardiac catheterization results demonstrated a 40-50% stenosis to his mid left anterior descending coronary artery, a 99% stenosis to his first diagonal branch, a 50-70% stenosis to his right coronary artery ostia, a 60-70% stenosis to his posterior descending coronary artery, and a patent stent to his ramus and circumflex coronary artery. The transesophageal echocardiogram results showed a tricuspid aortic valve to be severely calcified with a valve area of 0.7-0.8 cm and severe aortic stenosis. Subsequently due to the patient's recent 2-D echocardiogram results, patient's progressive complaints of shortness of breath, cardiac catheterization and transesophageal echocardiogram results he was seen by Dr. Ethan Fountain from cardiothoracic surgery. Dr. manzo discussed the findings on the cardiac catheterization and KARRIE results with the patient and his and an elective aortic valve replacement and coronary artery bypass grafting surgery was recommended. HOSPITAL COURSE: The patient was admitted to the hospital and after obtaining consent was taken to the operating room where Dr. Ethan Fountain performed and elective aortic valve replacement using a #23 mm bovine prosthetic Inpiris valve, a triple vessel coronary artery bypass grafting using the left internal mammary artery to left anterior descending coronary artery, a reverse greater saphenous vein graft from the aorta to the diagonal coronary artery, a reverse greater saphenous vein graft from the aorta to the posterior descending coronary artery and an intraoperative transesophageal echocardiogram and epi- aortic scanning. Postoperatively the patient was transferred to the cardiovascular intensive care unit where he had somewhat of a stormy recovery requiring prolonged mechanical ventilator support due to some unexpected postoperative hypoxia and respiratory failure. He was subsequently extubated, all lines, tubes and ips were discontinued when appropriate and he progressed to cardiac rehabilitation phase 1. He was subsequently transferred to [address] [place] [address] for further monitoring and rehabilitation. He continued to work with physical therapy and occupational therapy, he was tolerating an oral diet, his pain was well controlled and he was weaned off his oxygen to room air. He is ready to be discharged home with clear in home health care on postoperative day #6. He has received written and verbal instructions regarding his medications, activity restrictions, signs and symptoms requiring physician notification and his follow-up appointments. COMPLICATIONS: His postoperative period was complicated by some acute hypoxic respiratory failure requiring prolonged mechanical ventilator support. CONSULTATIONS: 1. Dr. Staples for cardiology management 2. Dr. Urbina for pulmonary and ventilator management 3. Dr. Seth for medical and diabetic management DISCHARGE INSTRUCTIONS: 1. No driving for 4 weeks, or until physician gives their ok. 2. The patient should sleep in their own bed, no medical bed needed. 3. Stairs are not an issue. If the bedroom is upstairs, it is advised that the patient go up at night and down in the morning for the first week. Go slowly, using handrail and take 1 step at a time. 4. PAMELA hose are to be worn for 30 days or until physician discontinues. 5. Heart hugger is to be worn 100% of the time until physician discontinues.( except when showering) 6. No lifting, pushing, or pulling more than 10 pounds for 12 weeks. The physician will advise of any restriction changes. 7. The patient is expected to continue the prescribed walking program. 8. Continue pain control per as needed orders. 9. Continue with incentive spirometry and splinting/heart hugger until otherwise directed by the physician. 10. Must shower daily using liquid antibacterial soap and a separate white washcloth for each individual incision. 11. Routine sternal incision care, no ointments, lotions or powders on the incisions. 12. Please notify surgeon/nurse practitioner for temperature greater than 101F or purulent drainage from incisions 13. Prescriptions for first 30 days given per cardiac surgery service. After 30 days, all prescription refills obtained through cardiology/primary care physician. 14. A red arm and has been placed on this patient it should be worn for 30 days post surgery and will be removed by the cardiothoracic surgeons. If an ER visit is necessary, please make sure the number on the red arm band is called. 15. It is been discussed with the patient to keep a journal of his blood sugars before meals and at bedtime and to bring the journal with his follow-up appointment to see Dr. Meza on 04/12/2018. [facility] HEALTH SERVICES TO PROVIDE: RN SKILLED HOME CARE SERVICES FOR POST-OP SURGICAL PATIENTS WITH THE FOLLOWING: Coronary Artery Bypass Surgery (CABG), Mitral Valve Replacement/ Repair ( MVR), Aortic Valve Replacement/Repair (AVR) RN TO CONTINUE EDUCATION FROM ``ROAD TO A HEALTH HEART PATIENT EDUCATION MANUAL" (GIVEN TO PATIENT IN THE HOSPITAL) MEDICATION RECONCILIATION WITH EDUCATION NEEDED ON FIRST HOME VISIT EMPHASIZE IMPORTANCE OF WEARING BREAST SUPPORT/HEART HUGGER ENCOURAGE USE OF INCENTIVE SPIROMETER 10 X EVERY HOUR WHILE AWAKE ENCOURAGE UTILIZATION OF LOWER EXTREMITY COMPRESSION STOCKINGS/PAMELA HOSE and ELEVATE LEGS ABOVE LEVEL OF HEART WHILE AT REST. ENCOURAGE AMBULATION 3-5x/day INCREASING TOLERATES, WHILE AVOID EXTREMES IN TEMPERATURE FREQUENCY: RN TO OPEN THE PATIENT WITHIN 24 HOURS OF DISCHARGE FROM THE HOSPITAL WITH TELEHEALTH [place] [facility] TO VISIT 2-3 X A WEEK FOR 4 WEEKS ESTABLISHED BY PATIENT NEEDS. REMOVAL OF SUTURES: NURSING SERVICES TO REMOVE SUTURES TWO WEEKS POST SURGICAL DATE 04/17/2018. If any questions regarding suture removal please call the office at [phone]. LABORATORY: CBC, CMP TO BE DRAWN ON THE THIRD DAY HOME, , 04/13/2018 (RAN STAT) FAX RESULTS TO [phone]. TELEHEALTH PARAMETERS: WEIGHT: NOTIFY MD OF WEIGHT GAIN OF 2 LBS IN 24 HOURS OR 5 LBS IN ONE WEEK HR: NOTIFY MD OF HR <55 BPM OR HR>100 BPM BP: NOTIFY MD IF BP <90/55 OR BP>140/100 O2 SAT: NOTIFY MD IF PO2<93% ON ROOM AIR SEND TELEHEALTH REPORT TO [facility] DANCER AND CARDIOVASCULAR SURGEON THE FIRST WEEK OF CARE AND THEN BI-WEEKLY. PLEASE ADDITIONALLY COMMUNICATE ANY ABNORMALS AND NEW FINDINGS TO THE SURGEONS OFFICE. Plan - Discharge Summary Discharge Rx Participant: No New Discharge Prescriptions: New Ferrous Sulfate [Iron (65 MG Elemental)] 325 mg PO BID-W/MEALS #60 tab Acetaminophen Tab [Tylenol] 325 mg PO Q6H PRN #120 tablet PRN Reason: Pain Atorvastatin [Lipitor] 40 mg PO DAILY #30 tab Clopidogrel [Plavix] 75 mg PO DAILY #30 tab Furosemide [Lasix] 40 mg PO DAILY 7 Days #7 tablet Pantoprazole [Protonix] 40 mg PO AC-BRKFST #30 tablet.dr Cano-Docusate Sodium [Senokot-S] 2 each PO HS #60 tab Continue metFORMIN HCL 1,000 mg PO BID Metoprolol Tartrate [Lopressor] 50 mg PO BID Lisinopril [Prinivil] 20 mg PO HS Aspirin 81 mg PO DAILY glipiZIDE [Glucotrol] 10 mg PO BID Discontinued Nitroglycerin Sl Tabs [Nitrostat] 0.4 mg PO Q5M PRN PRN Reason: Angina Atorvastatin [Lipitor] 20 mg PO HS Isosorbide Mononitrate ER [Imdur] 30 mg PO QAM Clopidogrel [Plavix] 75 mg PO DAILY Discharge Medication List Aspirin 81 mg PO DAILY 02/11/15 [History] Lisinopril [Prinivil] 20 mg PO HS 02/11/15 [History] Metoprolol Tartrate [Lopressor] 50 mg PO BID 02/11/15 [History] metFORMIN HCL 1,000 mg PO BID 02/11/15 [History] glipiZIDE [Glucotrol] 10 mg PO BID 01/27/18 [History] Acetaminophen Tab [Tylenol] 325 mg PO Q6H PRN #120 tablet 04/10/18 [Rx] Atorvastatin [Lipitor] 40 mg PO DAILY #30 tab 04/10/18 [Rx] Clopidogrel [Plavix] 75 mg PO DAILY #30 tab 04/10/18 [Rx] Ferrous Sulfate [Iron (65 MG Elemental)] 325 mg PO BID-W/MEALS #60 tab 04/10/18 [Rx] Furosemide [Lasix] 40 mg PO DAILY 7 Days #7 tablet 04/10/18 [Rx] Pantoprazole [Protonix] 40 mg PO AC-BRKFST #30 tablet. 04/10/18 [Rx] Sennosides-Docusate Sodium [Senokot-S] 2 each PO HS #60 tab 04/10/18 [Rx] Follow up Appointment(s)/Referral(s): Karina Urbina MD [STAFF PHYSICIAN] - 04/21/18 2:30 pm Óscar Staples MD [STAFF PHYSICIAN] - 04/17/18 3:30 pm Ethan Fountain MD [STAFF PHYSICIAN] - 05/05/18 10:30 am Padma Meza MD [Primary Care Provider] - 04/12/18 6:00 pm Matt Bearden NPC [Nurse Practitioner] - 04/17/18 11:00 am (Please follow-up at [address] [place] [address] [address] [facility], [address]. The office number is a [phone]) [facility], [NON-STAFF] - Ambulatory/Diagnostic Orders: Complete Blood Count w/diff [LAB.AMB] Time Frame: 03/23/18, Facility: [facility], Location: [facility] Comprehensive Metabolic Panel [LAB.AMB] Time Frame: 03/23/18, Facility: [facility], Location: [facility] Activity/Diet/Wound Care/Special Instructions: Check blood sugars 3 times daily for the next 5 days, if more than 2 readings are above [address] Meza's Office. Discharge Disposition: HOME WITH HOME HEALTH SERVICES
[2018-04-10 13:07] VITALS: BP 132/58; PULSE 81
--- NOTE | 2018-04-10 13:11 | P.PN ---
Subjective Progress Note Date: 04/10/18 Principal diagnosis: Aortic valve replacement Progress note dated 04/10/2018 67-year-old male who is postop day #6 status post aortic valve replacement and bypass grafting. The patient had postoperative hypoxemic respiratory failure requiring any extra day of mechanical ventilation. The patient had also postoperative ventilator management. In addition, the patient suffers from obesity previous ND hypertension and diabetes. The patient seemed relatively well. There is some talk that he might be discharged home in a day or so. Currently not on any nasal O2. The patient's resting recently comfortably. Denies any pain or chest discomfort. 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 He knows he may have chest pain or chest discomfort or numbness or tingling when he sneezes coughs and wheezes for something. He notes that this could last for some time. His is sitting in the room with him. Objective - Vital Signs Vital signs: Vital Signs Temp 97.9 F 04/10/18 11:10 Pulse 64 04/10/18 11:10 Resp 20 04/10/18 11:10 BP 114/57 04/10/18 11:10 Pulse Ox 92 L 04/10/18 11:10 Intake & Output 04/09/18 04/10/18 04/10/18 18:59 06:59 18:59 Intake Total 550 480 240 Output Total 800 0 Balance 550 -320 240 Weight 107.5 kg 107.1 kg 107.1 kg Intake: Oral 550 480 240 Output: Urine 800 0 Other: Voiding Method Urinal Toilet Urinal # Voids 1 1 ABP, PAP, CO, CI - Last Documented Arterial Blood Pressure 162/56 Pulmonary Artery Pressure 38/19 Cardiac Output 6.6 Cardiac Index 3.1 - Exam No acute distress, oriented 3. HEENT examination is grossly unremarkable. Mucous membranes are moist. No oral lesions. Neck supple. Full range of motion. No adenopathy thyromegaly or neck vein distention. Cardiovascular examination reveals regular rhythm rate. S1-S2 normal. No S3 or S4. No discernible murmur noted. Sternum appears to be stable. No crepitations.. Lungs reveal clear breath sounds. Her sounds are equal bilaterally. No adventitious lung sounds including wheezes rhonchi or crackles. Abdomen soft bowel sounds are heard. No masses or tenderness. Extremities are intact. No cyanosis clubbing or edema. Skin is without rash or lesion. Neurologic examination is brief but nonfocal. - Labs CBC & Chem 7: 04/10/18 05:46 04/10/18 05:46 Labs: Abnormal Lab Results - Last 24 Hours (Table) 04/07/18 04/09/18 04/09/18 Range/Units 07:25 16:46 20:46 WBC (3.8-10.6) k/uL RBC (4.30-5.90) m/uL Hgb (13.0-17.5) gm/dL Hct (39.0-53.0) % RDW (11.5-15.5) % Neutrophils # (1.3-7.7) k/uL Monocytes # (0-1.0) k/uL Chloride (98-107) mmol/L BUN (9-20) mg/dL POC Glucose (mg/dL) 205 H 187 H (75-99) mg/dL Calcium (8.4-10.2) mg/dL AST (17-59) U/L ALT (21-72) U/L Total Protein (6.3-8.2) g/dL Albumin (3.5-5.0) g/dL Crossmatch See Detail 04/10/18 04/10/18 04/10/18 Range/Units 05:46 05:46 06:05 WBC 16.2 H (3.8-10.6) k/uL RBC 2.61 L (4.30-5.90) m/uL Hgb 7.6 L (13.0-17.5) gm/dL Hct 23.0 L (39.0-53.0) % RDW 17.0 H (11.5-15.5) % Neutrophils # 10.2 H (1.3-7.7) k/uL Monocytes # 1.5 H (0-1.0) k/uL Chloride 108 H (98-107) mmol/L BUN 28 H (9-20) mg/dL POC Glucose (mg/dL) 105 H (75-99) mg/dL Calcium 8.3 L (8.4-10.2) mg/dL AST 78 H (17-59) U/L ALT 98 H (21-72) U/L Total Protein 5.6 L (6.3-8.2) g/dL Albumin 3.0 L (3.5-5.0) g/dL Crossmatch 04/10/18 Range/Units 11:43 WBC (3.8-10.6) k/uL RBC (4.30-5.90) m/uL Hgb (13.0-17.5) gm/dL Hct (39.0-53.0) % RDW (11.5-15.5) % Neutrophils # (1.3-7.7) k/uL Monocytes # (0-1.0) k/uL Chloride (98-107) mmol/L BUN (9-20) mg/dL POC Glucose (mg/dL) 196 H (75-99) mg/dL Calcium (8.4-10.2) mg/dL AST (17-59) U/L ALT (21-72) U/L Total Protein (6.3-8.2) g/dL Albumin (3.5-5.0) g/dL Crossmatch Assessment and Plan Assessment: Assessment Postop day #6 status post aortic valve replacement and bypass grafting Hypoxemic respiratory failure postoperatively, requiring an extra day of mechanical ventilation Postoperative ventilator management History of obesity Previous history of myocardial infarction History of hypertension History of type 2 diabetes Plan: Plan dated 04/10/2018 The patient seemed be doing relatively well. The patient was sitting up in the chair with his in the room. There is some talk of possible discharge in the near future. The patient is encouraged to continue to deep breathing coughing and clearing of secretions. In addition, we'll encourage the patient to use incentive spirometer 8-10 times per hour while he's awake. Additional recommendations and suggestions are forthcoming. The patient will follow with my partner in the office after discharge. I believe is appointment sometime next week. We will continue to follow while he is here in the hospital. Time with Patient: Less than 30
[2018-04-10] MEDS: LISINOPRIL 20 MG TAB PO SCH (13:22)
[2018-04-10] MEDS ORDERED: metFORMIN 500 MG TAB PO SCH (17:30)
== END 2018-04-10 15:00 | disposition home health service (06) | DRG 219 ==
LOC: 2ORMAIN 05:37 → 6ICU 15:48 → 6SEL 04-08 15:17
PROVIDERS: ADMIT Surgery; ATTEND Surgery
PROC: 06BP4ZZ Excision of Right Saphenous Vein, Percutaneous Endoscopic Approach (ICD-10-PCS; principal; 2018-04-04 08:00)
PROC: 5A1221Z Performance of Cardiac Output, Continuous (ICD-10-PCS; principal; 2018-04-04 08:00)
PROC: 02RF08Z Replacement of Aortic Valve with Zooplastic Tissue, Open Approach (ICD-10-PCS; principal; 2018-04-04 08:00)
PROC: 021109W Bypass Coronary Artery, Two Arteries from Aorta with Autologous Venous Tissue, Open Approach (ICD-10-PCS; principal; 2018-04-04 08:00)
PROC: 02100Z9 Bypass Coronary Artery, One Artery from Left Internal Mammary, Open Approach (ICD-10-PCS; principal; 2018-04-04 08:00)
PROC: B246ZZ4 Ultrasonography of Right and Left Heart, Transesophageal (ICD-10-PCS; principal; 2018-04-04 08:00)
PROC: 30253N1 (ICD-10-PCS; 2018-04-05)
DX: I25.10 Atherosclerotic heart disease of native coronary artery without angina pectoris (principal); J95.821 Acute postprocedural respiratory failure; D62 Acute posthemorrhagic anemia; J98.11 Atelectasis; D69.6 Thrombocytopenia, unspecified; E11.9 Type 2 diabetes mellitus without complications; E66.01 Morbid (severe) obesity due to excess calories; E78.5 Hyperlipidemia, unspecified; E83.39 Other disorders of phosphorus metabolism; I10 Essential (primary) hypertension; I25.2 Old myocardial infarction; I34.0 Nonrheumatic mitral (valve) insufficiency; I35.0 Nonrheumatic aortic (valve) stenosis; Z68.37 Body mass index [BMI] 37.0-37.9, adult; Z79.02 Long term (current) use of antithrombotics/antiplatelets; Z79.4 Long term (current) use of insulin; Z79.82 Long term (current) use of aspirin; Z85.46 Personal history of malignant neoplasm of prostate; Z85.828 Personal history of other malignant neoplasm of skin; Z87.442 Personal history of urinary calculi; Z87.891 Personal history of nicotine dependence; Z90.79 Acquired absence of other genital organ(s); Z95.5 Presence of coronary angioplasty implant and graft; Z92.21 Personal history of antineoplastic chemotherapy; Z79.899 Other long term (current) drug therapy
CPT/HCPCS: 71045; 71046; 71275; 80053; 82330; 82805; 83735; 84100; 85025; 85027; 85520; 85610; 85730; 86022; 86850; 86891; 86900; 86901; 86920; 88305; 88311; 94002; 94003; 94640; 94660; 94760

== ENCOUNTER 2018-04-10 21:12 | Observation (INO) | payer MEDICARE, OTHER ==
[2018-04-10] MEDS ORDERED: IPRATROPIUM-ALBUTEROL 3 ML NEB INHALATION STA (22:08)
[2018-04-10 22:17] LABS: Anisocytosis Slight; Basophils # (A) 0.1 k/uL (0-0.2); Basophils % (A) 0 %; Eosinophils # (A) 0.3 k/uL (0-0.7); Eosinophils % (A) 1 %; Hypochromasia Slight; Lymphocytes # (A) 3.4 k/uL (1.0-4.8); Lymphocytes % (A) 17 %; MCHC 33.7 g/dL (31.0-37.0); MCV 88.9 fL (80.0-100.0); Monocytes # (A) 1.4 k/uL (0-1.0); Monocytes % (A) 7 %; Neutrophils # (A) 14.8 k/uL (1.3-7.7); Neutrophils % (A) 73 %; Platelet Count 317 k/uL (150-450); Poikilocytosis Slight; RBC 1.77 m/uL (4.30-5.90); RDW 17.2 % (11.5-15.5); WBC 20.4 k/uL (3.8-10.6)
[2018-04-10] MEDS ORDERED: DEXAMETHASONE SOD PHOSPHATE 10 MG/ML 1 ML VIAL IM STA (22:17)
--- NOTE | 2018-04-10 22:17 | ED ---
General Adult HPI - General Chief complaint: Shortness of Breath Stated complaint: HEMANTH Time Seen by Provider: 04/10/18 21:24 Source: patient, family, RN notes reviewed, old records reviewed Mode of arrival: wheelchair Limitations: no limitations - History of Present Illness Initial comments: 67-year-old male presents for evaluation of cough and mild dyspnea. Patient was discharged from the hospital around 4 PM today. He was admitted and underwent open-heart surgery including aortic valve replacement and triple vessel bypass. He was intubated for several days, extubated and was doing quite well the time of discharge. No complaints. He states that over the past several hours he has developed a cough which she feels is productive but is unable to cough up any sputum and mild dyspnea. Denies chest pain. Denies nausea vomiting diarrhea. Denies fever or chills. - Related Data Home Medications Medication Instructions Recorded Confirmed Aspirin 81 mg PO DAILY 02/11/15 04/10/18 Lisinopril [Prinivil] 20 mg PO HS 02/11/15 04/10/18 Metoprolol Tartrate [Lopressor] 50 mg PO BID 02/11/15 04/10/18 metFORMIN HCL 1,000 mg PO BID 02/11/15 04/10/18 glipiZIDE [Glucotrol] 10 mg PO BID 01/27/18 04/10/18 Previous Rx's Medication Instructions Recorded Acetaminophen Tab [Tylenol] 325 mg PO Q6H PRN #120 tablet 04/10/18 Atorvastatin [Lipitor] 40 mg PO DAILY #30 tab 04/10/18 Clopidogrel [Plavix] 75 mg PO DAILY #30 tab 04/10/18 Ferrous Sulfate [Iron (65 MG 325 mg PO BID-W/MEALS #60 tab 04/10/18 Elemental)] Furosemide [Lasix] 40 mg PO DAILY 7 Days #7 tablet 04/10/18 Pantoprazole [Protonix] 40 mg PO AC-OSWALDOFSPavan #30 tablet. 04/10/18 Sennosides-Docusate Sodium 2 each PO HS #60 tab 04/10/18 [Senokot-S] Allergies Allergy/AdvReac Type Severity Reaction Status Date / Time No Known Allergies Allergy Verified 04/10/18 21:41 Review of Systems ROS Statement: Those systems with pertinent positive or pertinent negative responses have been documented in the HPI. ROS Other: All systems not noted in ROS Statement are negative. Past Medical History Past Medical History: Coronary Artery Disease (CAD), Cancer, Diabetes Mellitus, Hyperlipidemia, Hypertension, Myocardial Infarction ([place]) Additional Past Medical History / Comment(s): HX KIDNEY STONES, HX OF PROSTATE AND SKIN CA, had chemo prior to prostatectomy 2000,aortic stenosis Last Myocardial Infarction Date:: 2005 History of Any Multi-Drug Resistant Organisms: None Reported Past Surgical History: Coronary Bypass/CABG, Heart Catheterization With Stent, Hernia Repair, Prostate Surgery Additional Past Surgical History / Comment(s): HEART STENT X5, LITHOTRIPSY and sx for kidney stone retrieval Past Anesthesia/Blood Transfusion Reactions: No Reported Reaction Date of Last Stent Placement:: 2005 Past Psychological History: No Psychological Hx Reported Smoking Status: Former smoker Past Alcohol Use History: None Reported Past Drug Use History: None Reported - Past Family History Father Family Medical History: Cancer Additional Family Medical History / Comment(s): COLON, LUNG Sister(s) Family Medical History: Cancer Additional Family Medical History / Comment(s): PANCREAS, COLON, LIVER Brother(s) Family Medical History: Cancer Additional Family Medical History / Comment(s): COLON,LIVER General Exam Limitations: no limitations Course Vital Signs 04/10/18 04/10/18 04/10/18 21:12 22:29 22:39 Temperature 99.0 F Pulse Rate 59 L 77 77 Respiratory 16 14 16 Rate Blood Pressure 103/64 O2 Sat by Pulse 98 Oximetry - Reevaluation(s) Reevaluation #1: 04/10/18 22:16 Case discussed with cardiothoracic physician medical assistant supervisor Horace Bearden. We will update with laboratory studies and chest x-ray were available. 04/10/18 22:18 EKG Findings - EKG Comments: EKG Findings:: EKG: Normal sinus rhythm, ventricular rate is 78, MA interval 144 , QRS duration 96, QTC 446, no ST segment elevation or depression. EKG appears improved compared to EKG in April 04 2018 Medical Decision Making - Medical Decision Making 67-year-old male presenting for evaluation of cough and dyspnea. Patient was discharged today after open heart surgery. Denies significant pain. Denies fever or chills. Patient's vital signs are stable. I have spoken on several occasions with the physician medical assistant supervisor from cardiac thoracic surgery. EKG has no definitive signs of ischemia, chest x-ray obtained, there is some concern for bilateral basilar atelectasis versus infiltrate. However there is no large pneumonia present on x-ray. Normal mediastinum. BNP is normal, hemoglobin is low at 5.3. White blood cell count is 20,000 on the patient was on steroids. This will be trended, blood culture is obtained. Patient will be transfused 2 units, repeat hemoglobin testing later this evening and in the morning. Case discussed with Dr. Cortez will accept admission. He is familiar with this patient. Echo will be obtained in the morning. Bedside echo is obtained, there is no large pericardial effusion. - Lab Data Result diagrams: 04/10/18 21:44 04/10/18 21:44 Lab Results 04/10/18 04/10/18 04/10/18 Range/Units 21:44 21:44 21:44 WBC 20.4 H (3.8-10.6) k/uL RBC 1.77 L (4.30-5.90) m/uL Hgb 5.3 L* D (13.0-17.5) gm/dL Hct 15.7 L* (39.0-53.0) % MCV 88.9 (80.0-100.0) fL MCH 30.0 (25.0-35.0) pg MCHC 33.7 (31.0-37.0) g/dL RDW 17.2 H (11.5-15.5) % Plt Count 317 (150-450) k/uL Neutrophils % 73 % Lymphocytes % 17 % Monocytes % 7 % Eosinophils % 1 % Basophils % 0 % Neutrophils # 14.8 H (1.3-7.7) k/uL Lymphocytes # 3.4 (1.0-4.8) k/uL Monocytes # 1.4 H (0-1.0) k/uL Eosinophils # 0.3 (0-0.7) k/uL Basophils # 0.1 (0-0.2) k/uL Hypochromasia Slight Poikilocytosis Slight Anisocytosis Slight PT 10.1 (9.0-12.0) sec INR 1.0 (<1.2) APTT 19.7 L (22.0-30.0) sec Sodium 136 L (137-145) mmol/L Potassium 3.9 (3.5-5.1) mmol/L Chloride 103 (98-107) mmol/L Carbon Dioxide 25 (22-30) mmol/L Anion Gap 8 mmol/L BUN 26 H (9-20) mg/dL Creatinine 0.72 (0.66-1.25) mg/dL Est GFR (CKD-EPI)AfAm >90 (>60 ml/min/1.73 sqM) Est GFR (CKD-EPI)NonAf >90 (>60 ml/min/1.73 sqM) Glucose 143 H (74-99) mg/dL Calcium 8.5 (8.4-10.2) mg/dL Magnesium 2.1 (1.6-2.3) mg/dL Total Bilirubin 1.2 (0.2-1.3) mg/dL AST 65 H (17-59) U/L ALT 91 H (21-72) U/L Alkaline Phosphatase 59 (38-126) U/L NT-Pro-B Natriuret Pep pg/mL Total Protein 6.0 L (6.3-8.2) g/dL Albumin 3.3 L (3.5-5.0) g/dL 04/10/18 Range/Units 21:44 WBC (3.8-10.6) k/uL RBC (4.30-5.90) m/uL Hgb (13.0-17.5) gm/dL Hct (39.0-53.0) % MCV (80.0-100.0) fL MCH (25.0-35.0) pg MCHC (31.0-37.0) g/dL RDW (11.5-15.5) % Plt Count (150-450) k/uL Neutrophils % % Lymphocytes % % Monocytes % % Eosinophils % % Basophils % % Neutrophils # (1.3-7.7) k/uL Lymphocytes # (1.0-4.8) k/uL Monocytes # (0-1.0) k/uL Eosinophils # (0-0.7) k/uL Basophils # (0-0.2) k/uL Hypochromasia Poikilocytosis Anisocytosis PT (9.0-12.0) sec INR (<1.2) APTT (22.0-30.0) sec Sodium (137-145) mmol/L Potassium (3.5-5.1) mmol/L Chloride (98-107) mmol/L Carbon Dioxide (22-30) mmol/L Anion Gap mmol/L BUN (9-20) mg/dL Creatinine (0.66-1.25) mg/dL Est GFR (CKD-EPI)AfAm (>60 ml/min/1.73 sqM) Est GFR (CKD-EPI)NonAf (>60 ml/min/1.73 sqM) Glucose (74-99) mg/dL Calcium (8.4-10.2) mg/dL Magnesium (1.6-2.3) mg/dL Total Bilirubin (0.2-1.3) mg/dL AST (17-59) U/L ALT (21-72) U/L Alkaline Phosphatase (38-126) U/L NT-Pro-B Natriuret Pep 1100 pg/mL Total Protein (6.3-8.2) g/dL Albumin (3.5-5.0) g/dL Disposition Clinical Impression: Dyspnea, Anemia Disposition: ADMITTED IP TO THIS [facility] Condition: Stable Is patient prescribed a controlled substance at d/c from ED?: No Referrals: Padma Meza MD [Primary Care Provider] - 1-2 days Decision to Admit Reason: Admit from EC Decision Date: 04/10/18 Decision Time: 23:51
[2018-04-10 22:20] LABS: HCT 15.7 % (39.0-53.0); HGB 5.3 gm/dL (13.0-17.5)
[2018-04-10 22:26] LABS: ALT 91 U/L (21-72); AST 65 U/L (17-59); Albumin 3.3 g/dL (3.5-5.0); Alkaline Phosphatase 59 U/L (38-126); Anion Gap 8 mmol/L; Blood Urea Nitrogen 26 mg/dL (9-20); Calcium 8.5 mg/dL (8.4-10.2); Carbon Dioxide 25 mmol/L (22-30); Chloride 103 mmol/L (98-107); Glucose 143 mg/dL (74-99); Magnesium 2.1 mg/dL (1.6-2.3); Potassium 3.9 mmol/L (3.5-5.1); Sodium 136 mmol/L (137-145); Total Bilirubin 1.2 mg/dL (0.2-1.3)
[2018-04-10 22:29] LABS: Prothrombin Time 10.1 sec (9.0-12.0)
[2018-04-10 22:39] LABS: Partial Thromboplastin Time 19.7 sec (22.0-30.0)
--- NOTE | 2018-04-10 22:51 | XR ---
EXAMINATION TYPE: XR chest 2V DATE OF EXAM: 04/10/2018 COMPARISON: 04/10/2018 HISTORY: Difficulty breathing TECHNIQUE: Frontal and lateral views of the chest are obtained. FINDINGS: There is some mild infiltrate at the lung bases. There are sternal wires. There is no pleu ral effusion. There is cardiac valve prosthesis. Bony thorax is intact. IMPRESSION: New minimal infiltrate or atelectasis at the lung bases compared to exam this morning at 10:00 AM. No heart failure.
[2018-04-10] MEDS ORDERED: NALOXONE 0.4 MG/ML 1 ML VIAL IV PRN (23:44)
[2018-04-10] MEDS ORDERED: ACETAMINOPHEN TAB 325 MG TAB PO PRN (23:55)
[2018-04-11 00:51] LABS: Anisocytosis Slight; HCT 22.8 % (39.0-53.0); Hypochromasia Slight; MCH 29.4 pg (25.0-35.0); MCHC 32.8 g/dL (31.0-37.0); MCV 89.5 fL (80.0-100.0); Mean Platelet Volume 6.9; Platelet Count 235 k/uL (150-450); Poikilocytosis Slight; RBC 2.54 m/uL (4.30-5.90)
[2018-04-11 01:01] LABS: HGB 7.5 gm/dL (13.0-17.5)
[2018-04-11 01:06] VITALS: BMI 36.0
[2018-04-11 01:12] LABS: Reticulocyte % 9.2 % (0.5-2.0)
--- NOTE | 2018-04-11 01:30 | P.HPIM ---
History of Present Illness H&P Date: 04/11/18 Chief Complaint: dyspnea 67 year old male with history of CAD s/p CABG and arotic valve replacement. Patient was discharged on 04/10/2018 , after a hospital stay for CABG. he had the procedure done on 04/04/2018 , and developed post operative anemia and dropped his hemoglobin from 15 to 8.7. he required a total of 2 units of blood transfusion during that hospital stay due to dropping his hemoglobin post operatively below 7 (on two occasions). Patient was successfully extubated postoperatively on 04/07/2018. Patient also developed an ALLERGIC reaction for unknown reason on 04/08/2018 but improved with Solu-Medrol Benadryl and Pepcid. . Patient reported only one episode of possible blood in his bowel movement 2 days prior to discharge. On day of discharge patient had stable hemoglobin for the prior 4 days hovering around 7.5. Patient returning today to the hospital due to dyspnea. He reports that he left the hospital at 4 PM and by the time he got home at around 5 PM he was having some nonproductive cough along with some dyspnea with flushing of his face he called his doctor who recommended to take a pill of Benadryl. Patient reports that symptoms of flushed face resolved however he continued to feel congested with some dyspnea and mild cough denies any wheezing fevers or chills. Denies any chest pain. He decided to stay home and rest however he felt that his dyspnea was not improving and he decided to come back to the hospital. He denies any new medications except for PPI, and some stool softeners. In the emergency department he was found to have low hemoglobin of 5.3, he again denies any active bleeding denies any melena or bloody bowel movements. Patient denies any dizziness or lightheadedness but he feels weak and dyspneic. Review of Systems Pertinent positives as noted in HPI. All other systems were reviewed and are negative Past Medical History Past Medical History: Coronary Artery Disease (CAD), Cancer, Diabetes Mellitus, Hyperlipidemia, Hypertension, Myocardial Infarction ([place]) Additional Past Medical History / Comment(s): HX KIDNEY STONES, HX OF PROSTATE AND SKIN CA, had chemo prior to prostatectomy 2000,aortic stenosis Last Myocardial Infarction Date:: 2005 History of Any Multi-Drug Resistant Organisms: None Reported Past Surgical History: Coronary Bypass/CABG, Heart Catheterization With Stent, Hernia Repair, Prostate Surgery Additional Past Surgical History / Comment(s): HEART STENT X5, LITHOTRIPSY and sx for kidney stone retrieval Past Anesthesia/Blood Transfusion Reactions: No Reported Reaction Date of Last Stent Placement:: 2005 Past Psychological History: No Psychological Hx Reported Smoking Status: Former smoker Past Alcohol Use History: None Reported Past Drug Use History: None Reported - Past Family History Father Family Medical History: Cancer Additional Family Medical History / Comment(s): COLON, LUNG Sister(s) Family Medical History: Cancer Additional Family Medical History / Comment(s): PANCREAS, COLON, LIVER Brother(s) Family Medical History: Cancer Additional Family Medical History / Comment(s): COLON,LIVER Medications and Allergies Home Medications Medication Instructions Recorded Confirmed Type Aspirin 81 mg PO DAILY 02/11/15 04/10/18 History Lisinopril [Prinivil] 20 mg PO HS 02/11/15 04/10/18 History Metoprolol Tartrate [Lopressor] 50 mg PO BID 02/11/15 04/10/18 History metFORMIN HCL 1,000 mg PO BID 02/11/15 04/10/18 History glipiZIDE [Glucotrol] 10 mg PO BID 01/27/18 04/10/18 History Acetaminophen Tab [Tylenol] 325 mg PO Q6H PRN #120 tablet 04/10/18 04/10/18 Rx Atorvastatin [Lipitor] 40 mg PO DAILY #30 tab 04/10/18 04/10/18 Rx Clopidogrel [Plavix] 75 mg PO DAILY #30 tab 04/10/18 04/10/18 Rx Ferrous Sulfate [Iron (65 MG 325 mg PO BID-W/MEALS #60 tab 04/10/18 04/10/18 Rx Elemental)] Furosemide [Lasix] 40 mg PO DAILY 7 Days #7 tablet 04/10/18 04/10/18 Rx Pantoprazole [Protonix] 40 mg PO AC-BRKFST #30 tablet. 04/10/18 04/10/18 Rx Sennosides-Docusate Sodium 2 each PO HS #60 tab 04/10/18 04/10/18 Rx [Senokot-S] Allergies Allergy/AdvReac Type Severity Reaction Status Date / Time No Known Allergies Allergy Verified 04/10/18 21:41 Physical Exam Vitals: Vital Signs Temp Pulse Resp BP Pulse Ox 04/10/18 22:39 77 16 04/10/18 22:29 77 14 04/10/18 21:12 99.0 F 59 L 16 103/64 98 Intake and Output 04/10/18 04/10/18 04/11/18 14:59 22:59 06:59 Other: Weight 104.326 kg Constitutional: No acute distress, conversant, pleasant, obese Eyes: Anicteric sclerae, moist conjunctiva, no lid-lag Pupils equal round reactive to light ENMT: NC/AT Oropharynx clear, no erythema, exudates Neck: Supple, FROM, no masses, or JVD No carotid bruits No thyromegaly Lungs: Clear to auscultation Clear to percussion Normal respiratory effort, no accessory muscle use Cardiovascular: Heart regular in rate and rhythm, No murmurs, gallops, or rubs No peripheral edema Abdominal: Soft Nontender, no guarding, rebound or rigidity Abdomen moving with respiration Normoactive bowel sounds No hepatomegaly, No splenomegaly No palpable mass No abdominal wall hernia noted Skin: Sternal surgical wound looks clean and dry and intact Normal temperature, tone, texture, turgor No induration No subcutaneous nodules No rash, lesions No ulcers Extremities: No digital cyanosis No clubbing Pedal pulses intact and symmetrical Radial pulses intact and symmetrical No calf tenderness Psychiatric: Alert and oriented to person, place and time Appropriate affect fair judgment Neuro Muscles Strength 5/5 in all 4 extremities Sensation to light touch grossly present throughout Cranial nerves II-XII grossly intact No focal sensory deficits Lymphatics: no palpable cervical or supraclavicular , or inguinal lymph nodes Results CBC & Chem 7: 04/10/18 23:45 04/10/18 21:44 Labs: Abnormal Lab Results - Last 24 Hours (Table) 04/10/18 04/10/18 04/10/18 Range/Units 21:44 21:44 21:44 WBC 20.4 H (3.8-10.6) k/uL RBC 1.77 L (4.30-5.90) m/uL Hgb 5.3 L* D (13.0-17.5) gm/dL Hct 15.7 L* (39.0-53.0) % RDW 17.2 H (11.5-15.5) % Neutrophils # 14.8 H (1.3-7.7) k/uL Monocytes # 1.4 H (0-1.0) k/uL APTT 19.7 L (22.0-30.0) sec Sodium 136 L (137-145) mmol/L BUN 26 H (9-20) mg/dL Glucose 143 H (74-99) mg/dL AST 65 H (17-59) U/L ALT 91 H (21-72) U/L Total Protein 6.0 L (6.3-8.2) g/dL Albumin 3.3 L (3.5-5.0) g/dL Assessment and Plan Assessment: 67-year-old male with history of hypertension, diabetes mellitus, CAD status post CABG and aortic valve replacement, patient is admitted under observation with anticipated length of stay of less than 48 hours due to symptomatic anemia of unknown etiology presented with dyspnea. Patient denies any active bleeding. Patient has recently discharged from the hospital post successful open heart surgery for CABG and aortic valve replacement which he tolerated very well Plan: Symptomatic anemia of unknown etiology Current hemoglobin of 5.3, this is a drop from around 7.5 for the past 4 days Continue to monitor H&H every 8 hours Fecal Occult blood testing Check haptoglobin, LDH, reticulocyte count Continue with iron orally Plan for 2 units of blood transfusion Cardiac monitoring Echocardiogram in the ED did not show any significant pericardial effusion Check official echocardiogram Coronary artery disease status post CABG and aortic valve replacement Thoracic surgery consult Continue with aspirin Plavix Continue statin Continue with metoprolol and lisinopril Diabetes mellitus, on oral hypoglycemic agents, well controlled Insulin sliding scale Most recent A1c 7.4 Hypertension currently controlled Hyperlipidemia on Lipitor DVT prophylaxis currently only mechanical due to symptomatic anemia until ruling out GI bleeding Preformed a thorough record review from recent hospitalization as summarized in HPI Surrogate decision-maker: Patient CODE STATUS: Full code Discussed with: Patient, ER, RN Anticipated discharge: <[address]: Home A total of 60 minutes was spent on the care of this complex patient more than 50 % of the time was spent in counseling and care coordination.
[2018-04-11 02:44] LABS: Band Neutrophils % 2 %; Lymphocytes # (M) 3.26 k/uL (1.0-4.8); Metamyelocytes # (M) 0.16 k/uL (0); Metamyelocytes % 1 %; Monocytes # (M) 0.82 k/uL (0-1.0); Myelocytes # (M) 0.16 k/uL (0); Myelocytes % 1 %; Neutrophils % (M) 73 %; Nucleated Red Blood Cells 1 /100 WBC (0-0); Total Cells Counted 200; WBC 16.3 k/uL (3.8-10.6)
[2018-04-11 02:45] LABS: Polychromasia Present
[2018-04-11 06:10] LABS: Glucose,Whole Blood 230 mg/dL (75-99)
[2018-04-11] MEDS: INSULIN ASPART 100 UNIT/ML 1 ML 10 ML VIAL SQ SCH ×2 (06:52→12:42)
[2018-04-11 07:16] LABS: Anisocytosis Slight; Basophils % (A) 0 %; Eosinophils # (A) 0.1 k/uL (0-0.7); Eosinophils % (A) 1 %; HCT 23.5 % (39.0-53.0); HGB 7.6 gm/dL (13.0-17.5); Hypochromasia Slight; Lymphocytes % (A) 7 %; MCH 29.8 pg (25.0-35.0); MCHC 32.3 g/dL (31.0-37.0); MCV 92.2 fL (80.0-100.0); Mean Platelet Volume 7.4; Monocytes # (A) 0.5 k/uL (0-1.0); Monocytes % (A) 4 %; Neutrophils # (A) 12.5 k/uL (1.3-7.7); Neutrophils % (A) 88 %; Platelet Count 240 k/uL (150-450); Poikilocytosis Slight; RBC 2.55 m/uL (4.30-5.90); RDW 16.9 % (11.5-15.5); WBC 14.3 k/uL (3.8-10.6)
[2018-04-11 07:24] LABS: ALT 79 U/L (21-72); AST 47 U/L (17-59); Albumin 3.2 g/dL (3.5-5.0); Alkaline Phosphatase 59 U/L (38-126); Anion Gap 11 mmol/L; Blood Urea Nitrogen 27 mg/dL (9-20); Calcium 8.5 mg/dL (8.4-10.2); Carbon Dioxide 23 mmol/L (22-30); Chloride 102 mmol/L (98-107); Glucose 200 mg/dL (74-99); Potassium 4.9 mmol/L (3.5-5.1); Sodium 136 mmol/L (137-145); Total Bilirubin 1.3 mg/dL (0.2-1.3)
[2018-04-11] MEDS ORDERED: PANTOPRAZOLE 40 MG TABLET PO SCH (07:30)
[2018-04-11] MEDS ORDERED: FERROUS SULFATE 325 MG TAB PO SCH (07:30)
[2018-04-11] MEDS ORDERED: CLOPIDOGREL 75 MG TAB PO SCH (09:00)
[2018-04-11] MEDS ORDERED: ASPIRIN 81 MG PO SCH (09:00)
[2018-04-11] MEDS ORDERED: FUROSEMIDE 40 MG TAB PO SCH (09:00)
[2018-04-11] MEDS ORDERED: ATORVASTATIN 40 MG TAB PO SCH (09:00)
[2018-04-11] MEDS ORDERED: METOPROLOL TARTRATE 50 MG TAB PO SCH (09:00)
[2018-04-11 09:07] VITALS: RESP 18
--- NOTE | 2018-04-11 10:46 | ECHOF ---
Referral Reason:Postop open-heart surgery, rule out effusion MEASUREMENTS -------- HEIGHT: 170.2 cm WEIGHT: 105.7 kg BP: RVIDd: 2.4 cm (< 3.3) IVSd: 1.6 cm (0.6 - 1.1) LVIDd: 3.6 cm (3.9 - 5.3) LVPWd: 1.7 cm (0.6 - 1.1) IVSs: 2.1 cm LVIDs: 2.6 cm LVPWs: 1.4 cm Ao Diam: 2.7 cm (2.0 - 3.7) LA Diam: 3.4 cm (2.7 - 3.8) MV EXCURSION: 12.538 mm (> 18.000) MV EF SLOPE: 75 mm/s (70 - 150) EPSS: 0.6 cm MV E Raghavendra: 0.84 m/s MV DecT: 258 ms MV A Raghavendra: 0.93 m/s MV E/A Ratio: 0.90 AV maxP.79 mmHg AV meanP.34 mmHg RAP: 5.00 mmHg RVSP: 22.70 mmHg FINDINGS -------- Sinus rhythm. This was a technically difficult study with suboptimal views. The left ventricular size is normal. There is moderate concentric left ventricular hypertrophy. O verall left ventricular systolic function is normal with, an EF between 55 - 60 %. The right ventricle is normal in size and function. The left atrium is normal in size. The right atrium is normal in size. Lumason used Peak/mean gradient across the Aortic Valve is 19.79mmHg / 11.34mmHg. Normally functioning bioprosth etic valve. There is trace mitral regurgitation. Trace tricuspid regurgitation present. The right ventricular systolic pressure, as measured by Dopp ler, is 22.70mmHg. Pulmonic valve appears structurally normal. The aortic root size is normal. There is a small, generalized pericardial effusion present. CONCLUSIONS -------- 1. Sinus rhythm. 2. This was a technically difficult study with suboptimal views. 3. The left ventricular size is normal. 4. There is moderate concentric left ventricular hypertrophy. 5. Overall left ventricular systolic function is normal with, an EF between 55 - 60 %. 6. The right ventricle is normal in size and function. 7. The left atrium is normal in size. 8. The right atrium is normal in size. 9. Lumason used 10. Peak/mean gradient across the Aortic Valve is 19.79mmHg / 11.34mmHg. 11. Normally functioning bioprosthetic valve. 12. There is trace mitral regurgitation. 13. Trace tricuspid regurgitation present. 14. The right ventricular systolic pressure, as measured by Doppler, is 22.70mmHg. 15. Pulmonic valve appears structurally normal. 16. The aortic root size is normal. 17. There is a small, generalized pericardial effusion present. CLOTH TRIMMER HAND: Trini Rosen RDCS
[2018-04-11 11:42] LABS: Glucose,Whole Blood 178 mg/dL (75-99)
[2018-04-11 12:01] VITALS: BP 108/63; PULSE 75; TEMP 96.6
--- NOTE | 2018-04-11 12:06 | P.PN ---
Progress Note - Text Progress Note Date: 04/11/18 Patient was seen and examined. No acute events overnight. Patient underwent CABG on 04/04/2018. Hemoglobin trended down from 15-8.7, transfuse 2 units PRBC , hemoglobin stable at 7.5 on discharge. Postoperatively was complicated with some sort of ALLERGIC reaction which resolved with Solu-Medrol and Benadryl. Patient reports being discharge at 4 PM last night. Patient reports eating dinner last night, noticed cheeks appeared red and patient appeared dyspneic. Patient took Benadryl which resolved the redness. Patient attempted to lay down without relief of his dyspnea, prompting him to call EMS. Patient reports a dry cough prior to discharge. states this is "like an asthmatic cough". Patient reports shortness of breath, worsened with exertion and laying down. reports lower extremity swelling since his operation. General: [non toxic], [no distress], [appears at stated age] Derm: [warm], [dry] Head: [atraumatic], [normocephalic], [symmetric] Eyes: [EOMI], [no lid lag], [anicteric sclera] Mouth: [no lip lesion], [mucus membranes moist] Cardiovascular: [S1S2 reg], [no murmur], [positive posterior tibial pulse bilateral], Lungs: [CTA bilateral], [no rhonchi, no rales] , [no accessory muscle use] Abdominal: [soft], [ nontender to palpation], [no guarding], [no appreciable organomegaly] Ext: [no gross muscle atrophy], [1+ edema], [no contractures], [R shoulder sling ] Neuro: [ CN II-XI grossly intact], [no focal neuro deficits] Psych: [Alert], [oriented], [appropriate affect] 1. Dyspnea: Likely anxiety vs symptomatic anemia vs new onset HF. Hg 5.3 on admission but 7.5-7.6 on re-check. CXR shows new minimal infiltrate or atelectasis without overt HF. BNP 1100 (elevated but no baseline) but Echo shows EF 55-60% with functioning AV valve. Possible allergic Rxn due to Lisinopril (patient has been on this medication for the last 2 years), will switch to Losartan. Continue Lasix 40 mg PO QD. O2 per NC to maintain O2 sat > 92%. Telemetry monitoring. FU CT Sx, Cardiology 2. Anemia: Hg 5.3 to Hg 7.5-7.6 without PRBC. Likely false read initially. LDH and Retic count elevated, likely related to hemolysis during Sx with bone marrow compensation. FOBT +. Continue ASA and Plavix. Continue FeSO4 325 mg PO BID. Will need C-scope in the outPT setting. FU CBC Q8H, Haptoglobin 3. Leukocytosis: WBC 20.4 on admission. Trending down to 14.3. Afebrile with no signs of infection, likely related to steroids received during previous and current hospitalization (WBC 16.2 on DC previously). Daily CBC 4. Prerenal azotemia: BUN 29, Cr wnl. Likely due to dehydration. Avoid nephrotoxins. Encourage PO hydration. Daily BMP 5. Elevated transaminase: AST 65 ALT 91, improved this AM (AST 47, ALT 79). Hep panel negative. Lipid panel OK except HDL of 38. Daily CMP 6. CAD: s/p CABG 03/2018. Continue ASA 81 mg PO QD, Lipitor 40 mg PO QHS, Plavix 75 mg PO QD, Metoprolol 50 mg PO BID. Switch Lisinopril to Losartan due to possible allergic Rxn. FU Cardiology outPT. 7. DM: POC glucose 230. ISS. Accuchecks. Low carb diet. Hypoglycemic precautions. FU A1c 8. DVT/GI Prophylaxis: Protonix 40 mg PO QAM.
[2018-04-11] MEDS ORDERED: FUROSEMIDE 10 MG/ML 4 ML VIAL IV STA (12:35)
--- NOTE | 2018-04-11 12:38 | P.GSCN ---
History of Present Illness Consult date: 04/11/18 Reason for Consult: Postoperative aortic valve replacement and myocardial revascularization. Requesting physician: Jeff Oscar History of present illness: This is a 67-year-old gentleman who is followed by Dr. Meza on an outpatient basis. The patient has a past medical history significant for coronary artery disease with previous stent placement to his right coronary artery, obtuse marginal coronary artery and ramus coronary artery in 2005, severe aortic stenosis, hypertension, hyperlipidemia, obesity, prostate cancer status post prostatectomy in 2001, skin cancer 3 years ago, diabetes mellitus type 2 non- insulin-dependent and a remote history of tobacco dependence which he quit in 1974. On 04/04/2018 patient underwent elective aortic valve replacement using a #23 mm bovine prosthetic Inspiris valve, a triple vessel coronary artery bypass grafting using the left internal mammary artery to left anterior descending coronary artery, a reverse greater saphenous vein graft from the aorta to the diagonal coronary artery, and a reverse greater saphenous vein graft from the aorta to the posterior descending coronary artery. The patient was recovered and on postoperative day #6 he was discharged home with [facility] care. Subsequently, several hours after he was home he developed a rash around his mouth with some lip swelling, a productive cough and some dyspnea. He denies any fever, chills, nausea, or vomiting. Due to the lip swelling and development of a rash around his mouth. He did take 1 dose of Benadryl at home. He reports that the Benadryl didn't help somewhat as his rash and lip swelling disappeared. He did continue to have some dyspnea and subsequently presented to the emergency department here at [facility] with the above-mentioned symptoms. Due to the patient's recent cardiac surgery history Dr. Fountain from cardiothoracic surgery was asked to see the patient. A chest x-ray was completed in the emergency department which showed some mild infiltrates at that his lung bases with no pleural effusion present. A 12-lead EKG was completed which demonstrated normal sinus rhythm with a heart rate of 78. His initial lab work showed a hemoglobin of 5.3, WBC count of 6.3, BUN 26, creatinine 0.72. Due to the patient's hemoglobin of 5.3 a repeat CBC was sent and the repeat hemoglobin was 7.5. Due to the patient's presenting symptoms and history of recent cardiac surgery he was admitted to the hospital under a observation status. Review of Systems A 14 point review of system was completed and was negative except as mentioned in the HPI. Past Medical History Past Medical History: Coronary Artery Disease (CAD), Cancer, Diabetes Mellitus, Hyperlipidemia, Hypertension, Myocardial Infarction ([place]), Prostate Disorder Additional Past Medical History / Comment(s): HX KIDNEY STONES, HX OF PROSTATE AND SKIN CA, had chemo prior to prostatectomy 2001,aortic stenosis Last Myocardial Infarction Date:: 2005 History of Any Multi-Drug Resistant Organisms: None Reported Past Surgical History: Coronary Bypass/CABG (Aortic valve replacement April 04 2018), Heart Catheterization With Stent, Hernia Repair, Prostate Surgery Additional Past Surgical History / Comment(s): HEART STENT X5, LITHOTRIPSY and sx for kidney stone retrieval, prostate surgery 2001. Past Anesthesia/Blood Transfusion Reactions: No Reported Reaction Date of Last Stent Placement:: 2005 Past Psychological History: No Psychological Hx Reported Smoking Status: Former smoker Past Alcohol Use History: None Reported Past Drug Use History: None Reported - Past Family History Father Family Medical History: Cancer Additional Family Medical History / Comment(s): COLON, LUNG Sister(s) Family Medical History: Cancer Additional Family Medical History / Comment(s): PANCREAS, COLON, LIVER Brother(s) Family Medical History: Cancer Additional Family Medical History / Comment(s): COLON,LIVER Mother Family Medical History: Congestive Heart Failure (CHF) Medications and Allergies Home Medications Medication Instructions Recorded Confirmed Type Aspirin 81 mg PO DAILY 02/11/15 04/10/18 History Lisinopril [Prinivil] 20 mg PO HS 02/11/15 04/10/18 History Metoprolol Tartrate [Lopressor] 50 mg PO BID 02/11/15 04/10/18 History metFORMIN HCL 1,000 mg PO BID 02/11/15 04/10/18 History glipiZIDE [Glucotrol] 10 mg PO BID 01/27/18 04/10/18 History Acetaminophen Tab [Tylenol] 325 mg PO Q6H PRN #120 tablet 04/10/18 04/10/18 Rx Atorvastatin [Lipitor] 40 mg PO DAILY #30 tab 04/10/18 04/10/18 Rx Clopidogrel [Plavix] 75 mg PO DAILY #30 tab 04/10/18 04/10/18 Rx Ferrous Sulfate [Iron (65 MG 325 mg PO BID-W/MEALS #60 tab 04/10/18 04/10/18 Rx Elemental)] Furosemide [Lasix] 40 mg PO DAILY 7 Days #7 tablet 04/10/18 04/10/18 Rx Pantoprazole [Protonix] 40 mg PO AC-BRKFST #30 tablet. 04/10/18 04/10/18 Rx Sennosides-Docusate Sodium 2 each PO HS #60 tab 04/10/18 04/10/18 Rx [Senokot-S] Allergies Allergy/AdvReac Type Severity Reaction Status Date / Time No Known Allergies Allergy Verified 04/10/18 21:41 Surgical - Exam Vital Signs Temp Pulse Resp BP Pulse Ox 99.0 F 59 L 16 103/64 98 04/10/18 21:12 04/10/18 21:12 04/10/18 21:12 04/10/18 21:12 04/10/18 21:12 - General well developed (On my last night in PLACE HE CAN SURFACE ARE EQUAL AND RATE IS A RESULT OF THE POPULATION EARLIER WHERE YOU WERE ORIGINALLY FROM ALL OF THE INSULIN IS ONE OF DR. ESQUIVEL WERE USED TO WORK HIS [id number] COMES ON VACATION WITH HER AND SHE IS FROM SHE IS FROM [place] IS LESS THAN 70 IS 1), well nourished, no distress, no pain, obese - Eyes PERRL, normal ocular movement - ENT normal pinna, normal nares, normal mucosa, no hearing loss, no congestion - Neck Neck is supple, no lymphadenopathy. 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 Respirations are symmetrical and nonlabored. Oxygen saturation are 95% on room air. - Cardiovascular Regular rhythm and rate. S1 and S2 present, negative for S3, gallop or murmur. Sternum is stable. Remote telemetry showing normal sinus rhythm heart rate 75. +2 edema to his bilateral lower extremities. Knee-high PAMELA hose and sequential compression devices in place to his bilateral lower extremities. - Abdomen Abdomen is soft, nontender and nondistended. Active bowel sounds all 4 abdominal quadrants. No organomegaly. No guarding or rigidity. Passing flatus. - Genitourinary Deferred - Rectum Deferred - Integumentary Scant serosanguineous drainage from his right lower extremity old SANJIV drain site. Right thigh ecchymosis soft to palpate, nontender. Midline sternal incision clean and dry and approximated. Dermabond dressing clean and dry. No drainage or redness present. Right lower extremity EVH sites clean and dry and approximated. no rash, no growths - Neurologic Cranial nerves II through XII intact. No focal deficits. normal coordination, normal sensation - Musculoskeletal normal gait, normal posture - Psychiatric oriented to time, oriented to person, oriented to place, speech is normal, memory intact Results - Labs 04/11/18 06:11 04/11/18 06:11 Abnormal Lab Results - Last 24 Hours (Table) 04/10/18 04/10/18 04/10/18 Range/Units 21:44 21:44 21:44 WBC 20.4 H (3.8-10.6) k/uL RBC 1.77 L (4.30-5.90) m/uL Hgb 5.3 L* D (13.0-17.5) gm/dL Hct 15.7 L* (39.0-53.0) % RDW 17.2 H (11.5-15.5) % Neutrophils # 14.8 H (1.3-7.7) k/uL Neutrophils # (Manual) (1.3-7.7) k/uL Monocytes # 1.4 H (0-1.0) k/uL Metamyelocytes # (Man) (0) k/uL Myelocytes # (Manual) (0) k/uL Nucleated RBCs (0-0) /100 WBC Retic Count (0.5-2.0) % APTT 19.7 L (22.0-30.0) sec Sodium 136 L (137-145) mmol/L BUN 26 H (9-20) mg/dL Glucose 143 H (74-99) mg/dL POC Glucose (mg/dL) (75-99) mg/dL AST 65 H (17-59) U/L ALT 91 H (21-72) U/L Lactate Dehydrogenase (313-618) U/L Total Protein 6.0 L (6.3-8.2) g/dL Albumin 3.3 L (3.5-5.0) g/dL Crossmatch 04/10/18 04/10/1818 Range/Units 21:44 21:44 23:25 WBC (3.8-10.6) k/uL RBC (4.30-5.90) m/uL Hgb (13.0-17.5) gm/dL Hct (39.0-53.0) % RDW (11.5-15.5) % Neutrophils # (1.3-7.7) k/uL Neutrophils # (Manual) (1.3-7.7) k/uL Monocytes # (0-1.0) k/uL Metamyelocytes # (Man) (0) k/uL Myelocytes # (Manual) (0) k/uL Nucleated RBCs (0-0) /100 WBC Retic Count 9.2 H (0.5-2.0) % APTT (22.0-30.0) sec Sodium (137-145) mmol/L BUN (9-20) mg/dL Glucose (74-99) mg/dL POC Glucose (mg/dL) (75-99) mg/dL AST (17-59) U/L ALT (21-72) U/L Lactate Dehydrogenase 1228 H (313-618) U/L Total Protein (6.3-8.2) g/dL Albumin (3.5-5.0) g/dL Crossmatch See Detail 04/10/18 04/11/18 04/11/18 Range/Units 23:45 06:09 06:11 WBC 16.3 H 14.3 H (3.8-10.6) k/uL RBC 2.54 L 2.55 L (4.30-5.90) m/uL Hgb 7.5 L D 7.6 L (13.0-17.5) gm/dL Hct 22.8 L 23.5 L (39.0-53.0) % RDW 17.0 H 16.9 H (11.5-15.5) % Neutrophils # 12.5 H (1.3-7.7) k/uL Neutrophils # (Manual) 12.20 H (1.3-7.7) k/uL Monocytes # (0-1.0) k/uL Metamyelocytes # (Man) 0.16 H (0) k/uL Myelocytes # (Manual) 0.16 H (0) k/uL Nucleated RBCs 1 H (0-0) /100 WBC Retic Count (0.5-2.0) % APTT (22.0-30.0) sec Sodium (137-145) mmol/L BUN (9-20) mg/dL Glucose (74-99) mg/dL POC Glucose (mg/dL) 230 H (75-99) mg/dL AST (17-59) U/L ALT (21-72) U/L Lactate Dehydrogenase (313-618) U/L Total Protein (6.3-8.2) g/dL Albumin (3.5-5.0) g/dL Crossmatch 04/11/18 Range/Units 06:11 WBC (3.8-10.6) k/uL RBC (4.30-5.90) m/uL Hgb (13.0-17.5) gm/dL Hct (39.0-53.0) % RDW (11.5-15.5) % Neutrophils # (1.3-7.7) k/uL Neutrophils # (Manual) (1.3-7.7) k/uL Monocytes # (0-1.0) k/uL Metamyelocytes # (Man) (0) k/uL Myelocytes # (Manual) (0) k/uL Nucleated RBCs (0-0) /100 WBC Retic Count (0.5-2.0) % APTT (22.0-30.0) sec Sodium 136 L (137-145) mmol/L BUN 27 H (9-20) mg/dL Glucose 200 H (74-99) mg/dL POC Glucose (mg/dL) (75-99) mg/dL AST (17-59) U/L ALT 79 H (21-72) U/L Lactate Dehydrogenase (313-618) U/L Total Protein 6.0 L (6.3-8.2) g/dL Albumin 3.2 L (3.5-5.0) g/dL Crossmatch Diabetes panel 04/10/18 04/11/18 Range/Units 21:44 06:11 Sodium 136 L 136 L (137-145) mmol/L Potassium 3.9 4.9 (3.5-5.1) mmol/L Chloride 103 102 (98-107) mmol/L Carbon Dioxide 25 23 (22-30) mmol/L BUN 26 H 27 H (9-20) mg/dL Creatinine 0.72 0.72 (0.66-1.25) mg/dL Glucose 143 H 200 H (74-99) mg/dL Calcium 8.5 8.5 (8.4-10.2) mg/dL AST 65 H 47 (17-59) U/L ALT 91 H 79 H (21-72) U/L Alkaline Phosphatase 59 59 (38-126) U/L Total Protein 6.0 L 6.0 L (6.3-8.2) g/dL Albumin 3.3 L 3.2 L (3.5-5.0) g/dL Calcium panel 04/10/18 04/11/18 Range/Units 21:44 06:11 Calcium 8.5 8.5 (8.4-10.2) mg/dL Albumin 3.3 L 3.2 L (3.5-5.0) g/dL Pituitary panel 04/10/18 04/11/18 Range/Units 21:44 06:11 Sodium 136 L 136 L (137-145) mmol/L Potassium 3.9 4.9 (3.5-5.1) mmol/L Chloride 103 102 (98-107) mmol/L Carbon Dioxide 25 23 (22-30) mmol/L BUN 26 H 27 H (9-20) mg/dL Creatinine 0.72 0.72 (0.66-1.25) mg/dL Glucose 143 H 200 H (74-99) mg/dL Calcium 8.5 8.5 (8.4-10.2) mg/dL Adrenal panel 04/10/18 04/11/18 Range/Units 21:44 06:11 Sodium 136 L 136 L (137-145) mmol/L Potassium 3.9 4.9 (3.5-5.1) mmol/L Chloride 103 102 (98-107) mmol/L Carbon Dioxide 25 23 (22-30) mmol/L BUN 26 H 27 H (9-20) mg/dL Creatinine 0.72 0.72 (0.66-1.25) mg/dL Glucose 143 H 200 H (74-99) mg/dL Calcium 8.5 8.5 (8.4-10.2) mg/dL Total Bilirubin 1.2 1.3 (0.2-1.3) mg/dL AST 65 H 47 (17-59) U/L ALT 91 H 79 H (21-72) U/L Alkaline Phosphatase 59 59 (38-126) U/L Total Protein 6.0 L 6.0 L (6.3-8.2) g/dL Albumin 3.3 L 3.2 L (3.5-5.0) g/dL - Imaging Chest x-ray: report reviewed, image reviewed EKG: image reviewed Assessment and Plan (1) H/O aortic valve replacement Current Visit: Yes Status: Acute Code(s): Z95.2 - PRESENCE OF PROSTHETIC HEART VALVE SNOMED Code(s): 9617534968735 (2) Hx of CABG Current Visit: Yes Status: Acute Code(s): Z95.1 - PRESENCE OF AORTOCORONARY BYPASS GRAFT SNOMED Code(s): 705500068 (3) Anemia Current Visit: Yes Status: Acute Code(s): D64.9 - ANEMIA, UNSPECIFIED SNOMED Code(s): 489094348 (4) Dyspnea Current Visit: Yes Status: Acute Code(s): R06.00 - DYSPNEA, UNSPECIFIED SNOMED Code(s): 704325430 (5) Coronary artery disease Current Visit: No Status: Chronic Code(s): I25.10 - ATHSCL HEART DISEASE OF [place] CORONARY ARTERY W/O ANG PCTRS SNOMED Code(s): 12603759 (6) History of heart artery stent Current Visit: No Status: Chronic Code(s): Z95.5 - PRESENCE OF CORONARY ANGIOPLASTY IMPLANT AND GRAFT SNOMED Code(s): 557128160 (7) Hyperlipidemia Current Visit: No Status: Chronic Code(s): E78.5 - HYPERLIPIDEMIA, UNSPECIFIED SNOMED Code(s): 77907312 (8) Hypertension Current Visit: No Status: Chronic Code(s): I10 - ESSENTIAL (PRIMARY) HYPERTENSION SNOMED Code(s): 84431233 (9) Non-insulin dependent type 2 diabetes mellitus Current Visit: No Status: Chronic Code(s): E11.9 - TYPE 2 DIABETES MELLITUS WITHOUT COMPLICATIONS SNOMED Code(s): 07306493 (10) Obesity (BMI 30-39.9) Current Visit: No Status: Chronic Code(s): E66.9 - OBESITY, UNSPECIFIED SNOMED Code(s): 256443208 (11) Severe aortic stenosis Current Visit: No Status: Chronic Code(s): I35.0 - NONRHEUMATIC AORTIC ( VALVE) STENOSIS SNOMED Code(s): 27445611 (12) History of kidney stones Current Visit: No Status: Resolved Code(s): Z87.442 - PERSONAL HISTORY OF URINARY CALCULI SNOMED Code(s): 958683267 (13) History of prostate cancer Current Visit: No Status: Resolved Code(s): Z85.46 - PERSONAL HISTORY OF MALIGNANT NEOPLASM OF PROSTATE SNOMED Code(s): 426053093 Plan: The patient was seen and examined. His chart and diagnostics were reviewed. He was seen and examined by Dr. Fountain from cardiothoracic surgery. The patient denies any further complaints of shortness of breath, rash or swelling around his mouth. His room air oxygen saturation is 95% after ambulating in the hallway of [facility]. The patient may be discharged home today per the cardiothoracic surgery standpoint. Discharge instructions reinforced with the patient. Continue use of his heart hugger, incentive spirometry and continue lifting, pushing and pulling restrictions of greater than 10 pounds. Discharge instructions have been reviewed with the patient and his . Repeat CBC and CMP on , 04/13/2018 as ordered. We will give a dose of Lasix 40 mg IV x [address] Porter for this consult and we look for to working with you in the care of your patient. Time with Patient: Greater than 30
[2018-04-11 16:15] LABS: Glucose,Whole Blood 142 mg/dL (75-99)
[2018-04-11 16:27] LABS: Hemoglobin A1C 6.3 % (4.0-6.0)
[2018-04-11] MEDS ORDERED: SENNOSIDES-DOCUSATE SODIUM 1 EACH TAB PO SCH (21:00)
[2018-04-11] MEDS ORDERED: LISINOPRIL 20 MG TAB PO SCH (21:00)
[2018-04-12] MEDS ORDERED: LOSARTAN 50 MG TAB PO SCH (09:00)
== END 2018-04-11 16:45 | disposition home or self-care (01) ==
LOC: EC 21:12 → 6SEL 23:44
PROVIDERS: ADMIT Internal Medicine; ATTEND Internal Medicine
DX: R06.00 Dyspnea, unspecified (principal); D64.9 Anemia, unspecified; I25.10 Atherosclerotic heart disease of native coronary artery without angina pectoris; E11.9 Type 2 diabetes mellitus without complications; I10 Essential (primary) hypertension; E78.5 Hyperlipidemia, unspecified; D72.829 Elevated white blood cell count, unspecified; R74.0 Nonspecific elevation of levels of transaminase and lactic acid dehydrogenase [LDH]; R79.89 Other specified abnormal findings of blood chemistry; R21 Rash and other nonspecific skin eruption; R23.2 Flushing; R22.0 Localized swelling, mass and lump, head; R05 Cough; E66.9 Obesity, unspecified; Z68.36 Body mass index [BMI] 36.0-36.9, adult; Z79.82 Long term (current) use of aspirin; Z79.84 Long term (current) use of oral hypoglycemic drugs; Z79.02 Long term (current) use of antithrombotics/antiplatelets; Z79.899 Other long term (current) drug therapy; Z92.21 Personal history of antineoplastic chemotherapy; I25.2 Old myocardial infarction; Z85.828 Personal history of other malignant neoplasm of skin; Z95.2 Presence of prosthetic heart valve; Z95.5 Presence of coronary angioplasty implant and graft; Z95.1 Presence of aortocoronary bypass graft; Z87.891 Personal history of nicotine dependence; Z90.79 Acquired absence of other genital organ(s); Z85.46 Personal history of malignant neoplasm of prostate; Z87.442 Personal history of urinary calculi; Z82.49 Family history of ischemic heart disease and other diseases of the circulatory system; Z80.1 Family history of malignant neoplasm of trachea, bronchus and lung; Z80.0 Family history of malignant neoplasm of digestive organs
CPT/HCPCS: 96374; 96372; 99285; 36415; 94640; 93005; 86900; 86901; 83880; 80053 ×2; 83615; 83735; 85025 ×2; 85610; 85045; 85730; 86850; 82272; 87040; 83010; 83036; 71046; G0378 ×2; C8929; J1100; J1940; Q9950; 86920; 93306

== ENCOUNTER 2018-04-12 03:00 | Observation (INO) | payer MEDICARE, OTHER ==
[2018-04-12 03:30] LABS: Glucose,Whole Blood 162 mg/dL (75-99)
[2018-04-12] MEDS ORDERED: LIDOCAINE 1% INJ 10MG/ML (20 ML MDV) SQ ONE (03:42)
--- NOTE | 2018-04-12 04:03 | ED ---
Altered Mental Status HPI - General Chief Complaint: Altered Mental Status Stated Complaint: altered mental status Time Seen by Provider: 04/12/18 03:30 Source: family Mode of arrival: wheelchair Limitations: no limitations - History of Present Illness Initial Comments: Masoud is a 67-year-old gentleman who is brought to the ED today by his for evaluation of altered mental status. Masoud underwent a CABG last week, his postoperative course was complicated by prolonged intubation and he is subsequently discharged home on April 10. He returned to our emergency department hours after discharge for evaluation of new onset shortness of breath , was found to be anemic. He was placed in our observation unit overnight, his labs improved overnight with no intervention and the patient was subsequently discharged home the afternoon of the . he reports he was in a good state when he went home. He ate dinner at home. She reports that this evening he fell asleep in his chair and when he woke up she states he had a blank stare on his face and was talking gibberish. reports that he was talking about being at work and having some complications with computer programming. She became concerned about his altered mental status and called their son to come to the house to help him are to come to the hospital. When she advised her that she had called Martinez he asked if Martinez was a gentleman who would bring a trailer over. He was not aware that he had a son named Martinez at that time. He was very confused. In route to the hospital he did not know where he was going or why he was being transported somewhere though on arrival he was awake and alert and oriented to person place and date, events leading up to hospitalization however he did continue to complain about difficulty with computer programming. When asked to explain this he states it is complicated and we went to understand. 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 - Related Data Home Medications Medication Instructions Recorded Confirmed RX: Aspirin 81 mg PO DAILY 02/11/15 04/12/18 RX: Metoprolol Tartrate [Lopressor] 50 mg PO BID 02/11/15 04/12/18 RX: metFORMIN HCL 1,000 mg PO BID 02/11/15 04/12/18 RX: glipiZIDE [Glucotrol] 10 mg PO BID 01/27/18 04/12/18 Previous Rx's Medication Instructions Recorded RX: Atorvastatin [Lipitor] 40 mg PO DAILY #30 tab 04/10/18 RX: Clopidogrel [Plavix] 75 mg PO DAILY #30 tab 04/10/18 RX: Ferrous Sulfate [Iron (65 MG 325 mg PO BID-W/MEALS #60 tab 04/10/18 Elemental)] RX: Pantoprazole [Protonix] 40 mg PO SUSANNA #30 ozzie. 04/10/18 RX: Sennosides-Docusate Sodium 2 each PO HS #60 tab 04/10/18 [Senokot-S] RX: Furosemide [Lasix] 40 mg PO DAILY #30 tab 04/11/18 RX: Losartan [Cozaar] 100 mg PO DAILY #30 tab 04/11/18 Allergies Allergy/AdvReac Type Severity Reaction Status Date / Time No Known Allergies Allergy Verified 04/10/18 21:41 Review of Systems ROS Statement: Those systems with pertinent positive or pertinent negative responses have been documented in the HPI. ROS Other: All systems not noted in ROS Statement are negative. Past Medical History Past Medical History: Coronary Artery Disease (CAD), Cancer, Diabetes Mellitus, Hyperlipidemia, Hypertension, Myocardial Infarction ([place]), Prostate Disorder Additional Past Medical History / Comment(s): HX KIDNEY STONES, HX OF PROSTATE AND SKIN CA, had chemo prior to prostatectomy 2001,aortic stenosis Last Myocardial Infarction Date:: 2005 History of Any Multi-Drug Resistant Organisms: None Reported Past Surgical History: Coronary Bypass/CABG, Heart Catheterization With Stent, Hernia Repair, Prostate Surgery Additional Past Surgical History / Comment(s): HEART STENT X5, LITHOTRIPSY and sx for kidney stone retrieval, prostate surgery 2001. Past Anesthesia/Blood Transfusion Reactions: No Reported Reaction Date of Last Stent Placement:: 2005 Past Psychological History: No Psychological Hx Reported Smoking Status: Former smoker Past Alcohol Use History: None Reported Past Drug Use History: None Reported - Past Family History Mother Family Medical History: Congestive Heart Failure (CHF) Father Family Medical History: Cancer Additional Family Medical History / Comment(s): COLON, LUNG Sister(s) Family Medical History: Cancer Additional Family Medical History / Comment(s): PANCREAS, COLON, LIVER Brother(s) Family Medical History: Cancer Additional Family Medical History / Comment(s): COLON,LIVER General Exam - General Exam Comments Initial Comments: GENERAL: Well-developed well-nourished, nontoxic-appearing patient in mild distress HENT: Normocephalic, Atraumatic. Neck is soft and supple. No significant lymphadenopathy is noted. Oropharynx is clear. Moist mucous membranes. Neck has full range of motion without eliciting any pain. Well-healing venipuncture site on the right consistent with previous IJ triple- lumen catheter EYES: The sclera were anicteric and conjunctiva were pink and moist. Extraocular movements were intact and pupils were equal round and reactive to light. Eyelids were unremarkable. PULMONARY: Unlabored respirations. Good breath sounds bilaterally. No audible rales rhonchi or wheezing was noted. CARDIOVASCULAR: There is a regular rate and rhythm without any murmurs gallops or rubs. Extremities are warm and well perfused ABDOMEN: Soft and nontender with normal bowel sounds. SKIN: Skin is clear with no lesions or rashes and otherwise unremarkable. Well-healing mid sternal incision Multiple bruises on bilateral upper extremities consistent with multiple venipuncture attempts, significant bruising to right forearm consistent with previous NEUROLOGIC: Patient is alert and oriented x3. Acutely delirious, continually speaking of difficulty with computer programming, did not recognize his son Cranial nerves II through XII are grossly intact. Motor and sensory are also intact. Normal speech, volume and content. Symmetrical smile. MUSCULOSKELETAL: Normal extremities with adequate strength and full range of motion. 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 ] Respiratory 20 17 Rate Blood Pressure 113/63 124/62 O2 Sat by Pulse 94 L 98 Oximetry Procedures - EJ/Peripheral Line No standard instances Consent Obtained: verbal consent Time Out Performed: Yes Indications: nurses unable to establish peripheral IV Skin Cleansed in Sterile Fashion: Yes Size: 18 Dressing Placed: Tegaderm Patient Tolerated Procedure: well Medical Decision Making - Medical Decision Making The patient was seen and evaluated, history is obtained from the patient, his and review of medical record This patient has recently undergone a CABG, subsequently discharged home and readmitted within the same day for evaluation of shortness of breath. Was noted to be anemic and was observed overnight and subsequently discharged home Tuesday. He is returning this morning with some acute delirium and confusion Patient with no focal neurologic deficits, alert and oriented but confused as to events prior to hospitalization, continuously talking about difficulty with computer programming, did not recognize his son Labs and imaging were ordered Due to difficulty with venipuncture, a single lumen IV was placed in the left IJ under ultrasound guidance CT head with no acute findings Labs continue to improve from previous Troponin mildly elevated this is likely related to recent cardiovascular surgery will trend Patient care was discussed with the patient's cardiovascular surgeon Dr Fountain who recommends admission to medicine team, he will be on consult for further evaluation Patient care was discussed with Dr. Porter who admitted the patient on Tuesday, is here with the patient's case, agrees with plan for placing the patient in observation for acute delirium. Continue monitoring. Possible consideration of rehab placement as the patient's seems to have a hard time in this immediate postoperative period. - Lab Data Result diagrams: 04/12/18 04:00 04/12/18 04:00 Lab Results 04/12/18 04/12/18 04/12/18 Range/Units 03:17 04:00 04:00 WBC 12.4 H (3.8-10.6) k/uL RBC 2.47 L (4.30-5.90) m/uL Hgb 7.3 L (13.0-17.5) gm/dL Hct 21.9 L (39.0-53.0) % MCV 88.7 (80.0-100.0) fL MCH 29.8 (25.0-35.0) pg MCHC 33.5 (31.0-37.0) g/dL RDW 16.9 H (11.5-15.5) % Plt Count 271 (150-450) k/uL Neutrophils % 73 % Lymphocytes % 18 % Monocytes % 5 % Eosinophils % 2 % Basophils % 0 % Neutrophils # 9.1 H (1.3-7.7) k/uL Lymphocytes # 2.3 (1.0-4.8) k/uL Monocytes # 0.6 (0-1.0) k/uL Eosinophils # 0.2 (0-0.7) k/uL Basophils # 0.0 (0-0.2) k/uL Hypochromasia Slight Poikilocytosis Slight Anisocytosis Slight PT (9.0-12.0) sec INR (<1.2) APTT (22.0-30.0) sec Sodium (137-145) mmol/L Potassium (3.5-5.1) mmol/L Chloride (98-107) mmol/L Carbon Dioxide (22-30) mmol/L Anion Gap mmol/L BUN (9-20) mg/dL Creatinine (0.66-1.25) mg/dL Est GFR (CKD-EPI)AfAm (>60 ml/min/1.73 sqM) Est GFR (CKD-EPI)NonAf (>60 ml/min/1.73 sqM) Glucose (74-99) mg/dL POC Glucose (mg/dL) 162 H (75-99) mg/dL POC Glu [employer] ID Alexandra Flores Calcium (8.4-10.2) mg/dL Total Bilirubin (0.2-1.3) mg/dL AST (17-59) U/L ALT (21-72) U/L Alkaline Phosphatase (38-126) U/L Total Creatine Kinase 68 (55-170) U/L CK-MB (CK-2) 1.0 (0.0-2.4) ng/mL CK-MB (CK-2) Rel Index 1.5 Troponin I 0.083 H* (0.000-0.034) ng/mL Total Protein (6.3-8.2) g/dL Albumin (3.5-5.0) g/dL 04/12/18 04/12/18 Range/Units 04:00 04:00 WBC (3.8-10.6) k/uL RBC (4.30-5.90) m/uL Hgb (13.0-17.5) gm/dL Hct (39.0-53.0) % MCV (80.0-100.0) fL MCH (25.0-35.0) pg MCHC (31.0-37.0) g/dL RDW (11.5-15.5) % Plt Count (150-450) k/uL Neutrophils % % Lymphocytes % % Monocytes % % Eosinophils % % Basophils % % Neutrophils # (1.3-7.7) k/uL Lymphocytes # (1.0-4.8) k/uL Monocytes # (0-1.0) k/uL Eosinophils # (0-0.7) k/uL Basophils # (0-0.2) k/uL Hypochromasia Poikilocytosis Anisocytosis PT 10.3 (9.0-12.0) sec INR 1.1 (<1.2) APTT 19.0 L (22.0-30.0) sec Sodium 133 L (137-145) mmol/L Potassium 3.8 (3.5-5.1) mmol/L Chloride 100 (98-107) mmol/L Carbon Dioxide 26 (22-30) mmol/L Anion Gap 7 mmol/L BUN 26 H (9-20) mg/dL Creatinine 0.69 (0.66-1.25) mg/dL Est GFR (CKD-EPI)AfAm >90 (>60 ml/min/1.73 sqM) Est GFR (CKD-EPI)NonAf >90 (>60 ml/min/1.73 sqM) Glucose 145 H (74-99) mg/dL POC Glucose (mg/dL) (75-99) mg/dL POC Glu [employer] ID Calcium 8.3 L (8.4-10.2) mg/dL Total Bilirubin 1.7 H (0.2-1.3) mg/dL AST 38 (17-59) U/L ALT 68 (21-72) U/L Alkaline Phosphatase 52 (38-126) U/L Total Creatine Kinase (55-170) U/L CK-MB (CK-2) (0.0-2.4) ng/mL CK-MB (CK-2) Rel Index Troponin I (0.000-0.034) ng/mL Total Protein 6.0 L (6.3-8.2) g/dL Albumin 3.2 L (3.5-5.0) g/dL - EKG Data EKG Comments: EKG obtained at 3:13 AM, rate 82, rhythm sinus, arm Kemal, DC interval 152, QRS 100, QTC 472, this is a new prolonged QT compared to previous. No other significant changes in morphology. No evidence of acute ischemia or infarction. Disposition Clinical Impression: Delirium Disposition: ADMITTED IP TO THIS HOSP Referrals: Padma Meza MD [Primary Care Provider] - 1-2 days
[2018-04-12 04:16] LABS: Anisocytosis Slight; Basophils % (A) 0 %; Eosinophils # (A) 0.2 k/uL (0-0.7); Eosinophils % (A) 2 %; HCT 21.9 % (39.0-53.0); HGB 7.3 gm/dL (13.0-17.5); Hypochromasia Slight; Lymphocytes # (A) 2.3 k/uL (1.0-4.8); Lymphocytes % (A) 18 %; MCH 29.8 pg (25.0-35.0); MCHC 33.5 g/dL (31.0-37.0); MCV 88.7 fL (80.0-100.0); Mean Platelet Volume 7.4; Monocytes # (A) 0.6 k/uL (0-1.0); Monocytes % (A) 5 %; Neutrophils # (A) 9.1 k/uL (1.3-7.7); Neutrophils % (A) 73 %; Platelet Count 271 k/uL (150-450); Poikilocytosis Slight; RBC 2.47 m/uL (4.30-5.90); RDW 16.9 % (11.5-15.5); WBC 12.4 k/uL (3.8-10.6)
--- NOTE | 2018-04-12 04:24 | XR ---
EXAMINATION TYPE: XR chest 2V DATE OF EXAM: 04/12/2018 COMPARISON: 04/10/2018 HISTORY: Altered mental status TECHNIQUE: Frontal and lateral views of the chest are obtained. FINDINGS: There is no heart failure nor confluent pneumonic infiltrate. There are sternal wires. The re are chest leads. Costophrenic angles show slight blunting on the right side. IMPRESSION: New small right pleural effusion compared to last exam. No heart failure.
[2018-04-12 04:27] LABS: ALT 68 U/L (21-72); AST 38 U/L (17-59); Albumin 3.2 g/dL (3.5-5.0); Alkaline Phosphatase 52 U/L (38-126); Anion Gap 7 mmol/L; Blood Urea Nitrogen 26 mg/dL (9-20); Calcium 8.3 mg/dL (8.4-10.2); Carbon Dioxide 26 mmol/L (22-30); Chloride 100 mmol/L (98-107); Glucose 145 mg/dL (74-99); Potassium 3.8 mmol/L (3.5-5.1); Sodium 133 mmol/L (137-145); Total Bilirubin 1.7 mg/dL (0.2-1.3)
--- NOTE | 2018-04-12 04:31 | CT ---
EXAMINATION TYPE: CT brain wo con DATE OF EXAM: 04/12/2018 COMPARISON: None HISTORY: AMS CT DLP: 1144.70 mGycm Automated exposure control for dose reduction was used. FINDINGS: There is some cerebral cortical atrophy. There is no mass effect nor midline shift. There is no sign of intracranial hemorrhage. The calvarium is intact. IMPRESSION: NEGATIVE CT SCAN OF THE BRAIN. MINIMAL ATROPHY.
[2018-04-12 04:37] LABS: INR 1.1 (<1.2); Prothrombin Time 10.3 sec (9.0-12.0)
[2018-04-12 04:57] LABS: Troponin I 0.083 ng/mL (0.000-0.034)
[2018-04-12] MEDS ORDERED: NALOXONE 0.4 MG/ML 1 ML VIAL IV PRN (05:03)
[2018-04-12 06:03] LABS: Glucose,Whole Blood 159 mg/dL (75-99)
[2018-04-12 06:05] VITALS: BMI 35.9
[2018-04-12] MEDS: ACETAMINOPHEN TAB 325 MG TAB PO PRN ×3 (06:57→19:14)
[2018-04-12] MEDS: FERROUS SULFATE 325 MG TAB PO SCH ×2 (06:57→17:16)
[2018-04-12] MEDS: PANTOPRAZOLE 40 MG TABLET PO SCH (06:57)
--- NOTE | 2018-04-12 06:58 | P.HPIM ---
History of Present Illness H&P Date: 04/12/18 Chief Complaint: Confusion 67-year-old male with recent history of coronary artery disease status post CABG and aortic valve replacement Patient had his open heart surgery procedure done on 04/04/2018, with no observed immediate complication postoperatively except for later on having prolonged intubation and postoperative anemia when he dropped his hemoglobin below 7 twice requiring 1 unit of blood transfusion at each time. Patient also developed an ALLERGIC reaction to unknown source while hospitalized however resolved with Benadryl and Solu-Medrol and Pepcid. Patient eventually was discharged home however a few hours later he returns to the hospital with dyspnea and was initially found to have low hemoglobin of 5.3 but upon repeat it was stable at 7.5 which is his hemoglobin prior to discharge and for the last 4 days of his first admission. Further workup showed echocardiogram with normal left ventricular ejection fraction and no pericardial effusion. Subsequently patient was discharged yesterday on 04/11/2018 but then around evening time he started acting delirious with some confusion after dinner. Patient's newest on his chair and then woke up with a blank stare and talking gibberish. 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 Patient is a retired and hasn't worked in a while. The called her son to come and help with his dad and when she mentioned his name in front of the patient, he didn't recognize his son and thought he's some tigre who is bringing some tools and a trailer over. This confusion continued and Route to the hospital however upon arrival to the hospital he was alert and awake oriented to place and person and time. In the emergency department he was aware about his recent hospitalization and surgery but he continued to mention issues regarding computer programming. Patient does realize that he retired years ago , he is aware about all the events mentioned above and the episode of confusion at home , he reports that he just couldn't control these thoughts at that time. At this point during the interview he is not having any of these confusing thoughts but he has complete recollection of the event Patient otherwise denies any chest pain or trouble breathing denies any fevers or chills denies any headache denies any abdominal pain changes in his bowel or urinary habits patient denies any GI bleeding. Review of Systems Pertinent positives as noted in HPI. All other systems were reviewed and are negative Past Medical History Past Medical History: Coronary Artery Disease (CAD), Cancer, Diabetes Mellitus, Hyperlipidemia, Hypertension, Myocardial Infarction ([place]), Prostate Disorder Additional Past Medical History / Comment(s): HX KIDNEY STONES, HX OF PROSTATE AND SKIN CA, had chemo prior to prostatectomy 2001,aortic stenosis Last Myocardial Infarction Date:: 2005 History of Any Multi-Drug Resistant Organisms: None Reported Past Surgical History: Coronary Bypass/CABG, Heart Catheterization With Stent, Hernia Repair, Prostate Surgery Additional Past Surgical History / Comment(s): HEART STENT X5, LITHOTRIPSY and sx for kidney stone retrieval, prostate surgery 2001. Past Anesthesia/Blood Transfusion Reactions: No Reported Reaction Date of Last Stent Placement:: 2005 Past Psychological History: No Psychological Hx Reported Smoking Status: Former smoker Past Alcohol Use History: None Reported Additional Past Alcohol Use History / Comment(s): started smoking age 11 1ppd quit 1974 Past Drug Use History: None Reported - Past Family History Mother Family Medical History: Congestive Heart Failure (CHF) Father Family Medical History: Cancer Additional Family Medical History / Comment(s): COLON, LUNG Sister(s) Family Medical History: Cancer Additional Family Medical History / Comment(s): PANCREAS, COLON, LIVER Brother(s) Family Medical History: Cancer Additional Family Medical History / Comment(s): COLON,LIVER Medications and Allergies Home Medications Medication Instructions Recorded Confirmed Type Aspirin 81 mg PO DAILY 02/11/15 04/12/18 History Metoprolol Tartrate [Lopressor] 50 mg PO BID 02/11/15 04/12/18 History metFORMIN HCL 1,000 mg PO BID 02/11/15 04/12/18 History glipiZIDE [Glucotrol] 10 mg PO BID 01/27/18 04/12/18 History Atorvastatin [Lipitor] 40 mg PO DAILY #30 tab 04/10/18 04/12/18 Rx Clopidogrel [Plavix] 75 mg PO DAILY #30 tab 04/10/18 04/12/18 Rx Ferrous Sulfate [Iron (65 MG 325 mg PO BID-W/MEALS #60 tab 04/10/18 04/12/18 Rx Elemental)] Pantoprazole [Protonix] 40 mg PO AC-BRKFST #30 tablet. 04/10/18 04/12/18 Rx Sennosides-Docusate Sodium 2 each PO HS #60 tab 04/10/18 04/12/18 Rx [Senokot-S] Furosemide [Lasix] 40 mg PO DAILY #30 tab 04/11/18 04/12/18 Rx Losartan [Cozaar] 100 mg PO DAILY #30 tab 04/11/18 04/12/18 Rx Allergies Allergy/AdvReac Type Severity Reaction Status Date / Time No Known Allergies Allergy Verified 04/10/18 21:41 Physical Exam Vitals: Vital Signs Temp Pulse Pulse Pulse Resp BP BP 04/12/18 05:24 97.8 F 106 H 79 16 120/58 04/12/18 05:16 98.2 F 87 18 121/67 04/12/18 04:24 80 17 124/62 04/12/18 03:32 83 04/12/18 03:30 106 H 79 16 04/12/18 03:01 97.8 F 83 20 113/63 Pulse Ox 04/12/18 05:24 100 04/12/18 05:16 99 04/12/18 04:24 98 04/12/18 03:32 04/12/18 03:30 04/12/18 03:01 94 L Intake and Output 04/11/18 04/11/18 04/12/18 14:59 22:59 06:59 Other: Voiding Method Toilet # Voids 1 Weight 104.2 kg Constitutional: No acute distress, conversant, pleasant, obese Eyes: Anicteric sclerae, moist conjunctiva, no lid-lag Pupils equal round reactive to light ENMT: NC/AT Oropharynx clear, no erythema, exudates Neck: Supple, FROM, no masses, or JVD No carotid bruits No thyromegaly Lungs: Clear to auscultation Clear to percussion Normal respiratory effort, no accessory muscle use Cardiovascular: Heart regular in rate and rhythm, No murmurs, gallops, or rubs No peripheral edema Abdominal: Soft Nontender, no guarding, rebound or rigidity Abdomen moving with respiration Normoactive bowel sounds No hepatomegaly, No splenomegaly No palpable mass No abdominal wall hernia noted Skin: Mid chest surgical wound looks dry clean and intact Normal temperature, tone, texture, turgor No induration No subcutaneous nodules No rash, lesions No ulcers Extremities: Multiple bruising over bilateral forearms Surgical wounds from harvesting sites over his lower extremities but clean and dry and intact Ecchymosis over medial right thigh No digital cyanosis No clubbing Pedal pulses intact and symmetrical Radial pulses intact and symmetrical No calf tenderness Psychiatric: Alert and oriented to person, place and time Fair judgment at this time, appropriate affect Neuro Muscles Strength 5/5 in all 4 extremities Sensation to light touch grossly present throughout Cranial nerves II-XII grossly intact No focal sensory deficits Finger-nose exam intact, gait is intact and unremarkable Lymphatics: no palpable cervical or supraclavicular , or inguinal lymph nodes Results CBC & Chem 7: 04/12/18 04:00 04/12/18 04:00 Labs: Abnormal Lab Results - Last 24 Hours (Table) 04/12/18 04/12/18 04/12/18 Range/Units 03:17 04:00 04:00 WBC 12.4 H (3.8-10.6) k/uL RBC 2.47 L (4.30-5.90) m/uL Hgb 7.3 L (13.0-17.5) gm/dL Hct 21.9 L (39.0-53.0) % RDW 16.9 H (11.5-15.5) % Neutrophils # 9.1 H (1.3-7.7) k/uL APTT (22.0-30.0) sec Sodium (137-145) mmol/L BUN (9-20) mg/dL Glucose (74-99) mg/dL POC Glucose (mg/dL) 162 H (75-99) mg/dL Calcium (8.4-10.2) mg/dL Total Bilirubin (0.2-1.3) mg/dL Troponin I 0.083 H* (0.000-0.034) ng/mL Total Protein (6.3-8.2) g/dL Albumin (3.5-5.0) g/dL 04/12/18 04/12/18 04/12/18 Range/Units 04:00 04:00 06:02 WBC (3.8-10.6) k/uL RBC (4.30-5.90) m/uL Hgb (13.0-17.5) gm/dL Hct (39.0-53.0) % RDW (11.5-15.5) % Neutrophils # (1.3-7.7) k/uL APTT 19.0 L (22.0-30.0) sec Sodium 133 L (137-145) mmol/L BUN 26 H (9-20) mg/dL Glucose 145 H (74-99) mg/dL POC Glucose (mg/dL) 159 H (75-99) mg/dL Calcium 8.3 L (8.4-10.2) mg/dL Total Bilirubin 1.7 H (0.2-1.3) mg/dL Troponin I (0.000-0.034) ng/mL Total Protein 6.0 L (6.3-8.2) g/dL Albumin 3.2 L (3.5-5.0) g/dL Thrombosis Risk Factor Assmnt - Choose All That Apply Any of the Below Risk Factors Present?: Yes Each Factor Represents 1 point: History of prior major surgery (<1month), Obesity (BMI >25), Swollen legs (current) Other Risk Factors: Yes Each Risk Factor Represents 2 Points: Age 61-74 years Other congenital or acquired thrombophilia - If yes, enter type in comment: No Thrombosis Risk Factor Assessment Total Risk Factor Score: 5 Thrombosis Risk Factor Assessment Level: High Risk Assessment and Plan Assessment: 67-year-old male with history of hypertension diabetes mellitus coronary artery disease status post CABG and aortic valve replacement recently. Patient is admitted under observation with anticipated length of stay of less than 48 hours due to acute delirium and confusion at home after discharge. All his blood work and imaging including CAT scan of the head returned back within his baseline and normal limits. We'll continue with neuro checks and monitor for any further events Plan: Acute delirium possibly related to recent hospitalization for open heart surgery , currently resolved Computed tomography scan of the head no acute process Labs are unremarkable came back within normal limits or within his baseline Neurochecks Fall precautions Monitor for any further events Postoperative anemia, currently asymptomatic Hemoglobin remains at 7.3 which is his new baseline Consider blood transfusion if hemoglobin drops below 7 No active bleeding Continue iron supplementation Coronary artery disease status post CABG and aortic valve replacement Thoracic surgery consult Continue with aspirin Plavix and statin Continue with metoprolol and lisinopril Diabetes mellitus on oral hypoglycemic agents2 currently controlled Continue with insulin sliding scale A1c 7.4 Hypertension currently controlled Continue home meds as above Hyperlipidemia on Lipitor Chronic low back pain When necessary Tylenol DVT prophylaxis on heparin subcu 3 times a day Preformed a thorough record review from recent hospitalization as summarized in HPI Surrogate decision-maker: Patient's CODE STATUS: Full code Discussed with: Patient, ER, RN Anticipated discharge: 48-[address]: Patient might benefit from short placement at rehab facility A total of 60 minutes was spent on the care of this complex patient more than 50 % of the time was spent in counseling and care coordination.
[2018-04-12] MEDS: LOSARTAN 50 MG TAB PO SCH (08:38)
[2018-04-12] MEDS: FUROSEMIDE 40 MG TAB PO SCH (08:39)
[2018-04-12] MEDS: CLOPIDOGREL 75 MG TAB PO SCH (08:39)
[2018-04-12] MEDS: HEPARIN SODIUM,PORCINE 5,000 UNIT/ML 1 ML VIAL SQ SCH ×3 (08:39→23:07)
[2018-04-12] MEDS: METOPROLOL TARTRATE 50 MG TAB PO SCH ×2 (08:39→21:31)
[2018-04-12] MEDS: ASPIRIN 81 MG PO SCH (08:39)
[2018-04-12] MEDS: ATORVASTATIN 40 MG TAB PO SCH (08:39)
[2018-04-12] MEDS: INSULIN ASPART 100 UNIT/ML 1 ML 10 ML VIAL SQ SCH ×4 (08:42→21:32)
[2018-04-12 10:53] LABS: Appearance,Urine Clear (Clear); Bilirubin,Urine Negative (Negative); Blood,Urine Negative (Negative); Color,Urine Yellow; Glucose,Urine (UA) Negative (Negative); Ketones,Urine Negative (Negative); Leukocyte Esterase,Urine Negative (Negative); Nitrite,Urine Negative (Negative); Protein,Urine Negative (Negative); Specific Gravity,Urine 1.021 (1.001-1.035); Urobilinogen,Urine <2.0 mg/dL (<2.0)
--- NOTE | 2018-04-12 10:53 | P.GSCN ---
History of Present Illness Consult date: 04/12/18 Reason for Consult: Recent open heart patient, known to our service. Requesting physician: Aida Painting History of present illness: This is a 67-year-old gentleman who follows with Dr. Meza on an outpatient basis. His recent medical history includes coronary artery disease and severe aortic stenosis with aortic valve replacement and triple vessel coronary artery bypass grafting completed on 04/04/2018, with complications of post operative hypoxic respiratory failure requiring prolonged mechanical ventilation and acute blood loss anemia. Other previous medical history includes heart stents, hyperlipidemia, hypertension, type 2 diabetes mellitus with preoperative hemoglobin A1c is 7.4%, obesity, prostate cancer post-prostatectomy, skin cancer , and previous tobacco dependence with preoperative FEV1 89% of predicted. He was discharged from the hospital to home with plans for home care on 2017. Within hours of discharge he developed a rash around his mouth as well as dyspnea. He did take Benadryl which relieved the rash but not dyspnea and he subsequently presented to the emergency room at [facility]. He was evaluated in the emergency room by Dr. Fountain, chest x-ray was completed which demonstrated mild infiltrates at the lung bases with no pleural effusion, 12-lead EKG was completed which demonstrated normal sinus rhythm, and lab work was drawn. His hemoglobin at that time was 5.3, and he was placed in observation status. The following morning his repeat hemoglobin was 7.5 without any intervention, his shortness of breath resolved, and he was discharged home again on 04/11/2018. He seemed to do fine throughout the day but during the evening she woke up and was quite confused per his . He had a blank stare for a short time and then kept talking about needing to get to work and having computer complications. His was quite concerned and brought him back to [facility] emergency room. Again he was placed in observation status, CT of the brain was completed and was negative for any acute process, hemoglobin remains at 7.3. Dr. Fountain from cardiothoracic surgery was consulted as this patient is well-known to our service. Review of Systems Review of systems was completed and was negative except as noted. - Neurological Reports as per HPI, Reports confusion Past Medical History Past Medical History: Coronary Artery Disease (CAD), Cancer, Diabetes Mellitus, Hyperlipidemia, Hypertension, Myocardial Infarction (MD), Prostate Disorder Additional Past Medical History / Comment(s): HX KIDNEY STONES, HX OF PROSTATE AND SKIN CA, had chemo prior to prostatectomy 2001,aortic stenosis Last Myocardial Infarction Date:: 2005 History of Any Multi-Drug Resistant Organisms: None Reported Past Surgical History: Coronary Bypass/CABG, Heart Catheterization With Stent, Hernia Repair, Prostate Surgery Additional Past Surgical History / Comment(s): HEART STENT X5, LITHOTRIPSY and sx for kidney stone retrieval, prostate surgery 2001. Aortic valve replacement and CABG 04/05/2018 Past Anesthesia/Blood Transfusion Reactions: No Reported Reaction Date of Last Stent Placement:: 2005 Past Psychological History: No Psychological Hx Reported Smoking Status: Former smoker Past Alcohol Use History: None Reported Additional Past Alcohol Use History / Comment(s): started smoking age 11 1ppd quit 1974 Past Drug Use History: None Reported - Past Family History Mother Family Medical History: Congestive Heart Failure (CHF) Father Family Medical History: Cancer Additional Family Medical History / Comment(s): COLON, LUNG Sister(s) Family Medical History: Cancer Additional Family Medical History / Comment(s): PANCREAS, COLON, LIVER Brother(s) Family Medical History: Cancer Additional Family Medical History / Comment(s): COLON,LIVER Medications and Allergies Home Medications Medication Instructions Recorded Confirmed Type Aspirin 81 mg PO DAILY 02/11/15 04/12/18 History Metoprolol Tartrate [Lopressor] 50 mg PO BID 02/11/15 04/12/18 History metFORMIN HCL 1,000 mg PO BID 02/11/15 04/12/18 History glipiZIDE [Glucotrol] 10 mg PO BID 01/27/18 04/12/18 History Atorvastatin [Lipitor] 40 mg PO DAILY #30 tab 04/10/18 04/12/18 Rx Clopidogrel [Plavix] 75 mg PO DAILY #30 tab 04/10/18 04/12/18 Rx Ferrous Sulfate [Iron (65 MG 325 mg PO BID-W/MEALS #60 tab 04/10/18 04/12/18 Rx Elemental)] Pantoprazole [Protonix] 40 mg PO OMA-FOREST #30 tablet. 04/10/18 04/12/18 Rx Furosemide [Lasix] 40 mg PO DAILY #30 tab 04/11/18 04/12/18 Rx Losartan Potassium [Cozaar] 100 mg PO DAILY 04/12/18 04/12/18 History Sennosides-Docusate Sodium 2 tab PO HS 04/12/18 04/12/18 History [Senokot-S] Allergies Allergy/AdvReac Type Severity Reaction Status Date / Time No Known Allergies Allergy Verified 04/12/18 07:59 Surgical - Exam Vital Signs Temp Pulse Resp BP Pulse Ox 97.8 F 83 20 113/63 94 L 04/12/18 03:01 04/12/18 03:01 04/12/18 03:01 04/12/18 03:01 04/12/18 03:01 - General well developed, well nourished, no distress, no pain, obese - Eyes PERRL, normal ocular movement - ENT no hearing loss - Neck no masses, no bruits, trachea midline - Respiratory Lungs sounds diminished bilaterally. Respirations even, nonlabored. Currently on room air with oxygen saturation 100%. - Cardiovascular S1, S2 present. Regular rate and rhythm, sinus rhythm on telemetry. Sternum stable. Palpable peripheral pulses bilaterally. Bilateral lower extremity edema present. No calf pain or tenderness noted. Antiembolism stockings, SCDs present. - Abdomen Abdomen: soft, non tender, bowel sounds - Genitourinary Deferred - Rectum Deferred - Integumentary Skin is warm and dry with evidence of good perfusion. Anterior chest incision well approximated and covered with Dermabond. Right lower extremity EVH site well approximated. - Neurologic normal coordination, normal sensation - Musculoskeletal normal gait, normal posture - Psychiatric oriented to time, oriented to person, oriented to place, speech is normal, memory intact Results - Labs 04/12/18 04:00 04/12/18 04:00 Abnormal Lab Results - Last 24 Hours (Table) 04/12/18 04/12/18 04/12/18 Range/Units 03:17 04:00 04:00 WBC 12.4 H (3.8-10.6) k/uL RBC 2.47 L (4.30-5.90) m/uL Hgb 7.3 L (13.0-17.5) gm/dL Hct 21.9 L (39.0-53.0) % RDW 16.9 H (11.5-15.5) % Neutrophils # 9.1 H (1.3-7.7) k/uL APTT (22.0-30.0) sec Sodium (137-145) mmol/L BUN (9-20) mg/dL Glucose (74-99) mg/dL POC Glucose (mg/dL) 162 H (75-99) mg/dL Calcium (8.4-10.2) mg/dL Total Bilirubin (0.2-1.3) mg/dL Troponin I 0.083 H* (0.000-0.034) ng/mL Total Protein (6.3-8.2) g/dL Albumin (3.5-5.0) g/dL 04/12/18 04/12/18 04/12/18 Range/Units 04:00 04:00 06:02 WBC (3.8-10.6) k/uL RBC (4.30-5.90) m/uL Hgb (13.0-17.5) gm/dL Hct (39.0-53.0) % RDW (11.5-15.5) % Neutrophils # (1.3-7.7) k/uL APTT 19.0 L (22.0-30.0) sec Sodium 133 L (137-145) mmol/L BUN 26 H (9-20) mg/dL Glucose 145 H (74-99) mg/dL POC Glucose (mg/dL) 159 H (75-99) mg/dL Calcium 8.3 L (8.4-10.2) mg/dL Total Bilirubin 1.7 H (0.2-1.3) mg/dL Troponin I (0.000-0.034) ng/mL Total Protein 6.0 L (6.3-8.2) g/dL Albumin 3.2 L (3.5-5.0) g/dL Diabetes panel 04/12/18 Range/Units 04:00 Sodium 133 L (137-145) mmol/L Potassium 3.8 (3.5-5.1) mmol/L Chloride 100 (98-107) mmol/L Carbon Dioxide 26 (22-30) mmol/L BUN 26 H (9-20) mg/dL Creatinine 0.69 (0.66-1.25) mg/dL Glucose 145 H (74-99) mg/dL Calcium 8.3 L (8.4-10.2) mg/dL AST 38 (17-59) U/L ALT 68 (21-72) U/L Alkaline Phosphatase 52 (38-126) U/L Total Protein 6.0 L (6.3-8.2) g/dL Albumin 3.2 L (3.5-5.0) g/dL Calcium panel 04/12/18 Range/Units 04:00 Calcium 8.3 L (8.4-10.2) mg/dL Albumin 3.2 L (3.5-5.0) g/dL Pituitary panel 04/12/18 Range/Units 04:00 Sodium 133 L (137-145) mmol/L Potassium 3.8 (3.5-5.1) mmol/L Chloride 100 (98-107) mmol/L Carbon Dioxide 26 (22-30) mmol/L BUN 26 H (9-20) mg/dL Creatinine 0.69 (0.66-1.25) mg/dL Glucose 145 H (74-99) mg/dL Calcium 8.3 L (8.4-10.2) mg/dL Adrenal panel 04/12/18 Range/Units 04:00 Sodium 133 L (137-145) mmol/L Potassium 3.8 (3.5-5.1) mmol/L Chloride 100 (98-107) mmol/L Carbon Dioxide 26 (22-30) mmol/L BUN 26 H (9-20) mg/dL Creatinine 0.69 (0.66-1.25) mg/dL Glucose 145 H (74-99) mg/dL Calcium 8.3 L (8.4-10.2) mg/dL Total Bilirubin 1.7 H (0.2-1.3) mg/dL AST 38 (17-59) U/L ALT 68 (21-72) U/L Alkaline Phosphatase 52 (38-126) U/L Total Protein 6.0 L (6.3-8.2) g/dL Albumin 3.2 L (3.5-5.0) g/dL - Imaging Chest x-ray: report reviewed, image reviewed EKG: image reviewed Additional studies: CT of the brain reviewed Assessment and Plan (1) Delirium Current Visit: Yes Status: Acute Code(s): R41.0 - DISORIENTATION, UNSPECIFIED SNOMED Code(s): 8366862 (2) Dyspnea Current Visit: No Status: Resolved Code(s): R06.00 - DYSPNEA, UNSPECIFIED SNOMED Code(s): 021121628 (3) H/O aortic valve replacement Current Visit: Yes Status: Chronic Code(s): Z95.2 - PRESENCE OF PROSTHETIC HEART VALVE SNOMED Code(s): 4071916921614 (4) Hx of CABG Current Visit: Yes Status: Chronic Code(s): Z95.1 - PRESENCE OF AORTOCORONARY BYPASS GRAFT SNOMED Code(s): 478839192 (5) Coronary artery disease Current Visit: Yes Status: Chronic Code(s): I25.10 - ATHSCL HEART DISEASE OF [place] CORONARY ARTERY W/O ANG PCTRS SNOMED Code(s): 65281265 (6) History of heart artery stent Current Visit: Yes Status: Chronic Code(s): Z95.5 - PRESENCE OF CORONARY ANGIOPLASTY IMPLANT AND GRAFT SNOMED Code(s): 791874337 (7) Hyperlipidemia Current Visit: Yes Status: Chronic Code(s): E78.5 - HYPERLIPIDEMIA, UNSPECIFIED SNOMED Code(s): 82057067 (8) Hypertension Current Visit: Yes Status: Chronic Code(s): I10 - ESSENTIAL (PRIMARY) HYPERTENSION SNOMED Code(s): 48487657 (9) Non-insulin dependent type 2 diabetes mellitus Current Visit: Yes Status: Chronic Code(s): E11.9 - TYPE 2 DIABETES MELLITUS WITHOUT COMPLICATIONS SNOMED Code(s): 98517345 (10) Obesity (BMI 30-39.9) Current Visit: Yes Status: Chronic Code(s): E66.9 - OBESITY, UNSPECIFIED SNOMED Code(s): 088077588 Plan: The patient was seen and examined at the bedside. Chart/diagnostics were reviewed. Case will be discussed in detail with Dr. Fountain who did see the patient yesterday. At this time we would recommend continuing current course of treatment and monitoring of the patient. Continue aspirin, statin, Plavix, beta lamar, Cozaar, Lasix. Continue Protonix, subcu heparin for GI/DVT prophylaxis. Incentive spirometry ordered and should be encouraged 10 times every hour while awake. Assess neuro status every 4 hours. Obtain urinalysis with culture. Patient should have legs elevated while in the chair. Medical management per primary care service. Physical and occupational therapy have been consulted. Patient would likely benefit from subacute rehab at discharge. Thank you for this consult. We look forward to working with you in the care of your patient. Time with Patient: Greater than 30
[2018-04-12 11:40] LABS: Glucose,Whole Blood 170 mg/dL (75-99)
[2018-04-12 17:34] LABS: Glucose,Whole Blood 167 mg/dL (75-99)
[2018-04-12] MEDS ORDERED: SENNOSIDES-DOCUSATE SODIUM 1 EACH TAB PO SCH (21:00)
[2018-04-12 21:03] LABS: Glucose,Whole Blood 215 mg/dL (75-99)
[2018-04-13] MEDS: ACETAMINOPHEN TAB 325 MG TAB PO PRN (04:55)
[2018-04-13 05:51] VITALS: PULSE 80
[2018-04-13 05:58] LABS: Glucose,Whole Blood 181 mg/dL (75-99)
[2018-04-13] MEDS: INSULIN ASPART 100 UNIT/ML 1 ML 10 ML VIAL SQ SCH (06:28)
[2018-04-13] MEDS: FERROUS SULFATE 325 MG TAB PO SCH (06:28)
[2018-04-13] MEDS: PANTOPRAZOLE 40 MG TABLET PO SCH (06:28)
[2018-04-13 06:38] LABS: Anisocytosis Slight; Basophils % (A) 0 %; Eosinophils # (A) 0.2 k/uL (0-0.7); Eosinophils % (A) 2 %; HCT 21.7 % (39.0-53.0); Hypochromasia Slight; Lymphocytes # (A) 1.6 k/uL (1.0-4.8); Lymphocytes % (A) 16 %; MCH 29.4 pg (25.0-35.0); MCV 91.8 fL (80.0-100.0); Mean Platelet Volume 7.1; Monocytes # (A) 0.4 k/uL (0-1.0); Monocytes % (A) 4 %; Neutrophils # (A) 7.1 k/uL (1.3-7.7); Neutrophils % (A) 75 %; Platelet Count 258 k/uL (150-450); Poikilocytosis Slight; RBC 2.36 m/uL (4.30-5.90); RDW 17.3 % (11.5-15.5); WBC 9.5 k/uL (3.8-10.6)
[2018-04-13] MEDS: ATORVASTATIN 40 MG TAB PO SCH (08:21)
[2018-04-13] MEDS: CLOPIDOGREL 75 MG TAB PO SCH (08:21)
[2018-04-13] MEDS: FUROSEMIDE 40 MG TAB PO SCH (08:21)
[2018-04-13] MEDS: ASPIRIN 81 MG PO SCH (08:21)
[2018-04-13] MEDS: LOSARTAN 50 MG TAB PO SCH (08:21)
[2018-04-13] MEDS: HEPARIN SODIUM,PORCINE 5,000 UNIT/ML 1 ML VIAL SQ SCH (08:21)
[2018-04-13] MEDS: METOPROLOL TARTRATE 50 MG TAB PO SCH (08:21)
[2018-04-13 08:28] VITALS: BP 137/60; RESP 20; TEMP 98.3
--- NOTE | 2018-04-13 09:15 | XR ---
EXAMINATION TYPE: XR chest 2V DATE OF EXAM: 04/13/2018 COMPARISON: 04/12/2018 TECHNIQUE: PA and lateral views submitted. HISTORY: Altered mental status FINDINGS: Heart is prominent is postsurgical changes with small bilateral effusion. Underlying COPD noted and t here is no interstitial edema or pneumothorax. Hypertrophic changes of the spine noted. Prosthetic he art valve incidentally noted. IMPRESSION: 1. COPD with small bilateral pleural effusions appears similar to the prior exam.
--- NOTE | 2018-04-13 10:36 | P.PN ---
Subjective Progress Note Date: 04/13/18 Principal diagnosis: Acute delirium. Previous medical history of coronary artery disease and severe aortic stenosis with aortic valve replacement and triple vessel coronary artery bypass grafting on 04/04/2018 with complications of postoperative hypoxic respiratory failure requiring prolonged mechanical ventilation and acute blood loss anemia, hyperlipidemia, hypertension, type 2 diabetes mellitus, obesity, prostate cancer status post prostatectomy, skin cancer, previous tobacco dependence. Patient's currently sitting up in the chair in no acute distress. Denies pain, shortness of breath. Denies any more confusion or any other incidents overnight. States he feels quite ready to go home. Objective - Vital Signs Vital signs: Vital Signs Temp 98.3 F 04/13/18 08:00 Pulse 80 04/13/18 08:00 Resp 20 04/13/18 08:00 BP 137/60 04/13/18 08:00 Pulse Ox 97 04/13/18 08:00 Intake & Output 04/12/18 04/13/18 04/13/18 18:59 06:59 18:59 Intake Total 480 480 240 Output Total 400 Balance 80 480 240 Weight 103.2 kg Intake: Oral 480 480 240 Output: Urine 400 Other: Voiding Method Toilet Urinal # Voids 1 - Constitutional General appearance: Present: cooperative, no acute distress, obese - Respiratory Details: Lungs sounds diminished bilaterally. Respirations even, nonlabored. Currently on room air with oxygen saturations 98%. Able to achieve 2000 mL on his incentive spirometry. Effective cough. - Cardiovascular Details: S1, S2 present. Regular rate and rhythm, sinus rhythm on telemetry. Sternum stable. Palpable peripheral pulses bilaterally. Bilateral lower extremity edema present. No calf pain or tenderness noted. Antiembolism stockings present. Heart hugger in place with patient demonstrating appropriate use. - Gastrointestinal Gastrointestinal Comment(s): Abdomen soft, nontender, nondistended. Active bowel sounds present 4 quadrants. Tolerating diet. - Genitourinary Genitourinary Comment(s): Continues to void clear, yellow urine. - Integumentary Integumentary Comment(s): Skin is warm and dry with evidence of good perfusion. Anterior chest incision well approximated with Dermabond dressing. Right lower extremity EVH site well approximated, ecchymosis present which is expected. - Neurologic Neurologic: Present: CNII-XII intact - Musculoskeletal Musculoskeletal: Present: gait normal, strength equal bilaterally - Psychiatric Psychiatric: Present: A&O x's 3, appropriate affect, intact judgment & insight - Allied health notes Allied health notes reviewed: nursing - Labs CBC & Chem 7: 04/13/18 05:45 04/12/18 04:00 Labs: Abnormal Lab Results - Last 24 Hours (Table) 04/12/18 04/12/18 04/12/18 Range/Units 11:36 17:20 21:01 RBC (4.30-5.90) m/uL Hgb (13.0-17.5) gm/dL Hct (39.0-53.0) % RDW (11.5-15.5) % POC Glucose (mg/dL) 170 H 167 H 215 H (75-99) mg/dL 04/13/18 04/13/18 Range/Units 05:45 05:57 RBC 2.36 L (4.30-5.90) m/uL Hgb 7.0 L (13.0-17.5) gm/dL Hct 21.7 L (39.0-53.0) % RDW 17.3 H (11.5-15.5) % POC Glucose (mg/dL) 181 H (75-99) mg/dL Microbiology - Last 24 Hours (Table) 04/12/18 10:00 Urine Culture - Preliminary Urine,Clean Catch - Imaging and Cardiology Chest x-ray: report reviewed, image reviewed Assessment and Plan (1) Delirium Current Visit: Yes Status: Acute Code(s): R41.0 - DISORIENTATION, UNSPECIFIED SNOMED Code(s): 6686812 (2) Dyspnea Current Visit: No Status: Resolved Code(s): R06.00 - DYSPNEA, UNSPECIFIED SNOMED Code(s): 739423958 (3) H/O aortic valve replacement Current Visit: Yes Status: Chronic Code(s): Z95.2 - PRESENCE OF PROSTHETIC HEART VALVE SNOMED Code(s): 0813453920077 (4) Hx of CABG Current Visit: Yes Status: Chronic Code(s): Z95.1 - PRESENCE OF AORTOCORONARY BYPASS GRAFT SNOMED Code(s): 837803158 (5) Coronary artery disease Current Visit: Yes Status: Chronic Code(s): I25.10 - ATHSCL HEART DISEASE OF [place] CORONARY ARTERY W/O ANG PCTRS SNOMED Code(s): 53567324 (6) History of heart artery stent Current Visit: Yes Status: Chronic Code(s): Z95.5 - PRESENCE OF CORONARY ANGIOPLASTY IMPLANT AND GRAFT SNOMED Code(s): 161427657 (7) Hyperlipidemia Current Visit: Yes Status: Chronic Code(s): E78.5 - HYPERLIPIDEMIA, UNSPECIFIED SNOMED Code(s): 60507424 (8) Hypertension Current Visit: Yes Status: Chronic Code(s): I10 - ESSENTIAL (PRIMARY) HYPERTENSION SNOMED Code(s): 73706935 (9) Non-insulin dependent type 2 diabetes mellitus Current Visit: Yes Status: Chronic Code(s): E11.9 - TYPE 2 DIABETES MELLITUS WITHOUT COMPLICATIONS SNOMED Code(s): 90956843 (10) Obesity (BMI 30-39.9) Current Visit: Yes Status: Chronic Code(s): E66.9 - OBESITY, UNSPECIFIED SNOMED Code(s): 647990653 Plan: 1. Continue aspirin, statin, Plavix, beta lamar, Cozaar, Lasix. 2. Encourage incentive spirometry 10 times every hour while awake. 3. May discharge to home from our standpoint. 4. Patient should follow up with physicians as previously scheduled. Physician appointments and activity restrictions implemented into discharge plan. Time with Patient: Greater than 30
--- NOTE | 2018-04-14 18:55 | P.DS ---
Providers Date of admission: 04/12/18 05:04 Expected date of discharge: 04/13/18 Attending physician: David Porter MD Consults: 04/12/18 05:03 Consult Physician Stat Consulting Provider: Ethan Fountain Consult Reason/Comments: post op patient Do you want consulting provider notified?: Already Contacted Primary care physician: Padma Meza MD - Discharge Diagnosis(es) (1) Delirium Status: Acute (2) Coronary artery disease Status: Chronic (3) Postoperative anemia Status: Acute (4) H/O aortic valve replacement Status: Chronic (5) History of heart artery stent Status: Chronic (6) Hx of CABG Status: Chronic (7) Hyperlipidemia Status: Chronic (8) Hypertension Status: Chronic (9) Non-insulin dependent type 2 diabetes mellitus Status: Chronic (10) Dyspnea Status: Resolved Hospital Course: the patient is a 67-year-old male that was admitted for acute delirium after that it was noted by his that he appeared confused and had a blank stare. The patient had previously had triple vessel coronary artery bypass grafting completed 04/04/18 with aortic valve replacement And had postoperative, locations including respiratory failure requiring prolonged intubation and acute blood loss anemia. Workup with CT of the head was negative for any acute intracranial amount the showed only minimal atrophy of the cerebral cortex. Further workup here with urinalysis was negative, 12-lead EKG showed normal sinus rhythm and chest x-ray completed was consistent with COPD with small bilateral pleural effusions that were stable. The patient was monitored on the neurology floor with frequent neuro checks, the patient had no further complications. He was subsequently discharged home in stable condition and instructed to follow-up with Drs. Fountain. This discharge process took less than 30 minutes Discharge physical Constitutional: No acute distress, conversant, pleasant Eyes: Anicteric sclerae, moist conjunctiva, no lid-lag, PERRLA ENMT: NC/AT,Oropharynx clear, no erythema, exudates Neck:Supple, FROM, no masses, or JVD, No carotid bruits; No thyromegaly Lungs: Diminished in the bases bilaterally, Clear to percussion, Normal respiratory effort, unlabored no accessory muscle use, 2L on I-S Cardiovascular: Heart hugger in place, No murmurs, gallops, or rubs no peripheral edema Abdominal: Soft Nontender, nom distended, no guarding, no rebound or rigidity, Normoactive bowel sounds No hepatomegaly, No splenomegaly, No palpable mass No abdominal wall hernia noted Skin: Anterior chest incision healing well, Extremities:No digital cyanosis No clubbing, Pedal pulses intact and symmetrical Radial pulses intact and symmetrical Normal gait and station, No calf tenderness Psychiatric: Alert and oriented to person, place and time, Appropriate affect Intact judgement Neuro: Muscles Strength 5/5 in all 4 extremities, Sensation to light touch grossly present throughout, Cranial nerves II-XII grossly intact. No focal sensory deficits Patient Condition at Discharge: Stable Plan - Discharge Summary Discharge Rx Participant: Yes New Discharge Prescriptions: Continue metFORMIN HCL 1,000 mg PO BID Metoprolol Tartrate [Lopressor] 50 mg PO BID Aspirin 81 mg PO DAILY glipiZIDE [Glucotrol] 10 mg PO BID Ferrous Sulfate [Iron (65 MG Elemental)] 325 mg PO BID-W/MEALS #60 tab Atorvastatin [Lipitor] 40 mg PO DAILY #30 tab Clopidogrel [Plavix] 75 mg PO DAILY #30 tab Pantoprazole [Protonix] 40 mg PO AC-BRKFST #30 tablet. Furosemide [Lasix] 40 mg PO DAILY #30 tab Sennosides-Docusate Sodium [Senokot-S] 2 tab PO HS Losartan Potassium [Cozaar] 100 mg PO DAILY Discharge Medication List Aspirin 81 mg PO DAILY 02/11/15 [History] Metoprolol Tartrate [Lopressor] 50 mg PO BID 02/11/15 [History] metFORMIN HCL 1,000 mg PO BID 02/11/15 [History] glipiZIDE [Glucotrol] 10 mg PO BID 01/27/18 [History] Atorvastatin [Lipitor] 40 mg PO DAILY #30 tab 04/10/18 [Rx] Clopidogrel [Plavix] 75 mg PO DAILY #30 tab 04/10/18 [Rx] Ferrous Sulfate [Iron (65 MG Elemental)] 325 mg PO BID-W/MEALS #60 tab 04/10/18 [Rx] Pantoprazole [Protonix] 40 mg PO AC-BRKFST #30 tablet. 04/10/18 [Rx] Furosemide [Lasix] 40 mg PO DAILY #30 tab 04/11/18 [Rx] Losartan Potassium [Cozaar] 100 mg PO DAILY 04/12/18 [History] Sennosides-Docusate Sodium [Senokot-S] 2 tab PO HS 04/12/18 [History] Follow up Appointment(s)/Referral(s): Karina Urbina MD [STAFF PHYSICIAN] - 04/21/18 2:30 pm Óscar Staples MD [STAFF PHYSICIAN] - 04/17/18 3:30 pm Ethan Fountain MD [STAFF PHYSICIAN] - 05/05/18 10:30 am Padma Meza MD [Primary Care Provider] - 04/19/18 10:00 am Matt Bearden NPC [Nurse Practitioner] - 04/17/18 11:00 am [facility], [NON-STAFF] - 1-2 Days Patient Instructions/Handouts: Acute Delirium (DC) Activity/Diet/Wound Care/Special Instructions: DISCHARGE INSTRUCTIONS: 1. No driving for 4 weeks, or until physician gives their ok. 2. The patient should sleep in their own bed, no medical bed needed. 3. Stairs are not an issue. If the bedroom is upstairs, it is advised that the patient go up at night and down in the morning for the first week. Go slowly, using handrail and take 1 step at a time. 4. PAMELA hose are to be worn for 30 days or until physician discontinues. 5. Heart hugger is to be worn 100% of the time until physician discontinues.( except when showering) 6. No lifting, pushing, or pulling more than 10 pounds for 12 weeks. The physician will advise of any restriction changes. 7. The patient is expected to continue the prescribed walking program. 8. Continue pain control per as needed orders. 9. Continue with incentive spirometry and splinting/heart hugger until otherwise directed by the physician. 10. Must shower daily using liquid antibacterial soap and a separate white washcloth for each individual incision. 11. Routine sternal incision care. No powders, lotions, ointments on incisions. 12. Please call surgeon/RIVETER for temp greater than 101 F or purulent drainage from incisions. 13. A Red armband has been placed on the patient. It should be worn for 30 days post surgery and will be removed by the cardiac surgeons. If an ER visit is necessary, please make sure the number on the Red armband is called. HOME HEALTH SERVICES TO PROVIDE: RN SKILLED HOME CARE SERVICES FOR POST-OP SURGICAL PATIENTS WITH THE FOLLOWING: Coronary Artery Bypass Surgery (CABG), Mitral Valve Replacement/ Repair ( MVR), Aortic Valve Replacement/Repair (AVR) RN TO CONTINUE EDUCATION FROM ``ROAD TO A HEALTH HEART PATIENT EDUCATION MANUAL (GIVEN TO PATIENT IN THE HOSPITAL) MEDICATION RECONCILIATION WITH EDUCATION NEEDED ON FIRST HOME VISIT EMPHASIZE IMPORTANCE OF WEARING BREAST SUPPORT/HEART HUGGER ENCOURAGE USE OF INCENTIVE SPIROMETER 10 X EVERY HOUR WHILE AWAKE ENCOURAGE UTILIZATION OF LOWER EXTREMITY COMPRESSION STOCKINGS/PAMELA HOSE and ELEVATE LEGS ABOVE LEVEL OF HEART WHILE AT REST. ENCOURAGE AMBULATION 3-5x/day INCREASING TOLERATES, WHILE AVOID EXTREMES IN TEMPERATURE FREQUENCY: RN TO OPEN THE PATIENT WITHIN 24 HOURS OF DISCHARGE FROM THE HOSPITAL WITH [place] [facility] [place]IT 2-3 X A WEEK FOR 4 WEEKS ESTABLISHED BY PATIENT NEEDS. TELEHEALTH PARAMETERS: WEIGHT: NOTIFY MD OF WEIGHT GAIN OF 2 LBS IN 24 HOURS OR 5 LBS IN ONE WEEK HR: NOTIFY MD OF HR <55 BPM OR HR>100 BPM BP: NOTIFY MD IF BP <90/55 OR BP>140/100 O2 SAT: NOTIFY MD IF PO2<93% ON ROOM AIR SEND TELEHEALTH REPORT TO RETORT FURNACE HELPER AND CARDIOVASCULAR SURGEON THE FIRST WEEK OF CARE AND THEN BI-WEEKLY. PLEASE ADDITIONALLY COMMUNICATE ANY ABNORMALS AND NEW FINDINGS TO THE SURGEONS OFFICE. Discharge Disposition: HOME WITH HOME HEALTH SERVICES
== END 2018-04-13 10:54 | disposition home health service (06) ==
LOC: EC 03:00 → 6SEL 05:04
PROVIDERS: ADMIT Internal Medicine; ATTEND Internal Medicine
DX: R41.0 Disorientation, unspecified (principal); I25.10 Atherosclerotic heart disease of native coronary artery without angina pectoris; D64.9 Anemia, unspecified; Z95.2 Presence of prosthetic heart valve; Z95.1 Presence of aortocoronary bypass graft; Z95.5 Presence of coronary angioplasty implant and graft; E78.5 Hyperlipidemia, unspecified; I10 Essential (primary) hypertension; Z79.4 Long term (current) use of insulin; E11.9 Type 2 diabetes mellitus without complications; Z79.82 Long term (current) use of aspirin; Z79.84 Long term (current) use of oral hypoglycemic drugs; Z79.02 Long term (current) use of antithrombotics/antiplatelets; Z79.899 Other long term (current) drug therapy; I25.2 Old myocardial infarction; M79.89 Other specified soft tissue disorders; G89.29 Other chronic pain; M54.5 Low back pain; R06.00 Dyspnea, unspecified; I35.0 Nonrheumatic aortic (valve) stenosis; Z87.442 Personal history of urinary calculi; Z85.46 Personal history of malignant neoplasm of prostate; Z85.828 Personal history of other malignant neoplasm of skin; Z92.21 Personal history of antineoplastic chemotherapy; Z87.891 Personal history of nicotine dependence; Z82.49 Family history of ischemic heart disease and other diseases of the circulatory system; Z80.0 Family history of malignant neoplasm of digestive organs; Z80.1 Family history of malignant neoplasm of trachea, bronchus and lung; Z80.8 Family history of malignant neoplasm of other organs or systems; E66.9 Obesity, unspecified; Z68.35 Body mass index [BMI] 35.0-35.9, adult
CPT/HCPCS: 99285; 96372 ×2; 36415; 93005; 97162; 80053; 82550; 82553; 84484; 85025 ×2; 85610; 85730; 81003; 87086; 71046 ×2; 70450; G0378 ×2; J1644 ×2; J2001

== ENCOUNTER → 2020-12-23 | Outpatient (CLI) | payer MEDICARE, OTHER ==
[~2020-12-23] MED LIST changes: -ALBUMIN HUMAN 25% 50 ML IV ONE; -ALBUMIN HUMAN 5% 500 ML IVPB ONE; -ASPIRIN 325 MG TAB PO ONE; -ATORVASTATIN 10 MG TAB PO ONE; -CALCIUM CHLORIDE 100 MG/ML 10 ML SYRINGE IV ONE; -CHLORHEXIDINE GLUCONATE 15 ML CUP MUCOUS MEM ONE; -CLEVIDIPINE BUTYRATE 25 MG in EMPTY BAG 1 BAG IV ONE; -DEXTROSE 5% IN WATER 1,000 ML with POTASSIUM CHLORIDE 110 MEQ, MAGNESIUM SULFATE 16 MEQ... IV ONE; -DEXTROSE 5% IN WATER 1,000 ML with POTASSIUM CHLORIDE 25 MEQ, SODIUM CHLORIDE 2.5MEQ/ML... IRRIGATION ONE; +DOBUTamine DRIP for NUC MED 500 MG in DEXTROSE/WATER 1 250ML.BAG IV PRN; -HEPARIN SODIUM 1,000 UN/ML (10ML VL) IV ONE; -HEPARIN SODIUM,PORCINE 5,000 UNIT in SODIUM CHLORIDE 0.9% 500 ML IV ONE; -INSULIN REGULAR 100 UNIT in SODIUM CHLORIDE 0.9% 100 ML IV ONE; -LACTATED RINGERS 1,000 ML IV ONE; -MAGNESIUM SULFATE MG 500 MG/ML VIAL IV ONE; -MANNITOL 25% 12.5 GM/50 ML VIAL IV ONE; -METOPROLOL TARTRATE 12.5 MG TAB PO ONE; -NITROGLYCERIN-D5W PMX 25 MG/250 ML BTL IV ONE; -NITROGLYCERIN-D5W PMX 50 MG in DEXTROSE/WATER 1 250ML.BAG IV ONE; -NOREPINEPHRINE 4 MG in SODIUM CHLORIDE 0.9% 250 ML IV ONE; -PAPAVERINE 360 MG in SODIUM CHLORIDE 0.9% 90 ML IV ONE; -PHENYLEPHRINE 40 MG in SODIUM CHLORIDE 0.9% 250 ML IV ONE; -PHENYLEPHRINE-0.9% NACL SYG 1 MG/10 ML SYRINGE IV ONE; -PROPOFOL 1,000 MG/100 ML VIAL IV ONE; -PROTAMINE SULFATE 10 MG/ML 25 ML VIAL IV ONE; -PROTAMINE SULFATE 250 MG in EMPTY BAG 1 BAG IV ONE; -SODIUM BICARB 8.4% 50 ML SYR (1 MEQ/ML) IV ONE; -SODIUM CHLORIDE 0.9% 1,000 ML IV ONE; -TRANEXAMIC ACID 2,000 MG in SODIUM CHLORIDE 0.9% 180 ML IV ONE; -ceFAZolin 1,000 MG in SODIUM CHLORIDE 0.9% IRRIGATIO 1,000 ML IRRIGATION ONE; -ceFAZolin 2,000 MG in SODIUM CHLORIDE 0.9% 30 ML IVPB ONE
--- NOTE | 2020-12-23 16:34 | ECHOS ---
STRESS ECHOCARDIOGRAM DATE OF SERVICE: 12/23/2020 LUMASON: N/A Vial INDICATIONS: Chest pain. MEDICATIONS: BASELINE HEART RATE: 56 BASELINE BLOOD PRESSURE: 153/77 MAXIMUM HEART RATE: 129 MAXIMUM BLOOD PRESSURE: 168/74 85% MPHR: 126 100% MPHR: 148 METS: MAXIMUM STAGE REACHED: III TOTAL EXERCISE TIME: 8:50 STRESS DATA: Heart rate is 56, pressure is 153/77 mmHg. Baseline EKG showed baseline EKG showed sinus mechanism. The patient also does have active inferior ST changes. Dobutamine infusion at a dose of 10 mcg/kg per minute was initiated and increased to 20 mcg per kg per minute. Max heart rate was 129, which is about 87% of maximum predicted heart rate and maximum blood pressure was 168/74 mmHg. Clinically, the patient did not have any symptoms of chest pain or chest discomfort. The EKG did show about [address]-segment depression inferiorly. ECHOCARDIOGRAM IMAGES: On echocardiogram images from parasternal long axis view, parasternal short axis view, were obtained from parasternal long axis and parasternal short axis as well as apical 4 chamber and apical 2 chambers. The echocardiogram images did not show any evidence of wall motion abnormalities concerning for ischemia. CONCLUSION: 1. Mild EKG changes in response to dobutamine. 2. No evidence of wall motion abnormalities on echo concerning for ischemia, but please note that the echo images were of poor quality and Definity was used for better identification of the endocardium. Pain of seen of dictation. MMODL / IJN: [id number] /
== END | disposition home or self-care (01) ==
LOC: RADNMMAIN 08:57
PROVIDERS: ATTEND Family Medicine
DX: R07.9 Chest pain, unspecified (principal)
CPT/HCPCS: C8930; Q9950; 93351

== ENCOUNTER → 2021-01-20 | Outpatient (CLI) | payer MEDICARE, OTHER | END | disposition home or self-care (01) | CPT/HCPCS: 36415; 80053; 80061 ==

== ENCOUNTER → 2021-08-17 | Outpatient (CLI) | payer MEDICARE, OTHER ==
[2021-08-17 14:57] LABS: ALT 25 U/L (10-49); AST 20 U/L (14-35); African American GFR (CKD) 101.6 (60.0-200.0); Albumin 4.4 g/dL (3.8-4.9); Albumin/Globulin Ratio 1.47 (1.60-3.17); Alkaline Phosphatase 65 U/L (41-126); BUN/Creat Ratio 15.23 Ratio (12.00-20.00); Blood Urea Nitrogen 12.5 mg/dL (9.0-27.0); Calcium 9.5 mg/dL (8.7-10.3); Carbon Dioxide 23.6 mmol/L (20.0-27.5); Chloride 101 mmol/L (96-109); Chol/HDL Ratio 2.82 Ratio; Glucose 230 mg/dL (70-110); LDL Cholesterol,Calculated 56.7 mg/dL (0.0-131.0); Non-African American GFR(CKD) 87.7 (60.0-200.0); Potassium 3.9 mmol/L (3.5-5.5); Sodium 137 mmol/L (135-145); Total Protein 7.3 g/dL (6.2-8.2)
== END | disposition home or self-care (01) ==
LOC: LABWHC1 09:13
PROVIDERS: ATTEND Nurse Practitioner Adult Health
DX: I10 Essential (primary) hypertension (principal); E78.2 Mixed hyperlipidemia
CPT/HCPCS: 36415; 80053; 80061

== ENCOUNTER → 2022-01-27 | Outpatient (CLI) | payer MEDICARE, OTHER ==
[2022-01-27 18:30] LABS: ALT 30 U/L (10-49); AST 25 U/L (14-35); African American GFR (CKD) 102.7 (60.0-200.0); Albumin 4.6 g/dL (3.8-4.9); Albumin/Globulin Ratio 1.35 (1.60-3.17); Alkaline Phosphatase 66 U/L (41-126); BUN/Creat Ratio 16.75 Ratio (12.00-20.00); Blood Urea Nitrogen 13.4 mg/dL (9.0-27.0); Calcium 9.9 mg/dL (8.7-10.3); Carbon Dioxide 23.6 mmol/L (20.0-27.5); Chloride 96 mmol/L (96-109); Chol/HDL Ratio 3.23 Ratio; Globulin 3.4 g/dL (1.6-3.3); Glucose 205 mg/dL (70-110); LDL Cholesterol,Calculated 57.1 mg/dL (0.0-131.0); Non-African American GFR(CKD) 88.6 (60.0-200.0); Potassium 4.2 mmol/L (3.5-5.5); Sodium 133 mmol/L (135-145)
== END | disposition home or self-care (01) ==
LOC: LABWHC1 11:35
PROVIDERS: ATTEND Internal Medicine Interventional Cardiology
DX: E78.2 Mixed hyperlipidemia (principal)
CPT/HCPCS: 36415; 80053; 80061

== ENCOUNTER → 2022-12-07 | Outpatient (CLI) | payer MEDICARE, OTHER ==
[2022-12-07 15:33] LABS: ALT 36 U/L (10-49); AST 24 U/L (14-35); African American GFR (CKD) 97.2 (60.0-200.0); Albumin 4.6 g/dL (3.8-4.9); Albumin/Globulin Ratio 1.64 (1.60-3.17); Alkaline Phosphatase 60 U/L (41-126); BUN/Creat Ratio 14.22 Ratio (12.00-20.00); Blood Urea Nitrogen 12.8 mg/dL (9.0-27.0); Carbon Dioxide 24.9 mmol/L (20.0-27.5); Chloride 99 mmol/L (96-109); Chol/HDL Ratio 3.01 Ratio; Globulin 2.8 g/dL (1.6-3.3); Glucose 183 mg/dL (70-110); LDL Cholesterol,Calculated 56.4 mg/dL (0.0-131.0); Non-African American GFR(CKD) 83.8 (60.0-200.0); Potassium 4.6 mmol/L (3.5-5.5); Sodium 135 mmol/L (135-145); Total Protein 7.4 g/dL (6.2-8.2)
== END | disposition home or self-care (01) ==
LOC: LABWHC1 08:44
PROVIDERS: ATTEND Internal Medicine Interventional Cardiology
DX: E78.2 Mixed hyperlipidemia (principal)
CPT/HCPCS: 36415; 80053; 80061

== ENCOUNTER → 2023-06-01 | Outpatient (CLI) | payer MEDICARE ==
[2023-06-01 16:23] LABS: ALT 33 U/L (10-49); AST 21 U/L (14-35); Albumin 4.6 g/dL (3.8-4.9); Albumin/Globulin Ratio 1.92 Ratio (1.60-3.17); Alkaline Phosphatase 61 U/L (41-126); BUN/Creat Ratio 15.25 Ratio (12.00-20.00); Blood Urea Nitrogen 12.2 mg/dL (9.0-27.0); Calcium 9.8 mg/dL (8.7-10.3); Carbon Dioxide 26.6 mmol/L (21.6-31.8); Chloride 98 mmol/L (96-109); Chol/HDL Ratio 2.74 Ratio; Globulin 2.4 g/dL (1.6-3.3); Glucose 180 mg/dL (70-110); LDL Cholesterol,Calculated 50.5 mg/dL (0.0-131.0); Potassium 4.8 mmol/L (3.5-5.5); Sodium 136 mmol/L (135-145); Total Bilirubin 0.7 mg/dL (0.3-1.2)
== END | disposition home or self-care (01) ==
LOC: LABWHC1 08:44
PROVIDERS: ATTEND Internal Medicine Interventional Cardiology
DX: E78.2 Mixed hyperlipidemia (principal)
CPT/HCPCS: 36415; 80053; 80061

== ENCOUNTER → 2023-11-30 | Outpatient (CLI) | payer MEDICARE, OTHER ==
[2023-11-30 14:51] LABS: ALT 31 U/L (10-49); AST 26 U/L (14-35); Albumin 4.5 g/dL (3.8-4.9); Albumin/Globulin Ratio 1.73 Ratio (1.60-3.17); Alkaline Phosphatase 63 U/L (41-126); Blood Urea Nitrogen 13.5 mg/dL (9.0-27.0); Calcium 9.6 mg/dL (8.7-10.3); Carbon Dioxide 23.3 mmol/L (21.6-31.8); Chloride 98 mmol/L (96-109); Chol/HDL Ratio 3.12 Ratio; Globulin 2.6 g/dL (1.6-3.3); Glucose 211 mg/dL (70-110); LDL Cholesterol,Calculated 47.2 mg/dL (0.0-131.0); Sodium 135 mmol/L (135-145); Total Bilirubin 0.7 mg/dL (0.3-1.2); Total Protein 7.1 g/dL (6.2-8.2)
== END | disposition home or self-care (01) ==
LOC: LABWHC1 10:27
PROVIDERS: ATTEND Internal Medicine Interventional Cardiology
DX: E78.2 Mixed hyperlipidemia (principal)
CPT/HCPCS: 36415; 80053; 80061

== ENCOUNTER → 2024-01-03 | Outpatient (CLI) | payer MEDICARE, OTHER ==
--- NOTE | 2024-01-03 10:39 | XR ---
EXAMINATION TYPE: XR chest 2V DATE OF EXAM: 01/03/2024 10:32 AM CLINICAL INDICATION:Male, 73 years old with history of R05.3 CHRONIC COUGH; [facility] COMPARISON: Chest radiographs from 04/13/2018 TECHNIQUE: XR chest 2V Frontal and lateral views of the chest. FINDINGS: Lungs/Pleura: There is no evidence of pleural effusion, focal consolidation, or pneumothorax. Pulmonary vascularity: Unremarkable. Heart/mediastinum: Cardiomediastinal silhouette is unremarkable. Post aortic valve repair changes. Musculoskeletal: No acute osseous pathology. Midline sternotomy wires are noted. Other findings: None IMPRESSION: No acute cardiopulmonary disease/process.
== END | disposition home or self-care (01) ==
LOC: RADXRMAIN 10:20
PROVIDERS: ATTEND Family Medicine
DX: R05.3 Chronic cough (principal)
CPT/HCPCS: 71046